=== PATIENT | female | born 1940 | race Caucasian/White ===

== ENCOUNTER → 2016-08-11 | Outpatient (CLI) | payer MEDICARE ==
[~2016-08-11] MED LIST: ASP81TEC PO; BETA1TAB15 PO; CALC-80 PO; CARV3.12T GT; CPR500T PO; FISH1CAP15 PO; LACT1CAP62 PO; LETR2.5T5 PO; LISI1TAB PO; METR500T PO; NIAC1CAP PO; OXYC-12 PO; ROSU5TAB PO; VENL25TA2 PO; VENL37.52 PO; VIT1TABL93 PO
--- OUTSIDE RECORDS SUMMARY | 2016-08-11 07:51 | XMS REPORT | Continuity of Care Document ---
Author Author [facility] Organization [facility] Address Unknown Phone Unavailable Care Team Providers Care Heating Element Winder Name Role Phone Allegra Evangelista PCP [phone] Source Comments Some departments are not documenting in the electronic medical record. If you do not see the information that you expected, contact Release of Information in the Health Information Management department at [phone] for further assistance in locating additional records.[facility] Active Allergies and Adverse Reactions No [...]
--- NOTE | 2016-08-11 11:48 | Diagnostic Imaging Report ---
PROCEDURE: MRI lumbar spine. TECHNIQUE: Multiplanar, multisequence MRI of the lumbar spine was performed without contrast. INDICATION: Back pain, anterior bilateral leg pain. FINDINGS: The previous MRI lumbar spine exam performed on 10/28/2013 noted a compression deformity of L1. There did appear to be some reactive edema in this area. On this exam, the compression deformity of L1 is again evident and does not appear to have changed significantly. As on the prior exam, there is mild retropulsion of the posterior superior endplate of L1. This portion of the vertebral body indents the ventral aspect of the thecal sac. The thecal sac is generous, however, and there is no evidence for spinal stenosis at this level. The previous study did show slight anterior translation of L4 with respect to L5 as well as desiccation of the disc at the L4-5 level. On the prior exam, the AP diameter of the thecal sac was narrowed to approximately 6.7 mm. On this exam, the AP diameter measures approximately 6.3 mm. There is mild narrowing of the neural foramen bilaterally at this level. The remainder of the lumbar spine is stable when compared to the prior study. No new area of spinal stenosis or nerve root encroachment has developed. There is no abnormal signal arising from the cord or the vertebral bodies to indicate an acute abnormality. There is no sign of a paraspinal mass. IMPRESSION: 1. The compression deformity of L1 seen on the previous study appears stable. There is no acute bony abnormality of the lumbar spine. 2. 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 There is mild narrowing of the neural foramen bilaterally at this level. 3. The remainder of the lumbar spine is stable when compared to the previous study. No new area of spinal stenosis or nerve root encroachment has developed. Dictated by: Dictated on workstation # [id number]
== END ==
LOC: RAD 07:46
PROVIDERS: ATTEND Nurse Practitioner Family
DX: M54.5 Low back pain (principal); M48.06 Spinal stenosis, lumbar region
CPT/HCPCS: 72148

== ENCOUNTER 2016-08-23 10:14 | Outpatient (RCR) | payer MEDICARE ==
--- OUTSIDE RECORDS SUMMARY | 2016-06-06 12:42 | XMS REPORT | Continuity of Care Document ---
Author Author [facility] Organization [facility] Address Unknown Phone Unavailable Care Team Providers Care Side Guider Name Role Phone Allegra Evangelista PCP [phone] Source Comments Some departments are not documenting in the electronic medical record. If you do not see the information that you expected, contact Release of Information in the Health Information Management department at [phone] for further assistance in locating additional records.[facility] Active Allergies and Adverse Reactions No Known Allergies Current Medications Prescription Sig. Disp. Refills Start End Date Status Date rosuvastatin (CRESTOR) 5 Take 5 mg by mouth daily. Active mg tablet venlafaxine XR (EFFEXOR Take 37.5 mg by mouth Active XR) 37.5 mg capsule daily. niacin 500 mg tablet Take 500 mg by mouth Active daily. diazepam (VALIUM) 5 mg Take 5 mg by mouth at Active tablet bedtime as needed. oxyCODone-acetaminophen Take 1-2 Tabs by mouth Active (PERCOCET; ENDOCET; every 4 hours as needed ROXICET) 5-325 mg tablet Max 12 tabs/day carvedilol (COREG) 6.25 Take 1 Tab by mouth twice 60 Tab 1 03/19/20 Active mg tablet daily. 13 lactobacillus rhamnosus Take 1 Cap by mouth twice 60 Cap 1 03/19/20 Active (GG) (CULTURELLE) 10 daily with meals. 13 billion cell cap loperamide (IMODIUM) 2 mg Take 1 Cap by mouth as 03/19/20 Active capsule Needed. For diarrhea. Do 13 not exceed 8 capsules in 24 hours. Active Problems Problem Noted Date Septic shock(785.52) 03/10/2013 Elevated troponin 03/10/2013 Abdominal pain 03/10/2013 Acute renal failure (HCC) 03/10/2013 Lactic acidosis 03/10/2013 Electrolyte disturbance 03/10/2013 Thrombocytopenia (HCC) 03/10/2013 Metabolic acidosis 03/10/2013 Breast carcinoma (HCC) 03/10/2013 Colitis 03/09/2013 Severe sepsis(995.92) 03/09/2013 Hypotension 03/09/2013 HLD (hyperlipidemia) 03/09/2013 Resolved Problems Problem Noted Date Resolved Date Acute kidney injury (HCC) 03/11/2013 03/11/2013 Immunizations Name Dates Previously Given Next Due Flu Vaccine Trivalent=>3 03/14/2013 Yo (Preservative Free) Pneumococcal Vaccine 03/13/2013 (23-Ramila Adult) Social History Tobacco Use Types Packs/Day Years Used Date Never Smoker Alcohol Use Drinks/Week oz/Week Comments Yes once a year Last Filed Vital Signs Vital Sign Reading Time Taken Blood Pressure 158/75 03/19/2013 12:50 PM CDT Pulse 84 03/19/2013 12:50 PM CDT Temperature 36.8 C (98.3 F) 03/19/2013 12:50 PM CDT Respiratory Rate - - Height 1.651 m (5' 5") 03/09/2013 1:24 PM CDT Weight 90.5 kg (199 lb 8.3 oz) 03/19/2013 3:02 AM CDT Body Mass Index 33.2 03/19/2013 3:02 AM CDT Oxygen Saturation 99% 03/19/2013 12:50 PM CDT Plan of Care Health Maintenance Due Date Last Done Comments Physical (Comprehensive) 10/01/1947 Exam Pertussis Vaccine 10/01/1951 Tetanus Vaccine 1957 Breast Cancer Screening 1980 Colorectal Cancer 1990 Screening Shingles Vaccine 2000 Osteoporosis Screening 2005 Prevnar/Pneumovax (#2) 03/13/2014 03/13/2013 Influenza Vaccine 02/17/2016 03/14/2013 Results from Last 3 Months Not on file
== END 2016-08-23 11:27 | disposition home or self-care (01) ==
PROVIDERS: ATTEND Orthopaedic Surgery
DX: M25.511 Pain in right shoulder (principal); Z98.890 Other specified postprocedural states

== ENCOUNTER 2016-09-05 09:53 | Outpatient (RCR) | payer MEDICARE ==
--- OUTSIDE RECORDS SUMMARY | 2016-09-05 09:56 | XMS REPORT | Continuity of Care Document ---
Author Author [facility] Organization [facility] Address Unknown Phone Unavailable Care Team Providers Care Children'S Librarian Name Role Phone Allegra Evangelista PCP [phone] Source Comments Some departments are not documenting in the electronic medical record. If you do not see the information that you expected, contact Release of Information in the Health Information Management department at [phone] for further assistance in locating additional records.[facility] Active Allergies and Adverse Reactions No [...]
[2016-09-05 10:03] LABS: BASOPHILS % (AUTO) 0 % (0-10); EOSINOPHILS # (AUTO) 0.1 10^3/uL (0.0-0.3); EOSINOPHILS % (AUTO) 2 % (0-10); LYMPHOCYTES # (AUTO) 2.5 X 10^3 (1.0-4.0); LYMPHOCYTES % (AUTO) 38 % (12-44); MEAN CORPUSCULAR HEMOGLOBIN 29 PG (25-34); MEAN CORPUSCULAR HGB CONC 33 G/DL (32-36); MEAN CORPUSCULAR VOLUME 88 FL (80-99); MEAN PLATELET VOLUME 10.8 FL (7.4-10.4); MONOCYTES # (AUTO) 0.6 X 10^3 (0.0-1.0); MONOCYTES % (AUTO) 9 % (0-12); NEUTROPHILS # (AUTO) 3.4 X 10^3 (1.8-7.8); NEUTROPHILS % (AUTO) 51 % (42-75); PLATELET COUNT 183 10^3/uL (130-400); RED BLOOD COUNT 4.75 10^6/uL (4.35-5.85); RED CELL DISTRIBUTION WIDTH 15.1 % (10.0-14.5); WHITE BLOOD COUNT 6.7 10^3/uL (4.3-11.0)
[2016-09-05 11:00] LABS: ALBUMIN 4.1 G/DL (3.2-4.5); CALCIUM 10.4 MG/DL (8.5-10.1); CREATININE SERUM 1.18 MG/DL (0.60-1.30); POTASSIUM 4.7 MMOL/L (3.6-5.0); TOTAL PROTEIN 6.7 G/DL (6.4-8.2)
[2016-09-05] MEDS ORDERED: DENOSUMAB 60 MG/1 ML (PROLIA) CANCER CTR SQ SCH (11:15)
== END 2016-12-04 | disposition home or self-care (01) ==
LOC: ONC 09:53
PROVIDERS: ATTEND Internal Medicine Hematology & Oncology
DX: C50.912 Malignant neoplasm of unspecified site of left female breast (principal); M85.80 Other specified disorders of bone density and structure, unspecified site; Z17.0 Estrogen receptor positive status [ER+]; Z79.811 Long term (current) use of aromatase inhibitors; Z79.899 Other long term (current) drug therapy
CPT/HCPCS: 36415; 80053; 82306; 85025; 96372; 99213

== ENCOUNTER 2016-09-18 12:45 | Outpatient (CLI) | payer MEDICARE ==
[~2016-09-18] VITALS: Ht 165.1 cm; Wt 69.4 kg
[2016-09-18] MEDS ORDERED: BUPIVACAINE 0.25% 30 ML (SENSORCAINE) VIAL ONE (12:56)
[2016-09-18] MEDS ORDERED: LIDOCAINE 1% INJ 20 ML (XYLOCAINE) VIAL ONE (12:56)
[2016-09-18] MEDS ORDERED: TRIAMCINOLONE ACET (KENALOG-40) 40 MG/ML 1 ML VIAL ONE (12:56)
[2016-09-18 13:03] VITALS: BP 146/60
[2016-09-18 13:52] VITALS: BP 161/72
--- NOTE | 2016-09-18 14:28 | Pain Medicine-Procedure ---
Procedure Pre-Op/Post-Op Diagnosis Diagnosis: sacrococcygeal disorder Indications for Operation Hip pain Attending Surgeon Dany Procedure Date of Service: Sep 18, 2016 Procedure: Flouroscopic guided bilateral sacroiliac joint injection PROCEDURE IN DETAIL: After obtaining informed consent from the patient, the patient's chart was reviewed. The patient was then brought to the procedure room and placed in the prone position. A time out was performed. The back was prepped with antiseptic solution and under fluoroscopic guidance the patient's sacroiliac joint on both sides was identified. Attention was first turned to the right sacroiliac joint injection where 2 mL's of 1% lidocaine was used to anesthetize the skin and then two 22-gauge 3.5 inch spinal needles were inserted and advanced under flouroscopic guidance until they were in the lower 1 /3 of the right sacroiliac joint. Next, attention was then turned to the left sacroiliac joint injection where 2 mL's of 1% lidocaine was used to anesthetize the skin and then two 22-gauge 3.5 inch spinal needles were inserted and advance under flouroscopic guidance until they were in the lower 1/3 of the sacroiliac joint on the left side. After negative aspiration, each needle was injected with 40 mg of Kenalog along with 2 mL's of 0.25% marcaine. All needles were then flushed with 1% lidocaine and then removed. Band-Aids were applied to all the sites and the patient tolerated the procedure well and was taken to the recovery area in stable condition. Complications None SAMEER ROTH MD Sep 18, 2016 2:28 pm
== END 2016-09-18 13:53 | disposition home or self-care (01) ==
LOC: CARD 12:45
PROVIDERS: ATTEND Pain Medicine Pain Medicine
DX: M53.3 Sacrococcygeal disorders, not elsewhere classified (principal); M47.816 Spondylosis without myelopathy or radiculopathy, lumbar region; Z79.899 Other long term (current) drug therapy
CPT/HCPCS: 27096

== ENCOUNTER 2016-10-27 09:08 | Outpatient (CLI) | payer MEDICARE ==
[~2016-10-27] VITALS: Ht 165.1 cm; Wt 69.4 kg
[2016-10-27] MEDS ORDERED: TRIAMCINOLONE ACET (KENALOG-40) 40 MG/ML 1 ML VIAL ONE (09:53)
[2016-10-27] MEDS ORDERED: BUPIVACAINE 0.25% 30 ML (SENSORCAINE) VIAL ONE (09:53)
[2016-10-27] MEDS ORDERED: LIDOCAINE 1% INJ 20 ML (XYLOCAINE) VIAL ONE (09:53)
[2016-10-27 10:35] VITALS: BP 162/70
--- NOTE | 2016-10-27 13:20 | Pain Medicine-Procedure ---
Procedure Pre-Op/Post-Op Diagnosis Diagnosis: sacrococcygeal disorder Indications for Operation Hip pain Attending Surgeon Dany Procedure Date of Service: October 27, 2016 Procedure: Flouroscopic guided right sacroiliac joint injection PROCEDURE IN DETAIL: After obtaining informed consent from the patient, the patient's chart was reviewed. The patient was then brought to the procedure room and placed in the prone position. A time out was performed. The back was prepped with antiseptic solution and under fluoroscopic guidance the patient's sacroiliac joint on the right side was identified. Right sacroiliac joint was identified with fluoroscopic guidance and 2 mL's of 1% lidocaine was used to anesthestize the skin and then one 22-gauge 3.5 inch spinal needle was inserted and advance under flouroscopic guidance until it was in the posterior inferior 1 /3 of the sacroiliac joint on the right side. After negative aspiration, needle was injected with 80 mg of Kenalog along with 2 mL's of 0.25% marcaine. Needle was then flushed with 1% lidocaine and then removed. Band-Aids were applied to all the sites and the patient tolerated the procedure well and was taken to the recovery area in stable condition. Complications None SAMEER ROTH MD October 27, 2016 1:20 pm
== END 2016-10-27 10:37 | disposition home or self-care (01) ==
LOC: CARD 09:08
PROVIDERS: ATTEND Pain Medicine Pain Medicine
DX: M53.3 Sacrococcygeal disorders, not elsewhere classified (principal)
CPT/HCPCS: 27096

== ENCOUNTER → 2016-11-23 | Outpatient (CLI) | payer MEDICARE ==
--- NOTE | 2016-11-24 17:53 | Diagnostic Imaging Report ---
Bilateral screening mammogram The current study was also evaluated with a Computer Aided Detection (CAD) system. INDICATION: Screening. No current complaints stated on the questionnaire. COMPARISON: 11/22/2015. FINDINGS: The breasts are composed of scattered fibroglandular densities. There is no mass, architectural distortion, or suspicious cluster of calcifications. Surgical clip projecting over the left axillary region within or adjacent to the left pectoralis muscle is seen. Allowing for technique and positional differences, no suspicious change is seen. IMPRESSION: No significant change. ACR BI-RADS Category 2: Benign findings. Result letter will be mailed to the patient. Note: At least 10% of breast cancer is not imaged by mammography. Dictated on workstation # [id number]
== END ==
LOC: RAD 10:32
PROVIDERS: ATTEND Nurse Practitioner Adult Health
DX: Z12.31 Encounter for screening mammogram for malignant neoplasm of breast (principal)
CPT/HCPCS: 77067

== ENCOUNTER 2017-03-09 11:25 | Outpatient (RCR) | payer MEDICARE ==
[2017-03-09 11:41] LABS: BASOPHILS % (AUTO) 0 % (0-10); EOSINOPHILS # (AUTO) 0.2 10^3/uL (0.0-0.3); EOSINOPHILS % (AUTO) 2 % (0-10); LYMPHOCYTES # (AUTO) 2.3 X 10^3 (1.0-4.0); LYMPHOCYTES % (AUTO) 35 % (12-44); MEAN CORPUSCULAR HEMOGLOBIN 30 PG (25-34); MEAN CORPUSCULAR HGB CONC 32 G/DL (32-36); MEAN CORPUSCULAR VOLUME 95 FL (80-99); MONOCYTES # (AUTO) 0.6 X 10^3 (0.0-1.0); MONOCYTES % (AUTO) 10 % (0-12); NEUTROPHILS # (AUTO) 3.4 X 10^3 (1.8-7.8); NEUTROPHILS % (AUTO) 52 % (42-75); PLATELET COUNT 192 10^3/uL (130-400); RED BLOOD COUNT 4.29 10^6/uL (4.35-5.85); RED CELL DISTRIBUTION WIDTH 12.8 % (10.0-14.5); WHITE BLOOD COUNT 6.5 10^3/uL (4.3-11.0)
[2017-03-09 12:02] LABS: ALBUMIN 3.8 GM/DL (3.2-4.5); BILIRUBIN,TOTAL 0.8 MG/DL (0.1-1.0); CALCIUM 9.4 MG/DL (8.5-10.1); CREATININE SERUM 1.02 MG/DL (0.60-1.30); POTASSIUM 3.8 MMOL/L (3.6-5.0); TOTAL PROTEIN 6.4 GM/DL (6.4-8.2)
[2017-03-09] MEDS ORDERED: DENOSUMAB 60 MG/1 ML (PROLIA) CANCER CTR SQ SCH (12:15)
== END 2017-03-17 | disposition home or self-care (01) ==
LOC: ONC 11:25
PROVIDERS: ATTEND Internal Medicine Hematology & Oncology
DX: C50.912 Malignant neoplasm of unspecified site of left female breast (principal); M85.80 Other specified disorders of bone density and structure, unspecified site; Z17.0 Estrogen receptor positive status [ER+]; Z79.811 Long term (current) use of aromatase inhibitors; Z79.899 Other long term (current) drug therapy
CPT/HCPCS: 36415; 80053; 85025; 96372

== ENCOUNTER → 2017-09-28 | Outpatient (CLI) | payer MEDICARE ==
--- NOTE | 2017-09-28 13:51 | Diagnostic Imaging Report ---
Indication: Left knee pain. Procedure: AP, oblique, and lateral views left knee are obtained. Findings: No fracture or acute bony abnormality seen. Impression: Negative left knee. Dictated by: Dictated on workstation # [id number]
== END ==
LOC: RAD 13:33
PROVIDERS: ATTEND Nurse Practitioner Family
DX: M25.562 Pain in left knee (principal)
CPT/HCPCS: 73562

== ENCOUNTER → 2017-10-02 | Outpatient (CLI) | payer MEDICARE ==
--- NOTE | 2017-10-02 15:56 | Diagnostic Imaging Report ---
PROCEDURE: MRI left joint lower extremity without contrast. TECHNIQUE: Multiplanar, multisequence non contrast-enhanced MRI of the left lower extremity was accomplished. INDICATION: Chronic left knee pain. COMPARISON: 09/28/2017 radiographs. FINDINGS: No acute fracture or dislocation is seen in the left knee. Alignment appears normal. There are subcortical cyst-like changes and bone marrow edema at the patella and the lateral trochlea. A small left knee joint effusion is seen. There is moderate cartilaginous thinning and irregularity in the articular cartilage of the patella, with full-thickness fissuring over the median ridge and a full-thickness defect at the lateral trochlea. The articular cartilage in the medial and lateral compartments demonstrates mild thinning with no large full-thickness defects identified. There is complex degenerative tearing of the posterior horn of the medial meniscus, without root avulsion. There is a radial tear at the posterior horn of the lateral meniscus, and complex degenerative tearing of the anterior horn. The anterior and posterior cruciate ligaments are intact. The medial collateral ligament and the lateral collateral ligamentous complex are intact. The extensor mechanism is intact. There is mild edema in Hoffa's fat pad. Mild subcutaneous edema is seen anterior to the patellar tendon. No soft tissue fluid collections are seen. IMPRESSION: 1. Full-thickness cartilage loss at the lateral patellofemoral compartment of the left knee with underlying subcortical cyst-like changes and bone marrow edema. 2. Degenerative tearing of the medial and lateral menisci. Dictated by: Dictated on workstation # [id number]
== END ==
LOC: RAD 13:13
PROVIDERS: ATTEND Nurse Practitioner Family
DX: S83.282A Other tear of lateral meniscus, current injury, left knee, initial encounter (principal); S83.242A Other tear of medial meniscus, current injury, left knee, initial encounter; M89.8X8 Other specified disorders of bone, other site; M94.8X8 Other specified disorders of cartilage, other site
CPT/HCPCS: 73721

== ENCOUNTER → 2017-11-29 | Outpatient (CLI) | payer MEDICARE ==
--- NOTE | 2017-11-29 16:21 | Diagnostic Imaging Report ---
Indication: Osteoporosis screening. Comparison is made with prior DEXA study from 04/22/2015. Bone mineral analysis of the lumbar spine and right hip was performed. Left hip was not evaluated due to left hip hardware. Bone mineral density of the lumbar spine L2-L4 is 1.038 with T score -1.3. This compares with 0.944 and -2.1. Bone mineral density right femoral neck is 0.785 with T score -1.8. This compares with 0.72 and -1.8. Impression: Findings consistent with osteopenia of the lumbar spine and right femoral neck. Dictated by: Dictated on workstation # [id number]
--- NOTE | 2017-11-29 19:15 | Diagnostic Imaging Report ---
INDICATION: Routine screening. Comparison is made with prior mammograms from 11/23/2016 and 11/22/2015. 2-D and 3-D bilateral screening mammography was performed with CAD. The current study was also evaluated with a Computer Aided Detection (CAD) system. FINDINGS: Scattered fibroglandular densities are identified bilaterally. The parenchymal pattern is stable. No dominant mass or malignant-appearing microcalcifications are seen. Axillae are unremarkable. IMPRESSION: No mammographic features suspicious for malignancy are identified. ACR BI-RADS Category 1: Negative. Result letter will be mailed to the patient. Note: At least 10% of breast cancer is not imaged by mammography. Dictated by: Dictated on workstation # [id number]
== END ==
LOC: RAD 11:06
PROVIDERS: ATTEND Nurse Practitioner Adult Health
DX: C50.812 Malignant neoplasm of overlapping sites of left female breast (principal); Z12.31 Encounter for screening mammogram for malignant neoplasm of breast; Z13.820 Encounter for screening for osteoporosis; M85.9 Disorder of bone density and structure, unspecified; N95.9 Unspecified menopausal and perimenopausal disorder; Z79.811 Long term (current) use of aromatase inhibitors
CPT/HCPCS: 77067; 77080

== ENCOUNTER 2018-04-01 10:00 | Outpatient (RCR) | payer MEDICARE ==
[2018-04-01 10:17] LABS: BASOPHILS % (AUTO) 0 % (0-10); EOSINOPHILS # (AUTO) 0.1 10^3/uL (0.0-0.3); EOSINOPHILS % (AUTO) 2 % (0-10); HEMATOCRIT 39 % (35-52); HEMOGLOBIN 13.3 G/DL (11.5-16.0); LYMPHOCYTES # (AUTO) 2.3 X 10^3 (1.0-4.0); LYMPHOCYTES % (AUTO) 27 % (12-44); MEAN CORPUSCULAR HEMOGLOBIN 31 PG (25-34); MEAN CORPUSCULAR HGB CONC 34 G/DL (32-36); MEAN CORPUSCULAR VOLUME 91 FL (80-99); MONOCYTES # (AUTO) 0.8 X 10^3 (0.0-1.0); MONOCYTES % (AUTO) 9 % (0-12); NEUTROPHILS # (AUTO) 5.4 X 10^3 (1.8-7.8); NEUTROPHILS % (AUTO) 63 % (42-75); PLATELET COUNT 164 10^3/uL (130-400); RED BLOOD COUNT 4.32 10^6/uL (4.35-5.85); RED CELL DISTRIBUTION WIDTH 14.1 % (10.0-14.5); WHITE BLOOD COUNT 8.6 10^3/uL (4.3-11.0)
[2018-04-01 10:36] LABS: BILIRUBIN,TOTAL 0.8 MG/DL (0.1-1.0); CALCIUM 10.1 MG/DL (8.5-10.1); CREATININE SERUM 1.22 MG/DL (0.60-1.30); POTASSIUM 4.4 MMOL/L (3.6-5.0); TOTAL PROTEIN 6.6 GM/DL (6.4-8.2)
[2018-04-01] MEDS ORDERED: DENOSUMAB 60 MG/1 ML (PROLIA) CANCER CTR SQ SCH (10:45)
== END 2018-06-30 | disposition home or self-care (01) ==
LOC: ONC 10:00
PROVIDERS: ATTEND Internal Medicine Hematology & Oncology
DX: C50.812 Malignant neoplasm of overlapping sites of left female breast (principal); M85.80 Other specified disorders of bone density and structure, unspecified site; I12.9 Hypertensive chronic kidney disease with stage 1 through stage 4 chronic kidney disease, or unspecified chronic kidney disease; N18.3 Chronic kidney disease, stage 3 (moderate); E55.9 Vitamin D deficiency, unspecified; E78.00 Pure hypercholesterolemia, unspecified; Z17.0 Estrogen receptor positive status [ER+]; Z79.811 Long term (current) use of aromatase inhibitors; Z79.82 Long term (current) use of aspirin; Z79.899 Other long term (current) drug therapy
CPT/HCPCS: 36415; 80053; 85025; 96372

== ENCOUNTER 2018-05-08 11:00 | Outpatient (RCR) | payer MEDICARE | END 2018-05-08 12:59 | disposition home or self-care (01) | PROVIDERS: ATTEND Orthopaedic Surgery | DX: M17.12 Unilateral primary osteoarthritis, left knee (principal) ==

== ENCOUNTER 2018-07-28 09:53 | Emergency (ER) | payer MEDICARE ==
[~2018-07-28] VITALS: Ht 162.6 cm; Wt 81.6 kg
--- OUTSIDE RECORDS SUMMARY | 2018-07-28 09:57 | XMS REPORT | Clinical Summary ---
Author Author [facility] Organization [facility] Address Unknown Phone Unavailable Care Team Providers Care Snack Bar Cook Name Role Phone Idalia Moody RN Unavailable Unavailable Allegra Evangelista MD PCP Source Comments Some departments are not documenting in the electronic medical record. If you do not see the information that you expected, contact Release of Information in the Health Information Management department at [phone] for further assistance in locating additional records.[facility] Allergies No Known Allergies Medications End Date Status Medication Sig Dispensed Refills Start Date Active rosuvastatin (CRESTOR) 5 Take 5 mg by 0 mg tablet mouth daily. Active venlafaxine XR (EFFEXOR Take 37.5 mg 0 XR) 37.5 mg capsule by mouth daily. Active niacin 500 mg tablet Take 500 mg 0 by mouth daily. Active diazepam (VALIUM) 5 mg Take 5 mg by 0 tablet mouth at bedtime as needed. Active oxyCODone-acetaminophen Take 1-2 Tabs 0 (PERCOCET; ENDOCET; by mouth ROXICET) 5-325 mg tablet every 4 hours as needed Max 12 tabs/day Active carvedilol (COREG) 6.25 Take 1 Tab by 60 Tab 1 mg tablet mouth twice 3 daily. Active lactobacillus rhamnosus Take 1 Cap by 60 Cap 1 (GG) (CULTURELLE) 10 mouth twice 3 billion cell cap daily with meals. Active loperamide (IMODIUM) 2 mg Take 1 Cap by 0 capsule mouth as 3 Needed. For diarrhea. Do not exceed 8 capsules in 24 hours. Active Problems Problem Noted Date Septic shock(785.52) 03/10/2013 Elevated troponin 03/10/2013 Abdominal pain 03/10/2013 Acute renal failure 03/10/2013 Lactic acidosis 03/10/2013 Electrolyte disturbance 03/10/2013 Thrombocytopenia 03/10/2013 Metabolic acidosis 03/10/2013 Breast carcinoma 03/10/2013 Colitis 03/09/2013 Severe sepsis(995.92) 03/09/2013 Hypotension 03/09/2013 HLD (hyperlipidemia) 03/09/2013 Resolved Problems Problem Noted Date Resolved Date Acute kidney injury 03/11/2013 03/11/2013 Immunizations Name Dates Previously Given Next Due Flu Vaccine Trivalent=>3 03/14/2013 Yo (Preservative Free) Pneumococcal Vaccine 03/13/2013 (23-Ramila Adult) Family History Medical History Relation Name Comments Arthritis-rheumatoid Father Hypertension Father Stroke Father Diabetes Maternal Grandfather Heart Failure Maternal Grandmother Arthritis-rheumatoid Mother Cancer Mother Cancer Paternal Aunt Relation Name Status Comments Father Maternal Grandfather Maternal Grandmother Mother Paternal Aunt Social History Date Tobacco Use Types Packs/Day Years Used Never Smoker Alcohol Use Drinks/Week oz/Week Comments Yes once a year Sex Assigned at Date Recorded Not on file Industry Job Start Date Occupation Not on file Not on file Not on file Travel End Travel History Travel Start No recent travel history available. Last Filed Vital Signs Time Taken Vital Sign Reading 03/19/2013 12:50 PM CDT Blood Pressure 158/75 03/19/2013 12:50 PM CDT Pulse 84 03/19/2013 12:50 PM CDT Temperature 36.8 C (98.3 F) - Respiratory Rate - 03/19/2013 12:50 PM CDT Oxygen Saturation 99% - Inhaled Oxygen - Concentration 03/19/2013 3:02 AM CDT Weight 90.5 kg (199 lb 8.3 oz) 03/09/2013 1:24 PM CDT Height 165.1 cm (5' 5") 03/19/2013 3:02 AM CDT Body Mass Index 33.2 Plan of Treatment Health Maintenance Due Date Last Done Comments PHYSICAL (COMPREHENSIVE) 10/01/1947 EXAM DTAP/TDAP VACCINES (1 - 1958 Tdap) SHINGLES RECOMBINANT 1990 VACCINE (1 of 2) OSTEOPOROSIS 2005 SCREENING/MONITORING PNEUMONIA (PCV13/PPSV23) 03/13/2014 03/13/2013 VACCINES (2 of 2 - PCV13) INFLUENZA VACCINE 01/16/2018 03/14/2013 Results Not on filefrom Last 3 Months Insurance Payer Benefit Subscriber ID Type Phone Address Plan / Group MEDICARE MEDICARE xxxxxxxxxx Medicare PART A AND B BCBS NGOC BCBS xxxxxxxxxxxx Medicare SUPPLEMENT Advance Directives Patient has advance care planning documents, and code status on file. For more information, please contact: [facility] [address] [place] [address] Date Inactivated Comments Code Status Date Activated 03/19/2013 5:45 PM Full Code 03/09/2013 9:53 PM Provider has discussed Code Status Yes w/Patient or Family? 03/09/2013 9:53 PM Full Code 03/09/2013 9:01 PM Provider has discussed Code Status Yes w/Patient or Family?
--- OUTSIDE RECORDS SUMMARY | 2018-07-28 09:59 | XMS REPORT | CCD ---
Author Author Alize Jerome Organization [facility] Address [address] [place] [address] Phone Care Team Providers Care Exhaust Emissions Inspector Name Role Phone PP Unavailable CCM Unavailable Summary Purpose Interface Exchange Insurance Providers Payer name Policy type / Coverage type Covered libertarian ID Effective Begin Date Effective End Date WPS Medicare Part B Medicare Part B [id number] Unknown Unknown [facility] Medicare Part B [id number] Unknown Unknown Family history Father Diagnosis Age At Onset Stroke Unknown Runs in the family Diagnosis Age At Onset Heart disease Unknown Cancer Unknown Mother Diagnosis Age At Onset lung cancer Unknown Heart disease Unknown Grandfather Diagnosis Age At Onset Diabetes mellitus Type 2 Unknown Social History Social History Element Codes Description Effective Dates Marital status Unknown 01/04/2015 Number of children Unknown 3 01/04/2015 Employment Unknown Retired 01/04/[address]: 334954170 Never smoker 01/04/2015 Alcohol history Unknown occasionally drinks alcohol 01/04/2015 Allergies, Adverse Reactions, Alerts Substance Reaction Codes Entered Date Inactivated Date Status * NO KNOWN FOOD ALLERGIES Unknown 01/04/2015 No Inactive Date Active * NO KNOWN DRUG ALLERGIES Unknown 01/04/2015 No Inactive Date Active Past Medical History Illness Codes Condition Status Onset Date Resolved Date Urinary tract infection, site not specified ICD-9: 599.0 ICD-10: N39.0 Active 04/22/2018 Unknown Encounter for general adult medical examination with abnormal findings ICD-9: V70.0 ICD-10: Z00.01 Active 02/09/2017 Unknown Chronic kidney disease, stage 3 (moderate) ICD-9: 585.3 ICD-10: N18.3 Active 01/10/2016 Unknown Essential (primary) hypertension ICD-9: 401.9 ICD-10: I10 Active 01/10/2016 Unknown Mixed hyperlipidemia ICD-9: 272.4 ICD-10: E78.2 Active 01/10/2016 Unknown Low back pain ICD-9: 724.2 ICD-10: M54.5 Active 08/08/2016 Unknown Major depressive disorder, recurrent, mild ICD-9: 296.31 ICD-10: F33.0 Active 11/19/2017 Unknown Mixed incontinence ICD -9: 788.33 ICD-10: N39.46 Active 11/19/2017 Unknown Generalized anxiety disorder ICD-9: 300.00 ICD-10: F41.1 Active 02/07/2016 Unknown Pain in left knee ICD- 9: 719.46 ICD-10: M25.562 Active 09/25/2017 Unknown Synovial cyst of popliteal space [Butts], left knee ICD-9: 727.51 ICD-10: M71.22 Active 09/25/2017 Unknown Chronic pain syndrome ICD-9: 338.4 ICD-10: G89.4 Active 07/12/2017 Unknown Encounter for immunization ICD-9: V06.6 ICD-10: Z23 Active 03/12/2017 Unknown Iliotibial band syndrome, right leg ICD-9: 728.89 ICD-10: M76.31 Active 02/08/2017 Unknown Trochanteric bursitis, right hip ICD-9: 726.5 ICD-10: M70.61 Active 02/08/2017 Unknown Vitamin D deficiency, unspecified ICD-9: 268.9 ICD-10: E55.9 Active 01/10/2016 Unknown Sciatica, right side ICD-9: 724.3 ICD-10: M54.31 Active 02/07/2016 Unknown Forearm fracture ICD-9 : 813.80 Active 03/04/2015 Unknown Hyperlipidemia Unknown Active 01/04/2015 Unknown Hypertension Unknown Active 01/04/2015 Unknown Anxiety state ICD-9: 300.00 Active 01/03/2015 Unknown Chronic renal disease, stage 3, moderately decreased glomerular filtration rate (GFR) between 30-59 mL/min/1.73 square meter ICD-9: 585.3 Active 01/03/2015 Unknown ESSENTIAL HYPERTENSION ICD-9: 401.9 Active 01/03/2015 Unknown Hyperlipidemia ICD-9: 272.4 Active 01/03/2015 Unknown Problems Condition Codes Effective Dates Condition Status Urinary tract infection, site not specified ICD-9: 599.0 ICD-10: N39.0 04/22/2018 Active Encounter for general adult medical examination with abnormal findings ICD-9: V70.0 ICD-10: Z00.01 02/09/2017 Active Chronic kidney disease, stage 3 (moderate) ICD-9: 585.3 ICD-10: N18.3 01/10/2016 Active Essential (primary) hypertension ICD-9: 401.9 ICD-10: I10 01/10/2016 Active Mixed hyperlipidemia ICD-9: 272.4 ICD-10: E78.2 01/10/2016 Active Low back pain ICD-9: 724.2 ICD-10: M54.5 08/08/2016 Active Major depressive disorder, recurrent, mild ICD-9: 296.31 ICD-10: F33.0 11/19/2017 Active Mixed incontinence ICD -9: 788.33 ICD-10: N39.46 11/19/2017 Active Generalized anxiety disorder ICD-9: 300.00 ICD-10: F41.1 02/07/2016 Active Pain in left knee ICD- 9: 719.46 ICD-10: M25.562 09/25/2017 Active Synovial cyst of popliteal space [Butts], left knee ICD-9: 727.51 ICD-10: M71.22 09/25/2017 Active Chronic pain syndrome ICD-9: 338.4 ICD-10: G89.4 07/12/2017 Active Encounter for immunization ICD-9: V06.6 ICD-10: Z23 03/12/2017 Active Iliotibial band syndrome, right leg ICD-9: 728.89 ICD-10: M76.31 02/08/2017 Active Trochanteric bursitis, right hip ICD-9: 726.5 ICD-10: M70.61 02/08/2017 Active Vitamin D deficiency, unspecified ICD-9: 268.9 ICD-10: E55.9 01/10/2016 Active Sciatica, right side ICD-9: 724.3 ICD-10: M54.31 02/07/2016 Active Forearm fracture ICD-9 : 813.80 03/04/2015 Active Hyperlipidemia Unknown 01/04/2015 Active Hypertension Unknown 01/04/2015 Active Anxiety state ICD-9: 300.00 01/03/2015 Active Chronic renal disease, stage 3, moderately decreased glomerular filtration rate (GFR) between 30-59 mL/min/1.73 square meter ICD-9: 585.3 01/03/2015 Active ESSENTIAL HYPERTENSION ICD-9: 401.9 01/03/2015 Active Hyperlipidemia ICD-9: 272.4 01/03/2015 Active Medications Medication Codes Instructions Start Date Stop Date Status Fill Instructions hydrocodone 5 mg-acetaminophen 325 mg tablet RxNorm: 560003 1 Tablet(s) PO Q6 as needed 07/01/2018 07/23/2018 Active hydrocodone 5 mg-acetaminophen 325 mg tablet RxNorm: 981318 1 Tablet(s) PO Q6 as needed 05/14/2018 06/05/2018 Inactive Cipro 500 mg tablet RxNorm: 304273 1 Tablet(s) PO BID 201705/13/2018 Inactive Probiotic BID x 7 days Cipro 500 mg tablet RxNorm: 997982 1 Tablet(s) PO BID 201705/20/2018 Inactive Augmentin 875 mg-125 mg tablet RxNorm: 440721 1 Tablet(s) PO BID 04/29/2018 05/05/2018 Inactive Keflex 500 mg capsule RxNorm: 931707 1 Capsule(s) PO TID 201704/28/2018 Inactive diazepam 5 mg tablet RxNorm: 731580 1 Tablet(s) PO TID PRN 07/14/2018 Active hydrocodone 5 mg-acetaminophen 325 mg tablet RxNorm: 002646 1 Tablet(s) PO Q6 as needed 03/15/2018 04/06/2018 Inactive carvedilol 3.125 mg tablet RxNorm: 099415 TAKE ONE TABLET BY MOUTH TWICE A DAY 02/11/2018 08/09/2018 Active Myrbetriq 25 mg tablet,extended release RxNorm: 2365862 1 Tablet(s) PO daily 01/22/2018 07/20/2018 Active hydrocodone 5 mg-acetaminophen 325 mg tablet RxNorm: 195939 1 Tablet(s) PO Q6 as needed 01/22/2018 02/13/2018 Inactive hydrocodone 5 mg-acetaminophen 325 mg tablet RxNorm: 719229 1 Tablet(s) PO Q6 as needed 11/27/2017 12/19/2017 Inactive Lexapro 10 mg tablet RxNorm: 887024 1.5 Tablet(s) PO daily 09/201709/09/2019 Active Myrbetriq 25 mg tablet,extended release RxNorm: 8975117 1 Tablet(s) PO daily 11/19/2017 01/21/2018 Inactive diazepam 5 mg tablet RxNorm: 226531 1 Tablet(s) PO TID PRN 04/15/2018 Inactive Lexapro 10 mg tablet RxNorm: 685615 TAKE ONE TABLET BY MOUTH EVERY EVENING 10/01/2017 11/18/2017 Inactive hydrocodone 5 mg-acetaminophen 325 mg tablet RxNorm: 543189 1 Tablet(s) PO Q6 as needed 09/28/2017 10/20/2017 Inactive Voltaren 1 % topical gel RxNorm: 627281 4 Gram(s) TOP QID 09/2501/22/2018 Inactive Kenalog 40 mg/mL suspension for injection RxNorm: 7505296 1 Milliliter(s) Inj 09/25/2017 09/25/2017 Inactive Bactrim DS 800 mg-160 mg tablet RxNorm: 838771 1 Tablet(s) PO BID 09/05/2017 09/11/2017 Inactive Take probiotic BID while on antibiotic Bactrim DS 800 mg-160 mg tablet RxNorm: 379265 1 Tablet(s) PO BID 09/05/2017 09/04/2017 Inactive Take probiotic BID while on antibiotic hydrocodone 5 mg-acetaminophen 325 mg tablet RxNorm: 723927 1 Tablet(s) PO Q6 as needed 07/12/2017 09/27/2017 Inactive hydrocodone 5 mg-acetaminophen 325 mg tablet RxNorm: 118633 1 Tablet(s) PO Q6 as needed 06/05/2017 07/11/2017 Inactive carvedilol 3.125 mg tablet RxNorm: 068508 TAKE ONE TABLET BY MOUTH TWICE A DAY 05/21/2017 02/10/2018 Inactive hydrocodone 5 mg-acetaminophen 325 mg tablet RxNorm: 203985 1 Tablet(s) PO Q6 as needed 04/20/2017 06/04/2017 Inactive Voltaren 1 % topical gel RxNorm: 154800 2 Gram(s) TOP QID to affected area 04/12/2017 07/10/2017 Inactive Voltaren 1 % topical gel RxNorm: 147989 2 Gram(s) TOP QID to affected area 04/12/2017 04/11/2017 Inactive diazepam 5 mg tablet RxNorm: 069458 1 Tablet(s) PO TID PRN 04/15/2018 Inactive Flector 1.3 % transdermal 12 hour patch RxNorm: 356249 1 Patch TOP BID 03/27/2017 04/11/2017 Inactive Flector 1.3 % transdermal 12 hour patch RxNorm: 812623 1/8 Patch TOP BID 03/12/2017 03/26/2017 Inactive hydrocodone 5 mg-acetaminophen 325 mg tablet RxNorm: 906883 1 Tablet(s) PO Q6 as needed 02/20/2017 04/19/2017 Inactive prednisone 10 mg tablets in a dose pack RxNorm: 696181 1 Tablet(s) PO UD 02/08/2017 09/24/2017 Inactive prednisone 10 mg tablets in a dose pack RxNorm: 651242 1 Tablet(s) PO UD 02/08/2017 02/07/2017 Inactive diazepam 5 mg tablet RxNorm: 642675 1 Tablet(s) PO TID PRN 08/201601/15/2017 Inactive Lexapro 10 mg tablet RxNorm: 458986 TAKE ONE TABLET BY MOUTH EVERY EVENING 08/13/2016 2017 Inactive carvedilol 3.125 mg tablet RxNorm: 372954 1 Tablet(s) PO BID 05/20/2017 Inactive diazepam 5 mg tablet RxNorm: 090186 1 Tablet(s) PO TID PRN 04/15/2018 Inactive Lexapro 10 mg tablet RxNorm: 598206 1 Tablet(s) PO QPM 201508/12/2016 Inactive Lexapro 5 mg tablet RxNorm: 454287 2 Tablet(s) PO QPM 201502/28/2016 Inactive hydrocodone 5 mg-acetaminophen 325 mg tablet RxNorm: 200396 1 Tablet(s) PO Q6 as needed 02/08/2016 02/19/2017 Inactive Lexapro 5 mg tablet RxNorm: 906034 1 Tablet(s) PO QPM 201502/17/2016 Inactive diazepam 5 mg tablet RxNorm: 482376 1 Tablet(s) PO TID PRN 07/201501/15/2016 Inactive Effexor XR 37.5 mg capsule,extended release RxNorm: 717058 1 Capsule(s) PO daily 09/29/2015 01/10/2016 Inactive diazepam 5 mg tablet RxNorm: 073163 1 Tablet(s) PO TID PRN 09/06/2015 Inactive carvedilol 3.125 mg tablet RxNorm: 341986 1 Tablet(s) PO BID 05/24/2016 Inactive diazepam 5 mg tablet RxNorm: 736966 1 Tablet(s) PO TID PRN 03/16/2016 Inactive Fish Oil 360 mg-1,200 mg capsule RxNorm: 376830 1 Capsule(s) PO daily 01/04/2015 No Stop Date Active diazepam 5 mg tablet RxNorm: 545988 1 Tablet(s) PO TID PRN 02/01/2015 Inactive diazepam 5 mg tablet RxNorm: 619718 1 Tablet(s) PO daily 201412/21/2014 Inactive pt to make an appt- called 1 mo to [facility]ill[facility] diazepam 5 mg tablet RxNorm: 695017 1 Tablet(s) PO daily 201412/21/2014 Inactive diazepam 5 mg tablet RxNorm: 316099 1 Tablet(s) PO QHS 201401/03/2015 Inactive pt to make an appt- called 1 mo to dill[facility] niacin (inositol niacinate) 500 mg capsule RxNorm: 748428 1 Capsule(s) PO daily No Start Date Active letrozole 2.5 mg tablet RxNorm: 216631 1 Tablet(s) PO daily No Start Date Active aspirin 81 mg tablet RxNorm: 022946 1 Tablet(s) PO daily No Start Date Active Crestor 5 mg tablet RxNorm: 757629 1 Tablet(s) PO QHS No Start Date Active hydrocodone 5 mg-acetaminophen 325 mg tablet RxNorm: 748534 1 Tablet(s) PO Q6 as needed No Start Date 02/07/2016 Inactive Coreg 6.25 mg tablet RxNorm: 479420 1 Tablet(s) PO BID No Start Date 05/30/2015 Inactive Delzicol 400 mg capsule,delayed release RxNorm: 1669490 2 Capsule(s) PO daily No Start Date 08/07/2016 Inactive venlafaxine 37.5 mg tablet RxNorm: 521071 1 Tablet(s) PO daily No Start Date 01/03/2015 Inactive Effexor XR 37.5 mg capsule,extended release RxNorm: 304091 1 Capsule(s) PO daily No Start Date 09/28/2015 Inactive Medication Administered Medication Codes Instructions Start Date Status Kenalog 40 mg/mL suspension for injection RxNorm: 7066362 1Milliliter 09/25/2017 No longer Active Immunizations Vaccine Codes Date Status Influenza CVX: 141 03/12/2017 completed Pneumococcal (Adult) CVX: 133 03/12/2017 completed PPD Unknown 03/05/2015 completed Assessments Condition Codes Effective Dates Urinary tract infection, site not specified ICD-10: N39.0 ICD-9: 599.0 05/08/2018 Encounter for general adult medical examination with abnormal findings ICD-10: Z00.01 ICD-9: V70.0 04/29/2018 Chronic kidney disease, stage 3 (moderate) ICD-10: N18.3 ICD-9: 585.3 04/22/2018 Essential (primary) hypertension ICD-10: I10 ICD-9: 401.9 04/22/2018 Mixed hyperlipidemia ICD-10: E78.2 ICD-9: 272.4 04/22/2018 Low back pain ICD-10: M54.5 ICD-9: 724.2 01/22/2018 Major depressive disorder, recurrent, mild ICD-10: F33.0 ICD-9: 296.31 01/22/2018 Mixed incontinence ICD-10: N39.46 ICD-9: 788.33 01/22/2018 Generalized anxiety disorder ICD-10: F41.1 ICD-9: 300.00 11/19/2017 Pain in left knee ICD-10: M25.562 ICD-9: 719.46 09/25/2017 Synovial cyst of popliteal space [Butts], left knee ICD-10: M71.22 ICD-9: 727.51 09/25/2017 Chronic pain syndrome ICD-10: G89.4 ICD-9: 338.4 07/12/2017 Iliotibial band syndrome, right leg ICD-10: M76.31 ICD-9: 728.89 03/12/2017 Encounter for immunization ICD-10: Z23 ICD-9: V06.6 03/12/2017 Vitamin D deficiency, unspecified ICD-10: E55.9 ICD-9: 268.9 02/08/2017 Trochanteric bursitis, right hip ICD-10: M70.61 ICD-9: 726.5 02/08/2017 Sciatica, right side ICD-10: M54.31 ICD-9: 724.3 02/08/2016 Forearm fracture ICD-9: 813.80 2014 ESSENTIAL HYPERTENSION ICD-9: 401.9 01/04 Chronic renal disease, stage 3, moderately decreased glomerular filtration rate (GFR) between 30-59 mL/min/1.73 square meter ICD-9: 585.3 01/04/2015 Hyperlipidemia ICD-9: 272.4 01/04/2015 Anxiety state ICD-9: 300.00 01/04/2015 Reason For Visit Reason For Visit Effective Dates Notes Annual Medicare Wellness Exam 04/29/2018 dysuria 04/22/2018 depression 01/22/2018 depression 11/19/2017 knee pain 09/25/2017 hypertension 07/12/2017 hypertension 03/12/2017 Annual Medicare Wellness Exam 02/09/2017 depression 02/08/2017 depression 08/08/2016 depression 02/08/2016 hypertension 01/11/2016 hypertension 07/12/2015 hypertension 01/04/2015 Results Observation Observation Code Item Item Code Result Date Culture Urine [id number] URINE CULTURE SEE NOTES 05/13/2018 Urine Culture Ucult Complete Growth of aerobe sent to ref lab 05/10/2018 Culture Urine [id number] URINE CULTURE SEE NOTES 04/25/2018 Culture Urine [id number] Continued Results 04/25/2018 Urine Culture Ucult Complete Growth of aerobe sent to ref lab 04/23/2018 Comp Metabolic Dcs303 NA 142 mEq/L 04/22/2018 Comp Metabolic Kre643 K 4.3 mEq/L 04/22/2018 Comp Metabolic Rhv851 CL 104 mEq/L 04/22/2018 Comp Metabolic Vvm007 CO2 29.0 mEq/L 04/22/2018 Comp Metabolic Jnh248 ANION GAP 13 04/22/2018 Comp Metabolic Ffl929 GLUCOSE 106 mg/dL 04/22/2018 Comp Metabolic Afc641 Creat 1.1 mg/dL 04/22/2018 Comp Metabolic Pxm361 eGFR 53 ml/min/1.73m2 04/22/2018 Comp Metabolic Boe420 BUN 18 mg/dL 04/22/2018 Comp Metabolic Wzr847 B/C Ratio 17.0 Ratio 04/22/2018 Comp Metabolic Slj443 CALCIUM 9.6 mg/dL 04/22/2018 Comp Metabolic Cmt500 ALK PHOS 121 U/L 04/22/2018 Comp Metabolic Drt010 AST(SGOT) 15 U/L 04/22/2018 Comp Metabolic Qyn328 ALT(SGPT) 13 U/L 04/22/2018 Comp Metabolic Zhg655 BILI T 1.0 mg/dL 04/22/2018 Comp Metabolic Cnq394 ALBUMIN 4.1 g/dL 04/22/2018 Comp Metabolic Kcn007 TPRO 6.3 g/dL 04/22/2018 Comp Metabolic Kok571 GLOB 2.2 g/dL 04/22/2018 Comp Metabolic Acj239 A/G Ratio 1.9 Ratio 04/22/2018 Comp Metabolic Lki880 Osmo 285 mOsmo 04/22/2018 Cbc With Differential Ord2 WBC 8.91 K/ul 04/22/2018 Cbc With Differential Ord2 RBC 4.41 M/ul 04/22/2018 Cbc With Differential Ord2 HGB 13.5 g/dl 04/22/2018 Cbc With Differential Ord2 HCT 42.5 % 04/22/2018 Cbc With Differential Ord2 Neut% 68.9 % 04/22/2018 Cbc With Differential Ord2 Lymph% 21.1 % 04/22/2018 Cbc With Differential Ord2 MCV 96.4 fl 04/22/2018 Cbc With Differential Ord2 Hughes% 8.0 % 04/22/2018 Cbc With Differential Ord2 MCH 30.6 pg 04/22/2018 Cbc With Differential Ord2 Eos% 1.9 % 04/22/2018 Cbc With Differential Ord2 MCHC 31.8 pg 04/22/2018 Cbc With Differential Ord2 Baso% 0.1 % 04/22/2018 Cbc With Differential Ord2 PLT 222 K/ul 04/22/2018 Cbc With Differential Ord2 RDW 14.7 % 04/22/2018 Cbc With Differential Ord2 Neut ABS# 6.14 K/ul 04/22/2018 Cbc With Differential Ord2 Lymph ABS# 1.88 K/ul 04/22/2018 Cbc With Differential Ord2 Hughes ABS# 0.7 K/ul 04/22/2018 Cbc With Differential Ord2 Eos ABS# 0.2 K/ul 04/22/2018 Cbc With Differential Ord2 Baso ABS# 0.0 K/ul 04/22/2018 Tsh Ord6 TSH (3rd IS) 2.44 uIU/mL 04/22/2018 Lipid Ord30 CHOL 168 mg/dL 04/22/2018 Lipid Ord30 HDL 55.0 mg/dl 04/22/2018 Lipid Ord30 TRIG 176 mg/dL 04/22/2018 Lipid Ord30 LDL 78 mg/dL 04/22/2018 Lipid Ord30 C/HDL 3.1 Ratio 04/22/2018 Tsh Ord6 hTSH II 1.69 uIU/mL 02/08/2017 Lipid Ord30 CHOL 171 mg/dL 02/08/2017 Lipid Ord30 HDL 50.0 mg/dl 02/08/2017 Lipid Ord30 TRIG 191 mg/dL 02/08/2017 Lipid Ord30 LDL 83 mg/dL 02/08/2017 Lipid Ord30 C/HDL 3.4 Ratio 02/08/2017 Cbc With Differential Ord2 WBC 7.39 K/ul 02/08/2017 Cbc With Differential Ord2 RBC 4.45 M/ul 02/08/2017 Cbc With Differential Ord2 HGB 14.0 g/dl 02/08/2017 Cbc With Differential Ord2 Neut% 61.4 % 02/08/2017 Cbc With Differential Ord2 HCT 43.2 % 02/08/2017 Cbc With Differential Ord2 MCV 97.1 fl 02/08/2017 Cbc With Differential Ord2 Lymph% 27.1 % 02/08/2017 Cbc With Differential Ord2 MCH 31.5 pg 02/08/2017 Cbc With Differential Ord2 Hughes% 10.0 % 02/08/2017 Cbc With Differential Ord2 MCHC 32.4 pg 02/08/2017 Cbc With Differential Ord2 Eos% 1.4 % 02/08/2017 Cbc With Differential Ord2 PLT 164 K/ul 02/08/2017 Cbc With Differential Ord2 Baso% 0.1 % 02/08/2017 Cbc With Differential Ord2 Neut ABS# 4.54 K/ul 02/08/2017 Cbc With Differential Ord2 RDW 13.4 % 02/08/2017 Cbc With Differential Ord2 Lymph ABS# 2.00 K/ul 02/08/2017 Cbc With Differential Ord2 Hughes ABS# 0.7 K/ul 02/08/2017 Cbc With Differential Ord2 Eos ABS# 0.1 K/ul 02/08/2017 Cbc With Differential Ord2 Baso ABS# 0.0 K/ul 02/08/2017 Comp Metabolic Mae121 NA 142 mEq/L 02/08/2017 Comp Metabolic Ffe735 K 4.5 mEq/L 02/08/2017 Comp Metabolic Prh518 CL 106 mEq/L 02/08/2017 Comp Metabolic Jvp440 CO2 27.0 mEq/L 02/08/2017 Comp Metabolic Mft301 ANION GAP 14 02/08/2017 Comp Metabolic Yjk256 GLUCOSE 102 mg/dL 02/08/2017 Comp Metabolic Evw317 Creat 0.9 mg/dL 02/08/2017 Comp Metabolic Mns797 eGFR 62 ml/min/1.73m2 02/08/2017 Comp Metabolic Ayh253 BUN 14 mg/dL 02/08/2017 Comp Metabolic Tuv198 B/C Ratio 15.1 Ratio 02/08/2017 Comp Metabolic Nsq416 CALCIUM 9.5 mg/dL 02/08/2017 Comp Metabolic Xue734 ALK PHOS 98 U/L 02/08/2017 Comp Metabolic Jcj071 AST(SGOT) 19 U/L 02/08/2017 Comp Metabolic Mfg935 ALT(SGPT) 15 U/L 02/08/2017 Comp Metabolic Xkm172 BILI T 1.1 mg/dL 02/08/2017 Comp Metabolic Utm812 ALBUMIN 4.1 g/dL 02/08/2017 Comp Metabolic Siq186 TPRO 6.2 g/dL 02/08/2017 Comp Metabolic Uuq121 GLOB 2.1 g/dL 02/08/2017 Comp Metabolic Zml745 A/G Ratio 2.0 Ratio 02/08/2017 Comp Metabolic Xbd458 Osmo 284 mOsmo 02/08/2017 Lipid Ord30 CHOL 178 mg/dL 08/08/2016 Lipid Ord30 HDL 54.0 mg/dl 08/08/2016 Lipid Ord30 TRIG 184 mg/dL 08/08/2016 Lipid Ord30 LDL 87 mg/dL 08/08/2016 Lipid Ord30 C/HDL 3.3 Ratio 08/08/2016 Tsh Ord6 hTSH II 3.12 uIU/mL 08/08/2016 Comp Metabolic Drf891 NA 140 mEq/L 08/08/2016 Comp Metabolic Tqk141 K 4.4 mEq/L 08/08/2016 Comp Metabolic Ypj850 CL 104 mEq/L 08/08/2016 Comp Metabolic Pdc735 CO2 30.0 mEq/L 08/08/2016 Comp Metabolic Whn582 ANION GAP 10 08/08/2016 Comp Metabolic Tcn314 GLUCOSE 107 mg/dL 08/08/2016 Comp Metabolic Gwd138 Creat 1.1 mg/dL 08/08/2016 Comp Metabolic Scg901 eGFR 53 ml/min/1.73m2 08/08/2016 Comp Metabolic Tbh368 BUN 22 mg/dL 08/08/2016 Comp Metabolic Xrj879 B/C Ratio 20.6 Ratio 08/08/2016 Comp Metabolic Woh245 CALCIUM 10.8 mg/dL 08/08/2016 Comp Metabolic Zga011 ALK PHOS 140 U/L 08/08/2016 Comp Metabolic Haz801 AST(SGOT) 21 U/L 08/08/2016 Comp Metabolic Zpq690 ALT(SGPT) 17 U/L 08/08/2016 Comp Metabolic Rps438 BILI T 0.8 mg/dL 08/08/2016 Comp Metabolic Qfo809 ALBUMIN 4.3 g/dL 08/08/2016 Comp Metabolic Kqb996 TPRO 6.7 g/dL 08/08/2016 Comp Metabolic Eqv454 GLOB 2.4 g/dL 08/08/2016 Comp Metabolic Kxp597 A/G Ratio 1.8 Ratio 08/08/2016 Comp Metabolic Jzm743 Osmo 283 mOsmo 08/08/2016 Cbc With Differential Ord2 WBC 6.27 K/ul 08/08/2016 Cbc With Differential Ord2 RBC 4.87 M/ul 08/08/2016 Cbc With Differential Ord2 HGB 14.1 g/dl 08/08/2016 Cbc With Differential Ord2 Neut% 51.2 % 08/08/2016 Cbc With Differential Ord2 HCT 43.8 % 08/08/2016 Cbc With Differential Ord2 Lymph% 35.2 % 08/08/2016 Cbc With Differential Ord2 MCV 89.9 fl 08/08/2016 Cbc With Differential Ord2 MCH 29.0 pg 08/08/2016 Cbc With Differential Ord2 Hughes% 11.0 % 08/08/2016 Cbc With Differential Ord2 Eos% 2.4 % 08/08/2016 Cbc With Differential Ord2 MCHC 32.2 pg 08/08/2016 Cbc With Differential Ord2 PLT 192 K/ul 08/08/2016 Cbc With Differential Ord2 Baso% 0.2 % 08/08/2016 Cbc With Differential Ord2 Neut ABS# 3.21 K/ul 08/08/2016 Cbc With Differential Ord2 RDW 15.3 % 08/08/2016 Cbc With Differential Ord2 Lymph ABS# 2.21 K/ul 08/08/2016 Cbc With Differential Ord2 Hughes ABS# 0.7 K/ul 08/08/2016 Cbc With Differential Ord2 Eos ABS# 0.2 K/ul 08/08/2016 Cbc With Differential Ord2 Baso ABS# 0.0 K/ul 08/08/2016 Vitamin D 25 Oh Vhl4521 VITAMIN D, 25 HYDROXY 59.99 ng/mL Tsh Ord6 hTSH II 3.86 uIU/mL 01/11/2016 Comp Metabolic Xqj350 NA 137 mEq/L 01/11/2016 Comp Metabolic Qsq938 K 4.4 mEq/L 01/11/2016 Comp Metabolic Fvt238 CL 103 mEq/L 01/11/2016 Comp Metabolic Nai025 CO2 27.0 mEq/L 01/11/2016 Comp Metabolic Yvp980 ANION GAP 11 01/11/2016 Comp Metabolic Omq323 GLUCOSE 102 mg/dL 01/11/2016 Comp Metabolic Zpu811 Creat 1.1 mg/dL 01/11/2016 Comp Metabolic Ely071 eGFR 51 ml/min/1.73m2 01/11/2016 Comp Metabolic Zvp194 BUN 16 mg/dL 01/11/2016 Comp Metabolic Epe869 B/C Ratio 14.5 Ratio 01/11/2016 Comp Metabolic Fkk238 CALCIUM 9.9 mg/dL 01/11/2016 Comp Metabolic Qwo262 ALK PHOS 103 U/L 01/11/2016 Comp Metabolic Hiz010 AST(SGOT) 17 U/L 01/11/2016 Comp Metabolic Bwf012 ALT(SGPT) 14 U/L 01/11/2016 Comp Metabolic Hmy772 BILI T 0.8 mg/dL 01/11/2016 Comp Metabolic Unx831 ALBUMIN 4.4 g/dL 01/11/2016 Comp Metabolic Fhw538 TPRO 6.8 g/dL 01/11/2016 Comp Metabolic Ngv204 GLOB 2.5 g/dL 01/11/2016 Comp Metabolic Cro532 A/G Ratio 1.8 Ratio 01/11/2016 Comp Metabolic Lkz672 Osmo 275 mOsmo 01/11/2016 Lipid Ord30 CHOL 161 mg/dL 01/11/2016 Lipid Ord30 HDL 47.0 mg/dl 01/11/2016 Lipid Ord30 TRIG 174 mg/dL 01/11/2016 Lipid Ord30 LDL 79 mg/dL 01/11/2016 Lipid Ord30 C/HDL 3.4 Ratio 01/11/2016 Cbc With Differential Ord2 WBC 6.19 K/ul 01/11/2016 Cbc With Differential Ord2 RBC 4.77 M/ul 01/11/2016 Cbc With Differential Ord2 HGB 14.5 g/dl 01/11/2016 Cbc With Differential Ord2 HCT 44.4 % 01/11/2016 Cbc With Differential Ord2 Neut% 48.4 % 01/11/2016 Cbc With Differential Ord2 MCV 93.1 fl 01/11/2016 Cbc With Differential Ord2 Lymph% 38.0 % 01/11/2016 Cbc With Differential Ord2 MCH 30.4 pg 01/11/2016 Cbc With Differential Ord2 Hughes% 10.7 % 01/11/2016 Cbc With Differential Ord2 MCHC 32.7 pg 01/11/2016 Cbc With Differential Ord2 Eos% 2.7 % 01/11/2016 Cbc With Differential Ord2 PLT 180 K/ul 01/11/2016 Cbc With Differential Ord2 Baso% 0.2 % 01/11/2016 Cbc With Differential Ord2 RDW 14.1 % 01/11/2016 Cbc With Differential Ord2 Neut ABS# 3.00 K/ul 01/11/2016 Cbc With Differential Ord2 Lymph ABS# 2.35 K/ul 01/11/2016 Cbc With Differential Ord2 Hughes ABS# 0.7 K/ul 01/11/2016 Cbc With Differential Ord2 Eos ABS# 0.2 K/ul 01/11/2016 Cbc With Differential Ord2 Baso ABS# 0.0 K/ul 01/11/2016 Cbc With Differential Ord2 WBC 6.93 K/ul 07/12/2015 Cbc With Differential Ord2 RBC 4.76 M/ul 07/12/2015 Cbc With Differential Ord2 HGB 14.3 g/dl 07/12/2015 Cbc With Differential Ord2 HCT 43.9 % 07/12/2015 Cbc With Differential Ord2 Neut% 46.2 % 07/12/2015 Cbc With Differential Ord2 Lymph% 41.3 % 07/12/2015 Cbc With Differential Ord2 MCV 92.2 fl 07/12/2015 Cbc With Differential Ord2 Hughes% 9.5 % 07/12/2015 Cbc With Differential Ord2 MCH 30.0 pg 07/12/2015 Cbc With Differential Ord2 Eos% 2.9 % 07/12/2015 Cbc With Differential Ord2 MCHC 32.6 pg 07/12/2015 Cbc With Differential Ord2 Baso% 0.1 % 07/12/2015 Cbc With Differential Ord2 PLT 198 K/ul 07/12/2015 Cbc With Differential Ord2 RDW 14.7 % 07/12/2015 Cbc With Differential Ord2 Neut ABS# 3.20 K/ul 07/12/2015 Cbc With Differential Ord2 Lymph ABS# 2.86 K/ul 07/12/2015 Cbc With Differential Ord2 Hughes ABS# 0.7 K/ul 07/12/2015 Cbc With Differential Ord2 Eos ABS# 0.2 K/ul 07/12/2015 Cbc With Differential Ord2 Baso ABS# 0.0 K/ul 07/12/2015 Cbc With Differential Ord2 New Analyzer Notice Please note new ref ranges starting 06-30-2015 due to implemntation of new five part differential hematolgy analyzer. 07/12/2015 Lipid Ord30 CHOL 155 mg/dL 07/12/2015 Lipid Ord30 HDL 53.0 mg/dl 07/12/2015 Lipid Ord30 TRIG 140 mg/dL 07/12/2015 Lipid Ord30 LDL 74 mg/dL 07/12/2015 Lipid Ord30 C/HDL 2.9 Ratio 07/12/2015 Tsh Ord6 hTSH II 3.54 uIU/mL 07/12/2015 Comp Metabolic Fxk715 NA 140 mEq/L 07/12/2015 Comp Metabolic Ipe818 K 4.4 mEq/L 07/12/2015 Comp Metabolic Mnn239 CL 104 mEq/L 07/12/2015 Comp Metabolic Tan784 CO2 28.0 mEq/L 07/12/2015 Comp Metabolic Vqj238 ANION GAP 12 07/12/2015 Comp Metabolic Lpb769 GLUCOSE 92 mg/dL 07/12/2015 Comp Metabolic Ocl187 Creat 1.2 mg/dL 07/12/2015 Comp Metabolic Qhd787 eGFR 47 ml/min/1.73m2 07/12/2015 Comp Metabolic Zrk458 BUN 18 mg/dL 07/12/2015 Comp Metabolic Qhw602 B/C Ratio 15.1 Ratio 07/12/2015 Comp Metabolic Zbc335 CALCIUM 10.1 mg/dL 07/12/2015 Comp Metabolic Xrs800 ALK PHOS 134 U/L 07/12/2015 Comp Metabolic Xog720 AST(SGOT) 18 U/L 07/12/2015 Comp Metabolic Ina578 ALT(SGPT) 17 U/L 07/12/2015 Comp Metabolic Oxw263 BILI T 0.8 mg/dL 07/12/2015 Comp Metabolic Dlr484 ALBUMIN 4.1 g/dL 07/12/2015 Comp Metabolic Gge199 TPRO 6.6 g/dL 07/12/2015 Comp Metabolic Tyb122 GLOB 2.5 g/dL 07/12/2015 Comp Metabolic Rut355 A/G Ratio 1.7 Ratio 07/12/2015 Comp Metabolic Mfs972 Osmo 281 mOsmo 07/12/2015 Cbc With Differential Ord2 WBC 6.0 K/uL 01/05/2015 Cbc With Differential Ord2 LYM 2.8 K/uL 01/05/2015 Cbc With Differential Ord2 LYM% 46.4 % 01/05/2015 Cbc With Differential Ord2 NEUT/GRAN 2.8 K/uL 01/05/2015 Cbc With Differential Ord2 NEUT/GRAN % 47.1 % 01/05/2015 Cbc With Differential Ord2 MID 0.4 K/uL 01/05/2015 Cbc With Differential Ord2 MID% 6.5 % 01/05/2015 Cbc With Differential Ord2 RBC 4.55 M/uL 01/05/2015 Cbc With Differential Ord2 HGB 13.3 g/dL 01/05/2015 Cbc With Differential Ord2 HCT 42.4 % 01/05/2015 Cbc With Differential Ord2 MCV 93 fL 01/05/2015 Cbc With Differential Ord2 MCH 29 pg 01/05/2015 Cbc With Differential Ord2 MCHC 31 g/dL 01/05/2015 Cbc With Differential Ord2 PLT 178 K/uL 01/05/2015 Cbc With Differential Ord2 RDW 15.3 % 01/05/2015 Comp Metabolic Ypw760 NA 139 mEq/L 01/05/2015 Comp Metabolic Qpc808 K 4.0 mEq/L 01/05/2015 Comp Metabolic Sni688 CL 106 mEq/L 01/05/2015 Comp Metabolic Vjt175 CO2 27.0 mEq/L 01/05/2015 Comp Metabolic Bgq234 ANION GAP 10 01/05/2015 Comp Metabolic Hru940 GLUCOSE 111 mg/dL 01/05/2015 Comp Metabolic Zli577 Creat 1.2 mg/dL 01/05/2015 Comp Metabolic Mxs324 eGFR 48 ml/min/1.73m2 01/05/2015 Comp Metabolic Teg370 BUN 18 mg/dL 01/05/2015 Comp Metabolic Myg315 B/C Ratio 15.4 Ratio 01/05/2015 Comp Metabolic Wjd105 CALCIUM 9.2 mg/dL 01/05/2015 Comp Metabolic Yqr863 ALK PHOS 202 U/L 01/05/2015 Comp Metabolic Ggq638 AST(SGOT) 19 U/L 01/05/2015 Comp Metabolic Xmi164 ALT(SGPT) 22 U/L 01/05/2015 Comp Metabolic Gwk907 BILI T 0.7 mg/dL 01/05/2015 Comp Metabolic Rcv073 ALBUMIN 3.8 g/dL 01/05/2015 Comp Metabolic Kfu121 TPRO 6.1 g/dL 01/05/2015 Comp Metabolic Hnh743 GLOB 2.3 g/dL 01/05/2015 Comp Metabolic Mvk243 A/G Ratio 1.7 Ratio 01/05/2015 Comp Metabolic Kpl817 Osmo 280 mOsmo 01/05/2015 Tsh Ord6 hTSH II 3.11 uIU/mL 01/05/2015 Sed Rate Ord21 ESR 20 mm/hr 01/05/2015 Lipid Ord30 CHOL 149 mg/dL 01/05/2015 Lipid Ord30 HDL 43.0 mg/dl 01/05/2015 Lipid Ord30 TRIG 185 mg/dL 01/05/2015 Lipid Ord30 LDL 69 mg/dL 01/05/2015 Lipid Ord30 C/HDL 3.5 Ratio 01/05/2015 Review of Systems System Result Effective Dates Constitutional No recent illness 2017 Constitutional No anorexia 04/29/2018 Constitutional No night sweats 2017 Constitutional No chills 04/29/2018 Constitutional No diaphoresis 04/29/2018 Constitutional fatigue 04/29/2018 Constitutional No fever 04/29/2018 Constitutional No insomnia 04/29/2018 Constitutional No malaise 04/29/2018 Constitutional No weight loss 04/29/2018 Constitutional No weight gain 04/29/2018 Eyes No eye discharge 04/29/2018 Eyes No eye erythema 04/29/2018 Ears/Nose/Throat/Neck No dizziness 2017 Ears/Nose/Throat/Neck No headache 2017 Cardiovascular No chest pain/pressure 05/2018 Cardiovascular No dyspnea 04/29/2018 Cardiovascular No edema 04/29/2018 Respiratory No cough 04/29/2018 Gastrointestinal No abdominal pain 2017 Gastrointestinal No constipation 2017 Gastrointestinal No diarrhea 04/29/2018 Genitourinary/Nephrology dysuria 2017 Genitourinary/Nephrology urinary urgency 04/29/2018 Genitourinary/Nephrology urinary frequency 04/29/2018 Genitourinary/Nephrology urinary incontinence 04/29/2018 Musculoskeletal back pain 04/29/2018 Dermatologic No rash 04/29/2018 Neurologic No alteration of consciousness 04/29/2018 Endocrine No dry or coarse skin 2017 Psychiatric depression 04/29/2018 Constitutional No recent illness 2017 Constitutional No anorexia 04/22/2018 Constitutional No night sweats 2017 Constitutional No chills 04/22/2018 Constitutional No diaphoresis 04/22/2018 Constitutional fatigue 04/22/2018 Constitutional No fever 04/22/2018 Constitutional No insomnia 04/22/2018 Constitutional No malaise 04/22/2018 Constitutional No weight loss 04/22/2018 Constitutional No weight gain 04/22/2018 Eyes No eye discharge 04/22/2018 Eyes No eye erythema 04/22/2018 Ears/Nose/Throat/Neck No headache 2017 Cardiovascular No chest pain/pressure 10/2017 Cardiovascular No dyspnea 04/22/2018 Cardiovascular No edema 04/22/2018 Respiratory No cough 04/22/2018 Gastrointestinal No abdominal pain 2017 Gastrointestinal No constipation 2017 Gastrointestinal No diarrhea 04/22/2018 Genitourinary/Nephrology dysuria 2017 Genitourinary/Nephrology urinary urgency 04/22/2018 Genitourinary/Nephrology urinary frequency 04/22/2018 Genitourinary/Nephrology urinary incontinence 04/22/2018 Musculoskeletal back pain 04/22/2018 Musculoskeletal joint complaint 2017 Dermatologic No rash 04/22/2018 Neurologic No alteration of consciousness 04/22/2018 Psychiatric depression 04/22/2018 Endocrine No dry or coarse skin 2017 Ears/Nose/Throat/Neck No dizziness 2017 Constitutional No recent illness 2017 Constitutional No anorexia 01/22/2018 Constitutional No night sweats 2017 Constitutional No chills 01/22/2018 Constitutional No diaphoresis 01/22/2018 Constitutional fatigue 01/22/2018 Constitutional No fever 01/22/2018 Constitutional No insomnia 01/22/2018 Constitutional No malaise 01/22/2018 Constitutional No weight loss 01/22/2018 Constitutional No weight gain 01/22/2018 Eyes No eye discharge 01/22/2018 Eyes No eye erythema 01/22/2018 Ears/Nose/Throat/Neck dizziness 2017 Ears/Nose/Throat/Neck No headache 2017 Cardiovascular No chest pain/pressure 12/2017 Cardiovascular No dyspnea 01/22/2018 Cardiovascular No edema 01/22/2018 Respiratory No cough 01/22/2018 Gastrointestinal No abdominal pain 2017 Gastrointestinal No constipation 2017 Gastrointestinal No diarrhea 01/22/2018 Genitourinary/Nephrology No dysuria 01/22 Genitourinary/Nephrology urinary urgency 01/22/2018 Genitourinary/Nephrology urinary frequency 01/22/2018 Genitourinary/Nephrology urinary incontinence 01/22/2018 Musculoskeletal joint complaint 2017 Dermatologic No rash 01/22/2018 Neurologic No alteration of consciousness 01/22/2018 Psychiatric depression 01/22/2018 Endocrine No dry or coarse skin 2017 Musculoskeletal back pain 01/22/2018 Genitourinary/Nephrology No dysuria 11/19 Genitourinary/Nephrology urinary urgency 11/19/2017 Genitourinary/Nephrology urinary frequency 11/19/2017 Genitourinary/Nephrology urinary incontinence 11/19/2017 Gastrointestinal No abdominal pain 2017 Gastrointestinal No constipation 2017 Gastrointestinal No diarrhea 11/19/2017 Constitutional No recent illness 2017 Constitutional No anorexia 11/19/2017 Constitutional No night sweats 2017 Constitutional No chills 11/19/2017 Constitutional No diaphoresis 11/19/2017 Constitutional fatigue 11/19/2017 Constitutional No fever 11/19/2017 Constitutional No insomnia 11/19/2017 Constitutional No malaise 11/19/2017 Constitutional No weight loss 11/19/2017 Constitutional No weight gain 11/19/2017 Eyes No eye erythema 11/19/2017 Eyes No eye discharge 11/19/2017 Ears/Nose/Throat/Neck No dizziness 2017 Ears/Nose/Throat/Neck No headache 2017 Cardiovascular No chest pain/pressure 09/2017 Cardiovascular No dyspnea 11/19/2017 Cardiovascular No edema 11/19/2017 Respiratory No cough 11/19/2017 Musculoskeletal joint complaint 2017 Dermatologic No rash 11/19/2017 Neurologic No alteration of consciousness 11/19/2017 Psychiatric depression 11/19/2017 Endocrine No dry or coarse skin 2017 Constitutional No recent illness 2017 Constitutional No anorexia 09/25/2017 Constitutional No night sweats 2017 Constitutional No chills 09/25/2017 Constitutional No diaphoresis 09/25/2017 Constitutional No fatigue 09/25/2017 Constitutional No fever 09/25/2017 Constitutional No insomnia 09/25/2017 Constitutional No malaise 09/25/2017 Constitutional No weight gain 09/25/2017 Constitutional No weight loss 09/25/2017 Musculoskeletal joint complaint 2017 Constitutional No recent illness 2017 Constitutional No anorexia 07/12/2017 Constitutional No night sweats 2017 Constitutional No chills 07/12/2017 Constitutional No diaphoresis 07/12/2017 Constitutional No fatigue 07/12/2017 Constitutional No fever 07/12/2017 Constitutional insomnia 07/12/2017 Constitutional No malaise 07/12/2017 Eyes No eye discharge 07/12/2017 Eyes No eye erythema 07/12/2017 Ears/Nose/Throat/Neck No dizziness 2017 Ears/Nose/Throat/Neck No headache 2017 Cardiovascular No chest pain/pressure Cardiovascular No dyspnea 07/12/2017 Cardiovascular No edema 07/12/2017 Respiratory No productive sputum 2017 Respiratory No chest congestion 2017 Respiratory No cough 07/12/2017 Gastrointestinal No abdominal pain 2017 Gastrointestinal No constipation 2017 Gastrointestinal No diarrhea 07/12/2017 Gastrointestinal No nausea 07/12/2017 Gastrointestinal No vomiting 07/12/2017 Genitourinary/Nephrology No dysuria 07/12 Musculoskeletal stiffness 07/12/2017 Musculoskeletal back pain 07/12/2017 Musculoskeletal joint complaint 2017 Dermatologic No rash 07/12/2017 Neurologic No alteration of consciousness 07/12/2017 Psychiatric anxiety 07/12/2017 Psychiatric depression 07/12/2017 Constitutional No recent illness 2016 Constitutional No anorexia 03/12/2017 Constitutional No night sweats 2016 Constitutional No chills 03/12/2017 Constitutional No diaphoresis 03/12/2017 Constitutional No fatigue 03/12/2017 Constitutional No fever 03/12/2017 Constitutional insomnia 03/12/2017 Constitutional No malaise 03/12/2017 Eyes No eye discharge 03/12/2017 Eyes No eye erythema 03/12/2017 Ears/Nose/Throat/Neck No dizziness 2016 Ears/Nose/Throat/Neck No headache 2016 Cardiovascular No chest pain/pressure Cardiovascular No dyspnea 03/12/2017 Cardiovascular No edema 03/12/2017 Respiratory No productive sputum 2016 Respiratory No chest congestion 2016 Respiratory No cough 03/12/2017 Gastrointestinal No abdominal pain 2016 Gastrointestinal No constipation 2016 Gastrointestinal No diarrhea 03/12/2017 Gastrointestinal No nausea 03/12/2017 Gastrointestinal No vomiting 03/12/2017 Genitourinary/Nephrology No dysuria 03/12 Musculoskeletal stiffness 03/12/2017 Musculoskeletal back pain 03/12/2017 Musculoskeletal joint complaint 2016 Dermatologic No rash 03/12/2017 Neurologic No alteration of consciousness 03/12/2017 Psychiatric anxiety 03/12/2017 Psychiatric depression 03/12/2017 Constitutional No recent illness 2016 Constitutional No chills 02/09/2017 Constitutional No diaphoresis 02/09/2017 Constitutional No fever 02/09/2017 Eyes No eye erythema 02/09/2017 Ears/Nose/Throat/Neck No nasal discharge 02/09/2017 Cardiovascular No chest pain/pressure Cardiovascular No dyspnea 02/09/2017 Respiratory No cough 02/09/2017 Respiratory No dyspnea 02/09/2017 Neurologic No alteration of consciousness 02/09/2017 Neurologic No mental status change 2016 Constitutional No recent illness 2016 Constitutional No anorexia 02/08/2017 Constitutional No night sweats 2016 Constitutional No chills 02/08/2017 Constitutional No diaphoresis 02/08/2017 Constitutional No fatigue 02/08/2017 Constitutional No fever 02/08/2017 Constitutional insomnia 02/08/2017 Constitutional No malaise 02/08/2017 Constitutional No weight loss 02/08/2017 Constitutional No weight gain 02/08/2017 Eyes No eye discharge 02/08/2017 Eyes No eye erythema 02/08/2017 Ears/Nose/Throat/Neck No dizziness 2016 Ears/Nose/Throat/Neck No headache 2016 Cardiovascular No chest pain/pressure Cardiovascular No dyspnea 02/08/2017 Cardiovascular No edema 02/08/2017 Respiratory No productive sputum 2016 Respiratory No chest congestion 2016 Respiratory No cough 02/08/2017 Gastrointestinal No abdominal pain 2016 Gastrointestinal No constipation 2016 Gastrointestinal No diarrhea 02/08/2017 Gastrointestinal No nausea 02/08/2017 Gastrointestinal No vomiting 02/08/2017 Genitourinary/Nephrology No dysuria 02/08 Dermatologic No rash 02/08/2017 Neurologic No alteration of consciousness 02/08/2017 Psychiatric anxiety 02/08/2017 Psychiatric depression 02/08/2017 Musculoskeletal stiffness 02/08/2017 Musculoskeletal back pain 02/08/2017 Musculoskeletal joint complaint 2016 Constitutional No recent illness 2016 Constitutional No anorexia 08/08/2016 Constitutional No night sweats 2016 Constitutional No chills 08/08/2016 Constitutional No diaphoresis 08/08/2016 Constitutional No fatigue 08/08/2016 Constitutional No fever 08/08/2016 Constitutional No insomnia 08/08/2016 Constitutional No malaise 08/08/2016 Constitutional No weight loss 08/08/2016 Constitutional No weight gain 08/08/2016 Eyes No eye discharge 08/08/2016 Eyes No eye erythema 08/08/2016 Ears/Nose/Throat/Neck No dizziness 2016 Ears/Nose/Throat/Neck No headache 2016 Cardiovascular No chest pain/pressure Cardiovascular No dyspnea 08/08/2016 Cardiovascular No edema 08/08/2016 Respiratory No productive sputum 2016 Respiratory No chest congestion 2016 Respiratory No cough 08/08/2016 Gastrointestinal No abdominal pain 2016 Gastrointestinal No constipation 2016 Gastrointestinal No diarrhea 08/08/2016 Gastrointestinal No nausea 08/08/2016 Gastrointestinal No vomiting 08/08/2016 Genitourinary/Nephrology No dysuria 08/08 Musculoskeletal back pain 08/08/2016 Musculoskeletal joint complaint 2016 Dermatologic No rash 08/08/2016 Neurologic No alteration of consciousness 08/08/2016 Psychiatric anxiety 08/08/2016 Psychiatric depression 08/08/2016 Endocrine No dry or coarse skin 2016 Hematologic/Lymphatic No abnormal bleeding and bruising 08/08/2016 Constitutional No recent illness 2015 Constitutional No anorexia 02/08/2016 Constitutional No night sweats 2015 Constitutional No chills 02/08/2016 Constitutional No diaphoresis 02/08/2016 Constitutional No fatigue 02/08/2016 Constitutional No fever 02/08/2016 Constitutional No malaise 02/08/2016 Constitutional No weight loss 02/08/2016 Constitutional No weight gain 02/08/2016 Eyes No eye discharge 02/08/2016 Eyes No eye erythema 02/08/2016 Ears/Nose/Throat/Neck No dizziness 2015 Ears/Nose/Throat/Neck No headache 2015 Cardiovascular No chest pain/pressure Cardiovascular No dyspnea 02/08/2016 Cardiovascular No edema 02/08/2016 Respiratory No productive sputum 2015 Respiratory No chest congestion 2015 Respiratory No cough 02/08/2016 Gastrointestinal No abdominal pain 2015 Gastrointestinal No constipation 2015 Gastrointestinal No diarrhea 02/08/2016 Gastrointestinal No nausea 02/08/2016 Gastrointestinal No vomiting 02/08/2016 Genitourinary/Nephrology No dysuria 02/07 Dermatologic No rash 02/08/2016 Neurologic No alteration of consciousness 02/08/2016 Psychiatric anxiety 02/08/2016 Psychiatric depression 02/08/2016 Endocrine No dry or coarse skin 2015 Hematologic/Lymphatic No abnormal bleeding and bruising 02/08/2016 Musculoskeletal back pain 02/08/2016 Constitutional No recent illness 2015 Constitutional No anorexia 01/11/2016 Constitutional No night sweats 2015 Constitutional No chills 01/11/2016 Constitutional No diaphoresis 01/11/2016 Constitutional No fatigue 01/11/2016 Constitutional No fever 01/11/2016 Constitutional insomnia 01/11/2016 Constitutional No malaise 01/11/2016 Constitutional No weight loss 01/11/2016 Constitutional No weight gain 01/11/2016 Eyes No eye discharge 01/11/2016 Eyes No eye erythema 01/11/2016 Ears/Nose/Throat/Neck No dizziness 2015 Ears/Nose/Throat/Neck No headache 2015 Cardiovascular No chest pain/pressure Cardiovascular No dyspnea 01/11/2016 Cardiovascular No edema 01/11/2016 Respiratory No productive sputum 2015 Respiratory No chest congestion 2015 Respiratory No cough 01/11/2016 Gastrointestinal No abdominal pain 2015 Gastrointestinal No constipation 2015 Gastrointestinal No diarrhea 01/11/2016 Gastrointestinal No nausea 01/11/2016 Gastrointestinal No vomiting 01/11/2016 Genitourinary/Nephrology No dysuria 01/10 Dermatologic No rash 01/11/2016 Neurologic No alteration of consciousness 01/11/2016 Psychiatric anxiety 01/11/2016 Psychiatric depression 01/11/2016 Endocrine No dry or coarse skin 2015 Hematologic/Lymphatic No abnormal bleeding and bruising 01/11/2016 Musculoskeletal joint complaint 2015 Musculoskeletal joint complaint 2015 Constitutional No recent illness 2015 Constitutional No anorexia 07/12/2015 Constitutional No night sweats 2015 Constitutional No chills 07/12/2015 Constitutional No diaphoresis 07/12/2015 Constitutional No fatigue 07/12/2015 Constitutional No fever 07/12/2015 Constitutional No insomnia 07/12/2015 Constitutional No malaise 07/12/2015 Constitutional No weight loss 07/12/2015 Constitutional No weight gain 07/12/2015 Eyes No eye discharge 07/12/2015 Eyes No eye erythema 07/12/2015 Ears/Nose/Throat/Neck No dizziness 2015 Ears/Nose/Throat/Neck No headache 2015 Cardiovascular No chest pain/pressure Cardiovascular No dyspnea 07/12/2015 Cardiovascular No edema 07/12/2015 Respiratory No productive sputum 2015 Respiratory No chest congestion 2015 Respiratory No cough 07/12/2015 Gastrointestinal No abdominal pain 2015 Gastrointestinal No constipation 2015 Gastrointestinal No diarrhea 07/12/2015 Gastrointestinal No nausea 07/12/2015 Gastrointestinal No vomiting 07/12/2015 Genitourinary/Nephrology No dysuria 07/12 Musculoskeletal back pain 07/12/2015 Dermatologic No rash 07/12/2015 Neurologic No alteration of consciousness 07/12/2015 Psychiatric anxiety 07/12/2015 Psychiatric depression 07/12/2015 Endocrine No dry or coarse skin 2015 Hematologic/Lymphatic No abnormal bleeding and bruising 07/12/2015 Constitutional No recent illness 2014 Constitutional No anorexia 01/04/2015 Constitutional No night sweats 2014 Constitutional No chills 01/04/2015 Constitutional No diaphoresis 01/04/2015 Constitutional No fatigue 01/04/2015 Constitutional No fever 01/04/2015 Constitutional No insomnia 01/04/2015 Constitutional No malaise 01/04/2015 Constitutional No weight loss 01/04/2015 Constitutional No weight gain 01/04/2015 Eyes No eye discharge 01/04/2015 Eyes No eye erythema 01/04/2015 Ears/Nose/Throat/Neck No dizziness 2014 Ears/Nose/Throat/Neck No headache 2014 Cardiovascular No chest pain/pressure Cardiovascular No dyspnea 01/04/2015 Cardiovascular No edema 01/04/2015 Respiratory No productive sputum 2014 Respiratory No chest congestion 2014 Respiratory No cough 01/04/2015 Gastrointestinal No abdominal pain 2014 Gastrointestinal No constipation 2014 Gastrointestinal No diarrhea 01/04/2015 Gastrointestinal No vomiting 01/04/2015 Gastrointestinal No nausea 01/04/2015 Genitourinary/Nephrology No dysuria 01/04 Musculoskeletal joint complaint 2014 Musculoskeletal back pain 01/04/2015 Dermatologic No rash 01/04/2015 Neurologic No alteration of consciousness 01/04/2015 Psychiatric depression 01/04/2015 Psychiatric anxiety 01/04/2015 Endocrine No dry or coarse skin 2014 Hematologic/Lymphatic No abnormal bleeding and bruising 01/04/2015 Physical Exam Exam Name System Name Item Name Status Result Effective Dates Notes Full Exam - General 1994 Constitutional general appearance Overall: well developed 04/29/2018 None Full Exam - General 1994 Constitutional general appearance Overall: in no acute distress 04/29/2018 None Full Exam - General 1994 Constitutional general appearance Overall: well nourished 04/29/2018 None Full Exam - General 1994 Eyes conjunctiva /eyelids Overall: conjunctiva clear 04/29/2018 None Full Exam - General 1994 Eyes conjunctiva /eyelids Overall: cornea clear 04/29/2018 None Full Exam - General 1994 Eyes conjunctiva /eyelids Overall: eyelids normal 04/29/2018 None Full Exam - General 1994 Eyes pupils and irises Overall: pupils equal, round, reactive to light and accomodation 04/29/2018 None Full Exam - General 1994 Ears/Nose/Throat otoscopic exam Overall: external auditory canals clear 04/29/2018 None Full Exam - General 1994 Ears/Nose/Throat otoscopic exam Overall: tympanic membranes clear 04/29/2018 None Full Exam - General 1994 Ears/Nose/Throat oral cavity/pharynx/larynx Overall: oral mucosa clear 04/29/2018 None Full Exam - General 1994 Ears/Nose/Throat oral cavity/pharynx/larynx Overall: oropharyngeal mucosa clear 04/29/2018 None Full Exam - General 1994 Ears/Nose/Throat oral cavity/pharynx/larynx Overall: no masses 04/29/2018 None Full Exam - General 1994 Respiratory auscultation Overall: breath sounds clear bilaterally 04/29/2018 None Full Exam - General 1994 Respiratory respiratory effort/rhythm Overall: no retractions 04/29/2018 None Full Exam - General 1994 Respiratory respiratory effort/rhythm Overall: normal rate 04/29/2018 None Full Exam - General 1994 Cardiovascular extremities Overall: no clubbing 04/29/2018 None Full Exam - General 1994 Cardiovascular auscultation of heart Overall: regular rate 04/29/2018 None Full Exam - General 1994 Cardiovascular auscultation of heart Overall: normal heart sounds 04/29/2018 None Full Exam - General 1994 Cardiovascular auscultation of heart Overall: no murmurs 04/29/2018 None Full Exam - General 1994 Abdomen abdominal exam Overall: no tenderness 04/29/2018 None Full Exam - General 1994 Abdomen abdominal exam Overall: normal bowel sounds 04/29/2018 None Full Exam - General 1994 Lymphatic neck nodes Overall: anterior cervical chain benign 04/29/2018 None Full Exam - General 1994 Lymphatic neck nodes Overall: posterior cervical chain benign 04/29/2018 None Full Exam - General 1994 Musculoskeletal gait and station Gait: abnormal stride length 04/29/2018 None Full Exam - General 1994 Musculoskeletal gait and station Gait: abnormal swing through 04/29/2018 None Full Exam - General 1994 Neurologic cranial nerves Overall: crainial nerves 2 - 12 grossly intact 04/29/2018 None Full Exam - General 1994 Psychiatric orientation/consciousness Overall: oriented to person, place and time 04/29/2018 None Full Exam - General 1994 Constitutional general appearance Overall: well developed 04/22/2018 None Full Exam - General 1994 Constitutional general appearance Overall: in no acute distress 04/22/2018 None Full Exam - General 1994 Constitutional general appearance Overall: well nourished 04/22/2018 None Full Exam - General 1994 Eyes conjunctiva /eyelids Overall: conjunctiva clear 04/22/2018 None Full Exam - General 1994 Eyes conjunctiva /eyelids Overall: cornea clear 04/22/2018 None Full Exam - General 1994 Eyes conjunctiva /eyelids Overall: eyelids normal 04/22/2018 None Full Exam - General 1994 Eyes pupils and irises Overall: pupils equal, round, reactive to light and accomodation 04/22/2018 None Full Exam - General 1994 Ears/Nose/Throat otoscopic exam Overall: external auditory canals clear 04/22/2018 None Full Exam - General 1994 Ears/Nose/Throat otoscopic exam Overall: tympanic membranes clear 04/22/2018 None Full Exam - General 1994 Ears/Nose/Throat oral cavity/pharynx/larynx Overall: oral mucosa clear 04/22/2018 None Full Exam - General 1994 Ears/Nose/Throat oral cavity/pharynx/larynx Overall: oropharyngeal mucosa clear 04/22/2018 None Full Exam - General 1994 Ears/Nose/Throat oral cavity/pharynx/larynx Overall: no masses 04/22/2018 None Full Exam - General 1994 Respiratory auscultation Overall: breath sounds clear bilaterally 04/22/2018 None Full Exam - General 1994 Respiratory respiratory effort/rhythm Overall: no retractions 04/22/2018 None Full Exam - General 1994 Respiratory respiratory effort/rhythm Overall: normal rate 04/22/2018 None Full Exam - General 1994 Cardiovascular extremities Overall: no clubbing 04/22/2018 None Full Exam - General 1994 Cardiovascular auscultation of heart Overall: regular rate 04/22/2018 None Full Exam - General 1994 Cardiovascular auscultation of heart Overall: normal heart sounds 04/22/2018 None Full Exam - General 1994 Cardiovascular auscultation of heart Overall: no murmurs 04/22/2018 None Full Exam - General 1994 Abdomen abdominal exam Overall: no tenderness 04/22/2018 None Full Exam - General 1994 Abdomen abdominal exam Overall: normal bowel sounds 04/22/2018 None Full Exam - General 1994 Lymphatic neck nodes Overall: anterior cervical chain benign 04/22/2018 None Full Exam - General 1994 Lymphatic neck nodes Overall: posterior cervical chain benign 04/22/2018 None Full Exam - General 1994 Musculoskeletal gait and station Gait: abnormal stride length 04/22/2018 None Full Exam - General 1994 Musculoskeletal gait and station Gait: abnormal swing through 04/22/2018 None Full Exam - General 1994 Neurologic cranial nerves Overall: crainial nerves 2 - 12 grossly intact 04/22/2018 None Full Exam - General 1994 Psychiatric orientation/consciousness Overall: oriented to person, place and time 04/22/2018 None Full Exam - General 1994 Constitutional general appearance Overall: well developed 01/22/2018 None Full Exam - General 1994 Constitutional general appearance Overall: in no acute distress 01/22/2018 None Full Exam - General 1994 Constitutional general appearance Overall: well nourished 01/22/2018 None Full Exam - General 1994 Eyes conjunctiva /eyelids Overall: conjunctiva clear 01/22/2018 None Full Exam - General 1994 Eyes conjunctiva /eyelids Overall: cornea clear 01/22/2018 None Full Exam - General 1994 Eyes conjunctiva /eyelids Overall: eyelids normal 01/22/2018 None Full Exam - General 1994 Eyes pupils and irises Overall: pupils equal, round, reactive to light and accomodation 01/22/2018 None Full Exam - General 1994 Ears/Nose/Throat otoscopic exam Overall: external auditory canals clear 01/22/2018 None Full Exam - General 1994 Ears/Nose/Throat otoscopic exam Overall: tympanic membranes clear 01/22/2018 None Full Exam - General 1994 Ears/Nose/Throat oral cavity/pharynx/larynx Overall: oral mucosa clear 01/22/2018 None Full Exam - General 1994 Ears/Nose/Throat oral cavity/pharynx/larynx Overall: oropharyngeal mucosa clear 01/22/2018 None Full Exam - General 1994 Ears/Nose/Throat oral cavity/pharynx/larynx Overall: no masses 01/22/2018 None Full Exam - General 1994 Respiratory auscultation Overall: breath sounds clear bilaterally 01/22/2018 None Full Exam - General 1994 Respiratory respiratory effort/rhythm Overall: no retractions 01/22/2018 None Full Exam - General 1994 Respiratory respiratory effort/rhythm Overall: normal rate 01/22/2018 None Full Exam - General 1994 Cardiovascular extremities Overall: no clubbing 01/22/2018 None Full Exam - General 1994 Cardiovascular auscultation of heart Overall: regular rate 01/22/2018 None Full Exam - General 1994 Cardiovascular auscultation of heart Overall: normal heart sounds 01/22/2018 None Full Exam - General 1994 Cardiovascular auscultation of heart Overall: no murmurs 01/22/2018 None Full Exam - General 1994 Abdomen abdominal exam Overall: no tenderness 01/22/2018 None Full Exam - General 1994 Abdomen abdominal exam Overall: normal bowel sounds 01/22/2018 None Full Exam - General 1994 Lymphatic neck nodes Overall: anterior cervical chain benign 01/22/2018 None Full Exam - General 1994 Lymphatic neck nodes Overall: posterior cervical chain benign 01/22/2018 None Full Exam - General 1994 Musculoskeletal gait and station Gait: abnormal stride length 01/22/2018 None Full Exam - General 1994 Musculoskeletal gait and station Gait: abnormal swing through 01/22/2018 None Full Exam - General 1994 Neurologic cranial nerves Overall: crainial nerves 2 - 12 grossly intact 01/22/2018 None Full Exam - General 1994 Psychiatric orientation/consciousness Overall: oriented to person, place and time 01/22/2018 None Full Exam - General 1994 Constitutional general appearance Overall: well developed 11/19/2017 None Full Exam - General 1994 Constitutional general appearance Overall: in no acute distress 11/19/2017 None Full Exam - General 1994 Constitutional general appearance Overall: well nourished 11/19/2017 None Full Exam - General 1994 Eyes conjunctiva /eyelids Overall: conjunctiva clear 11/19/2017 None Full Exam - General 1994 Eyes conjunctiva /eyelids Overall: cornea clear 11/19/2017 None Full Exam - General 1994 Eyes conjunctiva /eyelids Overall: eyelids normal 11/19/2017 None Full Exam - General 1994 Eyes pupils and irises Overall: pupils equal, round, reactive to light and accomodation 11/19/2017 None Full Exam - General 1994 Ears/Nose/Throat otoscopic exam Overall: external auditory canals clear 11/19/2017 None Full Exam - General 1994 Ears/Nose/Throat otoscopic exam Overall: tympanic membranes clear 11/19/2017 None Full Exam - General 1994 Ears/Nose/Throat oral cavity/pharynx/larynx Overall: oral mucosa clear 11/19/2017 None Full Exam - General 1994 Ears/Nose/Throat oral cavity/pharynx/larynx Overall: oropharyngeal mucosa clear 11/19/2017 None Full Exam - General 1994 Ears/Nose/Throat oral cavity/pharynx/larynx Overall: no masses 11/19/2017 None Full Exam - General 1994 Respiratory auscultation Overall: breath sounds clear bilaterally 11/19/2017 None Full Exam - General 1994 Respiratory respiratory effort/rhythm Overall: no retractions 11/19/2017 None Full Exam - General 1994 Respiratory respiratory effort/rhythm Overall: normal rate 11/19/2017 None Full Exam - General 1994 Cardiovascular extremities Overall: no clubbing 11/19/2017 None Full Exam - General 1994 Cardiovascular auscultation of heart Overall: regular rate 11/19/2017 None Full Exam - General 1994 Cardiovascular auscultation of heart Overall: normal heart sounds 11/19/2017 None Full Exam - General 1994 Cardiovascular auscultation of heart Overall: no murmurs 11/19/2017 None Full Exam - General 1994 Abdomen abdominal exam Overall: no tenderness 11/19/2017 None Full Exam - General 1994 Abdomen abdominal exam Overall: normal bowel sounds 11/19/2017 None Full Exam - General 1994 Lymphatic neck nodes Overall: anterior cervical chain benign 11/19/2017 None Full Exam - General 1994 Lymphatic neck nodes Overall: posterior cervical chain benign 11/19/2017 None Full Exam - General 1994 Musculoskeletal gait and station Gait: abnormal stride length 11/19/2017 None Full Exam - General 1994 Musculoskeletal gait and station Gait: abnormal swing through 11/19/2017 None Full Exam - General 1994 Neurologic cranial nerves Overall: crainial nerves 2 - 12 grossly intact 11/19/2017 None Full Exam - General 1994 Psychiatric orientation/consciousness Overall: oriented to person, place and time 11/19/2017 None Full Exam - Orthopedics Constitutional general appearance Overall: well nourished 09/25/2017 None Full Exam - Orthopedics Constitutional general appearance Overall: well developed 09/25/2017 None Full Exam - Orthopedics Constitutional general appearance Overall: in no acute distress 09/25/2017 None Full Exam - Orthopedics Constitutional general appearance Overall: normal body habitus 09/25/2017 None Full Exam - Orthopedics Constitutional general appearance Assistive Device: walker 09/25/2017 None Full Exam - Orthopedics Psychiatric orientation/consciousness Overall: oriented to person, place and time 09/25/2017 None Full Exam - Orthopedics MS: left lower extremity insp & palp - LLE Knee: joint swelling 09/25/2017 None Full Exam - Orthopedics MS: left lower extremity insp & palp - LLE Knee: joint tenderness 09/25/2017 None Full Exam - Orthopedics MS: left lower extremity insp & palp - LLE Lower leg: normal appearance 09/25/2017 None Full Exam - Orthopedics MS: left lower extremity range of motion - LLE Knee: pain with flexion 09/25/2017 tender over medial meniscus Full Exam - Orthopedics MS: left lower extremity range of motion - LLE Knee: decreased flexion 09/25/2017 None Full Exam - Orthopedics MS: left lower extremity stability - LLE Knee: stable knees 09/25/2017 butts's cyst Full Exam - General 1994 Constitutional general appearance Overall: well developed 07/12/2017 None Full Exam - General 1994 Constitutional general appearance Overall: in no acute distress 07/12/2017 None Full Exam - General 1994 Constitutional general appearance Overall: well nourished 07/12/2017 None Full Exam - General 1994 Eyes conjunctiva /eyelids Overall: conjunctiva clear 07/12/2017 None Full Exam - General 1994 Eyes conjunctiva /eyelids Overall: cornea clear 07/12/2017 None Full Exam - General 1994 Eyes conjunctiva /eyelids Overall: eyelids normal 07/12/2017 None Full Exam - General 1994 Eyes pupils and irises Overall: pupils equal, round, reactive to light and accomodation 07/12/2017 None Full Exam - General 1994 Ears/Nose/Throat otoscopic exam Overall: external auditory canals clear 07/12/2017 None Full Exam - General 1994 Ears/Nose/Throat otoscopic exam Overall: tympanic membranes clear 07/12/2017 None Full Exam - General 1994 Ears/Nose/Throat oral cavity/pharynx/larynx Overall: oral mucosa clear 07/12/2017 None Full Exam - General 1994 Ears/Nose/Throat oral cavity/pharynx/larynx Overall: oropharyngeal mucosa clear 07/12/2017 None Full Exam - General 1994 Ears/Nose/Throat oral cavity/pharynx/larynx Overall: no masses 07/12/2017 None Full Exam - General 1994 Respiratory auscultation Overall: breath sounds clear bilaterally 07/12/2017 None Full Exam - General 1994 Respiratory respiratory effort/rhythm Overall: no retractions 07/12/2017 None Full Exam - General 1994 Respiratory respiratory effort/rhythm Overall: normal rate 07/12/2017 None Full Exam - General 1994 Cardiovascular extremities Overall: no clubbing 07/12/2017 None Full Exam - General 1994 Cardiovascular auscultation of heart Overall: regular rate 07/12/2017 None Full Exam - General 1994 Cardiovascular auscultation of heart Overall: normal heart sounds 07/12/2017 None Full Exam - General 1994 Cardiovascular auscultation of heart Overall: no murmurs 07/12/2017 None Full Exam - General 1994 Abdomen abdominal exam Overall: no tenderness 07/12/2017 None Full Exam - General 1994 Abdomen abdominal exam Overall: normal bowel sounds 07/12/2017 None Full Exam - General 1994 Lymphatic neck nodes Overall: anterior cervical chain benign 07/12/2017 None Full Exam - General 1994 Lymphatic neck nodes Overall: posterior cervical chain benign 07/12/2017 None Full Exam - General 1994 Musculoskeletal lower extremity Palpation - thigh: tenderness 07/12/2017 None Full Exam - General 1994 Musculoskeletal spine, ribs and pelvis Sacroiliac joints: tender right sacroiliac joint 07/12/2017 None Full Exam - General 1994 Musculoskeletal spine, ribs and pelvis Sacroiliac joints: tender left sacroiliac joint 07/12/2017 None Full Exam - General 1994 Musculoskeletal gait and station Gait: abnormal stride length 07/12/2017 None Full Exam - General 1994 Musculoskeletal gait and station Gait: abnormal swing through 07/12/2017 None Full Exam - General 1994 Neurologic cranial nerves Overall: crainial nerves 2 - 12 grossly intact 07/12/2017 None Full Exam - General 1994 Psychiatric orientation/consciousness Overall: oriented to person, place and time 07/12/2017 None Full Exam - General 1994 Constitutional general appearance Overall: well developed 03/12/2017 None Full Exam - General 1994 Constitutional general appearance Overall: in no acute distress 03/12/2017 None Full Exam - General 1994 Constitutional general appearance Overall: well nourished 03/12/2017 None Full Exam - General 1994 Eyes conjunctiva /eyelids Overall: conjunctiva clear 03/12/2017 None Full Exam - General 1994 Eyes conjunctiva /eyelids Overall: cornea clear 03/12/2017 None Full Exam - General 1994 Eyes conjunctiva /eyelids Overall: eyelids normal 03/12/2017 None Full Exam - General 1994 Eyes pupils and irises Overall: pupils equal, round, reactive to light and accomodation 03/12/2017 None Full Exam - General 1994 Ears/Nose/Throat otoscopic exam Overall: external auditory canals clear 03/12/2017 None Full Exam - General 1994 Ears/Nose/Throat otoscopic exam Overall: tympanic membranes clear 03/12/2017 None Full Exam - General 1994 Ears/Nose/Throat oral cavity/pharynx/larynx Overall: oral mucosa clear 03/12/2017 None Full Exam - General 1994 Ears/Nose/Throat oral cavity/pharynx/larynx Overall: oropharyngeal mucosa clear 03/12/2017 None Full Exam - General 1994 Ears/Nose/Throat oral cavity/pharynx/larynx Overall: no masses 03/12/2017 None Full Exam - General 1994 Respiratory auscultation Overall: breath sounds clear bilaterally 03/12/2017 None Full Exam - General 1994 Respiratory respiratory effort/rhythm Overall: no retractions 03/12/2017 None Full Exam - General 1994 Respiratory respiratory effort/rhythm Overall: normal rate 03/12/2017 None Full Exam - General 1994 Cardiovascular extremities Overall: no clubbing 03/12/2017 None Full Exam - General 1994 Cardiovascular auscultation of heart Overall: regular rate 03/12/2017 None Full Exam - General 1994 Cardiovascular auscultation of heart Overall: normal heart sounds 03/12/2017 None Full Exam - General 1994 Cardiovascular auscultation of heart Overall: no murmurs 03/12/2017 None Full Exam - General 1994 Abdomen abdominal exam Overall: no tenderness 03/12/2017 None Full Exam - General 1994 Abdomen abdominal exam Overall: normal bowel sounds 03/12/2017 None Full Exam - General 1994 Lymphatic neck nodes Overall: anterior cervical chain benign 03/12/2017 None Full Exam - General 1994 Lymphatic neck nodes Overall: posterior cervical chain benign 03/12/2017 None Full Exam - General 1994 Musculoskeletal lower extremity Palpation - thigh: tenderness 03/12/2017 None Full Exam - General 1994 Musculoskeletal spine, ribs and pelvis Sacroiliac joints: tender right sacroiliac joint 03/12/2017 None Full Exam - General 1994 Musculoskeletal spine, ribs and pelvis Sacroiliac joints: tender left sacroiliac joint 03/12/2017 None Full Exam - General 1994 Musculoskeletal gait and station Gait: abnormal stride length 03/12/2017 None Full Exam - General 1994 Musculoskeletal gait and station Gait: abnormal swing through 03/12/2017 None Full Exam - General 1994 Neurologic cranial nerves Overall: crainial nerves 2 - 12 grossly intact 03/12/2017 None Full Exam - General 1994 Psychiatric orientation/consciousness Overall: oriented to person, place and time 03/12/2017 None Full Exam - General 1994 Constitutional general appearance Overall: well developed 02/09/2017 None Full Exam - General 1994 Constitutional general appearance Overall: in no acute distress 02/09/2017 None Full Exam - General 1994 Constitutional general appearance Overall: well nourished 02/09/2017 None Full Exam - General 1994 Eyes conjunctiva /eyelids Overall: conjunctiva clear 02/09/2017 None Full Exam - General 1994 Eyes conjunctiva /eyelids Overall: eyelids normal 02/09/2017 None Full Exam - General 1994 Ears/Nose/Throat lips/teeth/gingiva Overall: benign lips 02/09/2017 None Full Exam - General 1994 Respiratory respiratory effort/rhythm Overall: no retractions 02/09/2017 None Full Exam - General 1994 Respiratory respiratory effort/rhythm Overall: normal rate 02/09/2017 None Full Exam - General 1994 Musculoskeletal head and neck Overall: head atraumatic 02/09/2017 None Full Exam - General 1994 Neurologic cranial nerves Overall: crainial nerves 2 - 12 grossly intact 02/09/2017 None Full Exam - General 1994 Psychiatric orientation/consciousness Overall: oriented to person, place and time 02/09/2017 None Full Exam - General 1994 Psychiatric mood and affect Overall: normal mood and affect 02/09/2017 None Full Exam - General 1994 Psychiatric appearance Overall: well-groomed, good eye contact 02/09/2017 None Full Exam - General 1994 Ears/Nose/Throat oral cavity/pharynx/larynx Overall: oral mucosa clear 02/09/2017 None Full Exam - General 1994 Constitutional general appearance Overall: well developed 02/08/2017 None Full Exam - General 1994 Constitutional general appearance Overall: in no acute distress 02/08/2017 None Full Exam - General 1994 Constitutional general appearance Overall: well nourished 02/08/2017 None Full Exam - General 1994 Eyes conjunctiva /eyelids Overall: conjunctiva clear 02/08/2017 None Full Exam - General 1994 Eyes conjunctiva /eyelids Overall: cornea clear 02/08/2017 None Full Exam - General 1994 Eyes conjunctiva /eyelids Overall: eyelids normal 02/08/2017 None Full Exam - General 1994 Eyes pupils and irises Overall: pupils equal, round, reactive to light and accomodation 02/08/2017 None Full Exam - General 1994 Ears/Nose/Throat otoscopic exam Overall: external auditory canals clear 02/08/2017 None Full Exam - General 1994 Ears/Nose/Throat otoscopic exam Overall: tympanic membranes clear 02/08/2017 None Full Exam - General 1994 Ears/Nose/Throat oral cavity/pharynx/larynx Overall: oral mucosa clear 02/08/2017 None Full Exam - General 1994 Ears/Nose/Throat oral cavity/pharynx/larynx Overall: oropharyngeal mucosa clear 02/08/2017 None Full Exam - General 1994 Ears/Nose/Throat oral cavity/pharynx/larynx Overall: no masses 02/08/2017 None Full Exam - General 1994 Respiratory auscultation Overall: breath sounds clear bilaterally 02/08/2017 None Full Exam - General 1994 Respiratory respiratory effort/rhythm Overall: no retractions 02/08/2017 None Full Exam - General 1994 Respiratory respiratory effort/rhythm Overall: normal rate 02/08/2017 None Full Exam - General 1994 Cardiovascular extremities Overall: no clubbing 02/08/2017 None Full Exam - General 1994 Cardiovascular auscultation of heart Overall: regular rate 02/08/2017 None Full Exam - General 1994 Cardiovascular auscultation of heart Overall: normal heart sounds 02/08/2017 None Full Exam - General 1994 Cardiovascular auscultation of heart Overall: no murmurs 02/08/2017 None Full Exam - General 1994 Abdomen abdominal exam Overall: no tenderness 02/08/2017 None Full Exam - General 1994 Abdomen abdominal exam Overall: normal bowel sounds 02/08/2017 None Full Exam - General 1994 Lymphatic neck nodes Overall: anterior cervical chain benign 02/08/2017 None Full Exam - General 1994 Lymphatic neck nodes Overall: posterior cervical chain benign 02/08/2017 None Full Exam - General 1994 Neurologic cranial nerves Overall: crainial nerves 2 - 12 grossly intact 02/08/2017 None Full Exam - General 1994 Psychiatric orientation/consciousness Overall: oriented to person, place and time 02/08/2017 None Full Exam - General 1994 Musculoskeletal lower extremity Palpation - thigh: tenderness 02/08/2017 None Full Exam - General 1994 Musculoskeletal gait and station Gait: abnormal stride length 02/08/2017 None Full Exam - General 1994 Musculoskeletal gait and station Gait: abnormal swing through 02/08/2017 None Full Exam - General 1994 Musculoskeletal spine, ribs and pelvis Sacroiliac joints: tender left sacroiliac joint 02/08/2017 None Full Exam - General 1994 Musculoskeletal spine, ribs and pelvis Sacroiliac joints: tender right sacroiliac joint 02/08/2017 None Full Exam - General 1994 Constitutional general appearance Overall: well developed 08/08/2016 None Full Exam - General 1994 Constitutional general appearance Overall: in no acute distress 08/08/2016 None Full Exam - General 1994 Constitutional general appearance Overall: well nourished 08/08/2016 None Full Exam - General 1994 Eyes conjunctiva /eyelids Overall: conjunctiva clear 08/08/2016 None Full Exam - General 1994 Eyes conjunctiva /eyelids Overall: cornea clear 08/08/2016 None Full Exam - General 1994 Eyes conjunctiva /eyelids Overall: eyelids normal 08/08/2016 None Full Exam - General 1994 Eyes pupils and irises Overall: pupils equal, round, reactive to light and accomodation 08/08/2016 None Full Exam - General 1994 Ears/Nose/Throat otoscopic exam Overall: external auditory canals clear 08/08/2016 None Full Exam - General 1994 Ears/Nose/Throat otoscopic exam Overall: tympanic membranes clear 08/08/2016 None Full Exam - General 1994 Ears/Nose/Throat oral cavity/pharynx/larynx Overall: oral mucosa clear 08/08/2016 None Full Exam - General 1994 Ears/Nose/Throat oral cavity/pharynx/larynx Overall: oropharyngeal mucosa clear 08/08/2016 None Full Exam - General 1994 Ears/Nose/Throat oral cavity/pharynx/larynx Overall: no masses 08/08/2016 None Full Exam - General 1994 Respiratory auscultation Overall: breath sounds clear bilaterally 08/08/2016 None Full Exam - General 1994 Respiratory respiratory effort/rhythm Overall: no retractions 08/08/2016 None Full Exam - General 1994 Respiratory respiratory effort/rhythm Overall: normal rate 08/08/2016 None Full Exam - General 1994 Cardiovascular extremities Overall: no clubbing 08/08/2016 None Full Exam - General 1994 Cardiovascular auscultation of heart Overall: regular rate 08/08/2016 None Full Exam - General 1994 Cardiovascular auscultation of heart Overall: normal heart sounds 08/08/2016 None Full Exam - General 1994 Cardiovascular auscultation of heart Overall: no murmurs 08/08/2016 None Full Exam - General 1994 Abdomen abdominal exam Overall: no tenderness 08/08/2016 None Full Exam - General 1994 Abdomen abdominal exam Overall: normal bowel sounds 08/08/2016 None Full Exam - General 1994 Lymphatic neck nodes Overall: anterior cervical chain benign 08/08/2016 None Full Exam - General 1994 Lymphatic neck nodes Overall: posterior cervical chain benign 08/08/2016 None Full Exam - General 1994 Musculoskeletal gait and station Overall: normal gait 08/08/2016 None Full Exam - General 1994 Musculoskeletal gait and station Overall: normal station 08/08/2016 None Full Exam - General 1994 Integument inspection of skin Overall: no rash, lesions 08/08/2016 None Full Exam - General 1994 Neurologic cranial nerves Overall: crainial nerves 2 - 12 grossly intact 08/08/2016 None Full Exam - General 1994 Psychiatric orientation/consciousness Overall: oriented to person, place and time 08/08/2016 None Full Exam - General 1994 Musculoskeletal spine, ribs and pelvis Sacroiliac joints: tender right sacroiliac joint 08/08/2016 None Full Exam - General 1994 Constitutional general appearance Overall: well developed 02/08/2016 None Full Exam - General 1994 Constitutional general appearance Overall: in no acute distress 02/08/2016 None Full Exam - General 1994 Constitutional general appearance Overall: well nourished 02/08/2016 None Full Exam - General 1994 Eyes conjunctiva /eyelids Overall: conjunctiva clear 02/08/2016 None Full Exam - General 1994 Eyes conjunctiva /eyelids Overall: cornea clear 02/08/2016 None Full Exam - General 1994 Eyes conjunctiva /eyelids Overall: eyelids normal 02/08/2016 None Full Exam - General 1994 Eyes pupils and irises Overall: pupils equal, round, reactive to light and accomodation 02/08/2016 None Full Exam - General 1994 Ears/Nose/Throat otoscopic exam Overall: external auditory canals clear 02/08/2016 None Full Exam - General 1994 Ears/Nose/Throat otoscopic exam Overall: tympanic membranes clear 02/08/2016 None Full Exam - General 1994 Ears/Nose/Throat oral cavity/pharynx/larynx Overall: oral mucosa clear 02/08/2016 None Full Exam - General 1994 Ears/Nose/Throat oral cavity/pharynx/larynx Overall: oropharyngeal mucosa clear 02/08/2016 None Full Exam - General 1994 Ears/Nose/Throat oral cavity/pharynx/larynx Overall: no masses 02/08/2016 None Full Exam - General 1994 Respiratory auscultation Overall: breath sounds clear bilaterally 02/08/2016 None Full Exam - General 1994 Respiratory respiratory effort/rhythm Overall: no retractions 02/08/2016 None Full Exam - General 1994 Respiratory respiratory effort/rhythm Overall: normal rate 02/08/2016 None Full Exam - General 1994 Cardiovascular extremities Overall: no clubbing 02/08/2016 None Full Exam - General 1994 Cardiovascular auscultation of heart Overall: regular rate 02/08/2016 None Full Exam - General 1994 Cardiovascular auscultation of heart Overall: normal heart sounds 02/08/2016 None Full Exam - General 1994 Cardiovascular auscultation of heart Overall: no murmurs 02/08/2016 None Full Exam - General 1994 Abdomen abdominal exam Overall: no tenderness 02/08/2016 None Full Exam - General 1994 Abdomen abdominal exam Overall: normal bowel sounds 02/08/2016 None Full Exam - General 1994 Lymphatic neck nodes Overall: anterior cervical chain benign 02/08/2016 None Full Exam - General 1994 Lymphatic neck nodes Overall: posterior cervical chain benign 02/08/2016 None Full Exam - General 1994 Musculoskeletal gait and station Overall: normal gait 02/08/2016 None Full Exam - General 1994 Musculoskeletal gait and station Overall: normal station 02/08/2016 None Full Exam - General 1994 Integument inspection of skin Overall: no rash, lesions 02/08/2016 None Full Exam - General 1994 Neurologic cranial nerves Overall: crainial nerves 2 - 12 grossly intact 02/08/2016 None Full Exam - General 1994 Psychiatric orientation/consciousness Overall: oriented to person, place and time 02/08/2016 None Full Exam - General 1994 Constitutional general appearance Overall: well developed 01/11/2016 None Full Exam - General 1994 Constitutional general appearance Overall: in no acute distress 01/11/2016 None Full Exam - General 1994 Constitutional general appearance Overall: well nourished 01/11/2016 None Full Exam - General 1994 Eyes conjunctiva /eyelids Overall: conjunctiva clear 01/11/2016 None Full Exam - General 1994 Eyes conjunctiva /eyelids Overall: cornea clear 01/11/2016 None Full Exam - General 1994 Eyes conjunctiva /eyelids Overall: eyelids normal 01/11/2016 None Full Exam - General 1994 Eyes pupils and irises Overall: pupils equal, round, reactive to light and accomodation 01/11/2016 None Full Exam - General 1994 Ears/Nose/Throat otoscopic exam Overall: external auditory canals clear 01/11/2016 None Full Exam - General 1994 Ears/Nose/Throat otoscopic exam Overall: tympanic membranes clear 01/11/2016 None Full Exam - General 1994 Ears/Nose/Throat oral cavity/pharynx/larynx Overall: oral mucosa clear 01/11/2016 None Full Exam - General 1994 Ears/Nose/Throat oral cavity/pharynx/larynx Overall: oropharyngeal mucosa clear 01/11/2016 None Full Exam - General 1994 Ears/Nose/Throat oral cavity/pharynx/larynx Overall: no masses 01/11/2016 None Full Exam - General 1994 Respiratory auscultation Overall: breath sounds clear bilaterally 01/11/2016 None Full Exam - General 1994 Respiratory respiratory effort/rhythm Overall: no retractions 01/11/2016 None Full Exam - General 1994 Respiratory respiratory effort/rhythm Overall: normal rate 01/11/2016 None Full Exam - General 1994 Cardiovascular extremities Overall: no clubbing 01/11/2016 None Full Exam - General 1994 Cardiovascular auscultation of heart Overall: regular rate 01/11/2016 None Full Exam - General 1994 Cardiovascular auscultation of heart Overall: normal heart sounds 01/11/2016 None Full Exam - General 1994 Cardiovascular auscultation of heart Overall: no murmurs 01/11/2016 None Full Exam - General 1994 Abdomen abdominal exam Overall: no tenderness 01/11/2016 None Full Exam - General 1994 Abdomen abdominal exam Overall: normal bowel sounds 01/11/2016 None Full Exam - General 1994 Lymphatic neck nodes Overall: anterior cervical chain benign 01/11/2016 None Full Exam - General 1994 Lymphatic neck nodes Overall: posterior cervical chain benign 01/11/2016 None Full Exam - General 1994 Musculoskeletal gait and station Overall: normal gait 01/11/2016 None Full Exam - General 1994 Musculoskeletal gait and station Overall: normal station 01/11/2016 None Full Exam - General 1994 Integument inspection of skin Overall: no rash, lesions 01/11/2016 None Full Exam - General 1994 Neurologic cranial nerves Overall: crainial nerves 2 - 12 grossly intact 01/11/2016 None Full Exam - General 1994 Psychiatric orientation/consciousness Overall: oriented to person, place and time 01/11/2016 None Full Exam - General 1994 Constitutional general appearance Overall: well developed 07/12/2015 None Full Exam - General 1994 Constitutional general appearance Overall: in no acute distress 07/12/2015 None Full Exam - General 1994 Constitutional general appearance Overall: well nourished 07/12/2015 None Full Exam - General 1994 Eyes conjunctiva /eyelids Overall: conjunctiva clear 07/12/2015 None Full Exam - General 1994 Eyes conjunctiva /eyelids Overall: cornea clear 07/12/2015 None Full Exam - General 1994 Eyes conjunctiva /eyelids Overall: eyelids normal 07/12/2015 None Full Exam - General 1994 Eyes pupils and irises Overall: pupils equal, round, reactive to light and accomodation 07/12/2015 None Full Exam - General 1994 Ears/Nose/Throat otoscopic exam Overall: external auditory canals clear 07/12/2015 None Full Exam - General 1994 Ears/Nose/Throat otoscopic exam Overall: tympanic membranes clear 07/12/2015 None Full Exam - General 1994 Ears/Nose/Throat oral cavity/pharynx/larynx Overall: oral mucosa clear 07/12/2015 None Full Exam - General 1994 Ears/Nose/Throat oral cavity/pharynx/larynx Overall: oropharyngeal mucosa clear 07/12/2015 None Full Exam - General 1994 Ears/Nose/Throat oral cavity/pharynx/larynx Overall: no masses 07/12/2015 None Full Exam - General 1994 Respiratory auscultation Overall: breath sounds clear bilaterally 07/12/2015 None Full Exam - General 1994 Respiratory respiratory effort/rhythm Overall: no retractions 07/12/2015 None Full Exam - General 1994 Respiratory respiratory effort/rhythm Overall: normal rate 07/12/2015 None Full Exam - General 1994 Cardiovascular extremities Overall: no clubbing 07/12/2015 None Full Exam - General 1994 Cardiovascular auscultation of heart Overall: regular rate 07/12/2015 None Full Exam - General 1994 Cardiovascular auscultation of heart Overall: normal heart sounds 07/12/2015 None Full Exam - General 1994 Cardiovascular auscultation of heart Overall: no murmurs 07/12/2015 None Full Exam - General 1994 Abdomen abdominal exam Overall: no tenderness 07/12/2015 None Full Exam - General 1994 Abdomen abdominal exam Overall: normal bowel sounds 07/12/2015 None Full Exam - General 1994 Lymphatic neck nodes Overall: anterior cervical chain benign 07/12/2015 None Full Exam - General 1994 Lymphatic neck nodes Overall: posterior cervical chain benign 07/12/2015 None Full Exam - General 1994 Musculoskeletal gait and station Overall: normal gait 07/12/2015 None Full Exam - General 1994 Musculoskeletal gait and station Overall: normal station 07/12/2015 None Full Exam - General 1994 Integument inspection of skin Overall: no rash, lesions 07/12/2015 None Full Exam - General 1994 Neurologic cranial nerves Overall: crainial nerves 2 - 12 grossly intact 07/12/2015 None Full Exam - General 1994 Psychiatric orientation/consciousness Overall: oriented to person, place and time 07/12/2015 None Full Exam - General 1994 Constitutional general appearance Overall: well developed 01/04/2015 None Full Exam - General 1994 Constitutional general appearance Overall: in no acute distress 01/04/2015 None Full Exam - General 1994 Constitutional general appearance Overall: well nourished 01/04/2015 None Full Exam - General 1994 Psychiatric orientation/consciousness Overall: oriented to person, place and time 01/04/2015 None Full Exam - General 1994 Neurologic cranial nerves Overall: crainial nerves 2 - 12 grossly intact 01/04/2015 None Full Exam - General 1994 Integument inspection of skin Overall: no rash, lesions 01/04/2015 None Full Exam - General 1994 Musculoskeletal gait and station Overall: normal station 01/04/2015 None Full Exam - General 1994 Musculoskeletal gait and station Overall: normal gait 01/04/2015 None Full Exam - General 1994 Lymphatic neck nodes Overall: anterior cervical chain benign 01/04/2015 None Full Exam - General 1994 Lymphatic neck nodes Overall: posterior cervical chain benign 01/04/2015 None Full Exam - General 1994 Abdomen abdominal exam Overall: no tenderness 01/04/2015 None Full Exam - General 1994 Abdomen abdominal exam Overall: normal bowel sounds 01/04/2015 None Full Exam - General 1994 Cardiovascular auscultation of heart Overall: regular rate 01/04/2015 None Full Exam - General 1994 Cardiovascular auscultation of heart Overall: normal heart sounds 01/04/2015 None Full Exam - General 1994 Cardiovascular auscultation of heart Overall: no murmurs 01/04/2015 None Full Exam - General 1994 Cardiovascular extremities Overall: no clubbing 01/04/2015 None Full Exam - General 1994 Respiratory auscultation Overall: breath sounds clear bilaterally 01/04/2015 None Full Exam - General 1994 Respiratory respiratory effort/rhythm Overall: normal rate 01/04/2015 None Full Exam - General 1994 Respiratory respiratory effort/rhythm Overall: no retractions 01/04/2015 None Full Exam - General 1994 Ears/Nose/Throat otoscopic exam Overall: tympanic membranes clear 01/04/2015 None Full Exam - General 1994 Ears/Nose/Throat otoscopic exam Overall: external auditory canals clear 01/04/2015 None Full Exam - General 1994 Ears/Nose/Throat oral cavity/pharynx/larynx Overall: oropharyngeal mucosa clear 01/04/2015 None Full Exam - General 1994 Ears/Nose/Throat oral cavity/pharynx/larynx Overall: no masses 01/04/2015 None Full Exam - General 1994 Ears/Nose/Throat oral cavity/pharynx/larynx Overall: oral mucosa clear 01/04/2015 None Full Exam - General 1994 Eyes conjunctiva /eyelids Overall: conjunctiva clear 01/04/2015 None Full Exam - General 1994 Eyes conjunctiva /eyelids Overall: eyelids normal 01/04/2015 None Full Exam - General 1994 Eyes conjunctiva /eyelids Overall: cornea clear 01/04/2015 None Full Exam - General 1994 Eyes pupils and irises Overall: pupils equal, round, reactive to light and accomodation 01/04/2015 None Procedures Procedure Codes Date URINALYSIS NONAUTO W/O SCOPE CPT-4: 68487 05/08/2018 PPPS, SUBSEQ VISIT CPT -4: G0439 04/29/2018 URINALYSIS NONAUTO W/O SCOPE CPT-4: 05643 04/22/2018 DRAIN/INJECT JOINT/BURSA CPT-4: 04497 09/25/2017 ADMIN INFLUENZA VIRUS VAC CPT-4: G0008 03/12/2017 ADMIN PNEUMOCOCCAL VACCINE SNOMED CT: 25652701 CPT-4: G0009 03/12/2017 FLU VACC PRSV FREE INC ANTIG CPT-4: 14348 03/12/2017 PNEUMOCOCCAL VACC [address]: 02053720 CPT-4: 62669 03/12/2017 PPPS, SUBSEQ VISIT CPT -4: G0439 02/09/2017 Vital Signs Date Vital 04/29/2018 Blood Pressure 1: 140/80 Code : 8480-6 BMI: 31.1 Code : 92451-6 Heart Rate 1 : 98 bpm Height: 5'5" SpO2: 92% Weight: 187 lbs 04/22/2018 Blood Pressure 1: 142/88 Code : 8480-6 Blood Pressure 1: 150/90 Code: 8480-6 BMI: 31.5 Code: 49806-1 Heart Rate 1: 70 bpm Height: 5'5" SpO2: 94% Weight: 189 lbs 01/22/2018 Blood Pressure 1: 142/78 Code : 8480-6 BMI: 31.6 Code : 81724-8 Heart Rate 1 : 85 bpm Height: 5'5" SpO2: 97% Weight: 190 lbs 11/19/2017 Blood Pressure 1: 132/78 Code : 8480-6 BMI: 31.1 Code : 66299-5 Heart Rate 1 : 68 bpm Height: 5'5" SpO2: 97% Weight: 187 lbs 09/25/2017 Blood Pressure 1: 140/80 Code : 8480-6 BMI: 31.0 Code : 29148-7 Heart Rate 1 : 80 bpm Height: 5'5" SpO2: 99% Weight: 186 lbs 07/12/2017 Blood Pressure 1: 138/72 Code : 8480-6 Blood Pressure 1: 144/88 Code: 8480-6 BMI: 30.8 Code: 74637-6 Heart Rate 1: 71 bpm Height: 5'5" SpO2: 95% Weight: 185 lbs 03/12/2017 Blood Pressure 1: 140/80 Code : 8480-6 BMI: 30.6 Code : 93409-2 Heart Rate 1 : 75 bpm Height: 5'5" SpO2: 97% Weight: 184 lbs 02/09/2017 Heart Rate 1: 74 bpm Height: Weight: 02/08/2017 Blood Pressure 1: 146/88 Code : 8480-6 BMI: 30.1 Code : 43022-8 Heart Rate 1 : 76 bpm Height: 5'5" SpO2: 95% Weight: 181 lbs 08/08/2016 Blood Pressure 1: 144/76 Code : 8480-6 Heart Rate 1: 80 bpm SpO2: 98% Weight: 185 lbs 02/08/2016 Blood Pressure 1: 130/70 Code : 8480-6 BMI: 30.3 Code : 26616-5 Heart Rate 1 : 60 bpm Height: 5'5" SpO2: 98% Weight: 182 lbs 01/11/2016 Blood Pressure 1: 148/82 Code : 8480-6 BMI: 30.6 Code : 16455-3 Heart Rate 1 : 84 bpm Height: 5'5" SpO2: 96% Weight: 184 lbs 07/12/2015 Blood Pressure 1: 152/76 Code : 8480-6 BMI: 30.6 Code : 16751-1 Heart Rate 1 : 70 bpm Height: 5'5" SpO2: 93% Weight: 184 lbs 01/04/2015 Blood Pressure 1: 148/88 Code : 8480-6 BMI: 31.0 Code : 64337-3 Heart Rate 1 : 80 bpm Height: 5'5" Weight: 186 lbs Functional Status No Functional Status data History of Present Illness Symptom Name Status Result Effective Date Notes Annual Medicare Wellness Exam Depression or Hopelessness some of the time 04/29/2018 None Annual Medicare Wellness Exam Describe Your Health good 04/29/2018 None Annual Medicare Wellness Exam Exercise Habits exercises _ days per week 04/29/2018 None Annual Medicare Wellness Exam Handling Stress usually chato effectively 04/29/2018 None Annual Medicare Wellness Exam Hemaglobin A-1C (self reported ) don't know 04/29/2018 None Annual Medicare Wellness Exam Interaction with Friends yes 04/29/2018 None Annual Medicare Wellness Exam Interests & Pleasure most of the time 04/29/2018 None Annual Medicare Wellness Exam Life Satisfaction satisfied 04/29/2018 None Annual Medicare Wellness Exam Motor Vehicle Safety always fastens seat belt: y 04/29/2018 None Annual Medicare Wellness Exam Smoking and Tobacco Use non smoker 04/29/2018 None Annual Medicare Wellness Exam Sun Exposure protects skin when outdoors: y 04/29/2018 None Annual Medicare Wellness Exam Alcohol Use does not drink any alcohol 04/29/2018 None Annual Medicare Wellness Exam Blood Glucose (self reported) don't know 04/29/2018 None Annual Medicare Wellness Exam Blood Pressure (self reported ) diagnosed with hypertension 04/29/2018 None Annual Medicare Wellness Exam Cholesterol (self reported) diagnosed with elevated cholesterol 2017 None Annual Medicare Wellness Exam Depression (last 6 months) some of the time 04/29/2018 None Annual Medicare Wellness Exam Social & Emotional Support sometimes 04/29/2018 None Annual Medicare Wellness Exam Stress some of the time 04/29/2018 None Annual Medicare Wellness Exam Aspirin Use yes 04/29/2018 None Annual Medicare Wellness Exam Hours of Sleep 7.5 04/29/2018 None Annual Medicare Wellness Exam Nutrition servings of vegetables / fruit per day: 2 04/29/2018 None Annual Medicare Wellness Exam Nutrition servings of high fiber / whole grain per day: 3 04/29/2018 2 Annual Medicare Wellness Exam Nutrition servings of fried food / high fat foods per day: 2 2017 None dysuria Quality intermittent 04/22/2018 None dysuria Onset and Resolution ongoing 04/22/2018 None dysuria Onset of Symptom 1 weeks ago 04/22/2018 None dysuria Frequency of Episodes daily 04/22/2018 None dysuria Pertinent Findings back pain 04/22/2018 reports always has back pain dysuria Pertinent Findings bladder pain 04/22/2018 None dysuria Pertinent Findings Denies fever 04/22/2018 None dysuria Pertinent Findings pelvic pain 04/22/2018 None hypertension Quality primary hypertension 04/22/2018 None hypertension Onset and Resolution ongoing 04/22/2018 None hypertension Onset of Symptom during adulthood 04/22/2018 None hypertension Blood Pressure Values patient checking blood pressure at home - did not bring in readings 04/22/2018 -Checks occasionally depression Quality intermittent 01/22/2018 None depression Onset and Resolution ongoing 01/22/2018 None hypertension Quality primary hypertension 01/22/2018 None hypertension Onset and Resolution ongoing 01/22/2018 None hypertension Onset of Symptom during adulthood 01/22/2018 None hypertension Blood Pressure Values patient checking blood pressure at home - did not bring in readings 01/22/2018 -Checks occasionally hypertension Alleviating Factors medication 01/22/2018 None hypertension Pertinent Findings dizziness 01/22/2018 once in a while hypertension Pertinent Findings Denies dyspnea 01/22/2018 None hypertension Pertinent Findings Denies edema 01/22/2018 None urinary incontinence Quality functional incontinence 01/22/2018 None urinary incontinence Quality stress incontinence 01/22/2018 None urinary incontinence Quality urge incontinence 01/22/2018 None hypertension Quality chronic 01/22/2018 None depression Alleviating Factors medication 01/22/2018 None depression Frequency of Episodes decreasing 01/22/2018 None urinary incontinence Onset and Resolution ongoing 01/22/2018 None urinary incontinence Frequency of Episodes decreasing 01/22/2018 None urinary incontinence Alleviating Factors medication 01/22/2018 None hypertension Quality primary hypertension 11/19/2017 None hypertension Onset and Resolution ongoing 11/19/2017 None hypertension Onset of Symptom during adulthood 11/19/2017 None hypertension Blood Pressure Values patient checking blood pressure at home - did not bring in readings 11/19/2017 -Checks occasionally hypertension Alleviating Factors medication 11/19/2017 None hypertension Pertinent Findings Denies dizziness 11/19/2017 None hypertension Pertinent Findings Denies dyspnea 11/19/2017 None hypertension Pertinent Findings edema 11/19/2017 mild- if she is up on them frequently low back and leg pain Location on both sides 11/19/2017 None low back and leg pain Quality intermittent 11/19/2017 None low back and leg pain Onset and Resolution ongoing 11/19/2017 None low back and leg pain Limitation on Activities allows weight bearing activity 11/19/2017 None low back and leg pain Limitation on Activities moderately limits activities 11/19/2017 None low back and leg pain Frequency of Episodes daily 11/19/2017 None low back and leg pain Frequency of Episodes unchanged 11/19/2017 None low back and leg pain Significant Medical Conditions depression 11/19/2017 None low back and leg pain Significant Medical Conditions hyperlipidemia 11/19/2017 None low back and leg pain Significant Medical Conditions hypertension 11/19/2017 None low back and leg pain Alleviating Factors medications 11/19/2017 None low back and leg pain Alleviating Factors physical therapy 11/19/2017 None low back and leg pain Triggers activity 11/19/2017 None depression Quality intermittent 11/19/2017 None depression Onset and Resolution ongoing 11/19/2017 None depression Frequency of Episodes daily 11/19/2017 None urinary incontinence Quality stress incontinence 11/19/2017 None urinary incontinence Quality urge incontinence 11/19/2017 None urinary incontinence Quality functional incontinence 11/19/2017 None knee pain Location on the left 09/25/2017 None knee pain Location in the posterior region 09/25/2017 None knee pain Quality acute 09/25/2017 None knee pain Onset and Resolution sudden in onset 09/25/2017 None knee pain Onset of Symptom ~1 weeks ago 09/25/2017 None knee pain Frequency of Episodes daily 09/25/2017 None knee pain Limitation on Activities moderately limits activities 09/25/2017 None knee pain Severity moderate 09/25/2017 None knee pain Mechanism of injury unknown 09/25/2017 None knee pain Exacerbating Factors weight bearing 09/25/2017 None knee pain Pertinent Findings pain with movement 09/25/2017 None knee pain Alleviating Factors non weight bearing 09/25/2017 None hypertension Quality primary hypertension 07/12/2017 None hypertension Onset and Resolution ongoing 07/12/2017 None hypertension Onset of Symptom during adulthood 07/12/2017 None hypertension Blood Pressure Values patient checking blood pressure at home - did not bring in readings 07/12/2017 -Checks occasionally hypertension Alleviating Factors medication 07/12/2017 None hypertension Pertinent Findings Denies dizziness 07/12/2017 None hypertension Pertinent Findings Denies dyspnea 07/12/2017 None hypertension Pertinent Findings edema 07/12/2017 mild- if she is up on them frequently low back and leg pain Location on both sides 07/12/2017 None low back and leg pain Quality intermittent 07/12/2017 None low back and leg pain Onset and Resolution ongoing 07/12/2017 None low back and leg pain Limitation on Activities allows weight bearing activity 07/12/2017 None low back and leg pain Limitation on Activities moderately limits activities 07/12/2017 None low back and leg pain Frequency of Episodes daily 07/12/2017 None low back and leg pain Frequency of Episodes unchanged 07/12/2017 None low back and leg pain Significant Medical Conditions depression 07/12/2017 None low back and leg pain Significant Medical Conditions hyperlipidemia 07/12/2017 None low back and leg pain Significant Medical Conditions hypertension 07/12/2017 None low back and leg pain Alleviating Factors medications 07/12/2017 None low back and leg pain Alleviating Factors physical therapy 07/12/2017 None low back and leg pain Triggers activity 07/12/2017 None low back and leg pain Location on both sides 03/12/2017 None low back and leg pain Quality intermittent 03/12/2017 None low back and leg pain Onset and Resolution ongoing 03/12/2017 None low back and leg pain Limitation on Activities allows weight bearing activity 03/12/2017 None low back and leg pain Limitation on Activities moderately limits activities 03/12/2017 None low back and leg pain Frequency of Episodes unchanged 03/12/2017 None hypertension Onset and Resolution ongoing 03/12/2017 None hypertension Onset of Symptom during adulthood 03/12/2017 None hypertension Blood Pressure Values patient checking blood pressure at home - did not bring in readings 03/12/2017 -Checks occasionally hypertension Alleviating Factors medication 03/12/2017 None hypertension Pertinent Findings Denies dizziness 03/12/2017 None hypertension Pertinent Findings Denies dyspnea 03/12/2017 None hypertension Pertinent Findings edema 03/12/2017 mild- if she is up on them frequently hypertension Quality primary hypertension 03/12/2017 None low back and leg pain Frequency of Episodes daily 03/12/2017 None low back and leg pain Significant Medical Conditions depression 03/12/2017 None low back and leg pain Significant Medical Conditions hypertension 03/12/2017 None low back and leg pain Significant Medical Conditions hyperlipidemia 03/12/2017 None low back and leg pain Alleviating Factors medications 03/12/2017 None low back and leg pain Alleviating Factors physical therapy 03/12/2017 None low back and leg pain Triggers activity 03/12/2017 None Annual Medicare Wellness Exam Alcohol Use does not drink any alcohol 02/09/2017 None Annual Medicare Wellness Exam Aspirin Use yes 02/09/2017 81 Annual Medicare Wellness Exam Blood Glucose (self reported) don't know 02/09/2017 None Annual Medicare Wellness Exam Blood Pressure (self reported ) don't know 02/09/2017 None Annual Medicare Wellness Exam Cholesterol (self reported) don't know 02/09/2017 None Annual Medicare Wellness Exam Depression (last 6 months) some of the time 02/09/2017 None Annual Medicare Wellness Exam Depression or Hopelessness almost never 02/09/2017 None Annual Medicare Wellness Exam Describe Your Health good 02/09/2017 None Annual Medicare Wellness Exam Exercise Habits exercises 2-3 days per week 02/09/2017 None Annual Medicare Wellness Exam Handling Stress usually chato effectively 02/09/2017 None Annual Medicare Wellness Exam Hemaglobin A-1C (self reported ) don't know 02/09/2017 None Annual Medicare Wellness Exam Hours of Sleep 7 02/09/2017 None Annual Medicare Wellness Exam Interaction with Friends yes 02/09/2017 None Annual Medicare Wellness Exam Interests & Pleasure some of the time 02/09/2017 None Annual Medicare Wellness Exam Life Satisfaction satisfied 02/09/2017 None Annual Medicare Wellness Exam Motor Vehicle Safety always fastens seat belt: y 02/09/2017 None Annual Medicare Wellness Exam Nutrition servings of vegetables / fruit per day: 1-2 02/09/2017 None Annual Medicare Wellness Exam Smoking and Tobacco Use non smoker 02/09/2017 None Annual Medicare Wellness Exam Social & Emotional Support usually 02/09/2017 None Annual Medicare Wellness Exam Stress almost never 02/09/2017 None Annual Medicare Wellness Exam Sun Exposure protects skin when outdoors: y 02/09/2017 None depression Quality intermittent 02/08/2017 None depression Onset and Resolution ongoing 02/08/2017 None depression Onset of Symptom _ months ago 02/08/2017 None depression Frequency of Episodes daily 02/08/2017 None depression Pertinent Findings anxiety 02/08/2017 None depression Pertinent Findings Denies loss of interest in activities 02/08/2017 None sciatica Location on both sides 02/08/2017 None sciatica Location on the right 02/08/2017 None sciatica Quality intermittent 02/08/2017 None sciatica Onset of Symptom _ years ago 02/08/2017 None sciatica Limitation on Activities moderately limits activities 02/08/2017 None sciatica Frequency of Episodes daily 02/08/2017 None sciatica Significant Medical Conditions herniated disc 02/08/2017 None sciatica Pertinent Findings Denies fever 02/08/2017 None sciatica Pertinent Findings low back pain 02/08/2017 None sciatica Pertinent Findings stiffness 02/08/2017 None sciatica Pertinent Findings Denies weakness 02/08/2017 None sciatica Onset and Resolution ongoing 02/08/2017 None sciatica Onset and Resolution worse during the day 02/08/2017 None depression Quality intermittent 08/08/2016 None depression Onset and Resolution ongoing 08/08/2016 None depression Onset of Symptom _ months ago 08/08/2016 None depression Frequency of Episodes daily 08/08/2016 None depression Pertinent Findings anxiety 08/08/2016 None depression Pertinent Findings Denies loss of interest in activities 08/08/2016 None sciatica Location on the right 08/08/2016 None sciatica Quality intermittent 08/08/2016 None sciatica Frequency of Episodes daily 08/08/2016 None sciatica Pertinent Findings Denies fever 08/08/2016 None sciatica Pertinent Findings stiffness 08/08/2016 None sciatica Pertinent Findings Denies weakness 08/08/2016 None sciatica Location on both sides 08/08/2016 None sciatica Pertinent Findings low back pain 08/08/2016 None sciatica Significant Medical Conditions herniated disc 08/08/2016 None sciatica Onset of Symptom _ years ago 08/08/2016 None sciatica Limitation on Activities moderately limits activities 08/08/2016 None depression Quality intermittent 02/08/2016 None depression Onset and Resolution ongoing 02/08/2016 None depression Onset of Symptom _ months ago 02/08/2016 None depression Frequency of Episodes daily 02/08/2016 None depression Pertinent Findings anxiety 02/08/2016 None depression Pertinent Findings Denies loss of interest in activities 02/08/2016 None sciatica Location on the right 02/08/2016 None sciatica Quality intermittent 02/08/2016 None sciatica Frequency of Episodes daily 02/08/2016 None sciatica Pertinent Findings Denies fever 02/08/2016 None sciatica Pertinent Findings Denies stiffness 02/08/2016 None sciatica Pertinent Findings Denies weakness 02/08/2016 None hypertension Quality chronic 01/11/2016 None hypertension Onset and Resolution ongoing 01/11/2016 None hypertension Onset of Symptom during adulthood 01/11/2016 None hypertension Severity mild 01/11/2016 None hypertension Frequency of Episodes unchanged 01/11/2016 None hypertension Triggers stress 01/11/2016 None hypertension Alleviating Factors medication 01/11/2016 None hypertension Exacerbating Factors stress 01/11/2016 None hypertension Pertinent Findings Denies dizziness 01/11/2016 None hypertension Pertinent Findings Denies dyspnea 01/11/2016 None hypertension Pertinent Findings Denies edema 01/11/2016 None hyperlipidemia Onset and Resolution ongoing 01/11/2016 None anxiety Quality chronic 01/11/2016 None anxiety Onset and Resolution ongoing 01/11/2016 taking diazepam prn. Also using Effexor anxiety Onset of Symptom during adulthood 01/11/2016 None anxiety Limitation on Activities does not limit activities 01/11/2016 None anxiety Frequency of Episodes unchanged 01/11/2016 None anxiety Pertinent Findings Denies insomnia 01/11/2016 intermittent takes Tylenol pm or Valium hypertension Blood Pressure Values " white coat" (home SBP<129 / DBP<84) 01/11/2016 125/73 at home hypertension Quality chronic 07/12/2015 None hypertension Onset and Resolution ongoing 07/12/2015 None hypertension Onset of Symptom during adulthood 07/12/2015 None hypertension Severity mild 07/12/2015 None hypertension Frequency of Episodes unchanged 07/12/2015 None hypertension Triggers stress 07/12/2015 None hypertension Alleviating Factors medication 07/12/2015 None hypertension Exacerbating Factors stress 07/12/2015 None hypertension Pertinent Findings Denies dizziness 07/12/2015 None hypertension Pertinent Findings Denies dyspnea 07/12/2015 None hypertension Pertinent Findings Denies edema 07/12/2015 None hyperlipidemia Onset and Resolution ongoing 07/12/2015 None anxiety Quality chronic 07/12/2015 None anxiety Onset and Resolution ongoing 07/12/2015 taking diazepam prn. Also using Effexor anxiety Onset of Symptom during adulthood 07/12/2015 None anxiety Limitation on Activities does not limit activities 07/12/2015 None anxiety Frequency of Episodes unchanged 07/12/2015 None anxiety Pertinent Findings Denies insomnia 07/12/2015 intermittent takes Tylenol pm or Valium hypertension Onset and Resolution ongoing 01/04/2015 None hypertension Pertinent Findings Denies dizziness 01/04/2015 None hypertension Pertinent Findings Denies dyspnea 01/04/2015 None hypertension Pertinent Findings Denies edema 01/04/2015 None hyperlipidemia Onset and Resolution ongoing 01/04/2015 None anxiety Onset and Resolution ongoing 01/04/2015 taking diazepam prn. Also using Effexor anxiety Pertinent Findings Denies insomnia 01/04/2015 intermittent takes Tylenol pm or Valium hypertension Onset of Symptom during adulthood 01/04/2015 None anxiety Onset of Symptom during adulthood 01/04/2015 None anxiety Quality chronic 01/04/2015 None anxiety Limitation on Activities does not limit activities 01/04/2015 None anxiety Frequency of Episodes unchanged 01/04/2015 None hypertension Quality chronic 01/04/2015 None hypertension Severity mild 01/04/2015 None hypertension Frequency of Episodes unchanged 01/04/2015 None hypertension Triggers stress 01/04/2015 None hypertension Alleviating Factors medication 01/04/2015 None hypertension Exacerbating Factors stress 01/04/2015 None Advance Directives No Advance Directive data Encounters Encounter Performer Location Codes Date ( 34630 EST. PATIENT, LEVEL IV Diagnosis: Urinary tract infection, site not specified[ICD10: N39.0] Diagnosis: Mixed hyperlipidemia[ICD10: E78.2] Diagnosis: Essential (primary) hypertension[ICD10: I10] Diagnosis: Chronic kidney disease, stage 3 (moderate)[ICD10: N18.3] Alize Aguirre MD , [facility] CPT-4: 06308 04/22/2018 ([id number]) 83296 EST. PATIENT, LEVEL IV Diagnosis: Essential (primary) hypertension[ICD10: I10] Diagnosis: Major depressive disorder, recurrent, mild[ICD10: F33.0] Diagnosis: Mixed incontinence[ICD10: N39.46] Diagnosis: Low back pain[ICD10: M54.5] Alize Aguirre MD, [facility] CPT-4: 69394 01/22/2018 ([id number]) 34541 EST. PATIENT, LEVEL IV Diagnosis: Essential (primary) hypertension[ICD10: I10] Diagnosis: Generalized anxiety disorder[ICD10: F41.1] Diagnosis: Major depressive disorder, recurrent, mild[ICD10: F33.0] Diagnosis: Mixed incontinence[ICD10: N39.46] Alize Aguirre MD, [facility] CPT-4: 84717 11/19/2017 53789 EST. PATIENT, LEVEL III Diagnosis: Pain in left knee[ICD10: M25.562] Diagnosis: Synovial cyst of popliteal space [Butts], left knee[ICD10: M71.22] Alize Aguirre MD, [facility] CPT-4: 83000 09/25/2017 ([id number]) 37889 EST. PATIENT, LEVEL IV Diagnosis: Essential (primary) hypertension[ICD10: I10] Diagnosis: Chronic kidney disease, stage 3 (moderate)[ICD10: N18.3] Diagnosis: Generalized anxiety disorder[ICD10: F41.1] Diagnosis: Chronic pain syndrome[ICD10: G89.4] Diana Aguirre MD, [facility] CPT-4: 35607 07/12/2017 ([id number]) 49058 EST. PATIENT, LEVEL IV Diagnosis: Essential (primary) hypertension[ICD10: I10] Diagnosis: Iliotibial band syndrome, right leg[ICD10: M76.31] Diagnosis: Encounter for immunization[ICD10: Z23] Diana Aguirre MD, [facility] CPT-4: 34885 03/12/2017 [id number]) 34268 EST. PATIENT, LEVEL IV Diagnosis: Iliotibial band syndrome, right leg[ICD10: M76.31] Diagnosis: Mixed hyperlipidemia[ICD10: E78.2] Diagnosis: Generalized anxiety disorder[ICD10: F41.1] Diagnosis: Essential (primary) hypertension[ICD10: I10] Diagnosis: Chronic kidney disease, stage 3 (moderate)[ICD10: N18.3] Diagnosis: Trochanteric bursitis, right hip[ICD10: M70.61] Diagnosis: Vitamin D deficiency, unspecified[ICD10: E55.9] Diana Aguirre MD, [facility] CPT-4: 69237 02/08/2017 ([id number]) 80717 EST. PATIENT, LEVEL IV Diagnosis: Essential (primary) hypertension[ICD10: I10] Diagnosis: Mixed hyperlipidemia[ICD10: E78.2] Diagnosis: Chronic kidney disease, stage 3 (moderate)[ICD10: N18.3] Diagnosis: Low back pain[ICD10: M54.5] Alize Aguirre MD, [facility] CPT-4: 19794 08/08/[id number]) 36263 EST. PATIENT, LEVEL III Diagnosis: Generalized anxiety disorder[ICD10: F41.1] Diagnosis: Sciatica, right side[ICD10: M54.31] Alize Aguirre MD, [facility] CPT-4: 44115 02/08/2016 ([id number]) 67656 EST. PATIENT, LEVEL IV Diagnosis: Essential (primary) hypertension[ICD10: I10] Diagnosis: Mixed hyperlipidemia[ICD10: E78.2] Diagnosis: Generalized anxiety disorder[ICD10: F41.1] Diagnosis: Vitamin D deficiency, unspecified[ICD10: E55.9] Diagnosis: Chronic kidney disease, stage 3 (moderate)[ICD10: N18.3] Alize Aguirre MD , [facility] CPT-4: 29466 01/11/2016 ([id number]) 13458 EST. PATIENT, LEVEL IV Diagnosis: Essential (primary) hypertension[ICD10: I10] Diagnosis: Mixed hyperlipidemia[ICD10: E78.2] Diagnosis: Generalized anxiety disorder[ICD10: F41.1] Alize Aguirre MD, [facility] CPT-4: 61913 07/12/2015 ([id number]) Miscellaneous no charge Diagnosis: Forearm fracture[ICD9: 813.80] Diana Aguirre MD, [facility] CPT- 4: 10066 03/05/2015 ([id number]) OFFICE VISIT, NEW - LEVEL 4 Diagnosis: ESSENTIAL HYPERTENSION[ICD9: 401.9] Diagnosis: Hyperlipidemia[ICD9: 272.4] Diagnosis: Chronic renal disease, stage 3, moderately decreased glomerular filtration rate (GFR) between 30-59 mL/min/1.73 square meter[ICD9: 585.3] Diagnosis: Anxiety state[ICD9: 300.00] Alize Aguirre MD, [facility] CPT-4: 45781 01/04/2015 Plan of Care Planned Activity Notes Codes Status Date Appointment: Lab Draw 05/08/2018 Patient Education: Patient Medication Summary Completed 05/08/2018 Visit Plan: Medicare Exam - today we discussed the patients past history, immunizations, preventative exams/evaluations - colonoscopy, fecal occult blood testing, routine labs for renal function, glucose, cholesterol, osteoporosis evaluations, cardiovascular testing and cancer screenings. We have also discussed mental health and the signs/symptoms of depression. The patient was advised of home safety evaluations and the need to make sure that as the aging process continues, we need to be aware of different ways to make the home a safer place to reside. The patient has also been counseled that exercise is necessary - and of utmost importance as we age to help decrease fall risk and to maintain independence in the home. Today we discussed the need for the patient to create paperwork for Advanced directives as well as for the patient to provide this office with a copy of her DOPA paperwork for health care surrogate. UTI-rx for augmentin-return next sunday or for follow up UA to ensure infection has cleared 04/29/2018 Appointment: Alize Jerome WPtel: [phone] [phone] [facility] - Annual Wellness Visit 04/29/2018 Patient Education: Patient Medication Summary Completed 04/29/2018 Visit Plan: Urinary Tract Infection-discussed natural and expected course of this diagnosis and to alert me if symptoms do not follow expected course, or if any worse. UA positive for infection today in the office- plan to send for culture and will call patient with results. RX sent to patient' s pharmacy. Avoid tub baths, restrictive underwear, etc. Recommend patient start on probiotic while taking the antibiotic to prevent diarrhea. Patient verbalized understanding of plan. Hypertension - well controlled - continue with current medications, continue with no added salt diet. Pt has been encouraged to exercise daily. The pt has been advised to call the office if there are any acute concerns about change in blood pressure readings at home. Hyperlipidemia-check labs today 04/22/2018 [facility]ment: [phone] [phone] (30 min) Complex 04/22/2018 Patient Education: Patient Medication Summary Completed 04/22/2018 Patient Education: Hypertension Completed 04/22/2018 Visit Plan: Hypertension - well controlled - continue with current medications, continue with no added salt diet. Pt has been encouraged to exercise daily. The pt has been advised to call the office if there are any acute concerns about change in blood pressure readings at home. Chronic Depression and anxiety - the pt has symptoms of chronic anxiety and depression that have been fairly well controlled since the last office visit. The pt has expected periods of exacerbation with abatement of the symptoms with change in situational exposure. No change in current medications. Urinary incontinence - improved with myrbetriq Low back pain- the patient was instructed in appropriate posture, need for weight loss to alleviate abdominal obesity that is worsening the patient's back pain.. The pt is to use prn antiinflammatories to manage acute pain. The patient is to call the office if the pain is worsening or does not improve. 01/22/2018 Appointment: Alize Jerome WPtel: [phone] [phone] (30 min) Complex 01/22/2018 Patient Education: Patient Medication Summary Completed 01/22/2018 Visit Plan: Hypertension - well controlled - continue with current medications, continue with no added salt diet. Pt has been encouraged to exercise daily. The pt has been advised to call the office if there are any acute concerns about change in blood pressure readings at home. Anxiety- depression-symptoms have increased some-increase lexapro to 1.5 tab daily Urinary incontinence-UA negative -samples of myrbetriq 11/19/2017 Appointment: Alize Jerome WPtel: [phone] [phone] (15 min) Moderate 11/19/2017 Patient Education: Patient Medication Summary Completed 11/19/2017 Visit Plan: Bakers cyst-left knee pain-Joint Injection - Pt was given post - injection instructions. The pt has been advised to use anti- inflammatories post injection today, ice to the injected site, call if redness, warmth, or increased pain occurs at the site of injection. 09/25/2017 Appointment: Alize Jerome WPtel: [phone] (30 min) Complex 09/25/2017 Patient Education: Patient Medication Summary Completed 09/25/2017 Visit Plan: Hypertension - well controlled - continue with current medications, continue with no added salt diet. Pt has been encouraged to exercise daily. The pt has been advised to call the office if there are any acute concerns about change in blood pressure readings at home. Back and hip pain - recommended pt to keep appt with Dr. Barnes for injection. Chronic Pain Syndrome - pt has chronic pain - has been maintained on current medications, has not sought out other medications, only uses PRN pain medications as directed , and understands the consequences of over-medication. CKD chronic - supportive care. 07/12/2017 Appointment: Diana Aguirre WPtel: [phone] [phone] (15 min) Moderate 07/12/2017 Patient Education: Patient Medication Summary Completed 07/12/2017 Visit Plan: Hypertension - well controlled - continue with current medications, continue with no added salt diet. Pt has been encouraged to exercise daily. The pt has been advised to call the office if there are any acute concerns about change in blood pressure readings at home. Iliotibial band syndrome- recommended use of anti-inflammatories and pt given handout on Iliotibial band exercises. flector patches 1.3% - [id number] 04/2019 pfizer flu and pneumonia 13 shot today 03/12/2017 Appointment: Diana Aguirre WPtel: [phone] [phone] (15 min) Moderate 03/12/2017 Patient Education: Patient Medication Summary Completed 03/12/2017 Patient Education: Obesity Completed 03/12/2017 Patient Education: Hypertension Completed 03/12/2017 [phone] [facility] with appt time Initiated 02/12/2017 Visit Plan: Medicare Exam - today we discussed the patients past history, immunizations, preventative exams/evaluations - colonoscopy, fecal occult blood testing, routine labs for renal function, glucose, cholesterol, osteoporosis evaluations, cardiovascular testing and cancer screenings. We have also discussed mental health and the signs/symptoms of depression. The patient was advised of home safety evaluations and the need to make sure that as the aging process continues, we need to be aware of different ways to make the home a safer place to reside. The patient has also been counseled that exercise is necessary - and of utmost importance as we age to help decrease fall risk and to maintain independece in the home. Today we discussed the need for the patient to create paperwork for Advanced directives as well as for the patient to provide this office with a copy of her DOPA paperwork for health care surrogate. 02/09/2017 Visit Plan: Medicare Exam - today we discussed the patients past history, immunizations, preventative exams/evaluations - colonoscopy, fecal occult blood testing, routine labs for renal function, glucose, cholesterol, osteoporosis evaluations, cardiovascular testing and cancer screenings. We have also discussed mental health and the signs/symptoms of depression. The patient was advised of home safety evaluations and the need to make sure that as the aging process continues, we need to be aware of different ways to make the home a safer place to reside. The patient has also been counseled that exercise is necessary - and of utmost importance as we age to help decrease fall risk and to maintain independece in the home. Today we discussed the need for the patient to create paperwork for Advanced directives as well as for the patient to provide this office with a copy of her DOPA paperwork for health care surrogate. 02/09/2017 Appointment: Lora Woody WPtel: [facility] [facility] - Annual Wellness Visit 02/09/2017 Patient Education: Patient Medication Summary Completed 02/09/2017 Visit Plan: Iliotibial band syndrome - RX for steroid - I have also recommended Physical therapy ordered for patient [facility]. Hyperlipidemia - pt has been counseled about appropriate diet, exercise, and need for low fat food choices. I have discussed the need for the patient to take medications as prescribed. If the patient has negative side effects from the medication, they are to CALL the office and not abruptly discontinue the medication without discussion with a practitioner in the office. We will check labs in 3-6 months for follow up on the patient's chronic medical problem and to assure normal liver response to medications. Chronic Depression and anxiety - the pt has symptoms of chronic anxiety and depression that have been fairly well controlled since the last office visit. The pt has expected periods of exacerbation with abatement of the symptoms with change in situational exposure. No change in current medications. Hypertension - well controlled - continue with current medications, continue with no added salt diet. Pt has been encouraged to exercise daily. The pt has been advised to call the office if there are any acute concerns about change in blood pressure readings at home. CKD - monitor labs - increase oral fluids. 02/08/2017 Appointment: [phone] [phone] (15 min) Moderate 02/08/2017 Patient Education: Patient Medication Summary Completed 02/08/2017 Patient Education: Obesity Completed 02/08/2017 Patient Education: Hypertension Completed 02/08/2017 Care Plan: Referral Order SNOMED-CT : [id number] Pending 02/08/2017 Appointment: Alize Jerome WPtel: [phone] [phone] (15 min) Moderate 02/06/2017 Visit Plan: Hypertension - well controlled - continue with current medications, continue with no added salt diet. Pt has been encouraged to exercise daily. The pt has been advised to call the office if there are any acute concerns about change in blood pressure readings at home. Hyperlipidemia - pt has been counseled about appropriate diet, exercise, and need for low fat food choices. I have discussed the need for the patient to take medications as prescribed. If the patient has negative side effects from the medication, they are to CALL the office and not abruptly discontinue the medication without discussion with a practitioner in the office. We will check labs in 3-6 months for follow up on the patient's chronic medical problem and to assure normal liver response to medications. Low back pain-spinal stenosis-MRI lumbar spine- consider referral to Dr Saenz for pain management/injections Chronic renal disease-check labs 08/08/2016 Appointment: Alize Jerome WPtel: [facility] [facility] [place] [address] (15 min) Moderate 08/08/2016 Patient Education: Patient Medication Summary Completed 08/08/2016 Visit Plan: Fhwpjeg-onembouw-dcohucws lexapro-call if symptoms uncontrolled Low back rchb-eteyejhq-hioefvybi discussed with the patient, pt to use topical voltaren gel as directed. Pt is to call if the symptoms do not improve or if they worsen. 02/08/2016 Appointment: Alize Jerome WPtel: [facility] [id number] [place] [address] (15 min) Moderate 02/08/2016 Patient Education: Patient Medication Summary Completed 02/08/2016 Patient Education: Obesity Completed 02/08/2016 Visit Plan: Hypertension - well controlled - continue with current medications, continue with no added salt diet. Pt has been encouraged to exercise daily. The pt has been advised to call the office if there are any acute concerns about change in blood pressure readings at home. Hyperlipidemia - pt has been counseled about appropriate diet, exercise, and need for low fat food choices. I have discussed the need for the patient to take medications as prescribed. If the patient has negative side effects from the medication, they are to CALL the office and not abruptly discontinue the medication without discussion with a practitioner in the office. We will check labs in 3-6 months for follow up on the patient's chronic medical problem and to assure normal liver response to medications. Chronic anxiety - the pt has symptoms of chronic anxiety and depression that have been fairly well controlled since the last office visit. The pt has expected periods of exacerbation with abatement of the symptoms with change in situational exposure. No change in current medications. TAPER OFF EFFEXOR-START LEXAPRO 01/11/2016 Appointment: Alize Jerome WPtel: [phone] (15 min) Moderate 01/11/2016 Patient Education: Patient Medication Summary Completed 01/11/2016 Patient Education: Obesity Completed 01/11/2016 Visit Plan: Hypertension - well controlled - continue with current medications, continue with no added salt diet. Pt has been encouraged to exercise daily. The pt has been advised to call the office if there are any acute concerns about change in blood pressure readings at home. Hyperlipidemia - pt has been counseled about appropriate diet, exercise, and need for low fat food choices. I have discussed the need for the patient to take medications as prescribed. If the patient has negative side effects from the medication, they are to CALL the office and not abruptly discontinue the medication without discussion with a practitioner in the office. We will check labs in 3-6 months for follow up on the patient's chronic medical problem and to assure normal liver response to medications. Chronic anxiety - the pt has symptoms of chronic anxiety and depression that have been fairly well controlled since the last office visit. The pt has expected periods of exacerbation with abatement of the symptoms with change in situational exposure. No change in current medications. 07/12/2015 Appointment: (15 min) Moderate 07/12/2015 Patient Education: Patient Medication Summary Completed 07/12/2015 Patient Education: Hypertension Completed 07/12/2015 Visit Plan: rx for hydrocodone given to patient 03/05/2015 Appointment: Nurse Visit 03/05/2015 Patient Education: Patient Medication Summary Completed 03/05/2015 Visit Plan: Hypertension - well controlled - continue with current medications, continue with no added salt diet. Pt has been encouraged to exercise daily. The pt has been advised to call the office if there are any acute concerns about change in blood pressure readings at home. Hyperlipidemia - pt has been counseled about appropriate diet, exercise, and need for low fat food choices. I have discussed the need for the patient to take medications as prescribed. If the patient has negative side effects from the medication, they are to CALL the office and not abruptly discontinue the medication without discussion with a practitioner in the office. We will check labs in 3-6 months for follow up on the patient's chronic medical problem and to assure normal liver response to medications. Chronic renal upqrsee-gospqj-gbx labs Chronic Depression and anxiety - the pt has symptoms of chronic anxiety and depression that have been fairly well controlled since the last office visit. The pt has expected periods of exacerbation with abatement of the symptoms with change in situational exposure. No change in current medications. 01/04/2015 Appointment: (S) New Patient 01/04/2015 Patient Education: Patient Medication Summary Completed 01/04/2015 Patient Education: Hypertension Completed 01/04/2015 Care Plan: COMPLETE CBC AUTOMATED LOINC : 42704-9 Ordered 01/04/2015 [id number] Ref[facility] Appointment Requested Instructions Comment check UA INCREASE LEXAPRO TO 1.5 TABS DAILY MYRBETRIQ 25MG DAILY -SAMPLES PROVIDED . Hypertension - well controlled - continue with current medications, continue with no added salt diet. Pt has been encouraged to exercise daily. The pt has been advised to call the office if there are any acute concerns about change in blood pressure readings at home. Ejbkxlx-xlnmieexlc-hceihuhb have increased some-increase lexapro to 1.5 tab daily Urinary incontinence-UA negative -samples of myrbetriq . Medicare Exam - today we discussed the patients past history, immunizations, preventative exams/evaluations - colonoscopy, fecal occult blood testing, routine labs for renal function, glucose, cholesterol, osteoporosis evaluations, cardiovascular testing and cancer screenings. We have also discussed mental health and the signs/symptoms of depression. The patient was advised of home safety evaluations and the need to make sure that as the aging process continues, we need to be aware of different ways to make the home a safer place to reside. The patient has also been counseled that exercise is necessary - and of utmost importance as we age to help decrease fall risk and to maintain independece in the home. Today we discussed the need for the patient to create paperwork for Advanced directives as well as for the patient to provide this office with a copy of her DOP[place] paperwork for health care surrogate. . Medicare Exam - today we discussed the patients past history, immunizations, preventative exams/evaluations - colonoscopy, fecal occult blood testing, routine labs for renal function, glucose, cholesterol, osteoporosis evaluations, cardiovascular testing and cancer screenings. We have also discussed mental health and the signs/symptoms of depression. The patient was advised of home safety evaluations and the need to make sure that as the aging process continues, we need to be aware of different ways to make the home a safer place to reside. The patient has also been counseled that exercise is necessary - and of utmost importance as we age to help decrease fall risk and to maintain independece in the home. Today we discussed the need for the patient to create paperwork for Advanced directives as well as for the patient to provide this office with a copy of her DOPA paperwork for health care surrogate. . Urinary Tract Infection-discussed natural and expected course of this diagnosis and to alert me if symptoms do not follow expected course, or if any worse. UA positive for infection today in the office-plan to send for culture and will call patient with results. RX sent to patient's pharmacy. Avoid tub baths, restrictive underwear, etc. Recommend patient start on probiotic while taking the antibiotic to prevent diarrhea. Patient verbalized understanding of plan. Hypertension - well controlled - continue with current medications, continue with no added salt diet. Pt has been encouraged to exercise daily. The pt has been advised to call the office if there are any acute concerns about change in blood pressure readings at home. Hyperlipidemia-check labs today . rx for hydrocodone given to patient labs with next appointment . Hypertension - well controlled - continue with current medications, continue with no added salt diet. Pt has been encouraged to exercise daily. The pt has been advised to call the office if there are any acute concerns about change in blood pressure readings at home. Chronic Depression and anxiety - the pt has symptoms of chronic anxiety and depression that have been fairly well controlled since the last office visit. The pt has expected periods of exacerbation with abatement of the symptoms with change in situational exposure. No change in current medications. Urinary incontinence -improved with myrbetriq Low back pain- the patient was instructed in appropriate posture, need for weight loss to alleviate abdominal obesity that is worsening the patient's back pain.. The pt is to use prn antiinflammatories to manage acute pain. The patient is to call the office if the pain is worsening or does not improve. . Iliotibial band syndrome - RX for steroid - I have also recommended Physical therapy [facility]. Hyperlipidemia - pt has been counseled about appropriate diet, exercise, and need for low fat food choices. I have discussed the need for the patient to take medications as prescribed. If the patient has negative side effects from the medication, they are to CALL the office and not abruptly discontinue the medication without discussion with a practitioner in the office. We will check labs in 3-6 months for follow up on the patient's chronic medical problem and to assure normal liver response to medications. Chronic Depression and anxiety - the pt has symptoms of chronic anxiety and depression that have been fairly well controlled since the last office visit. The pt has expected periods of exacerbation with abatement of the symptoms with change in situational exposure. No change in current medications. Hypertension - well controlled - continue with current medications, continue with no added salt diet. Pt has been encouraged to exercise daily. The pt has been advised to call the office if there are any acute concerns about change in blood pressure readings at home. CKD - monitor labs - increase oral fluids. . Bakers cyst-left knee pain-Joint Injection - Pt was given post - injection instructions. The pt has been advised to use anti- inflammatories post injection today, ice to the injected site, call if redness , warmth, or increased pain occurs at the site of injection. . Hypertension - well controlled - continue with current medications, continue with no added salt diet. Pt has been encouraged to exercise daily. The pt has been advised to call the office if there are any acute concerns about change in blood pressure readings at home. Iliotibial band syndrome- recommended use of anti-inflammatories and pt given handout on Iliotibial band exercises. flector patches 1.3% - [id number] 04/2019 [employer] flu and pneumonia 13 shot today . Hypertension - well controlled - continue with current medications, continue with no added salt diet. Pt has been encouraged to exercise daily. The pt has been advised to call the office if there are any acute concerns about change in blood pressure readings at home. Back and hip pain - recommended pt to keep appt with Dr. Barnes for injection. Chronic Pain Syndrome - pt has chronic pain - has been maintained on current medications, has not sought out other medications, only uses PRN pain medications as directed, and understands the consequences of over-medication. CKD chronic - supportive care. . Medicare Exam - today we discussed the patients past history, immunizations, preventative exams/evaluations - colonoscopy, fecal occult blood testing, routine labs for renal function, glucose, cholesterol, osteoporosis evaluations, cardiovascular testing and cancer screenings. We have also discussed mental health and the signs/symptoms of depression. The patient was advised of home safety evaluations and the need to make sure that as the aging process continues, we need to be aware of different ways to make the home a safer place to reside. The patient has also been counseled that exercise is necessary - and of utmost importance as we age to help decrease fall risk and to maintain independence in the home. Today we discussed the need for the patient to create paperwork for Advanced directives as well as for the patient to provide this office with a copy of her DOPA paperwork for health care surrogate. UTI-rx for augmentin-return next sunday or for follow up UA to ensure infection has cleared CALL IF YOUR SYMPTOMS DO NOT IMPROVE AND WE WILL REFER YOU FOR PHYSICAL THERAPY LOW BACK STRETCHES . Kijugpf-eoywpopr-htrsjcze lexapro-call if symptoms uncontrolled Low back oobl-njbixgzs-ffowxwjzt discussed with the patient, pt to use topical voltaren gel as directed. Pt is to call if the symptoms do not improve or if they worsen. MRI lumbar spine -consider referral to pain management -Dr Saenz . Hypertension - well controlled - continue with current medications, continue with no added salt diet. Pt has been encouraged to exercise daily. The pt has been advised to call the office if there are any acute concerns about change in blood pressure readings at home. Hyperlipidemia - pt has been counseled about appropriate diet, exercise, and need for low fat food choices. I have discussed the need for the patient to take medications as prescribed. If the patient has negative side effects from the medication, they are to CALL the office and not abruptly discontinue the medication without discussion with a practitioner in the office. We will check labs in 3-6 months for follow up on the patient's chronic medical problem and to assure normal liver response to medications. Low back pain-spinal stenosis-MRI lumbar spine-consider referral to Dr Saenz for pain management/injections Chronic renal disease-check labs DECREASE THE EFFEXOR TO EVERY OTHER DAY X 10 DAYS THEN STOP START LEXAPRO 5MG IN THE EVENING TODAY-CALL ME IN 2-3 WEEKS IF YOU WANT TO INCREASE THE DOSE. . Hypertension - well controlled - continue with current medications, continue with no added salt diet. Pt has been encouraged to exercise daily. The pt has been advised to call the office if there are any acute concerns about change in blood pressure readings at home. Hyperlipidemia - pt has been counseled about appropriate diet, exercise, and need for low fat food choices. I have discussed the need for the patient to take medications as prescribed. If the patient has negative side effects from the medication, they are to CALL the office and not abruptly discontinue the medication without discussion with a practitioner in the office. We will check labs in 3-6 months for follow up on the patient's chronic medical problem and to assure normal liver response to medications. Chronic anxiety - the pt has symptoms of chronic anxiety and depression that have been fairly well controlled since the last office visit. The pt has expected periods of exacerbation with abatement of the symptoms with change in situational exposure. No change in current medications. TAPER OFF EFFEXOR-START LEXAPRO . Hypertension - well controlled - continue with current medications, continue with no added salt diet. Pt has been encouraged to exercise daily. The pt has been advised to call the office if there are any acute concerns about change in blood pressure readings at home. Hyperlipidemia - pt has been counseled about appropriate diet, exercise, and need for low fat food choices. I have discussed the need for the patient to take medications as prescribed. If the patient has negative side effects from the medication, they are to CALL the office and not abruptly discontinue the medication without discussion with a practitioner in the office. We will check labs in 3-6 months for follow up on the patient's chronic medical problem and to assure normal liver response to medications. Chronic renal wxguxii-pgyuzf-fej labs Chronic Depression and anxiety - the pt has symptoms of chronic anxiety and depression that have been fairly well controlled since the last office visit. The pt has expected periods of exacerbation with abatement of the symptoms with change in situational exposure. No change in current medications. . Hypertension - well controlled - continue with current medications, continue with no added salt diet. Pt has been encouraged to exercise daily. The pt has been advised to call the office if there are any acute concerns about change in blood pressure readings at home. Hyperlipidemia - pt has been counseled about appropriate diet, exercise, and need for low fat food choices. I have discussed the need for the patient to take medications as prescribed. If the patient has negative side effects from the medication, they are to CALL the office and not abruptly discontinue the medication without discussion with a practitioner in the office. We will check labs in 3-6 months for follow up on the patient's chronic medical problem and to assure normal liver response to medications. Chronic anxiety - the pt has symptoms of chronic anxiety and depression that have been fairly well controlled since the last office visit. The pt has expected periods of exacerbation with abatement of the symptoms with change in situational exposure. No change in current medications.
--- OUTSIDE RECORDS SUMMARY | 2018-07-28 10:01 | XMS REPORT | CCD ---
Author Author Alize Jerome Organization [facility] Address [address] [place] [address] Phone Care Team Providers Care [employer] Name Role Phone PP Unavailable CCM Unavailable Summary Purpose Interface Exchange Insurance Providers Payer name Policy type / Coverage type Covered democrat ID Effective Begin Date Effective End Date WPS Medicare Part B Medicare Part B [id number] Unknown Unknown [facility] Medicare Part B [id number] Unknown Unknown Family history Father Diagnosis Age [...] Unknown Retired 01/04/[address]: 828815764 Never smoker 01/04/2015 Alcohol history Unknown occasionally [...] hydrocodone 5 mg-acetaminophen 325 mg tablet RxNorm: 457853 1 Tablet(s) PO Q6 as needed 05/14/2018 06/05/2018 Active Cipro 500 mg tablet RxNorm: 959078 1 Tablet(s) PO BID 201705/20/2018 Active Cipro 500 mg tablet RxNorm: 761050 1 Tablet(s) PO BID 201705/13/2018 Inactive Probiotic BID x 7 days Augmentin 875 mg-125 mg tablet RxNorm: 662456 1 Tablet(s) PO BID 04/29/2018 05/05/2018 Inactive Keflex 500 mg capsule RxNorm: 865950 1 Capsule(s) PO TID 201704/28/2018 Inactive diazepam 5 mg tablet RxNorm: 483944 1 Tablet(s) PO TID PRN 07/14/2018 Active hydrocodone 5 mg-acetaminophen 325 mg tablet RxNorm: 238196 1 Tablet(s) PO Q6 as needed 03/15/2018 04/06/2018 Inactive carvedilol 3.125 mg tablet RxNorm: 497821 TAKE ONE TABLET BY MOUTH TWICE A DAY 02/11/2018 08/09/2018 Active Myrbetriq 25 mg tablet,extended release RxNorm: 7762013 1 Tablet(s) PO daily 01/22/2018 07/20/2018 Active hydrocodone 5 mg-acetaminophen 325 mg tablet RxNorm: 254609 1 Tablet(s) PO Q6 as needed 01/22/2018 02/13/2018 Inactive hydrocodone 5 mg-acetaminophen 325 mg tablet RxNorm: 461949 1 Tablet(s) PO Q6 as needed 11/27/2017 12/19/2017 Inactive Lexapro 10 mg tablet RxNorm: 537565 1.5 Tablet(s) PO daily 09/201709/09/2019 Active Myrbetriq 25 mg tablet,extended release RxNorm: 3977459 1 Tablet(s) PO daily 11/19/2017 01/21/2018 Inactive diazepam 5 mg tablet RxNorm: 590983 1 Tablet(s) PO TID PRN 04/15/2018 Inactive Lexapro 10 mg tablet RxNorm: 864530 TAKE ONE TABLET BY MOUTH EVERY EVENING 10/01/2017 11/18/2017 Inactive hydrocodone 5 mg-acetaminophen 325 mg tablet RxNorm: 320157 1 Tablet(s) PO Q6 as needed 09/28/2017 10/20/2017 Inactive Voltaren 1 % topical gel RxNorm: 031917 4 Gram(s) TOP QID 09/2501/22/2018 Inactive Kenalog 40 mg/mL suspension for injection RxNorm: 7529290 1 Milliliter(s) Inj 09/25/2017 09/25/2017 Inactive Bactrim DS 800 mg-160 mg tablet RxNorm: 469271 1 Tablet(s) PO BID 09/05/2017 09/11/2017 Inactive Take probiotic BID while on antibiotic Bactrim DS 800 mg-160 mg tablet RxNorm: 165954 1 Tablet(s) PO BID 09/05/2017 09/04/2017 Inactive Take probiotic BID while on antibiotic hydrocodone 5 mg-acetaminophen 325 mg tablet RxNorm: 355334 1 Tablet(s) PO Q6 as needed 07/12/2017 09/27/2017 Inactive hydrocodone 5 mg-acetaminophen 325 mg tablet RxNorm: 734206 1 Tablet(s) PO Q6 as needed 06/05/2017 07/11/2017 Inactive carvedilol 3.125 mg tablet RxNorm: 794482 TAKE ONE TABLET BY MOUTH TWICE A DAY 05/21/2017 02/10/2018 Inactive hydrocodone 5 mg-acetaminophen 325 mg tablet RxNorm: 802053 1 Tablet(s) PO Q6 as needed 04/20/2017 06/04/2017 Inactive Voltaren 1 % topical gel RxNorm: 289770 2 Gram(s) TOP QID to affected area 04/12/2017 07/10/2017 Inactive Voltaren 1 % topical gel RxNorm: 338995 2 Gram(s) TOP QID to affected area 04/12/2017 04/11/2017 Inactive diazepam 5 mg tablet RxNorm: 587275 1 Tablet(s) PO TID PRN 04/15/2018 Inactive Flector 1.3 % transdermal 12 hour patch RxNorm: 033338 1 Patch TOP BID 03/27/2017 04/11/2017 Inactive Flector 1.3 % transdermal 12 hour patch RxNorm: 152393 /8 Patch TOP BID 03/12/2017 03/26/2017 Inactive hydrocodone 5 mg-acetaminophen 325 mg tablet RxNorm: 914769 1 Tablet(s) PO Q6 as needed 02/20/2017 04/19/2017 Inactive prednisone 10 mg tablets in a dose pack RxNorm: 315002 1 Tablet(s) PO UD 02/08/2017 09/24/2017 Inactive prednisone 10 mg tablets in a dose pack RxNorm: 262612 1 Tablet(s) PO UD 02/08/2017 02/07/2017 Inactive diazepam 5 mg tablet RxNorm: 622121 1 Tablet(s) PO TID PRN 08/201601/15/2017 Inactive Lexapro 10 mg tablet RxNorm: 799565 TAKE ONE TABLET BY MOUTH EVERY EVENING 08/13/2016 2017 Inactive carvedilol 3.125 mg tablet RxNorm: 957695 1 Tablet(s) PO BID 05/20/2017 Inactive diazepam 5 mg tablet RxNorm: 560598 1 Tablet(s) PO TID PRN 04/15/2018 Inactive Lexapro 10 mg tablet RxNorm: 779848 1 Tablet(s) PO QPM 201508/12/2016 Inactive Lexapro 5 mg tablet RxNorm: 171055 2 Tablet(s) PO QPM 201502/28/2016 Inactive hydrocodone 5 mg-acetaminophen 325 mg tablet RxNorm: 523674 1 Tablet(s) PO Q6 as needed 02/08/2016 02/19/2017 Inactive Lexapro 5 mg tablet RxNorm: 908770 1 Tablet(s) PO QPM 201502/17/2016 Inactive diazepam 5 mg tablet RxNorm: 925445 1 Tablet(s) PO TID PRN 07/201501/15/2016 Inactive Effexor XR 37.5 mg capsule,extended release RxNorm: 877465 1 Capsule(s) PO daily 09/29/2015 01/10/2016 Inactive diazepam 5 mg tablet RxNorm: 429807 1 Tablet(s) PO TID PRN 09/06/2015 Inactive carvedilol 3.125 mg tablet RxNorm: 649372 1 Tablet(s) PO BID 05/24/2016 Inactive diazepam 5 mg tablet RxNorm: 814022 1 Tablet(s) PO TID PRN 03/16/2016 Inactive Fish Oil 360 mg-1,200 mg capsule RxNorm: 184906 1 Capsule(s) PO daily 01/04/2015 No Stop Date Active diazepam 5 mg tablet RxNorm: 191175 1 Tablet(s) PO TID PRN 02/01/2015 Inactive diazepam 5 mg tablet RxNorm: 707024 1 Tablet(s) PO daily 201412/21/2014 Inactive pt to make an appt- called 1 mo to dillons diazepam 5 mg tablet RxNorm: 185940 1 Tablet(s) PO daily 201412/21/2014 Inactive diazepam 5 mg tablet RxNorm: 536535 1 Tablet(s) PO QHS 201401/03/2015 Inactive pt to make an appt- called 1 mo to dillons niacin (inositol niacinate) 500 mg capsule RxNorm: 620411 1 Capsule(s) PO daily No Start Date Active letrozole 2.5 mg tablet RxNorm: 756292 1 Tablet(s) PO daily No Start Date Active aspirin 81 mg tablet RxNorm: 542876 1 Tablet(s) PO daily No Start Date Active Crestor 5 mg tablet RxNorm: 979135 1 Tablet(s) PO QHS No Start Date Active hydrocodone 5 mg-acetaminophen 325 mg tablet RxNorm: 192612 1 Tablet(s) PO Q6 as needed No Start Date 02/07/2016 Inactive Coreg 6.25 mg tablet RxNorm: 829328 1 Tablet(s) PO BID No Start Date 05/30/2015 Inactive Delzicol 400 mg capsule,delayed release RxNorm: 2582333 2 Capsule(s) PO daily No Start Date 08/07/2016 Inactive venlafaxine 37.5 mg tablet RxNorm: 190773 1 Tablet(s) PO daily No Start Date 01/03/2015 Inactive Effexor XR 37.5 mg capsule,extended release RxNorm: 835074 1 Capsule(s) PO daily No Start Date 09/28/2015 Inactive Medication Administered Medication Codes Instructions Start Date Status Kenalog 40 mg/mL suspension for injection RxNorm: 0101465 1Milliliter 09/25/2017 No longer Active Immunizations Vaccine [...] Item Item Code Result Date Culture Urine [id number] URINE CULTURE SEE NOTES 05/13/2018 Urine Culture Ucult Complete Growth of aerobe sent to ref lab 05/10/2018 Culture Urine [id number] URINE CULTURE SEE NOTES 04/25/2018 Culture Urine [id number] Continued Results 04/25/2018 Urine Culture Ucult Complete Growth of aerobe sent to ref lab 04/23/2018 Comp Metabolic Ooz632 NA 142 mEq/L 04/22/2018 Comp Metabolic Unz686 K 4.3 mEq/L 04/22/2018 Comp Metabolic Wwc507 CL 104 mEq/L 04/22/2018 Comp Metabolic Aix109 CO2 29.0 mEq/L 04/22/2018 Comp Metabolic Bln994 ANION GAP 13 04/22/2018 Comp Metabolic Tiy784 GLUCOSE 106 mg/dL 04/22/2018 Comp Metabolic Cqi176 Creat 1.1 mg/dL 04/22/2018 Comp Metabolic Ecl969 eGFR 53 ml/min/1.73m2 04/22/2018 Comp Metabolic Rio879 BUN 18 mg/dL 04/22/2018 Comp Metabolic Fhw539 B/C Ratio 17.0 Ratio 04/22/2018 Comp Metabolic Qim449 CALCIUM 9.6 mg/dL 04/22/2018 Comp Metabolic Ipp832 ALK PHOS 121 U/L 04/22/2018 Comp Metabolic Vhq150 AST(SGOT) 15 U/L 04/22/2018 Comp Metabolic Lvp089 ALT(SGPT) 13 U/L 04/22/2018 Comp Metabolic Zjo248 BILI T 1.0 mg/dL 04/22/2018 Comp Metabolic Hxn385 ALBUMIN 4.1 g/dL 04/22/2018 Comp Metabolic Tzy906 TPRO 6.3 g/dL 04/22/2018 Comp Metabolic Mdk935 GLOB 2.2 g/dL 04/22/2018 Comp Metabolic Pnz771 A/G Ratio 1.9 Ratio 04/22/2018 Comp Metabolic Bzf471 Osmo 285 mOsmo 04/22/2018 Cbc With Differential Ord2 WBC 8.91 K/ul 04/22/2018 Cbc With Differential Ord2 RBC 4.41 M/ul 04/22/2018 Cbc With Differential Ord2 HGB 13.5 g/dl 04/22/2018 Cbc With Differential Ord2 Neut% 68.9 % 04/22/2018 Cbc With Differential Ord2 HCT 42.5 % 04/22/2018 Cbc With Differential Ord2 Lymph% 21.1 % 04/22/2018 Cbc With Differential Ord2 MCV 96.4 fl 04/22/2018 Cbc With Differential Ord2 [place]% 8.0 % 04/22/2018 Cbc With Differential Ord2 MCH 30.6 pg 04/22/2018 Cbc With Differential Ord2 Eos% 1.9 % 04/22/2018 Cbc With Differential Ord2 MCHC 31.8 pg 04/22/2018 Cbc With Differential Ord2 PLT 222 K/ul 04/22/2018 Cbc With Differential Ord2 Baso% 0.1 % 04/22/2018 Cbc With Differential Ord2 RDW 14.7 % 04/22/2018 Cbc With Differential Ord2 Neut ABS# 6.14 K/ul 04/22/2018 Cbc With Differential Ord2 Lymph ABS# 1.88 K/ul 04/22/2018 Cbc With Differential Ord2 [place] ABS# 0.7 K/ul 04/22/2018 Cbc With Differential [...] 14.0 g/dl 02/08/2017 Cbc With Differential Ord2 HCT 43.2 % 02/08/2017 Cbc With Differential Ord2 Neut% 61.4 % 02/08/2017 Cbc With Differential Ord2 MCV 97.1 fl 02/08/2017 Cbc With Differential Ord2 Lymph% 27.1 % 02/08/2017 Cbc With Differential Ord2 [place]% 10.0 % 02/08/2017 Cbc With Differential Ord2 MCH 31.5 pg 02/08/2017 Cbc With Differential Ord2 MCHC 32.4 pg 02/08/2017 Cbc With Differential Ord2 Eos% 1.4 % 02/08/2017 Cbc With Differential Ord2 Baso% 0.1 % 02/08/2017 Cbc With Differential Ord2 PLT 164 K/ul 02/08/2017 Cbc With Differential Ord2 Neut ABS# 4.54 K/ul 02/08/2017 Cbc With Differential Ord2 RDW 13.4 % 02/08/2017 Cbc With Differential Ord2 Lymph ABS# 2.00 K/ul 02/08/2017 Cbc With Differential Ord2 [place] ABS# 0.7 K/ul 02/08/2017 Cbc With Differential Ord2 Eos ABS# 0.1 K/ul 02/08/2017 Cbc With Differential Ord2 Baso ABS# 0.0 K/ul 02/08/2017 Comp Metabolic Qcr031 NA 142 mEq/L 02/08/2017 Comp Metabolic Hqr083 K 4.5 mEq/L 02/08/2017 Comp Metabolic Rox717 CL 106 mEq/L 02/08/2017 Comp Metabolic Neo367 CO2 27.0 mEq/L 02/08/2017 Comp Metabolic Gjp482 ANION GAP 14 02/08/2017 Comp Metabolic Epb386 GLUCOSE 102 mg/dL 02/08/2017 Comp Metabolic Rfd004 Creat 0.9 mg/dL 02/08/2017 Comp Metabolic Vhc143 eGFR 62 ml/min/1.73m2 02/08/2017 Comp Metabolic Axb316 BUN 14 mg/dL 02/08/2017 Comp Metabolic Leh932 B/C Ratio 15.1 Ratio 02/08/2017 Comp Metabolic Nvi422 CALCIUM 9.5 mg/dL 02/08/2017 Comp Metabolic Etk495 ALK PHOS 98 U/L 02/08/2017 Comp Metabolic Vds192 AST(SGOT) 19 U/L 02/08/2017 Comp Metabolic Hbq693 ALT(SGPT) 15 U/L 02/08/2017 Comp Metabolic Lpn644 BILI T 1.1 mg/dL 02/08/2017 Comp Metabolic Xym834 ALBUMIN 4.1 g/dL 02/08/2017 Comp Metabolic Afo732 TPRO 6.2 g/dL 02/08/2017 Comp Metabolic Kth987 GLOB 2.1 g/dL 02/08/2017 Comp Metabolic Jvp092 A/G Ratio 2.0 Ratio 02/08/2017 Comp Metabolic Eef523 Osmo 284 mOsmo 02/08/2017 Lipid Ord30 CHOL 178 mg/dL 08/08/2016 Lipid Ord30 HDL 54.0 mg/dl 08/08/2016 Lipid Ord30 TRIG 184 mg/dL 08/08/2016 Lipid Ord30 LDL 87 mg/dL 08/08/2016 Lipid Ord30 C/HDL 3.3 Ratio 08/08/2016 Tsh Ord6 hTSH II 3.12 uIU/mL 08/08/2016 Comp Metabolic Jvt113 NA 140 mEq/L 08/08/2016 Comp Metabolic Pfn249 K 4.4 mEq/L 08/08/2016 Comp Metabolic Dxi354 CL 104 mEq/L 08/08/2016 Comp Metabolic Mpf223 CO2 30.0 mEq/L 08/08/2016 Comp Metabolic Fvz803 ANION GAP 10 08/08/2016 Comp Metabolic Gme691 GLUCOSE 107 mg/dL 08/08/2016 Comp Metabolic Wal250 Creat 1.1 mg/dL 08/08/2016 Comp Metabolic Etd484 eGFR 53 ml/min/1.73m2 08/08/2016 Comp Metabolic Lwt681 BUN 22 mg/dL 08/08/2016 Comp Metabolic Lml231 B/C Ratio 20.6 Ratio 08/08/2016 Comp Metabolic Hho901 CALCIUM 10.8 mg/dL 08/08/2016 Comp Metabolic Imc041 ALK PHOS 140 U/L 08/08/2016 Comp Metabolic Rls776 AST(SGOT) 21 U/L 08/08/2016 Comp Metabolic Qwl375 ALT(SGPT) 17 U/L 08/08/2016 Comp Metabolic Qlp949 BILI T 0.8 mg/dL 08/08/2016 Comp Metabolic Iry159 ALBUMIN 4.3 g/dL 08/08/2016 Comp Metabolic Gdy458 TPRO 6.7 g/dL 08/08/2016 Comp Metabolic Kkj513 GLOB 2.4 g/dL 08/08/2016 Comp Metabolic Aud052 A/G Ratio 1.8 Ratio 08/08/2016 Comp Metabolic Tpy815 Osmo 283 mOsmo 08/08/2016 Cbc With Differential Ord2 WBC 6.27 K/ul 08/08/2016 Cbc With Differential Ord2 RBC 4.87 M/ul 08/08/2016 Cbc With Differential Ord2 HGB 14.1 g/dl 08/08/2016 Cbc With Differential Ord2 HCT 43.8 % 08/08/2016 Cbc With Differential Ord2 Neut% 51.2 % 08/08/2016 Cbc With Differential Ord2 MCV 89.9 fl 08/08/2016 Cbc With Differential Ord2 Lymph% 35.2 % 08/08/2016 Cbc With Differential Ord2 [place]% 11.0 % 08/08/2016 Cbc With Differential Ord2 MCH 29.0 pg 08/08/2016 Cbc With Differential Ord2 Eos% 2.4 % 08/08/2016 Cbc With Differential Ord2 MCHC 32.2 pg 08/08/2016 Cbc With Differential Ord2 Baso% 0.2 % 08/08/2016 Cbc With Differential Ord2 PLT 192 K/ul 08/08/2016 Cbc With Differential Ord2 Neut ABS# 3.21 K/ul 08/08/2016 Cbc With Differential Ord2 RDW 15.3 % 08/08/2016 Cbc With Differential Ord2 Lymph ABS# 2.21 K/ul 08/08/2016 Cbc With Differential Ord2 [place] ABS# 0.7 K/ul 08/08/2016 Cbc With Differential Ord2 Eos ABS# 0.2 K/ul 08/08/2016 Cbc With Differential Ord2 Baso ABS# 0.0 K/ul 08/08/2016 Vitamin D 25 Oh Kah1386 VITAMIN D, 25 HYDROXY 59.99 ng/mL Tsh Ord6 hTSH II 3.86 uIU/mL 01/11/2016 Comp Metabolic Mku952 NA 137 mEq/L 01/11/2016 Comp Metabolic Gww303 K 4.4 mEq/L 01/11/2016 Comp Metabolic Kwk536 CL 103 mEq/L 01/11/2016 Comp Metabolic Wun177 CO2 27.0 mEq/L 01/11/2016 Comp Metabolic Idv590 ANION GAP 11 01/11/2016 Comp Metabolic Sji066 GLUCOSE 102 mg/dL 01/11/2016 Comp Metabolic Ych372 Creat 1.1 mg/dL 01/11/2016 Comp Metabolic Mfs184 eGFR 51 ml/min/1.73m2 01/11/2016 Comp Metabolic Mud310 BUN 16 mg/dL 01/11/2016 Comp Metabolic Crx212 B/C Ratio 14.5 Ratio 01/11/2016 Comp Metabolic Lqc590 CALCIUM 9.9 mg/dL 01/11/2016 Comp Metabolic Why097 ALK PHOS 103 U/L 01/11/2016 Comp Metabolic Mjd759 AST(SGOT) 17 U/L 01/11/2016 Comp Metabolic Toj622 ALT(SGPT) 14 U/L 01/11/2016 Comp Metabolic Uib391 BILI T 0.8 mg/dL 01/11/2016 Comp Metabolic Gmk263 ALBUMIN 4.4 g/dL 01/11/2016 Comp Metabolic Zho430 TPRO 6.8 g/dL 01/11/2016 Comp Metabolic Npq124 GLOB 2.5 g/dL 01/11/2016 Comp Metabolic Iix550 A/G Ratio 1.8 Ratio 01/11/2016 Comp Metabolic Gio958 Osmo 275 mOsmo 01/11/2016 Lipid Ord30 CHOL 161 mg/dL 01/11/2016 Lipid Ord30 HDL 47.0 mg/dl 01/11/2016 Lipid Ord30 TRIG 174 mg/dL 01/11/2016 Lipid Ord30 LDL 79 mg/dL 01/11/2016 Lipid Ord30 C/HDL 3.4 Ratio 01/11/2016 Cbc With Differential Ord2 WBC 6.19 K/ul 01/11/2016 Cbc With Differential Ord2 RBC 4.77 M/ul 01/11/2016 Cbc With Differential Ord2 HGB 14.5 g/dl 01/11/2016 Cbc With Differential Ord2 Neut% 48.4 % 01/11/2016 Cbc With Differential Ord2 HCT 44.4 % 01/11/2016 Cbc With Differential Ord2 MCV 93.1 fl 01/11/2016 Cbc With Differential Ord2 Lymph% 38.0 % 01/11/2016 Cbc With Differential Ord2 MCH 30.4 pg 01/11/2016 Cbc With Differential Ord2 [place]% 10.7 % 01/11/2016 Cbc With Differential Ord2 MCHC 32.7 pg 01/11/2016 Cbc With Differential Ord2 Eos% 2.7 % 01/11/2016 Cbc With Differential Ord2 PLT 180 K/ul 01/11/2016 Cbc With Differential Ord2 Baso% 0.2 % 01/11/2016 Cbc With Differential Ord2 Neut ABS# 3.00 K/ul 01/11/2016 Cbc With Differential Ord2 RDW 14.1 % 01/11/2016 Cbc With Differential Ord2 Lymph ABS# 2.35 K/ul 01/11/2016 Cbc With Differential Ord2 [place] ABS# 0.7 K/ul 01/11/2016 Cbc With Differential [...] 46.2 % 07/12/2015 Cbc With Differential Ord2 MCV 92.2 fl 07/12/2015 Cbc With Differential Ord2 Lymph% 41.3 % 07/12/2015 Cbc With Differential Ord2 [place]% 9.5 % 07/12/2015 Cbc With Differential Ord2 MCH 30.0 pg 07/12/2015 Cbc With Differential Ord2 MCHC 32.6 pg 07/12/2015 Cbc With Differential Ord2 Eos% 2.9 % 07/12/2015 Cbc With Differential Ord2 Baso% 0.1 % 07/12/2015 Cbc With Differential Ord2 PLT 198 K/ul 07/12/2015 Cbc With Differential Ord2 RDW 14.7 % 07/12/2015 Cbc With Differential Ord2 Neut ABS# 3.20 K/ul 07/12/2015 Cbc With Differential Ord2 Lymph ABS# 2.86 K/ul 07/12/2015 Cbc With Differential Ord2 [place] ABS# 0.7 K/ul 07/12/2015 Cbc With Differential [...] hTSH II 3.54 uIU/mL 07/12/2015 Comp Metabolic Qnz588 NA 140 mEq/L 07/12/2015 Comp Metabolic Tyq263 K 4.4 mEq/L 07/12/2015 Comp Metabolic Uxo953 CL 104 mEq/L 07/12/2015 Comp Metabolic Dqv221 CO2 28.0 mEq/L 07/12/2015 Comp Metabolic Dco889 ANION GAP 12 07/12/2015 Comp Metabolic Aal324 GLUCOSE 92 mg/dL 07/12/2015 Comp Metabolic Mwl158 Creat 1.2 mg/dL 07/12/2015 Comp Metabolic Ewu914 eGFR 47 ml/min/1.73m2 07/12/2015 Comp Metabolic Jsy642 BUN 18 mg/dL 07/12/2015 Comp Metabolic Mkr180 B/C Ratio 15.1 Ratio 07/12/2015 Comp Metabolic Cfs885 CALCIUM 10.1 mg/dL 07/12/2015 Comp Metabolic Ubm308 ALK PHOS 134 U/L 07/12/2015 Comp Metabolic Vkl906 AST(SGOT) 18 U/L 07/12/2015 Comp Metabolic Wwz075 ALT(SGPT) 17 U/L 07/12/2015 Comp Metabolic Vsa449 BILI T 0.8 mg/dL 07/12/2015 Comp Metabolic Vgp637 ALBUMIN 4.1 g/dL 07/12/2015 Comp Metabolic Vcr782 TPRO 6.6 g/dL 07/12/2015 Comp Metabolic Idl605 GLOB 2.5 g/dL 07/12/2015 Comp Metabolic Vwd866 A/G Ratio 1.7 Ratio 07/12/2015 Comp Metabolic Nuq546 Osmo 281 mOsmo 07/12/2015 Cbc With Differential [...] Ord2 RDW 15.3 % 01/05/2015 Comp Metabolic Rfr773 NA 139 mEq/L 01/05/2015 Comp Metabolic Zqy784 K 4.0 mEq/L 01/05/2015 Comp Metabolic Vli995 CL 106 mEq/L 01/05/2015 Comp Metabolic Dwi048 CO2 27.0 mEq/L 01/05/2015 Comp Metabolic Aiv551 ANION GAP 10 01/05/2015 Comp Metabolic Wrn326 GLUCOSE 111 mg/dL 01/05/2015 Comp Metabolic Jwz674 Creat 1.2 mg/dL 01/05/2015 Comp Metabolic Yzm130 eGFR 48 ml/min/1.73m2 01/05/2015 Comp Metabolic Ozp229 BUN 18 mg/dL 01/05/2015 Comp Metabolic Zkt791 B/C Ratio 15.4 Ratio 01/05/2015 Comp Metabolic Ojd493 CALCIUM 9.2 mg/dL 01/05/2015 Comp Metabolic Tmm863 ALK PHOS 202 U/L 01/05/2015 Comp Metabolic Qwd422 AST(SGOT) 19 U/L 01/05/2015 Comp Metabolic Uiq657 ALT(SGPT) 22 U/L 01/05/2015 Comp Metabolic Jfn312 BILI T 0.7 mg/dL 01/05/2015 Comp Metabolic Igt682 ALBUMIN 3.8 g/dL 01/05/2015 Comp Metabolic Tdz214 TPRO 6.1 g/dL 01/05/2015 Comp Metabolic Dao495 GLOB 2.3 g/dL 01/05/2015 Comp Metabolic Krs718 A/G Ratio 1.7 Ratio 01/05/2015 Comp Metabolic Nvr266 Osmo 280 mOsmo 01/05/2015 Tsh Ord6 hTSH [...] Codes Date URINALYSIS NONAUTO W/O SCOPE CPT-4: 75477 05/08/2018 PPPS, SUBSEQ VISIT CPT -4: G0439 04/29/2018 URINALYSIS NONAUTO W/O SCOPE CPT-4: 70078 04/22/2018 DRAIN/INJECT JOINT/BURSA CPT-4: 12206 09/25/2017 ADMIN INFLUENZA VIRUS VAC CPT-4: G0008 03/12/2017 ADMIN PNEUMOCOCCAL VACCINE SNOMED CT: 41051290 CPT-4: G0009 03/12/2017 FLU VACC PRSV FREE INC ANTIG CPT-4: 19353 03/12/2017 PNEUMOCOCCAL VACC [address]: 10071868 CPT-4: 85553 03/12/2017 PPPS, SUBSEQ VISIT CPT -4: G0439 02/09/2017 Vital Signs Date Vital 04/29/2018 Blood Pressure 1: 140/80 Code : 8480-6 BMI: 31.1 Code : 91480-5 Heart Rate 1 : 98 bpm Height: 5'5" SpO2: 92% Weight: 187 lbs 04/22/2018 Blood Pressure 1: 150/90 Code : 8480-6 Blood Pressure 1: 142/88 Code: 8480-6 BMI: 31.5 Code: 87164-4 Heart Rate 1: 70 bpm Height: 5'5" SpO2: 94% Weight: 189 lbs 01/22/2018 Blood Pressure 1: 142/78 Code : 8480-6 BMI: 31.6 Code : 55376-4 Heart Rate 1 : 85 bpm Height: 5'5" SpO2: 97% Weight: 190 lbs 11/19/2017 Blood Pressure 1: 132/78 Code : 8480-6 BMI: 31.1 Code : 96165-3 Heart Rate 1 : 68 bpm Height: 5'5" SpO2: 97% Weight: 187 lbs 09/25/2017 Blood Pressure 1: 140/80 Code : 8480-6 BMI: 31.0 Code : 89105-7 Heart Rate 1 : 80 bpm Height: 5'5" SpO2: 99% Weight: 186 lbs 07/12/2017 Blood Pressure 1: 138/72 Code : 8480-6 Blood Pressure 1: 144/88 Code: 8480-6 BMI: 30.8 Code: 75154-7 Heart Rate 1: 71 bpm Height: 5'5" SpO2: 95% Weight: 185 lbs 03/12/2017 Blood Pressure 1: 140/80 Code : 8480-6 BMI: 30.6 Code : 90675-2 Heart Rate 1 : 75 bpm Height: 5'5" SpO2: 97% Weight: 184 lbs 02/09/2017 Heart Rate 1: 74 bpm Height: Weight: 02/08/2017 Blood Pressure 1: 146/88 Code : 8480-6 BMI: 30.1 Code : 73925-2 Heart Rate 1 : 76 bpm Height: 5'5" SpO2: 95% Weight: 181 lbs 08/08/2016 Blood Pressure 1: 144/76 Code : 8480-6 Heart Rate 1: 80 bpm SpO2: 98% Weight: 185 lbs 02/08/2016 Blood Pressure 1: 130/70 Code : 8480-6 BMI: 30.3 Code : 02010-8 Heart Rate 1 : 60 bpm Height: 5'5" SpO2: 98% Weight: 182 lbs 01/11/2016 Blood Pressure 1: 148/82 Code : 8480-6 BMI: 30.6 Code : 87404-6 Heart Rate 1 : 84 bpm Height: 5'5" SpO2: 96% Weight: 184 lbs 07/12/2015 Blood Pressure 1: 152/76 Code : 8480-6 BMI: 30.6 Code : 92131-1 Heart Rate 1 : 70 bpm Height: 5'5" SpO2: 93% Weight: 184 lbs 01/04/2015 Blood Pressure 1: 148/88 Code : 8480-6 BMI: 31.0 Code : 55877-2 Heart Rate 1 : 80 bpm Height: [...] data Encounters Encounter Performer Location Codes Date 85260 EST. PATIENT, LEVEL IV Diagnosis: Urinary tract infection, site not specified[ICD10: N39.0] Diagnosis: Mixed hyperlipidemia[ICD10: E78.2] Diagnosis: Essential (primary) hypertension[ICD10: I10] Diagnosis: Chronic kidney disease, stage 3 (moderate)[ICD10: N18.3] Alize Aguirre MD , [facility] CPT-4: 07361 04/22/2018 [id number]) [id number] EST. PATIENT, LEVEL IV Diagnosis: Essential (primary) hypertension[ICD10: I10] Diagnosis: Major depressive disorder, recurrent, mild[ICD10: F33.0] Diagnosis: Mixed incontinence[ICD10: N39.46] Diagnosis: Low back pain[ICD10: M54.5] Alize Aguirre MD, [facility] CPT-4: 77425 01/22/2018 ([id number]) [id number] EST. PATIENT, LEVEL IV Diagnosis: Essential (primary) hypertension[ICD10: I10] Diagnosis: Generalized anxiety disorder[ICD10: F41.1] Diagnosis: Major depressive disorder, recurrent, mild[ICD10: F33.0] Diagnosis: Mixed incontinence[ICD10: N39.46] Alize Aguirre MD, [facility] CPT-4: 36893 11/19/2017 58892 EST. PATIENT, LEVEL III Diagnosis: Pain in left knee[ICD10: M25.562] Diagnosis: Synovial cyst of popliteal space [Butts], left knee[ICD10: M71.22] Alize Aguirre MD, [facility] CPT-4: 92513 09/25/2017 [id number]) 21622 EST. PATIENT, LEVEL IV Diagnosis: Essential (primary) hypertension[ICD10: I10] Diagnosis: Chronic kidney disease, stage 3 (moderate)[ICD10: N18.3] Diagnosis: Generalized anxiety disorder[ICD10: F41.1] Diagnosis: Chronic pain syndrome[ICD10: G89.4] [facility] 53634 07/12/2017 [id number]) [id number] EST. PATIENT, LEVEL IV Diagnosis: Essential (primary) hypertension[ICD10: I10] Diagnosis: Iliotibial band syndrome, right leg[ICD10: M76.31] Diagnosis: Encounter for immunization[ICD10: Z23] Diana Aguirre MD, [facility] CPT-4: 15819 03/12/2017 [id number]) [id number] EST. PATIENT, LEVEL IV Diagnosis: Iliotibial band syndrome, right leg[ICD10: M76.31] Diagnosis: Mixed hyperlipidemia[ICD10: E78.2] Diagnosis: Generalized anxiety disorder[ICD10: F41.1] Diagnosis: Essential (primary) hypertension[ICD10: I10] Diagnosis: Chronic kidney disease, stage 3 (moderate)[ICD10: N18.3] Diagnosis: Trochanteric bursitis, right hip[ICD10: M70.61] Diagnosis: Vitamin D deficiency, unspecified[ICD10: E55.9] Diana Aguirre MD, [facility] CPT-4: 79084 02/08/2017 [id number]) [id number] EST. PATIENT, LEVEL IV Diagnosis: Essential (primary) hypertension[ICD10: I10] Diagnosis: Mixed hyperlipidemia[ICD10: E78.2] Diagnosis: Chronic kidney disease, stage 3 (moderate)[ICD10: N18.3] Diagnosis: Low back pain[ICD10: M54.5] Alize Aguirre MD, [facility] CPT-4: 26337 08/08/2016 [id number]) 21715 EST. PATIENT, LEVEL III Diagnosis: Generalized anxiety disorder[ICD10: F41.1] Diagnosis: Sciatica, right side[ICD10: M54.31] Alize Aguirre MD, [facility] CPT-4: 92046 02/08/2016 [id number]) 89705 EST. PATIENT, LEVEL IV Diagnosis: Essential (primary) hypertension[ICD10: I10] Diagnosis: Mixed hyperlipidemia[ICD10: E78.2] Diagnosis: Generalized anxiety disorder[ICD10: F41.1] Diagnosis: Vitamin D deficiency, unspecified[ICD10: E55.9] Diagnosis: Chronic kidney disease, stage 3 (moderate)[ICD10: N18.3] Alize Aguirre MD , [facility] CPT-4: 65830 01/11/2016 ([id number]) [id number] EST. PATIENT, LEVEL IV Diagnosis: Essential (primary) hypertension[ICD10: I10] Diagnosis: Mixed hyperlipidemia[ICD10: E78.2] Diagnosis: Generalized anxiety disorder[ICD10: F41.1] Alize Aguirre MD, [facility] CPT-4: 52253 07/12/2015 ([id number]) Miscellaneous no charge Diagnosis: Forearm fracture[ICD9: 813.80] Diana Aguirre MD, [facility] CPT- 4: 92044 03/05/2015 ([id number]) OFFICE VISIT, NEW - LEVEL 4 Diagnosis: ESSENTIAL HYPERTENSION[ICD9: 401.9] Diagnosis: Hyperlipidemia[ICD9: 272.4] Diagnosis: Chronic renal disease, stage 3, moderately decreased glomerular filtration rate (GFR) between 30-59 mL/min/1.73 square meter[ICD9: 585.3] Diagnosis: Anxiety state[ICD9: 300.00] Alize Aguirre MD, [facility] CPT-4: 05201 01/04/2015 Plan of Care Planned Activity Notes [...] cleared 04/29/2018 Appointment: Alize Jerome WPtel: [phone] [phone] [facility] - Annual Wellness Visit 04/29/2018 Patient Education: [...] labs today 04/22/2018 Appointment: Alize Jerome WPtel: [phone] [phone] (30 min) Complex 04/22/2018 Patient Education: Patient [...] improve. 01/22/2018 Appointment: Alize Jerome WPtel: [phone] [phone] (30 min) Complex 01/22/2018 Patient Education: Patient [...] myrbetriq 11/19/2017 Appointment: Alize Jerome WPtel: [phone] [phone] (15 min) Moderate 11/19/2017 Patient Education: Patient Medication Summary Completed 11/19/2017 Visit Plan: Bakers cyst-left knee pain-Joint Injection - Pt was given post - injection instructions. The pt has been advised to use anti- inflammatories post injection today, ice to the injected site, call if redness, warmth, or increased pain occurs at the site of injection. 09/25/2017 Appointment: Alize Jerome WPtel: [facility]8 [phone] (30 min) Complex 09/25/2017 Patient Education: Patient [...] care. 07/12/2017 Appointment: Diana Aguirre WPtel: [phone] [facility] (15 min) Moderate 07/12/2017 Patient Education: [...] Iliotibial band exercises. flector patches 1.3% - [id number] 04/2019 [facility] flu and pneumonia 13 shot today 03/12/2017 [facility]ment: [phone] (15 min) Moderate 03/12/2017 Patient Education: Patient Medication Summary Completed 03/12/2017 Patient Education: Obesity Completed 03/12/2017 Patient Education: Hypertension Completed 03/12/2017 [phone] [facility] [facility] will [facility] her with appt time [...] care surrogate. 02/09/2017 Appointment: Lora Woody WPtel[facility] [facility] - Annual Wellness Visit 02/09/2017 Patient Education: Patient Medication Summary Completed 02/09/2017 Visit Plan: Iliotibial band syndrome - RX for steroid - I have also recommended Physical therapy ordered for patient at [facility]. Hyperlipidemia - pt has been counseled about [...] oral fluids. 02/08/2017 Appointment: Diana Aguirre WPtel: [facility] (15 min) Moderate 02/08/2017 Patient Education: Patient Medication Summary Completed 02/08/2017 Patient Education: Obesity Completed 02/08/2017 Patient Education: Hypertension Completed 02/08/2017 Care Plan: Referral Order SNOMED-CT : [id number] Pending 02/08/2017 Appointment: Alize Jerome WPtel: [phone] [phone] [place] (15 min) Moderate 02/06/2017 Visit Plan: Hypertension [...] disease-check labs 08/08/2016 Appointment: Alize Jerome WPtel: [address] [place], [place] [phone] (15 min) Moderate 08/08/2016 Patient Education: Patient Medication Summary Completed 08/08/2016 Visit Plan: Krnrpig-buhfcflf-gxuvlzjc lexapro-call if symptoms uncontrolled Low back micr-dsyhozia-ajvllnweg discussed with the patient, pt to use topical voltaren gel as directed. Pt is to call if the symptoms do not improve or if they worsen. 02/08/2016 Appointment: Alize Jerometel: [address] [place], [place] [phone] (15 min) Moderate 02/08/2016 Patient Education: Patient [...] EFFEXOR-START LEXAPRO 01/11/2016 Appointment: [phone] [phone] (15 min) Moderate 01/11/2016 Patient Education: Patient [...] normal liver response to medications. Chronic renal axtwneu-krxgjj-kot labs Chronic Depression and anxiety - the [...] Care Plan: COMPLETE CBC AUTOMATED LOINC : 66353-7 Ordered 01/04/2015 Referral: [facility] WPtel: [facility] Referral App[facility]ment Requested Instructions Comment check UA [...] change in blood pressure readings at home. Kpgedrg-odczdkubhr-bfxxbdrn have increased some-increase lexapro to 1.5 tab [...] recommended Physical therapy ordered for patient at [facility]. Hyperlipidemia - pt has been counseled about [...] Iliotibial band exercises. flector patches 1.3% - [id number] 04/2019 [facility] flu and pneumonia 13 shot today . [...] FOR PHYSICAL THERAPY LOW BACK STRETCHES . Crxacma-vwpddsva-voartgqb lexapro-call if symptoms uncontrolled Low back lubo-olimcqha-tzumupnzc discussed with the patient, pt to use [...] normal liver response to medications. Chronic renal movmlna-wtrntd-njl labs Chronic Depression and anxiety - the [...]
--- OUTSIDE RECORDS SUMMARY | 2018-07-28 10:03 | XMS REPORT | CCD ---
Author Author Alize Jerome Organization [facility] Address [address] [place] [address] Phone Care Team Providers Care Drafter Cartographic Name Role Phone PP Unavailable CCM Unavailable Summary Purpose Interface Exchange Insurance Providers Payer name Policy type / Coverage type Covered libertarian ID Effective Begin Date Effective End Date WPS Medicare Part B Medicare Part B [id number] Unknown Unknown [facility] Medicare Part B [id number] Unknown Unknown Family history Father Diagnosis Age [...] Unknown Retired 01/04/[address]: 939010160 Never smoker 01/04/2015 Alcohol history Unknown occasionally [...] hydrocodone 5 mg-acetaminophen 325 mg tablet RxNorm: 815790 1 Tablet(s) PO Q6 as needed 05/14/2018 06/05/2018 Active Augmentin 875 mg-125 mg tablet RxNorm: 613048 1 Tablet(s) PO BID 04/29/2018 05/05/2018 Inactive Keflex 500 mg capsule RxNorm: 998189 1 Capsule(s) PO TID 201704/28/2018 Inactive diazepam 5 mg tablet RxNorm: 612527 1 Tablet(s) PO TID PRN 07/14/2018 Active hydrocodone 5 mg-acetaminophen 325 mg tablet RxNorm: 238584 1 Tablet(s) PO Q6 as needed 03/15/2018 04/06/2018 Inactive carvedilol 3.125 mg tablet RxNorm: 440378 TAKE ONE TABLET BY MOUTH TWICE A DAY 02/11/2018 08/09/2018 Active Myrbetriq 25 mg tablet,extended release RxNorm: 7850503 1 Tablet(s) PO daily 01/22/2018 07/20/2018 Active hydrocodone 5 mg-acetaminophen 325 mg tablet RxNorm: 922145 1 Tablet(s) PO Q6 as needed 01/22/2018 02/13/2018 Inactive hydrocodone 5 mg-acetaminophen 325 mg tablet RxNorm: 093255 1 Tablet(s) PO Q6 as needed 11/27/2017 12/19/2017 Inactive Lexapro 10 mg tablet RxNorm: 549617 1.5 Tablet(s) PO daily 09/201709/09/2019 Active Myrbetriq 25 mg tablet,extended release RxNorm: 2139991 1 Tablet(s) PO daily 11/19/2017 01/21/2018 Inactive diazepam 5 mg tablet RxNorm: 100383 1 Tablet(s) PO TID PRN 04/15/2018 Inactive Lexapro 10 mg tablet RxNorm: 258918 TAKE ONE TABLET BY MOUTH EVERY EVENING 10/01/2017 11/18/2017 Inactive hydrocodone 5 mg-acetaminophen 325 mg tablet RxNorm: 235378 1 Tablet(s) PO Q6 as needed 09/28/2017 10/20/2017 Inactive Voltaren 1 % topical gel RxNorm: 769276 4 Gram(s) TOP QID 09/2501/22/2018 Inactive Kenalog 40 mg/mL suspension for injection RxNorm: 7011033 1 Milliliter(s) Inj 09/25/2017 09/25/2017 Inactive Bactrim DS 800 mg-160 mg tablet RxNorm: 255424 1 Tablet(s) PO BID 09/05/2017 09/11/2017 Inactive Take probiotic BID while on antibiotic Bactrim DS 800 mg-160 mg tablet RxNorm: 587171 1 Tablet(s) PO BID 09/05/2017 09/04/2017 Inactive Take probiotic BID while on antibiotic hydrocodone 5 mg-acetaminophen 325 mg tablet RxNorm: 759159 1 Tablet(s) PO Q6 as needed 07/12/2017 09/27/2017 Inactive hydrocodone 5 mg-acetaminophen 325 mg tablet RxNorm: 455962 1 Tablet(s) PO Q6 as needed 06/05/2017 07/11/2017 Inactive carvedilol 3.125 mg tablet RxNorm: 656724 TAKE ONE TABLET BY MOUTH TWICE A DAY 05/21/2017 02/10/2018 Inactive hydrocodone 5 mg-acetaminophen 325 mg tablet RxNorm: 819160 1 Tablet(s) PO Q6 as needed 04/20/2017 06/04/2017 Inactive Voltaren 1 % topical gel RxNorm: 081546 2 Gram(s) TOP QID to affected area 04/12/2017 07/10/2017 Inactive Voltaren 1 % topical gel RxNorm: 831256 2 Gram(s) TOP QID to affected area 04/12/2017 04/11/2017 Inactive diazepam 5 mg tablet RxNorm: 515203 1 Tablet(s) PO TID PRN 04/15/2018 Inactive Flector 1.3 % transdermal 12 hour patch RxNorm: 170404 1 Patch TOP BID 03/27/2017 04/11/2017 Inactive Flector 1.3 % transdermal 12 hour patch RxNorm: 551022 1/8 Patch TOP BID 03/12/2017 03/26/2017 Inactive hydrocodone 5 mg-acetaminophen 325 mg tablet RxNorm: 222557 1 Tablet(s) PO Q6 as needed 02/20/2017 04/19/2017 Inactive prednisone 10 mg tablets in a dose pack RxNorm: 580752 1 Tablet(s) PO UD 02/08/2017 09/24/2017 Inactive prednisone 10 mg tablets in a dose pack RxNorm: 607725 1 Tablet(s) PO UD 02/08/2017 02/07/2017 Inactive diazepam 5 mg tablet RxNorm: 130318 1 Tablet(s) PO TID PRN 08/201601/15/2017 Inactive Lexapro 10 mg tablet RxNorm: 192292 TAKE ONE TABLET BY MOUTH EVERY EVENING 08/13/2016 2017 Inactive carvedilol 3.125 mg tablet RxNorm: 267934 1 Tablet(s) PO BID 05/20/2017 Inactive diazepam 5 mg tablet RxNorm: 591730 1 Tablet(s) PO TID PRN 04/15/2018 Inactive Lexapro 10 mg tablet RxNorm: 695034 1 Tablet(s) PO QPM 201508/12/2016 Inactive Lexapro 5 mg tablet RxNorm: 201490 2 Tablet(s) PO QPM 201502/28/2016 Inactive hydrocodone 5 mg-acetaminophen 325 mg tablet RxNorm: 852477 1 Tablet(s) PO Q6 as needed 02/08/2016 02/19/2017 Inactive Lexapro 5 mg tablet RxNorm: 948255 1 Tablet(s) PO QPM 201502/17/2016 Inactive diazepam 5 mg tablet RxNorm: 301605 1 Tablet(s) PO TID PRN 07/201501/15/2016 Inactive Effexor XR 37.5 mg capsule,extended release RxNorm: 184612 1 Capsule(s) PO daily 09/29/2015 01/10/2016 Inactive diazepam 5 mg tablet RxNorm: 574363 1 Tablet(s) PO TID PRN 09/06/2015 Inactive carvedilol 3.125 mg tablet RxNorm: 942191 1 Tablet(s) PO BID 05/24/2016 Inactive diazepam 5 mg tablet RxNorm: 420952 1 Tablet(s) PO TID PRN 03/16/2016 Inactive Fish Oil 360 mg-1,200 mg capsule RxNorm: 640540 1 Capsule(s) PO daily 01/04/2015 No Stop Date Active diazepam 5 mg tablet RxNorm: 707377 1 Tablet(s) PO TID PRN 02/01/2015 Inactive diazepam 5 mg tablet RxNorm: 128497 1 Tablet(s) PO daily 201412/21/2014 Inactive pt to make an appt- called 1 mo to dillons diazepam 5 mg tablet RxNorm: 791944 1 Tablet(s) PO daily 201412/21/2014 Inactive diazepam 5 mg tablet RxNorm: 965121 1 Tablet(s) PO QHS 201401/03/2015 Inactive pt to make an appt- called 1 mo to dillons niacin (inositol niacinate) 500 mg capsule RxNorm: 492864 1 Capsule(s) PO daily No Start Date Active letrozole 2.5 mg tablet RxNorm: 938401 1 Tablet(s) PO daily No Start Date Active aspirin 81 mg tablet RxNorm: 316368 1 Tablet(s) PO daily No Start Date Active Crestor 5 mg tablet RxNorm: 116124 1 Tablet(s) PO QHS No Start Date Active hydrocodone 5 mg-acetaminophen 325 mg tablet RxNorm: 596701 1 Tablet(s) PO Q6 as needed No Start Date 02/07/2016 Inactive Coreg 6.25 mg tablet RxNorm: 751645 1 Tablet(s) PO BID No Start Date 05/30/2015 Inactive Delzicol 400 mg capsule,delayed release RxNorm: 3441771 2 Capsule(s) PO daily No Start Date 08/07/2016 Inactive venlafaxine 37.5 mg tablet RxNorm: 822085 1 Tablet(s) PO daily No Start Date 01/03/2015 Inactive Effexor XR 37.5 mg capsule,extended release RxNorm: 660589 1 Capsule(s) PO daily No Start Date 09/28/2015 Inactive Medication Administered Medication Codes Instructions Start Date Status Kenalog 40 mg/mL suspension for injection RxNorm: 8601711 1Milliliter 09/25/2017 No longer Active Immunizations Vaccine [...] Item Item Code Result Date Culture Urine [id number] URINE CULTURE SEE NOTES 05/13/2018 Urine Culture Ucult Complete Growth of aerobe sent to ref lab 05/10/2018 Culture Urine [id number] URINE CULTURE SEE NOTES 04/25/2018 Culture Urine [id number] Continued Results 04/25/2018 Urine Culture Ucult Complete Growth of aerobe sent to ref lab 04/23/2018 Comp Metabolic Yyy519 NA 142 mEq/L 04/22/2018 Comp Metabolic Qko417 K 4.3 mEq/L 04/22/2018 Comp Metabolic Lts645 CL 104 mEq/L 04/22/2018 Comp Metabolic Pjt398 CO2 29.0 mEq/L 04/22/2018 Comp Metabolic Tsv542 ANION GAP 13 04/22/2018 Comp Metabolic Cen578 GLUCOSE 106 mg/dL 04/22/2018 Comp Metabolic Oyy824 Creat 1.1 mg/dL 04/22/2018 Comp Metabolic Vdi600 eGFR 53 ml/min/1.73m2 04/22/2018 Comp Metabolic Rsp629 BUN 18 mg/dL 04/22/2018 Comp Metabolic Nje982 B/C Ratio 17.0 Ratio 04/22/2018 Comp Metabolic Olr158 CALCIUM 9.6 mg/dL 04/22/2018 Comp Metabolic Onx773 ALK PHOS 121 U/L 04/22/2018 Comp Metabolic Lni561 AST(SGOT) 15 U/L 04/22/2018 Comp Metabolic Xba939 ALT(SGPT) 13 U/L 04/22/2018 Comp Metabolic Gju678 BILI T 1.0 mg/dL 04/22/2018 Comp Metabolic Bba086 ALBUMIN 4.1 g/dL 04/22/2018 Comp Metabolic Mtf460 TPRO 6.3 g/dL 04/22/2018 Comp Metabolic Rxq949 GLOB 2.2 g/dL 04/22/2018 Comp Metabolic Pnt323 A/G Ratio 1.9 Ratio 04/22/2018 Comp Metabolic Xlb925 Osmo 285 mOsmo 04/22/2018 Cbc With Differential Ord2 WBC 8.91 K/ul 04/22/2018 Cbc With Differential Ord2 RBC 4.41 M/ul 04/22/2018 Cbc With Differential Ord2 HGB 13.5 g/dl 04/22/2018 Cbc With Differential Ord2 HCT 42.5 % 04/22/2018 Cbc With Differential Ord2 Neut% 68.9 % 04/22/2018 Cbc With Differential Ord2 MCV 96.4 fl 04/22/2018 Cbc With Differential Ord2 Lymph% 21.1 % 04/22/2018 Cbc With Differential Ord2 MCH 30.6 pg 04/22/2018 Cbc With Differential Ord2 Mcculloch% 8.0 % 04/22/2018 Cbc With Differential Ord2 MCHC 31.8 pg 04/22/2018 Cbc With Differential Ord2 Eos% 1.9 % 04/22/2018 Cbc With Differential Ord2 Baso% 0.1 % 04/22/2018 Cbc With Differential Ord2 PLT 222 K/ul 04/22/2018 Cbc With Differential Ord2 RDW 14.7 % 04/22/2018 Cbc With Differential Ord2 Neut ABS# 6.14 K/ul 04/22/2018 Cbc With Differential Ord2 Lymph ABS# 1.88 K/ul 04/22/2018 Cbc With Differential Ord2 [place]och ABS# 0.7 K/ul 04/22/2018 Cbc With Differential [...] 43.2 % 02/08/2017 Cbc With Differential Ord2 Lymph% 27.1 % 02/08/2017 Cbc With Differential Ord2 MCV 97.1 fl 02/08/2017 Cbc With Differential Ord2 [place]ulloch% 10.0 % 02/08/2017 Cbc With Differential Ord2 MCH 31.5 pg 02/08/2017 Cbc With Differential Ord2 Eos% 1.4 % 02/08/2017 Cbc With Differential Ord2 MCHC 32.4 pg 02/08/2017 Cbc With Differential Ord2 PLT 164 K/ul 02/08/2017 Cbc With Differential Ord2 Baso% 0.1 % 02/08/2017 Cbc With Differential Ord2 RDW 13.4 % 02/08/2017 Cbc With Differential Ord2 Neut ABS# 4.54 K/ul 02/08/2017 Cbc With Differential Ord2 Lymph ABS# 2.00 K/ul 02/08/2017 Cbc With Differential Ord2 [place]och ABS# 0.7 K/ul 02/08/2017 Cbc With Differential Ord2 Eos ABS# 0.1 K/ul 02/08/2017 Cbc With Differential Ord2 Baso ABS# 0.0 K/ul 02/08/2017 Comp Metabolic Qtu150 NA 142 mEq/L 02/08/2017 Comp Metabolic Njd174 K 4.5 mEq/L 02/08/2017 Comp Metabolic Ezj761 CL 106 mEq/L 02/08/2017 Comp Metabolic Bfa574 CO2 27.0 mEq/L 02/08/2017 Comp Metabolic Zny858 ANION GAP 14 02/08/2017 Comp Metabolic Rnj600 GLUCOSE 102 mg/dL 02/08/2017 Comp Metabolic Iem803 Creat 0.9 mg/dL 02/08/2017 Comp Metabolic Jue129 eGFR 62 ml/min/1.73m2 02/08/2017 Comp Metabolic Pft862 BUN 14 mg/dL 02/08/2017 Comp Metabolic Xtt407 B/C Ratio 15.1 Ratio 02/08/2017 Comp Metabolic Hhc417 CALCIUM 9.5 mg/dL 02/08/2017 Comp Metabolic Swd257 ALK PHOS 98 U/L 02/08/2017 Comp Metabolic Zsg772 AST(SGOT) 19 U/L 02/08/2017 Comp Metabolic Qme140 ALT(SGPT) 15 U/L 02/08/2017 Comp Metabolic Gtx522 BILI T 1.1 mg/dL 02/08/2017 Comp Metabolic Oty196 ALBUMIN 4.1 g/dL 02/08/2017 Comp Metabolic Aya738 TPRO 6.2 g/dL 02/08/2017 Comp Metabolic Gbi598 GLOB 2.1 g/dL 02/08/2017 Comp Metabolic Ucm675 A/G Ratio 2.0 Ratio 02/08/2017 Comp Metabolic Ucn116 Osmo 284 mOsmo 02/08/2017 Lipid Ord30 CHOL 178 mg/dL 08/08/2016 Lipid Ord30 HDL 54.0 mg/dl 08/08/2016 Lipid Ord30 TRIG 184 mg/dL 08/08/2016 Lipid Ord30 LDL 87 mg/dL 08/08/2016 Lipid Ord30 C/HDL 3.3 Ratio 08/08/2016 Tsh Ord6 hTSH II 3.12 uIU/mL 08/08/2016 Comp Metabolic Acn218 NA 140 mEq/L 08/08/2016 Comp Metabolic Kiz289 K 4.4 mEq/L 08/08/2016 Comp Metabolic Ffs411 CL 104 mEq/L 08/08/2016 Comp Metabolic Ciu975 CO2 30.0 mEq/L 08/08/2016 Comp Metabolic Phf964 ANION GAP 10 08/08/2016 Comp Metabolic Wxf023 GLUCOSE 107 mg/dL 08/08/2016 Comp Metabolic Kri253 Creat 1.1 mg/dL 08/08/2016 Comp Metabolic Mcn853 eGFR 53 ml/min/1.73m2 08/08/2016 Comp Metabolic Cds841 BUN 22 mg/dL 08/08/2016 Comp Metabolic Baq971 B/C Ratio 20.6 Ratio 08/08/2016 Comp Metabolic Gty074 CALCIUM 10.8 mg/dL 08/08/2016 Comp Metabolic Qmd955 ALK PHOS 140 U/L 08/08/2016 Comp Metabolic Xzy979 AST(SGOT) 21 U/L 08/08/2016 Comp Metabolic Jvi187 ALT(SGPT) 17 U/L 08/08/2016 Comp Metabolic Gdl481 BILI T 0.8 mg/dL 08/08/2016 Comp Metabolic Xdi117 ALBUMIN 4.3 g/dL 08/08/2016 Comp Metabolic Tar344 TPRO 6.7 g/dL 08/08/2016 Comp Metabolic Pki867 GLOB 2.4 g/dL 08/08/2016 Comp Metabolic Ycr965 A/G Ratio 1.8 Ratio 08/08/2016 Comp Metabolic Auo325 Osmo 283 mOsmo 08/08/2016 Cbc With Differential [...] 29.0 pg 08/08/2016 Cbc With Differential Ord2 M[place]ulloch% 11.0 % 08/08/2016 Cbc With Differential Ord2 Eos% 2.4 % 08/08/2016 Cbc With Differential Ord2 MCHC 32.2 pg 08/08/2016 Cbc With Differential Ord2 PLT 192 K/ul 08/08/2016 Cbc With Differential Ord2 Baso% 0.2 % 08/08/2016 Cbc With Differential Ord2 RDW 15.3 % 08/08/2016 Cbc With Differential Ord2 Neut ABS# 3.21 K/ul 08/08/2016 Cbc With Differential Ord2 Lymph ABS# 2.21 K/ul 08/08/2016 Cbc With Differential Ord2 [place] ABS# 0.7 K/ul 08/08/2016 Cbc With Differential Ord2 Eos ABS# 0.2 K/ul 08/08/2016 Cbc With Differential Ord2 Baso ABS# 0.0 K/ul 08/08/2016 Vitamin D 25 Oh [id number] VITAMIN D, 25 HYDROXY 59.99 ng/mL Tsh Ord6 hTSH II 3.86 uIU/mL 01/11/2016 Comp Metabolic Xrm891 NA 137 mEq/L 01/11/2016 Comp Metabolic Ozp613 K 4.4 mEq/L 01/11/2016 Comp Metabolic Frs078 CL 103 mEq/L 01/11/2016 Comp Metabolic Xhf112 CO2 27.0 mEq/L 01/11/2016 Comp Metabolic Hmo475 ANION GAP 11 01/11/2016 Comp Metabolic Yyq148 GLUCOSE 102 mg/dL 01/11/2016 Comp Metabolic Ppc966 Creat 1.1 mg/dL 01/11/2016 Comp Metabolic Fhr702 eGFR 51 ml/min/1.73m2 01/11/2016 Comp Metabolic Dvx484 BUN 16 mg/dL 01/11/2016 Comp Metabolic Kwk895 B/C Ratio 14.5 Ratio 01/11/2016 Comp Metabolic Iry071 CALCIUM 9.9 mg/dL 01/11/2016 Comp Metabolic Pgi812 ALK PHOS 103 U/L 01/11/2016 Comp Metabolic Ijt128 AST(SGOT) 17 U/L 01/11/2016 Comp Metabolic Zfs870 ALT(SGPT) 14 U/L 01/11/2016 Comp Metabolic Wfm120 BILI T 0.8 mg/dL 01/11/2016 Comp Metabolic Qnw691 ALBUMIN 4.4 g/dL 01/11/2016 Comp Metabolic Yxf070 TPRO 6.8 g/dL 01/11/2016 Comp Metabolic Hky787 GLOB 2.5 g/dL 01/11/2016 Comp Metabolic Ddk310 A/G Ratio 1.8 Ratio 01/11/2016 Comp Metabolic Dfg288 Osmo 275 mOsmo 01/11/2016 Lipid Ord30 CHOL [...] 30.4 pg 01/11/2016 Cbc With Differential Ord2 M[place]ulloch% 10.7 % 01/11/2016 Cbc With Differential Ord2 Eos% 2.7 % 01/11/2016 Cbc With Differential Ord2 MCHC 32.7 pg 01/11/2016 Cbc With Differential Ord2 Baso% 0.2 % 01/11/2016 Cbc With Differential Ord2 PLT 180 K/ul 01/11/2016 Cbc With Differential Ord2 Neut ABS# 3.00 K/ul 01/11/2016 Cbc With Differential Ord2 RDW 14.1 % 01/11/2016 Cbc With Differential Ord2 Lymph ABS# 2.35 K/ul 01/11/2016 Cbc With Differential Ord2 [place] ABS# 0.7 K/ul 01/11/2016 Cbc With Differential Ord2 Eos ABS# 0.2 K/ul 01/11/2016 Cbc With Differential Ord2 Baso ABS# 0.0 K/ul 01/11/2016 Cbc With Differential Ord2 WBC 6.93 K/ul 07/12/2015 Cbc With Differential Ord2 RBC 4.76 M/ul 07/12/2015 Cbc With Differential Ord2 HGB 14.3 g/dl 07/12/2015 Cbc With Differential Ord2 Neut% 46.2 % 07/12/2015 Cbc With Differential Ord2 HCT 43.9 % 07/12/2015 Cbc With Differential Ord2 Lymph% 41.3 % 07/12/2015 Cbc With Differential Ord2 MCV 92.2 fl 07/12/2015 Cbc With Differential Ord2 MCH 30.0 pg 07/12/2015 Cbc With Differential Ord2 [place]ulloch% 9.5 % 07/12/2015 Cbc With Differential Ord2 Eos% 2.9 % 07/12/2015 Cbc With Differential Ord2 MCHC 32.6 pg 07/12/2015 Cbc With Differential Ord2 PLT 198 K/ul 07/12/2015 Cbc With Differential Ord2 Baso% 0.1 % 07/12/2015 Cbc With Differential Ord2 RDW 14.7 % 07/12/2015 Cbc With Differential Ord2 Neut ABS# 3.20 K/ul 07/12/2015 Cbc With Differential Ord2 Lymph ABS# 2.86 K/ul 07/12/2015 Cbc With Differential Ord2 [place] ABS# 0.7 K/ul 07/12/2015 Cbc With Differential [...] hTSH II 3.54 uIU/mL 07/12/2015 Comp Metabolic Stc957 NA 140 mEq/L 07/12/2015 Comp Metabolic Cnp845 K 4.4 mEq/L 07/12/2015 Comp Metabolic Epy057 CL 104 mEq/L 07/12/2015 Comp Metabolic Xiy986 CO2 28.0 mEq/L 07/12/2015 Comp Metabolic Vpg690 ANION GAP 12 07/12/2015 Comp Metabolic Qyb226 GLUCOSE 92 mg/dL 07/12/2015 Comp Metabolic Eaz937 Creat 1.2 mg/dL 07/12/2015 Comp Metabolic Ate088 eGFR 47 ml/min/1.73m2 07/12/2015 Comp Metabolic Xwf655 BUN 18 mg/dL 07/12/2015 Comp Metabolic Svf952 B/C Ratio 15.1 Ratio 07/12/2015 Comp Metabolic Bwy309 CALCIUM 10.1 mg/dL 07/12/2015 Comp Metabolic Krp640 ALK PHOS 134 U/L 07/12/2015 Comp Metabolic Gtm425 AST(SGOT) 18 U/L 07/12/2015 Comp Metabolic Mzr381 ALT(SGPT) 17 U/L 07/12/2015 Comp Metabolic Mvy610 BILI T 0.8 mg/dL 07/12/2015 Comp Metabolic Mor081 ALBUMIN 4.1 g/dL 07/12/2015 Comp Metabolic Icy633 TPRO 6.6 g/dL 07/12/2015 Comp Metabolic Uce917 GLOB 2.5 g/dL 07/12/2015 Comp Metabolic Rqg320 A/G Ratio 1.7 Ratio 07/12/2015 Comp Metabolic Ubx743 Osmo 281 mOsmo 07/12/2015 Cbc With Differential [...] Ord2 RDW 15.3 % 01/05/2015 Comp Metabolic Xar145 NA 139 mEq/L 01/05/2015 Comp Metabolic Nty733 K 4.0 mEq/L 01/05/2015 Comp Metabolic Kds658 CL 106 mEq/L 01/05/2015 Comp Metabolic Ump059 CO2 27.0 mEq/L 01/05/2015 Comp Metabolic Iwa571 ANION GAP 10 01/05/2015 Comp Metabolic Gns283 GLUCOSE 111 mg/dL 01/05/2015 Comp Metabolic Oev434 Creat 1.2 mg/dL 01/05/2015 Comp Metabolic Kkr509 eGFR 48 ml/min/1.73m2 01/05/2015 Comp Metabolic Xce011 BUN 18 mg/dL 01/05/2015 Comp Metabolic Alf557 B/C Ratio 15.4 Ratio 01/05/2015 Comp Metabolic Jlt780 CALCIUM 9.2 mg/dL 01/05/2015 Comp Metabolic Buc311 ALK PHOS 202 U/L 01/05/2015 Comp Metabolic Ilm094 AST(SGOT) 19 U/L 01/05/2015 Comp Metabolic Lfz169 ALT(SGPT) 22 U/L 01/05/2015 Comp Metabolic Gym768 BILI T 0.7 mg/dL 01/05/2015 Comp Metabolic Dbh398 ALBUMIN 3.8 g/dL 01/05/2015 Comp Metabolic Lql285 TPRO 6.1 g/dL 01/05/2015 Comp Metabolic Pvg019 GLOB 2.3 g/dL 01/05/2015 Comp Metabolic Rei067 A/G Ratio 1.7 Ratio 01/05/2015 Comp Metabolic Oiv605 Osmo 280 mOsmo 01/05/2015 Tsh Ord6 hTSH [...] clear 01/04/2015 None Full Exam - General 1995 Eyes pupils and irises Overall: pupils equal, round, reactive to light and accomodation 01/04/2015 None Procedures Procedure Codes Date URINALYSIS NONAUTO W/O SCOPE CPT-4: 25632 05/08/2018 PPPS, SUBSEQ VISIT CPT -4: G0439 04/29/2018 URINALYSIS NONAUTO W/O SCOPE CPT-4: 73785 04/22/2018 DRAIN/INJECT JOINT/BURSA CPT-4: 18107 09/25/2017 ADMIN INFLUENZA VIRUS VAC CPT-4: G0008 03/12/2017 ADMIN PNEUMOCOCCAL VACCINE SNOMED CT: 56667728 CPT-4: G0009 03/12/2017 FLU VACC PRSV FREE INC ANTIG CPT-4: 46704 03/12/2017 PNEUMOCOCCAL VACC [address]: 10861368 CPT-4: 64644 03/12/2017 PPPS, SUBSEQ VISIT CPT -4: G0439 02/09/2017 Vital Signs Date Vital 04/29/2018 Blood Pressure 1: 140/80 Code : 8480-6 BMI: 31.1 Code : 20032-9 Heart Rate 1 : 98 bpm Height: 5'5" SpO2: 92% Weight: 187 lbs 04/22/2018 Blood Pressure 1: 142/88 Code : 8480-6 Blood Pressure 1: 150/90 Code: 8480-6 BMI: 31.5 Code: 22293-0 Heart Rate 1: 70 bpm Height: 5'5" SpO2: 94% Weight: 189 lbs 01/22/2018 Blood Pressure 1: 142/78 Code : 8480-6 BMI: 31.6 Code : 09498-3 Heart Rate 1 : 85 bpm Height: 5'5" SpO2: 97% Weight: 190 lbs 11/19/2017 Blood Pressure 1: 132/78 Code : 8480-6 BMI: 31.1 Code : 09946-5 Heart Rate 1 : 68 bpm Height: 5'5" SpO2: 97% Weight: 187 lbs 09/25/2017 Blood Pressure 1: 140/80 Code : 8480-6 BMI: 31.0 Code : 98663-6 Heart Rate 1 : 80 bpm Height: 5'5" SpO2: 99% Weight: 186 lbs 07/12/2017 Blood Pressure 1: 144/88 Code : 8480-6 Blood Pressure 1: 138/72 Code: 8480-6 BMI: 30.8 Code: 62327-7 Heart Rate 1: 71 bpm Height: 5'5" SpO2: 95% Weight: 185 lbs 03/12/2017 Blood Pressure 1: 140/80 Code : 8480-6 BMI: 30.6 Code : 68224-2 Heart Rate 1 : 75 bpm Height: 5'5" SpO2: 97% Weight: 184 lbs 02/09/2017 Heart Rate 1: 74 bpm Height: Weight: 02/08/2017 Blood Pressure 1: 146/88 Code : 8480-6 BMI: 30.1 Code : 29712-9 Heart Rate 1 : 76 bpm Height: 5'5" SpO2: 95% Weight: 181 lbs 08/08/2016 Blood Pressure 1: 144/76 Code : 8480-6 Heart Rate 1: 80 bpm SpO2: 98% Weight: 185 lbs 02/08/2016 Blood Pressure 1: 130/70 Code : 8480-6 BMI: 30.3 Code : 04025-9 Heart Rate 1 : 60 bpm Height: 5'5" SpO2: 98% Weight: 182 lbs 01/11/2016 Blood Pressure 1: 148/82 Code : 8480-6 BMI: 30.6 Code : 51248-5 Heart Rate 1 : 84 bpm Height: 5'5" SpO2: 96% Weight: 184 lbs 07/12/2015 Blood Pressure 1: 152/76 Code : 8480-6 BMI: 30.6 Code : 64573-6 Heart Rate 1 : 70 bpm Height: 5'5" SpO2: 93% Weight: 184 lbs 01/04/2015 Blood Pressure 1: 148/88 Code : 8480-6 BMI: 31.0 Code : 81296-5 Heart Rate 1 : 80 bpm Height: [...] effectively 04/29/2018 None Annual Medicare Wellness Exam Hemaglobisavanah A-1C (self reported ) don't know 04/29/2018 [...] data Encounters Encounter Performer Location Codes Date ([id number]) [id number] EST. PATIENT, LEVEL IV Diagnosis: Urinary tract infection, site not specified[ICD10: N39.0] Diagnosis: Mixed hyperlipidemia[ICD10: E78.2] Diagnosis: Essential (primary) hypertension[ICD10: I10] Diagnosis: Chronic kidney disease, stage 3 (moderate)[ICD10: N18.3] Alize Aguirre MD , [facility] CPT-4: 98107 04/22/2018 ([id number]) 68525 EST. PATIENT, LEVEL IV Diagnosis: Essential (primary) hypertension[ICD10: I10] Diagnosis: Major depressive disorder, recurrent, mild[ICD10: F33.0] Diagnosis: Mixed incontinence[ICD10: N39.46] Diagnosis: Low back pain[ICD10: M54.5] Alize Aguirre MD, [facility] CPT-4: 40203 01/22/2018 ([id number]) 40914 EST. PATIENT, LEVEL IV Diagnosis: Essential (primary) hypertension[ICD10: I10] Diagnosis: Generalized anxiety disorder[ICD10: F41.1] Diagnosis: Major depressive disorder, recurrent, mild[ICD10: F33.0] Diagnosis: Mixed incontinence[ICD10: N39.46] Alize Aguirre MD, [facility] CPT-4: 75853 11/19/2017 [id number] EST. PATIENT, LEVEL III Diagnosis: Pain in left knee[ICD10: M25.562] Diagnosis: Synovial cyst of popliteal space [Butts], left knee[ICD10: M71.22] Alize Aguirre MD, [facility] CPT-4: 11186 09/25/2017 ([id number]) 57204 EST. PATIENT, LEVEL IV Diagnosis: Essential (primary) hypertension[ICD10: I10] Diagnosis: Chronic kidney disease, stage 3 (moderate)[ICD10: N18.3] Diagnosis: Generalized anxiety disorder[ICD10: F41.1] Diagnosis: Chronic pain syndrome[ICD10: G89.4] Diana Aguirre MD, [facility] CPT-4: 83090 07/12/2017 ([id number]) 18060 EST. PATIENT, LEVEL IV Diagnosis: Essential (primary) hypertension[ICD10: I10] Diagnosis: Iliotibial band syndrome, right leg[ICD10: M76.31] Diagnosis: Encounter for immunization[ICD10: Z23] Diana Aguirre MD, [facility] CPT-4: 94808 03/12/2017 ([id number]) 66205 EST. PATIENT, LEVEL IV Diagnosis: Iliotibial band syndrome, right leg[ICD10: M76.31] Diagnosis: Mixed hyperlipidemia[ICD10: E78.2] Diagnosis: Generalized anxiety disorder[ICD10: F41.1] Diagnosis: Essential (primary) hypertension[ICD10: I10] Diagnosis: Chronic kidney disease, stage 3 (moderate)[ICD10: N18.3] Diagnosis: Trochanteric bursitis, right hip[ICD10: M70.61] Diagnosis: Vitamin D deficiency, unspecified[ICD10: E55.9] Diana Aguirre MD, [facility] CPT-4: 54956 02/08/2017 ([id number]) 14954 EST. PATIENT, LEVEL IV Diagnosis: Essential (primary) hypertension[ICD10: I10] Diagnosis: Mixed hyperlipidemia[ICD10: E78.2] Diagnosis: Chronic kidney disease, stage 3 (moderate)[ICD10: N18.3] Diagnosis: Low back pain[ICD10: M54.5] Alize Aguirre MD, [facility] CPT-4: 38372 08/08/2016 ([id number]) 24365 EST. PATIENT, LEVEL III Diagnosis: Generalized anxiety disorder[ICD10: F41.1] Diagnosis: Sciatica, right side[ICD10: M54.31] Alize Aguirre MD, [facility] CPT-4: 46980 02/08/2016 [id number]) [id number] EST. PATIENT, LEVEL IV Diagnosis: Essential (primary) hypertension[ICD10: I10] Diagnosis: Mixed hyperlipidemia[ICD10: E78.2] Diagnosis: Generalized anxiety disorder[ICD10: F41.1] Diagnosis: Vitamin D deficiency, unspecified[ICD10: E55.9] Diagnosis: Chronic kidney disease, stage 3 (moderate)[ICD10: N18.3] Alize Aguirre MD , [facility] CPT-4: 13669 01/11/2016 [id number]) [id number] EST. PATIENT, LEVEL IV Diagnosis: Essential (primary) hypertension[ICD10: I10] Diagnosis: Mixed hyperlipidemia[ICD10: E78.2] Diagnosis: Generalized anxiety disorder[ICD10: F41.1] [facility] CPT-4: 42743 07/12/2015 ([id number]) Miscellaneous no charge Diagnosis: Forearm fracture[ICD9: 813.80] [facility] CPT- 4: 45754 03/05/2015 ([id number]) OFFICE VISIT, NEW - LEVEL 4 Diagnosis: ESSENTIAL HYPERTENSION[ICD9: 401.9] Diagnosis: Hyperlipidemia[ICD9: 272.4] Diagnosis: Chronic renal disease, stage 3, moderately decreased glomerular filtration rate (GFR) between 30-59 mL/min/1.73 square meter[ICD9: 585.3] Diagnosis: Anxiety state[ICD9: 300.00] [facility] CPT-4: 53098 01/04/2015 Plan of Care Planned Activity Notes [...] cleared 04/29/2018 Appointment: Alize Jerome [phone] [id number] [facility] - Annual Wellness Visit 04/29/2018 Patient Education: [...] today 04/22/2018 Appointment: [phone] (30 min) Complex 04/22/2018 Patient Education: Patient [...] improve. 01/22/2018 Appointment: [phone] (30 min) Complex 01/22/2018 Patient Education: Patient [...] tab daily Urinary incontinence-UA negative -samples of sonidotriq 11/19/2017 Appointment: Alize Jerome WPtel: [phone] (15 min) Moderate 11/19/2017 Patient Education: Patient Medication Summary Completed 11/19/2017 Visit Plan: Bakers cyst-left knee pain-Joint Injection - Pt was given post - injection instructions. The pt has been advised to use anti- inflammatories post injection today, ice to the injected site, call if redness, warmth, or increased pain occurs at the site of injection. 09/25/2017 Appointment: Alize Jerome WPtel: [phone] (30 min) Complex 09/25/2017 Patient Education: Patient [...] supportive care. 07/12/2017 Appointment: Diana Aguirre WPtel: [facility] ([facility] min) Moderate 07/12/2017 Patient Education: Patient [...] Iliotibial band exercises. flector patches 1.3% - [id number] 04/2019 pfizer flu and pneumonia 13 shot today 03/12/2017 App[facility]ment: [phone] (15 min) Moderate 03/12/2017 Patient Education: Patient Medication Summary Completed 03/12/2017 Patient Education: Obesity Completed 03/12/2017 Patient Education: Hypertension Completed 03/12/2017 [phone] [facility] with appt time [...] care surrogate. 02/09/2017 Appointment: [phone] [facility] - Annual Wellness Visit 02/09/2017 Patient Education: Patient Medication Summary Completed 02/09/2017 Visit Plan: Iliotibial band syndrome - RX for steroid - I have also recommended Physical therapy ordered for patient at [facility]. Hyperlipidemia - pt has been counseled [...] oral fluids. 02/08/2017 Appointment: Diana Aguirre WPtel: [facility] (15 min) Moderate 02/08/2017 Patient Education: Patient Medication Summary Completed 02/08/2017 Patient Education: Obesity Completed 02/08/2017 Patient Education: Hypertension Completed 02/08/2017 Care Plan: Referral Order SNOMED-CT : [id number] Pending 02/08/2017 Appointment: Alize Jerome WPtel: [phone] (15 min) Moderate 02/06/2017 Visit Plan: Hypertension [...] disease-check labs 08/08/2016 Appointment: Alize Jerome WPtel: [phone] [phone] (15 min) Moderate 08/08/2016 Patient Education: Patient Medication Summary Completed 08/08/2016 Visit Plan: Rcxwray-uykavyoq-pehkpsfw lexapro-call if symptoms uncontrolled Low back ueno-nczcxned-viwlahyxe discussed with the patient, pt to use topical voltaren gel as directed. Pt is to call if the symptoms do not improve or if they worsen. 02/08/2016 Appointment: [facility] Jerome [phone] (15 min) Moderate 02/08/2016 Patient Education: Patient [...] medications. TAPER OFF EFFEXOR-START LEXAPRO 01/11/2016 Appointment: JeromeAlize WPtel: [phone] (15 min) Moderate 01/11/2016 Patient Education: Patient [...] normal liver response to medications. Chronic renal tlofhqb-arpcol-nad labs Chronic Depression and anxiety - the [...] Care Plan: COMPLETE CBC AUTOMATED LOINC : 03700-5 Ordered 01/04/2015 [phone] [place] [facility] Requested Instructions Comment check UA [...] change in blood pressure readings at home. Ousjimz-awofubjyln-onydkhha have increased some-increase lexapro to 1.5 tab [...] recommended Physical therapy ordered for patient at [facility]. Hyperlipidemia - pt has been counseled [...] Iliotibial band exercises. flector patches 1.3% - [id number] 04/2019 Cartiva flu and pneumonia 13 shot today . [...] FOR PHYSICAL THERAPY LOW BACK STRETCHES . Ckrsbhn-thnugslz-qizopqoj lexapro-call if symptoms uncontrolled Low back hpvg-bguuabuz-psgiywaoc discussed with the patient, pt to use [...] normal liver response to medications. Chronic renal fkikffd-pzoive-qsg labs Chronic Depression and anxiety - the [...]
--- OUTSIDE RECORDS SUMMARY | 2018-07-28 10:05 | XMS REPORT | CCD ---
Author Author Alize Jerome Organization [facility] Address [address] [place] [address] Phone Care Team Providers Care Talent Acquisition Program Manager Name Role Phone PP Unavailable CCM Unavailable Summary Purpose Interface Exchange Insurance Providers Payer name Policy type / Coverage type Covered democrat ID Effective Begin Date Effective End Date WPS Medicare Part B Medicare Part B [id number] Unknown Unknown [facility] Medicare Part B [id number] Unknown Unknown Family history Father Diagnosis Age [...] Unknown Retired 01/04/[address]: 873392279 Never smoker 01/04/2015 Alcohol history Unknown occasionally [...] Start Date Stop Date Status Fill Instructions Augmentin 875 mg-125 mg tablet RxNorm: 133920 1 Tablet(s) PO BID 04/29/2018 05/05/2018 Inactive Keflex 500 mg capsule RxNorm: 651928 1 Capsule(s) PO TID 201704/28/2018 Inactive diazepam 5 mg tablet RxNorm: 905319 1 Tablet(s) PO TID PRN 07/14/2018 Active hydrocodone 5 mg-acetaminophen 325 mg tablet RxNorm: 764206 1 Tablet(s) PO Q6 as needed 03/15/2018 04/06/2018 Inactive carvedilol 3.125 mg tablet RxNorm: 327701 TAKE ONE TABLET BY MOUTH TWICE A DAY 02/11/2018 08/09/2018 Active Myrbetriq 25 mg tablet,extended release RxNorm: 6753417 1 Tablet(s) PO daily 01/22/2018 07/20/2018 Active hydrocodone 5 mg-acetaminophen 325 mg tablet RxNorm: 782625 1 Tablet(s) PO Q6 as needed 01/22/2018 02/13/2018 Inactive hydrocodone 5 mg-acetaminophen 325 mg tablet RxNorm: 655356 1 Tablet(s) PO Q6 as needed 11/27/2017 12/19/2017 Inactive Lexapro 10 mg tablet RxNorm: 361132 1.5 Tablet(s) PO daily 09/201709/09/2019 Active Myrbetriq 25 mg tablet,extended release RxNorm: 0501544 1 Tablet(s) PO daily 11/19/2017 01/21/2018 Inactive diazepam 5 mg tablet RxNorm: 573394 1 Tablet(s) PO TID PRN 04/15/2018 Inactive Lexapro 10 mg tablet RxNorm: 182766 TAKE ONE TABLET BY MOUTH EVERY EVENING 10/01/2017 11/18/2017 Inactive hydrocodone 5 mg-acetaminophen 325 mg tablet RxNorm: 371125 1 Tablet(s) PO Q6 as needed 09/28/2017 10/20/2017 Inactive Voltaren 1 % topical gel RxNorm: 708155 4 Gram(s) TOP QID 09/2501/22/2018 Inactive Kenalog 40 mg/mL suspension for injection RxNorm: 8448946 1 Milliliter(s) Inj 09/25/2017 09/25/2017 Inactive Bactrim DS 800 mg-160 mg tablet RxNorm: 857428 1 Tablet(s) PO BID 09/05/2017 09/11/2017 Inactive Take probiotic BID while on antibiotic Bactrim DS 800 mg-160 mg tablet RxNorm: 109650 1 Tablet(s) PO BID 09/05/2017 09/04/2017 Inactive Take probiotic BID while on antibiotic hydrocodone 5 mg-acetaminophen 325 mg tablet RxNorm: 554357 1 Tablet(s) PO Q6 as needed 07/12/2017 09/27/2017 Inactive hydrocodone 5 mg-acetaminophen 325 mg tablet RxNorm: 549959 1 Tablet(s) PO Q6 as needed 06/05/2017 07/11/2017 Inactive carvedilol 3.125 mg tablet RxNorm: 635667 TAKE ONE TABLET BY MOUTH TWICE A DAY 05/21/2017 02/10/2018 Inactive hydrocodone 5 mg-acetaminophen 325 mg tablet RxNorm: 383199 1 Tablet(s) PO Q6 as needed 04/20/2017 06/04/2017 Inactive Voltaren 1 % topical gel RxNorm: 935853 2 Gram(s) TOP QID to affected area 04/12/2017 07/10/2017 Inactive Voltaren 1 % topical gel RxNorm: 418409 2 Gram(s) TOP QID to affected area 04/12/2017 04/11/2017 Inactive diazepam 5 mg tablet RxNorm: 501844 1 Tablet(s) PO TID PRN 04/15/2018 Inactive Flector 1.3 % transdermal 12 hour patch RxNorm: 610741 1 Patch TOP BID 03/27/2017 04/11/2017 Inactive Flector 1.3 % transdermal 12 hour patch RxNorm: 396304 1/8 Patch TOP BID 03/12/2017 03/26/2017 Inactive hydrocodone 5 mg-acetaminophen 325 mg tablet RxNorm: 568858 1 Tablet(s) PO Q6 as needed 02/20/2017 04/19/2017 Inactive prednisone 10 mg tablets in a dose pack RxNorm: 665402 1 Tablet(s) PO UD 02/08/2017 09/24/2017 Inactive prednisone 10 mg tablets in a dose pack RxNorm: 094448 1 Tablet(s) PO UD 02/08/2017 02/07/2017 Inactive diazepam 5 mg tablet RxNorm: 336057 1 Tablet(s) PO TID PRN 08/201601/15/2017 Inactive Lexapro 10 mg tablet RxNorm: 301140 TAKE ONE TABLET BY MOUTH EVERY EVENING 08/13/2016 2017 Inactive carvedilol 3.125 mg tablet RxNorm: 433349 1 Tablet(s) PO BID 05/20/2017 Inactive diazepam 5 mg tablet RxNorm: 647200 1 Tablet(s) PO TID PRN 04/15/2018 Inactive Lexapro 10 mg tablet RxNorm: 966111 1 Tablet(s) PO QPM 201508/12/2016 Inactive Lexapro 5 mg tablet RxNorm: 866170 2 Tablet(s) PO QPM 201502/28/2016 Inactive hydrocodone 5 mg-acetaminophen 325 mg tablet RxNorm: 138797 1 Tablet(s) PO Q6 as needed 02/08/2016 02/19/2017 Inactive Lexapro 5 mg tablet RxNorm: 364240 1 Tablet(s) PO QPM 201502/17/2016 Inactive diazepam 5 mg tablet RxNorm: 767267 1 Tablet(s) PO TID PRN 07/201501/15/2016 Inactive Effexor XR 37.5 mg capsule,extended release RxNorm: 372910 1 Capsule(s) PO daily 09/29/2015 01/10/2016 Inactive diazepam 5 mg tablet RxNorm: 775055 1 Tablet(s) PO TID PRN 09/06/2015 Inactive carvedilol 3.125 mg tablet RxNorm: 334978 1 Tablet(s) PO BID 05/24/2016 Inactive diazepam 5 mg tablet RxNorm: 958447 1 Tablet(s) PO TID PRN 03/16/2016 Inactive Fish Oil 360 mg-1,200 mg capsule RxNorm: 368762 1 Capsule(s) PO daily 01/04/2015 No Stop Date Active diazepam 5 mg tablet RxNorm: 152471 1 Tablet(s) PO TID PRN 02/01/2015 Inactive diazepam 5 mg tablet RxNorm: 944936 1 Tablet(s) PO daily 201412/21/2014 Inactive pt to make an appt- called 1 mo to dillons diazepam 5 mg tablet RxNorm: 325534 1 Tablet(s) PO daily 201412/21/2014 Inactive diazepam 5 mg tablet RxNorm: 097823 1 Tablet(s) PO QHS 201401/03/2015 Inactive pt to make an appt- called 1 mo to dillons niacin (inositol niacinate) 500 mg capsule RxNorm: 196379 1 Capsule(s) PO daily No Start Date Active letrozole 2.5 mg tablet RxNorm: 630071 1 Tablet(s) PO daily No Start Date Active aspirin 81 mg tablet RxNorm: 146994 1 Tablet(s) PO daily No Start Date Active Crestor 5 mg tablet RxNorm: 772782 1 Tablet(s) PO QHS No Start Date Active hydrocodone 5 mg-acetaminophen 325 mg tablet RxNorm: 289975 1 Tablet(s) PO Q6 as needed No Start Date 02/07/2016 Inactive Coreg 6.25 mg tablet RxNorm: 545330 1 Tablet(s) PO BID No Start Date 05/30/2015 Inactive Delzicol 400 mg capsule,delayed release RxNorm: 4657796 2 Capsule(s) PO daily No Start Date 08/07/2016 Inactive venlafaxine 37.5 mg tablet RxNorm: 800192 1 Tablet(s) PO daily No Start Date 01/03/2015 Inactive Effexor XR 37.5 mg capsule,extended release RxNorm: 193086 1 Capsule(s) PO daily No Start Date 09/28/2015 Inactive Medication Administered Medication Codes Instructions Start Date Status Kenalog 40 mg/mL suspension for injection RxNorm: 3884791 1Milliliter 09/25/2017 No longer Active Immunizations Vaccine [...] Item Item Code Result Date Culture Urine [id number] URINE CULTURE SEE NOTES 04/25/2018 Culture Urine [id number] Continued Results 04/25/2018 Urine Culture Ucult Complete Growth of aerobe sent to ref lab 04/23/2018 Comp Metabolic Ozo222 NA 142 mEq/L 04/22/2018 Comp Metabolic Hcx120 K 4.3 mEq/L 04/22/2018 Comp Metabolic Sda904 CL 104 mEq/L 04/22/2018 Comp Metabolic Tuh574 CO2 29.0 mEq/L 04/22/2018 Comp Metabolic Hgm839 ANION GAP 13 04/22/2018 Comp Metabolic Ndh909 GLUCOSE 106 mg/dL 04/22/2018 Comp Metabolic Qwm007 Creat 1.1 mg/dL 04/22/2018 Comp Metabolic Pgi827 eGFR 53 ml/min/1.73m2 04/22/2018 Comp Metabolic Bbm194 BUN 18 mg/dL 04/22/2018 Comp Metabolic Kkh893 B/C Ratio 17.0 Ratio 04/22/2018 Comp Metabolic Ram842 CALCIUM 9.6 mg/dL 04/22/2018 Comp Metabolic Uds303 ALK PHOS 121 U/L 04/22/2018 Comp Metabolic Asl109 AST(SGOT) 15 U/L 04/22/2018 Comp Metabolic Zzj615 ALT(SGPT) 13 U/L 04/22/2018 Comp Metabolic Yyn301 BILI T 1.0 mg/dL 04/22/2018 Comp Metabolic Ddg987 ALBUMIN 4.1 g/dL 04/22/2018 Comp Metabolic Bgk148 TPRO 6.3 g/dL 04/22/2018 Comp Metabolic Urt805 GLOB 2.2 g/dL 04/22/2018 Comp Metabolic Sto944 A/G Ratio 1.9 Ratio 04/22/2018 Comp Metabolic Oug052 Osmo 285 mOsmo 04/22/2018 Cbc With Differential Ord2 WBC 8.91 K/ul 04/22/2018 Cbc With Differential Ord2 RBC 4.41 M/ul 04/22/2018 Cbc With Differential Ord2 HGB 13.5 g/dl 04/22/2018 Cbc With Differential Ord2 Neut% 68.9 % 04/22/2018 Cbc With Differential Ord2 HCT 42.5 % 04/22/2018 Cbc With Differential Ord2 MCV 96.4 fl 04/22/2018 Cbc With Differential Ord2 Lymph% 21.1 % 04/22/2018 Cbc With Differential Ord2 MCH 30.6 pg 04/22/2018 Cbc With Differential Ord2 [place]% 8.0 % 04/22/2018 Cbc With Differential Ord2 MCHC 31.8 pg 04/22/2018 Cbc With Differential Ord2 Eos% 1.9 % 04/22/2018 Cbc With Differential Ord2 PLT 222 K/ul 04/22/2018 Cbc With Differential Ord2 Baso% 0.1 % 04/22/2018 Cbc With Differential Ord2 RDW 14.7 % 04/22/2018 Cbc With Differential Ord2 Neut ABS# 6.14 K/ul 04/22/2018 Cbc With Differential Ord2 Lymph ABS# 1.88 K/ul 04/22/2018 Cbc With Differential Ord2 [place] ABS# 0.7 K/ul 04/22/2018 Cbc With Differential [...] 31.5 pg 02/08/2017 Cbc With Differential Ord2 [place]% 10.0 % 02/08/2017 Cbc With Differential Ord2 [...] 2.00 K/ul 02/08/2017 Cbc With Differential Ord2 [place] ABS# 0.7 K/ul 02/08/2017 Cbc With Differential Ord2 Eos ABS# 0.1 K/ul 02/08/2017 Cbc With Differential Ord2 Baso ABS# 0.0 K/ul 02/08/2017 Comp Metabolic Jhi234 NA 142 mEq/L 02/08/2017 Comp Metabolic Esa982 K 4.5 mEq/L 02/08/2017 Comp Metabolic Wns220 CL 106 mEq/L 02/08/2017 Comp Metabolic Rjm262 CO2 27.0 mEq/L 02/08/2017 Comp Metabolic Vwr058 ANION GAP 14 02/08/2017 Comp Metabolic Wpq541 GLUCOSE 102 mg/dL 02/08/2017 Comp Metabolic Pjz233 Creat 0.9 mg/dL 02/08/2017 Comp Metabolic Tvi332 eGFR 62 ml/min/1.73m2 02/08/2017 Comp Metabolic Mse786 BUN 14 mg/dL 02/08/2017 Comp Metabolic Ncf046 B/C Ratio 15.1 Ratio 02/08/2017 Comp Metabolic Tah632 CALCIUM 9.5 mg/dL 02/08/2017 Comp Metabolic Bif208 ALK PHOS 98 U/L 02/08/2017 Comp Metabolic Kjr310 AST(SGOT) 19 U/L 02/08/2017 Comp Metabolic Cki215 ALT(SGPT) 15 U/L 02/08/2017 Comp Metabolic Ygr257 BILI T 1.1 mg/dL 02/08/2017 Comp Metabolic Xpv010 ALBUMIN 4.1 g/dL 02/08/2017 Comp Metabolic Bsx897 TPRO 6.2 g/dL 02/08/2017 Comp Metabolic Gbt552 GLOB 2.1 g/dL 02/08/2017 Comp Metabolic Ret922 A/G Ratio 2.0 Ratio 02/08/2017 Comp Metabolic Bwb068 Osmo 284 mOsmo 02/08/2017 Lipid Ord30 CHOL 178 mg/dL 08/08/2016 Lipid Ord30 HDL 54.0 mg/dl 08/08/2016 Lipid Ord30 TRIG 184 mg/dL 08/08/2016 Lipid Ord30 LDL 87 mg/dL 08/08/2016 Lipid Ord30 C/HDL 3.3 Ratio 08/08/2016 Tsh Ord6 hTSH II 3.12 uIU/mL 08/08/2016 Comp Metabolic Glw761 NA 140 mEq/L 08/08/2016 Comp Metabolic Ebx866 K 4.4 mEq/L 08/08/2016 Comp Metabolic Opd147 CL 104 mEq/L 08/08/2016 Comp Metabolic Rtn722 CO2 30.0 mEq/L 08/08/2016 Comp Metabolic Eaz925 ANION GAP 10 08/08/2016 Comp Metabolic Yai428 GLUCOSE 107 mg/dL 08/08/2016 Comp Metabolic Iwz906 Creat 1.1 mg/dL 08/08/2016 Comp Metabolic Plu901 eGFR 53 ml/min/1.73m2 08/08/2016 Comp Metabolic Ctd588 BUN 22 mg/dL 08/08/2016 Comp Metabolic Drx439 B/C Ratio 20.6 Ratio 08/08/2016 Comp Metabolic Ftl402 CALCIUM 10.8 mg/dL 08/08/2016 Comp Metabolic Aes765 ALK PHOS 140 U/L 08/08/2016 Comp Metabolic Bre688 AST(SGOT) 21 U/L 08/08/2016 Comp Metabolic Iwo764 ALT(SGPT) 17 U/L 08/08/2016 Comp Metabolic Vzs633 BILI T 0.8 mg/dL 08/08/2016 Comp Metabolic Atu826 ALBUMIN 4.3 g/dL 08/08/2016 Comp Metabolic Ikg247 TPRO 6.7 g/dL 08/08/2016 Comp Metabolic Uhb866 GLOB 2.4 g/dL 08/08/2016 Comp Metabolic Cee958 A/G Ratio 1.8 Ratio 08/08/2016 Comp Metabolic Mof487 Osmo 283 mOsmo 08/08/2016 Cbc With Differential Ord2 WBC 6.27 K/ul 08/08/2016 Cbc With Differential Ord2 RBC 4.87 M/ul 08/08/2016 Cbc With Differential Ord2 HGB 14.1 g/dl 08/08/2016 Cbc With Differential Ord2 Neut% 51.2 % 08/08/2016 Cbc With Differential Ord2 HCT 43.8 % 08/08/2016 Cbc With Differential Ord2 MCV 89.9 fl 08/08/2016 Cbc With Differential Ord2 Lymph% 35.2 % 08/08/2016 Cbc With Differential Ord2 MCH 29.0 pg 08/08/2016 Cbc With Differential Ord2 [place]% 11.0 % 08/08/2016 Cbc With Differential Ord2 MCHC 32.2 pg 08/08/2016 Cbc With Differential Ord2 Eos% 2.4 % 08/08/2016 Cbc With Differential Ord2 PLT 192 K/ul 08/08/2016 Cbc With Differential Ord2 Baso% 0.2 % 08/08/2016 Cbc With Differential Ord2 RDW 15.3 % 08/08/2016 Cbc With Differential Ord2 Neut ABS# 3.21 K/ul 08/08/2016 Cbc With Differential Ord2 Lymph ABS# 2.21 K/ul 08/08/2016 Cbc With Differential Ord2 [place] ABS# 0.7 K/ul 08/08/2016 Cbc With Differential Ord2 Eos ABS# 0.2 K/ul 08/08/2016 Cbc With Differential Ord2 Baso ABS# 0.0 K/ul 08/08/2016 Vitamin D 25 Oh Euk9755 VITAMIN D, 25 HYDROXY 59.99 ng/mL Tsh Ord6 hTSH II 3.86 uIU/mL 01/11/2016 Comp Metabolic Ypg527 NA 137 mEq/L 01/11/2016 Comp Metabolic Gut508 K 4.4 mEq/L 01/11/2016 Comp Metabolic Mxd983 CL 103 mEq/L 01/11/2016 Comp Metabolic Fwk999 CO2 27.0 mEq/L 01/11/2016 Comp Metabolic Oxa121 ANION GAP 11 01/11/2016 Comp Metabolic Rtf242 GLUCOSE 102 mg/dL 01/11/2016 Comp Metabolic Usw847 Creat 1.1 mg/dL 01/11/2016 Comp Metabolic Frx974 eGFR 51 ml/min/1.73m2 01/11/2016 Comp Metabolic Pvc742 BUN 16 mg/dL 01/11/2016 Comp Metabolic Npi948 B/C Ratio 14.5 Ratio 01/11/2016 Comp Metabolic Chi335 CALCIUM 9.9 mg/dL 01/11/2016 Comp Metabolic Qse977 ALK PHOS 103 U/L 01/11/2016 Comp Metabolic Fme393 AST(SGOT) 17 U/L 01/11/2016 Comp Metabolic Dbb938 ALT(SGPT) 14 U/L 01/11/2016 Comp Metabolic Dfl816 BILI T 0.8 mg/dL 01/11/2016 Comp Metabolic Mcd244 ALBUMIN 4.4 g/dL 01/11/2016 Comp Metabolic Dwg261 TPRO 6.8 g/dL 01/11/2016 Comp Metabolic Owk180 GLOB 2.5 g/dL 01/11/2016 Comp Metabolic Pxy209 A/G Ratio 1.8 Ratio 01/11/2016 Comp Metabolic Nnb587 Osmo 275 mOsmo 01/11/2016 Lipid Ord30 CHOL [...] 30.4 pg 01/11/2016 Cbc With Differential Ord2 [place]% 10.7 % 01/11/2016 Cbc With Differential Ord2 MCHC 32.7 pg 01/11/2016 Cbc With Differential Ord2 Eos% 2.7 % 01/11/2016 Cbc With Differential Ord2 Baso% 0.2 % 01/11/2016 Cbc With Differential Ord2 PLT 180 K/ul 01/11/2016 Cbc With Differential Ord2 RDW 14.1 % 01/11/2016 Cbc With Differential Ord2 Neut ABS# 3.00 K/ul 01/11/2016 Cbc With Differential Ord2 Lymph ABS# 2.35 K/ul 01/11/2016 Cbc With Differential Ord2 [place] ABS# 0.7 K/ul 01/11/2016 Cbc With Differential [...] 41.3 % 07/12/2015 Cbc With Differential Ord2 MCH 30.0 pg 07/12/2015 Cbc With Differential Ord2 [place]% 9.5 % 07/12/2015 Cbc With Differential Ord2 [...] 2.86 K/ul 07/12/2015 Cbc With Differential Ord2 [place] ABS# 0.7 K/ul 07/12/2015 Cbc With Differential [...] hTSH II 3.54 uIU/mL 07/12/2015 Comp Metabolic Syi963 NA 140 mEq/L 07/12/2015 Comp Metabolic Ahl464 K 4.4 mEq/L 07/12/2015 Comp Metabolic Xnb749 CL 104 mEq/L 07/12/2015 Comp Metabolic Gcu323 CO2 28.0 mEq/L 07/12/2015 Comp Metabolic Esl888 ANION GAP 12 07/12/2015 Comp Metabolic Sqa498 GLUCOSE 92 mg/dL 07/12/2015 Comp Metabolic Gxb059 Creat 1.2 mg/dL 07/12/2015 Comp Metabolic Rta478 eGFR 47 ml/min/1.73m2 07/12/2015 Comp Metabolic Ctk090 BUN 18 mg/dL 07/12/2015 Comp Metabolic Xea775 B/C Ratio 15.1 Ratio 07/12/2015 Comp Metabolic Mzs332 CALCIUM 10.1 mg/dL 07/12/2015 Comp Metabolic Zat331 ALK PHOS 134 U/L 07/12/2015 Comp Metabolic Cfl777 AST(SGOT) 18 U/L 07/12/2015 Comp Metabolic Udm187 ALT(SGPT) 17 U/L 07/12/2015 Comp Metabolic Icw088 BILI T 0.8 mg/dL 07/12/2015 Comp Metabolic Tkk296 ALBUMIN 4.1 g/dL 07/12/2015 Comp Metabolic Wys086 TPRO 6.6 g/dL 07/12/2015 Comp Metabolic Xaw627 GLOB 2.5 g/dL 07/12/2015 Comp Metabolic Hjg965 A/G Ratio 1.7 Ratio 07/12/2015 Comp Metabolic Uwz591 Osmo 281 mOsmo 07/12/2015 Cbc With Differential [...] Ord2 RDW 15.3 % 01/05/2015 Comp Metabolic Wxy149 NA 139 mEq/L 01/05/2015 Comp Metabolic Yqb750 K 4.0 mEq/L 01/05/2015 Comp Metabolic Cuy833 CL 106 mEq/L 01/05/2015 Comp Metabolic Tnp023 CO2 27.0 mEq/L 01/05/2015 Comp Metabolic Duk855 ANION GAP 10 01/05/2015 Comp Metabolic Rjx883 GLUCOSE 111 mg/dL 01/05/2015 Comp Metabolic Nob722 Creat 1.2 mg/dL 01/05/2015 Comp Metabolic Qmy216 eGFR 48 ml/min/1.73m2 01/05/2015 Comp Metabolic Qcw321 BUN 18 mg/dL 01/05/2015 Comp Metabolic Myd074 B/C Ratio 15.4 Ratio 01/05/2015 Comp Metabolic Zyu564 CALCIUM 9.2 mg/dL 01/05/2015 Comp Metabolic Zgn528 ALK PHOS 202 U/L 01/05/2015 Comp Metabolic Caq432 AST(SGOT) 19 U/L 01/05/2015 Comp Metabolic Ebx670 ALT(SGPT) 22 U/L 01/05/2015 Comp Metabolic Cvv034 BILI T 0.7 mg/dL 01/05/2015 Comp Metabolic Kgx061 ALBUMIN 3.8 g/dL 01/05/2015 Comp Metabolic Yxj283 TPRO 6.1 g/dL 01/05/2015 Comp Metabolic Ayt506 GLOB 2.3 g/dL 01/05/2015 Comp Metabolic Ced352 A/G Ratio 1.7 Ratio 01/05/2015 Comp Metabolic Whj288 Osmo 280 mOsmo 01/05/2015 Tsh Ord6 hTSH [...] Codes Date URINALYSIS NONAUTO W/O SCOPE CPT-4: 81386 05/08/2018 PPPS, SUBSEQ VISIT CPT -4: G0439 04/29/2018 URINALYSIS NONAUTO W/O SCOPE CPT-4: 41685 04/22/2018 DRAIN/INJECT JOINT/BURSA CPT-4: 02384 09/25/2017 ADMIN INFLUENZA VIRUS VAC CPT-4: G0008 03/12/2017 ADMIN PNEUMOCOCCAL VACCINE SNOMED CT: 62353986 CPT-4: G0009 03/12/2017 FLU VACC PRSV FREE INC ANTIG CPT-4: 08823 03/12/2017 PNEUMOCOCCAL VACC [address]: 01226546 CPT-4: 46004 03/12/2017 PPPS, SUBSEQ VISIT CPT -4: G0439 02/09/2017 Vital Signs Date Vital 04/29/2018 Blood Pressure 1: 140/80 Code : 8480-6 BMI: 31.1 Code : 55621-9 Heart Rate 1 : 98 bpm Height: 5'5" SpO2: 92% Weight: 187 lbs 04/22/2018 Blood Pressure 1: 150/90 Code : 8480-6 Blood Pressure 1: 142/88 Code: 8480-6 BMI: 31.5 Code: 75888-1 Heart Rate 1: 70 bpm Height: 5'5" SpO2: 94% Weight: 189 lbs 01/22/2018 Blood Pressure 1: 142/78 Code : 8480-6 BMI: 31.6 Code : 62212-3 Heart Rate 1 : 85 bpm Height: 5'5" SpO2: 97% Weight: 190 lbs 11/19/2017 Blood Pressure 1: 132/78 Code : 8480-6 BMI: 31.1 Code : 98978-0 Heart Rate 1 : 68 bpm Height: 5'5" SpO2: 97% Weight: 187 lbs 09/25/2017 Blood Pressure 1: 140/80 Code : 8480-6 BMI: 31.0 Code : 68859-8 Heart Rate 1 : 80 bpm Height: 5'5" SpO2: 99% Weight: 186 lbs 07/12/2017 Blood Pressure 1: 144/88 Code : 8480-6 Blood Pressure 1: 138/72 Code: 8480-6 BMI: 30.8 Code: 51505-8 Heart Rate 1: 71 bpm Height: 5'5" SpO2: 95% Weight: 185 lbs 03/12/2017 Blood Pressure 1: 140/80 Code : 8480-6 BMI: 30.6 Code : 07025-8 Heart Rate 1 : 75 bpm Height: 5'5" SpO2: 97% Weight: 184 lbs 02/09/2017 Heart Rate 1: 74 bpm Height: Weight: 02/08/2017 Blood Pressure 1: 146/88 Code : 8480-6 BMI: 30.1 Code : 66251-5 Heart Rate 1 : 76 bpm Height: 5'5" SpO2: 95% Weight: 181 lbs 08/08/2016 Blood Pressure 1: 144/76 Code : 8480-6 Heart Rate 1: 80 bpm SpO2: 98% Weight: 185 lbs 02/08/2016 Blood Pressure 1: 130/70 Code : 8480-6 BMI: 30.3 Code : 66025-5 Heart Rate 1 : 60 bpm Height: 5'5" SpO2: 98% Weight: 182 lbs 01/11/2016 Blood Pressure 1: 148/82 Code : 8480-6 BMI: 30.6 Code : 52273-4 Heart Rate 1 : 84 bpm Height: 5'5" SpO2: 96% Weight: 184 lbs 07/12/2015 Blood Pressure 1: 152/76 Code : 8480-6 BMI: 30.6 Code : 44177-1 Heart Rate 1 : 70 bpm Height: 5'5" SpO2: 93% Weight: 184 lbs 01/04/2015 Blood Pressure 1: 148/88 Code : 8480-6 BMI: 31.0 Code : 97645-6 Heart Rate 1 : 80 bpm Height: [...] Directive data Encounters Encounter Performer Location Codes ([id number]) 04542 EST. PATIENT, LEVEL IV Diagnosis: Urinary tract infection, site not specified[ICD10: N39.0] Diagnosis: Mixed hyperlipidemia[ICD10: E78.2] Diagnosis: Essential (primary) hypertension[ICD10: I10] Diagnosis: Chronic kidney disease, stage 3 (moderate)[ICD10: N18.3] [facility] CPT-4: 23308 04/22/2018 ([id number]) 78060 EST. 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 PATIENT, LEVEL IV Diagnosis: Essential (primary) hypertension[ICD10: I10] Diagnosis: Generalized anxiety disorder[ICD10: F41.1] Diagnosis: Major depressive disorder, recurrent, mild[ICD10: F33.0] Diagnosis: Mixed incontinence[ICD10: N39.46] Alize Aguirre MD, [facility] CPT-4: 36090 11/19/2017 06808 EST. PATIENT, LEVEL III Diagnosis: Pain in left knee[ICD10: M25.562] Diagnosis: Synovial cyst of popliteal space [Butts], left knee[ICD10: M71.22] Alize Aguirre MD, [facility] CPT-4: 93819 09/25/2017 ([id number]) 38800 EST. PATIENT, LEVEL IV Diagnosis: Essential (primary) hypertension[ICD10: I10] Diagnosis: Chronic kidney disease, stage 3 (moderate)[ICD10: N18.3] Diagnosis: Generalized anxiety disorder[ICD10: F41.1] Diagnosis: Chronic pain syndrome[ICD10: G89.4] Diana [facility] MD, [facility] CPT-4: 77610 07/12/2017 ([id number]) 46783 EST. PATIENT, LEVEL IV Diagnosis: Essential (primary) hypertension[ICD10: I10] Diagnosis: Iliotibial band syndrome, right leg[ICD10: M76.31] Diagnosis: Encounter for immunization[ICD10: Z23] Diana Agu[facility]re MD, [facility] CPT-4: 95172 03/12/2017 ([id number]) 13467 EST. PATIENT, LEVEL IV Diagnosis: Iliotibial band syndrome, right leg[ICD10: M76.31] Diagnosis: Mixed hyperlipidemia[ICD10: E78.2] Diagnosis: Generalized anxiety disorder[ICD10: F41.1] Diagnosis: Essential (primary) hypertension[ICD10: I10] Diagnosis: Chronic kidney disease, stage 3 (moderate)[ICD10: N18.3] Diagnosis: Trochanteric bursitis, right hip[ICD10: M70.61] Diagnosis: Vitamin D deficiency, unspecified[ICD10: E55.9] Diana Aguirre MD, [facility] CPT-4: 50658 02/08/2017 ([id number]) 84705 EST. PATIENT, LEVEL IV Diagnosis: Essential (primary) hypertension[ICD10: I10] Diagnosis: Mixed hyperlipidemia[ICD10: E78.2] Diagnosis: Chronic kidney disease, stage 3 (moderate)[ICD10: N18.3] Diagnosis: Low back pain[ICD10: M54.5] Alize Aguirre MD, [facility] CPT-4: 99403 08/08/2016 ([id number]) 49843 EST. PATIENT, LEVEL III Diagnosis: Generalized anxiety disorder[ICD10: F41.1] Diagnosis: Sciatica, right side[ICD10: M54.31] Alize Aguirre MD, [facility] CPT-4: 48506 02/08/2016 ([id number]) 93174 EST. PATIENT, LEVEL IV Diagnosis: Essential (primary) hypertension[ICD10: I10] Diagnosis: Mixed hyperlipidemia[ICD10: E78.2] Diagnosis: Generalized anxiety disorder[ICD10: F41.1] Diagnosis: Vitamin D deficiency, unspecified[ICD10: E55.9] Diagnosis: Chronic kidney disease, stage 3 (moderate)[ICD10: N18.3] Alize Aguirre MD , [facility] CPT-4: 99124 01/11/2016 ([id number]) 96343 EST. PATIENT, LEVEL IV Diagnosis: Essential (primary) hypertension[ICD10: I10] Diagnosis: Mixed hyperlipidemia[ICD10: E78.2] Diagnosis: Generalized anxiety disorder[ICD10: F41.1] Alize Aguirre MD, [facility] CPT-4: 86006 07/12/2015 ([id number]) Miscellaneous no charge Diagnosis: Forearm fracture[ICD9: 813.80] [facility] CPT- 4: 13407 03/05/2015 ([id number]) OFFICE VISIT, NEW - LEVEL 4 Diagnosis: ESSENTIAL HYPERTENSION[ICD9: 401.9] Diagnosis: Hyperlipidemia[ICD9: 272.4] Diagnosis: Chronic renal disease, stage 3, moderately decreased glomerular filtration rate (GFR) between 30-59 mL/min/1.73 square meter[ICD9: 585.3] Diagnosis: Anxiety state[ICD9: 300.00] [facility] CPT-4: 94543 01/04/2015 Plan of Care Planned Activity Notes Codes Status Date Patient Education: Patient Medication Summary Completed 05/08/2018 Care Plan: Urine Culture Pending 05/08/2018 Appointment: Alize Jerome WPtel: [facility] [place][note 3]5 [id number] MCR - Annual Wellness Visit 04/29/2018 Patient Education: Patient Medication Summary Completed 04/29/2018 Appointment: Alize Jerome WPtel: [facility] [place][note 3]5 [phone] (30 min) Complex 04/22/2018 Patient Education: Patient Medication Summary Completed 04/22/2018 Patient Education: Hypertension Completed 04/22/2018 Appointment: Alize Jerome WPtel: [facility] [place][note 3]5 [id number] (30 min) Complex 01/22/2018 Patient Education: Patient Medication Summary Completed 01/22/2018 Appointment: Alize Jerome WPtel: [facility] [place][note 3]5 [id number] (15 min) Moderate 11/19/2017 Patient Education: Patient Medication Summary Completed 11/19/2017 Appointment: Alize Jerome WPtel: [facility] [place][note 3]5 [id number] (30 min) Complex 09/25/2017 Patient Education: Patient Medication Summary Completed 09/25/2017 Appointment: Diana Aguirre WPtel: [facility] [place]note 3[id number] (15 min) Moderate 07/12/2017 Patient Education: Patient Medication Summary Completed 07/12/2017 App[facility]ment[phone] ([facility] min) Moderate 03/12/2017 Patient Education: Patient Medication Summary Completed 03/12/2017 Patient Education: Obesity Completed 03/12/2017 Patient Education: Hypertension Completed 03/12/2017 Referral: [facility] WPtel: [phone] [facility] they will call her with appt time Initiated 02/12/2017 Appointment: Lora Woody WPtel: [phone] [facility] MCR - Annual Wellness Visit 02/09/2017 Patient Education: Patient Medication Summary Completed 02/09/2017 Appointment: Diana Aguirre WPtel: [facility]note 3][facility] (15 min) Moderate 02/08/2017 Patient Education: Patient Medication Summary Completed 02/08/2017 Patient Education: Obesity Completed 02/08/2017 Patient Education: Hypertension Completed 02/08/2017 Care Plan: Referral Order SNOMED-CT : [id number] Pending 02/08/2017 Appointment: Alize Jerome WPtel: [facility][note 3]5 [phone] (15 min) Moderate 02/06/2017 Appointment: Alize Jerome WPtel: [facility][note 3]5 [phone] [place] (15 min) Moderate 08/08/2016 Patient Education: Patient Medication Summary Completed 08/08/2016 [phone] [place] (15 min) Moderate 02/08/2016 Patient Education: Patient Medication Summary Completed 02/08/2016 Patient Education: Obesity Completed 02/08/2016 Appointment: Alize Jerome WPtel: [phone] [phone] [place] (15 min) Moderate 01/11/2016 Patient Education: Patient Medication Summary Completed 01/11/2016 Patient Education: Obesity Completed 01/11/2016 Appointment: (15 min) Moderate 07/12/2015 Patient Education: Patient Medication Summary Completed 07/12/2015 Patient Education: Hypertension Completed 07/12/2015 Appointment: Nurse Visit 03/05/2015 Patient Education: Patient Medication Summary Completed 03/05/2015 Appointment: (S) New Patient 01/04/2015 Patient Education: Patient Medication Summary Completed 01/04/2015 Patient Education: Hypertension Completed 01/04/2015 Care Plan: COMPLETE CBC AUTOMATED LOINC : 42296-7 Ordered 01/04/2015 Referral: Jaci physical therapy WPtel: [address] [place], [place] [address] Referral Appointment Requested Instructions No Instructions
--- OUTSIDE RECORDS SUMMARY | 2018-07-28 10:07 | XMS REPORT | CCD ---
Author Author Alize Jerome Organization Diana Aguirre MD, [facility] Address [address] [place] [address] Phone Care Team Providers Care Software Validation Technician Name Role Phone PP Unavailable CCM Unavailable Summary Purpose Interface Exchange Insurance Providers Payer name Policy type / Coverage type Covered democrat ID Effective Begin Date Effective End Date WPS Medicare Part B Medicare Part B [id number] Unknown Unknown [facility] Medicare Part B [id number] Unknown Unknown Family history Father Diagnosis Age [...] Unknown Retired 01/04/[address]: 696896098 Never smoker 01/04/2015 Alcohol history Unknown occasionally drinks alcohol 01/04/2015 Allergies, Adverse Reactions, Alerts Substance Reaction Codes Entered Date Inactivated Date Status * NO KNOWN FOOD ALLERGIES Unknown 01/04/2015 No Inactive Date Active * NO KNOWN DRUG ALLERGIES Unknown 01/04/2015 No Inactive Date Active Past Medical History Illness Codes Condition Status Onset Date Resolved Date Encounter for general adult medical examination with abnormal findings ICD-9: V70.0 ICD-10: Z00.01 Active 02/09/2017 Unknown Chronic kidney disease, stage 3 (moderate) ICD-9: 585.3 ICD-10: N18.3 Active 01/10/2016 Unknown Essential (primary) hypertension ICD-9: 401.9 ICD-10: I10 Active 01/10/2016 Unknown Mixed hyperlipidemia ICD-9: 272.4 ICD-10: E78.2 Active 01/10/2016 Unknown Urinary tract infection, site not specified ICD-9: 599.0 ICD-10: N39.0 Active 04/22/2018 Unknown Low back pain ICD-9: 724.2 ICD-10: [...] Problems Condition Codes Effective Dates Condition Status Encounter for general adult medical examination with abnormal findings ICD-9: V70.0 ICD-10: Z00.01 02/09/2017 Active Chronic kidney disease, stage 3 (moderate) ICD-9: 585.3 ICD-10: N18.3 01/10/2016 Active Essential (primary) hypertension ICD-9: 401.9 ICD-10: I10 01/10/2016 Active Mixed hyperlipidemia ICD-9: 272.4 ICD-10: E78.2 01/10/2016 Active Urinary tract infection, site not specified ICD-9: 599.0 ICD-10: N39.0 04/22/2018 Active Low back pain ICD-9: 724.2 ICD-10: [...] Instructions Augmentin 875 mg-125 mg tablet RxNorm: 071415 1 Tablet(s) PO BID 04/29/2018 05/05/2018 Active Keflex 500 mg capsule RxNorm: 534374 1 Capsule(s) PO TID 201704/28/2018 Inactive diazepam 5 mg tablet RxNorm: 020211 1 Tablet(s) PO TID PRN 07/14/2018 Active hydrocodone 5 mg-acetaminophen 325 mg tablet RxNorm: 525428 1 Tablet(s) PO Q6 as needed 03/15/2018 04/06/2018 Inactive carvedilol 3.125 mg tablet RxNorm: 580863 TAKE ONE TABLET BY MOUTH TWICE A DAY 02/11/2018 08/09/2018 Active Myrbetriq 25 mg tablet,extended release RxNorm: 9638592 1 Tablet(s) PO daily 01/22/2018 07/20/2018 Active hydrocodone 5 mg-acetaminophen 325 mg tablet RxNorm: 193609 1 Tablet(s) PO Q6 as needed 01/22/2018 02/13/2018 Inactive hydrocodone 5 mg-acetaminophen 325 mg tablet RxNorm: 239827 1 Tablet(s) PO Q6 as needed 11/27/2017 12/19/2017 Inactive Lexapro 10 mg tablet RxNorm: 396917 1.5 Tablet(s) PO daily 09/201709/09/2019 Active Myrbetriq 25 mg tablet,extended release RxNorm: 4258882 1 Tablet(s) PO daily 11/19/2017 01/21/2018 Inactive diazepam 5 mg tablet RxNorm: 008083 1 Tablet(s) PO TID PRN 04/15/2018 Inactive Lexapro 10 mg tablet RxNorm: 722571 TAKE ONE TABLET BY MOUTH EVERY EVENING 10/01/2017 11/18/2017 Inactive hydrocodone 5 mg-acetaminophen 325 mg tablet RxNorm: 393253 1 Tablet(s) PO Q6 as needed 09/28/2017 10/20/2017 Inactive Voltaren 1 % topical gel RxNorm: 299118 4 Gram(s) TOP QID 09/2501/22/2018 Inactive Kenalog 40 mg/mL suspension for injection RxNorm: 5165425 1 Milliliter(s) Inj 09/25/2017 09/25/2017 Inactive Bactrim DS 800 mg-160 mg tablet RxNorm: 933211 1 Tablet(s) PO BID 09/05/2017 09/11/2017 Inactive Take probiotic BID while on antibiotic Bactrim DS 800 mg-160 mg tablet RxNorm: 319136 1 Tablet(s) PO BID 09/05/2017 09/04/2017 Inactive Take probiotic BID while on antibiotic hydrocodone 5 mg-acetaminophen 325 mg tablet RxNorm: 396613 1 Tablet(s) PO Q6 as needed 07/12/2017 09/27/2017 Inactive hydrocodone 5 mg-acetaminophen 325 mg tablet RxNorm: 804817 1 Tablet(s) PO Q6 as needed 06/05/2017 07/11/2017 Inactive carvedilol 3.125 mg tablet RxNorm: 422795 TAKE ONE TABLET BY MOUTH TWICE A DAY 05/21/2017 02/10/2018 Inactive hydrocodone 5 mg-acetaminophen 325 mg tablet RxNorm: 103634 1 Tablet(s) PO Q6 as needed 04/20/2017 06/04/2017 Inactive Voltaren 1 % topical gel RxNorm: 097262 2 Gram(s) TOP QID to affected area 04/12/2017 07/10/2017 Inactive Voltaren 1 % topical gel RxNorm: 047603 2 Gram(s) TOP QID to affected area 04/12/2017 04/11/2017 Inactive diazepam 5 mg tablet RxNorm: 427006 1 Tablet(s) PO TID PRN 04/15/2018 Inactive Flector 1.3 % transdermal 12 hour patch RxNorm: 702612 1 Patch TOP BID 03/27/2017 04/11/2017 Inactive Flector 1.3 % transdermal 12 hour patch RxNorm: 850845 1/8 Patch TOP BID 03/12/2017 03/26/2017 Inactive hydrocodone 5 mg-acetaminophen 325 mg tablet RxNorm: 300907 1 Tablet(s) PO Q6 as needed 02/20/2017 04/19/2017 Inactive prednisone 10 mg tablets in a dose pack RxNorm: 869412 1 Tablet(s) PO UD 02/08/2017 09/24/2017 Inactive prednisone 10 mg tablets in a dose pack RxNorm: 660362 1 Tablet(s) PO UD 02/08/2017 02/07/2017 Inactive diazepam 5 mg tablet RxNorm: 549832 1 Tablet(s) PO TID PRN 08/201601/15/2017 Inactive Lexapro 10 mg tablet RxNorm: 088472 TAKE ONE TABLET BY MOUTH EVERY EVENING 08/13/2016 2017 Inactive carvedilol 3.125 mg tablet RxNorm: 191389 1 Tablet(s) PO BID 05/20/2017 Inactive diazepam 5 mg tablet RxNorm: 459149 1 Tablet(s) PO TID PRN 04/15/2018 Inactive Lexapro 10 mg tablet RxNorm: 656751 1 Tablet(s) PO QPM 201508/12/2016 Inactive Lexapro 5 mg tablet RxNorm: 666069 2 Tablet(s) PO QPM 201502/28/2016 Inactive hydrocodone 5 mg-acetaminophen 325 mg tablet RxNorm: 639365 1 Tablet(s) PO Q6 as needed 02/08/2016 02/19/2017 Inactive Lexapro 5 mg tablet RxNorm: 262421 1 Tablet(s) PO QPM 201502/17/2016 Inactive diazepam 5 mg tablet RxNorm: 531859 1 Tablet(s) PO TID PRN 07/201501/15/2016 Inactive Effexor XR 37.5 mg capsule,extended release RxNorm: 560018 1 Capsule(s) PO daily 09/29/2015 01/10/2016 Inactive diazepam 5 mg tablet RxNorm: 376213 1 Tablet(s) PO TID PRN 09/06/2015 Inactive carvedilol 3.125 mg tablet RxNorm: 279390 1 Tablet(s) PO BID 05/24/2016 Inactive diazepam 5 mg tablet RxNorm: 383636 1 Tablet(s) PO TID PRN 03/16/2016 Inactive Fish Oil 360 mg-1,200 mg capsule RxNorm: 171651 1 Capsule(s) PO daily 01/04/2015 No Stop Date Active diazepam 5 mg tablet RxNorm: 282597 1 Tablet(s) PO TID PRN 02/01/2015 Inactive diazepam 5 mg tablet RxNorm: 091545 1 Tablet(s) PO daily 201412/21/2014 Inactive pt to make an appt- called 1 mo to dillons diazepam 5 mg tablet RxNorm: 454886 1 Tablet(s) PO daily 201412/21/2014 Inactive diazepam 5 mg tablet RxNorm: 425010 1 Tablet(s) PO QHS 201401/03/2015 Inactive pt to make an appt- called 1 mo to dill[facility] niacin (inositol niacinate) 500 mg capsule RxNorm: 781318 1 Capsule(s) PO daily No Start Date Active letrozole 2.5 mg tablet RxNorm: 203461 1 Tablet(s) PO daily No Start Date Active aspirin 81 mg tablet RxNorm: 292075 1 Tablet(s) PO daily No Start Date Active Crestor 5 mg tablet RxNorm: 298018 1 Tablet(s) PO QHS No Start Date Active hydrocodone 5 mg-acetaminophen 325 mg tablet RxNorm: 649392 1 Tablet(s) PO Q6 as needed No Start Date 02/07/2016 Inactive Coreg 6.25 mg tablet RxNorm: 780193 1 Tablet(s) PO BID No Start Date 05/30/2015 Inactive Delzicol 400 mg capsule,delayed release RxNorm: 4862940 2 Capsule(s) PO daily No Start Date 08/07/2016 Inactive venlafaxine 37.5 mg tablet RxNorm: 891945 1 Tablet(s) PO daily No Start Date 01/03/2015 Inactive Effexor XR 37.5 mg capsule,extended release RxNorm: 276782 1 Capsule(s) PO daily No Start Date 09/28/2015 Inactive Medication Administered Medication Codes Instructions Start Date Status Kenalog 40 mg/mL suspension for injection RxNorm: 7374048 1Milliliter 09/25/2017 No longer Active Immunizations Vaccine Codes Date Status Influenza CVX: 141 03/12/2017 completed Pneumococcal (Adult) CVX: 133 03/12/2017 completed PPD Unknown 03/05/2015 completed Assessments Condition Codes Effective Dates Encounter for general adult medical examination with abnormal findings ICD-10: Z00.01 ICD-9: V70.0 04/29/2018 Chronic kidney disease, stage 3 (moderate) ICD-10: N18.3 ICD-9: 585.3 04/22/2018 Urinary tract infection, site not specified ICD-10: N39.0 ICD-9: 599.0 04/22/2018 Essential (primary) hypertension ICD-10: I10 ICD-9: [...] Item Item Code Result Date Culture Urine [id number] URINE CULTURE SEE NOTES 04/25/2018 Culture Urine [id number] Continued Results 04/25/2018 Urine Culture Ucult Complete Growth of aerobe sent to ref lab 04/23/2018 Comp Metabolic Irs535 NA 142 mEq/L 04/22/2018 Comp Metabolic Ktw436 K 4.3 mEq/L 04/22/2018 Comp Metabolic Woq095 CL 104 mEq/L 04/22/2018 Comp Metabolic Woq443 CO2 29.0 mEq/L 04/22/2018 Comp Metabolic Ehe922 ANION GAP 13 04/22/2018 Comp Metabolic Fdr609 GLUCOSE 106 mg/dL 04/22/2018 Comp Metabolic Jrs823 Creat 1.1 mg/dL 04/22/2018 Comp Metabolic Xnh166 eGFR 53 ml/min/1.73m2 04/22/2018 Comp Metabolic Uqy845 BUN 18 mg/dL 04/22/2018 Comp Metabolic Lpc348 B/C Ratio 17.0 Ratio 04/22/2018 Comp Metabolic Axy737 CALCIUM 9.6 mg/dL 04/22/2018 Comp Metabolic Dfr297 ALK PHOS 121 U/L 04/22/2018 Comp Metabolic Vbh401 AST(SGOT) 15 U/L 04/22/2018 Comp Metabolic Ess737 ALT(SGPT) 13 U/L 04/22/2018 Comp Metabolic Emw731 BILI T 1.0 mg/dL 04/22/2018 Comp Metabolic Nlx402 ALBUMIN 4.1 g/dL 04/22/2018 Comp Metabolic Udb723 TPRO 6.3 g/dL 04/22/2018 Comp Metabolic Huh994 GLOB 2.2 g/dL 04/22/2018 Comp Metabolic Rhx953 A/G Ratio 1.9 Ratio 04/22/2018 Comp Metabolic Cpo210 Osmo 285 mOsmo 04/22/2018 Cbc With Differential [...] 30.6 pg 04/22/2018 Cbc With Differential Ord2 Green% 8.0 % 04/22/2018 Cbc With Differential Ord2 Eos% 1.9 % 04/22/2018 Cbc With Differential Ord2 MCHC 31.8 pg 04/22/2018 Cbc With Differential Ord2 Baso% 0.1 % 04/22/2018 Cbc With Differential Ord2 PLT 222 K/ul 04/22/2018 Cbc With Differential Ord2 RDW 14.7 % 04/22/2018 Cbc With Differential Ord2 Neut ABS# 6.14 K/ul 04/22/2018 Cbc With Differential Ord2 Lymph ABS# 1.88 K/ul 04/22/2018 Cbc With Differential Ord2 Green ABS# 0.7 K/ul 04/22/2018 Cbc With Differential [...] 97.1 fl 02/08/2017 Cbc With Differential Ord2 MCH 31.5 pg 02/08/2017 Cbc With Differential Ord2 Green% 10.0 % 02/08/2017 Cbc With Differential Ord2 [...] 2.00 K/ul 02/08/2017 Cbc With Differential Ord2 Green ABS# 0.7 K/ul 02/08/2017 Cbc With Differential Ord2 Eos ABS# 0.1 K/ul 02/08/2017 Cbc With Differential Ord2 Baso ABS# 0.0 K/ul 02/08/2017 Comp Metabolic Ooj255 NA 142 mEq/L 02/08/2017 Comp Metabolic Tmp780 K 4.5 mEq/L 02/08/2017 Comp Metabolic Snb575 CL 106 mEq/L 02/08/2017 Comp Metabolic Bmp279 CO2 27.0 mEq/L 02/08/2017 Comp Metabolic Frq527 ANION GAP 14 02/08/2017 Comp Metabolic Diy006 GLUCOSE 102 mg/dL 02/08/2017 Comp Metabolic Hok088 Creat 0.9 mg/dL 02/08/2017 Comp Metabolic Ovk169 eGFR 62 ml/min/1.73m2 02/08/2017 Comp Metabolic Zao930 BUN 14 mg/dL 02/08/2017 Comp Metabolic Pgw099 B/C Ratio 15.1 Ratio 02/08/2017 Comp Metabolic Qds524 CALCIUM 9.5 mg/dL 02/08/2017 Comp Metabolic Ulx094 ALK PHOS 98 U/L 02/08/2017 Comp Metabolic Qux925 AST(SGOT) 19 U/L 02/08/2017 Comp Metabolic Bpq639 ALT(SGPT) 15 U/L 02/08/2017 Comp Metabolic Wxd885 BILI T 1.1 mg/dL 02/08/2017 Comp Metabolic Kgz670 ALBUMIN 4.1 g/dL 02/08/2017 Comp Metabolic Aue543 TPRO 6.2 g/dL 02/08/2017 Comp Metabolic Iio083 GLOB 2.1 g/dL 02/08/2017 Comp Metabolic Qie020 A/G Ratio 2.0 Ratio 02/08/2017 Comp Metabolic Tlm818 Osmo 284 mOsmo 02/08/2017 Lipid Ord30 CHOL 178 mg/dL 08/08/2016 Lipid Ord30 HDL 54.0 mg/dl 08/08/2016 Lipid Ord30 TRIG 184 mg/dL 08/08/2016 Lipid Ord30 LDL 87 mg/dL 08/08/2016 Lipid Ord30 C/HDL 3.3 Ratio 08/08/2016 Tsh Ord6 hTSH II 3.12 uIU/mL 08/08/2016 Comp Metabolic Emw228 NA 140 mEq/L 08/08/2016 Comp Metabolic Ejy050 K 4.4 mEq/L 08/08/2016 Comp Metabolic Dqx716 CL 104 mEq/L 08/08/2016 Comp Metabolic Zze971 CO2 30.0 mEq/L 08/08/2016 Comp Metabolic Dhm898 ANION GAP 10 08/08/2016 Comp Metabolic Lpf552 GLUCOSE 107 mg/dL 08/08/2016 Comp Metabolic Nrf368 Creat 1.1 mg/dL 08/08/2016 Comp Metabolic Qvk816 eGFR 53 ml/min/1.73m2 08/08/2016 Comp Metabolic Ymq429 BUN 22 mg/dL 08/08/2016 Comp Metabolic Lfn683 B/C Ratio 20.6 Ratio 08/08/2016 Comp Metabolic Llp530 CALCIUM 10.8 mg/dL 08/08/2016 Comp Metabolic Zse390 ALK PHOS 140 U/L 08/08/2016 Comp Metabolic Wcs682 AST(SGOT) 21 U/L 08/08/2016 Comp Metabolic Lrx786 ALT(SGPT) 17 U/L 08/08/2016 Comp Metabolic Mgt739 BILI T 0.8 mg/dL 08/08/2016 Comp Metabolic Jsb428 ALBUMIN 4.3 g/dL 08/08/2016 Comp Metabolic Zpx010 TPRO 6.7 g/dL 08/08/2016 Comp Metabolic Prv894 GLOB 2.4 g/dL 08/08/2016 Comp Metabolic Vpj502 A/G Ratio 1.8 Ratio 08/08/2016 Comp Metabolic Ewp097 Osmo 283 mOsmo 08/08/2016 Cbc With Differential Ord2 WBC 6.27 K/ul 08/08/2016 Cbc With Differential Ord2 RBC 4.87 M/ul 08/08/2016 Cbc With Differential Ord2 HGB 14.1 g/dl 08/08/2016 Cbc With Differential Ord2 HCT 43.8 % 08/08/2016 Cbc With Differential Ord2 Neut% 51.2 % 08/08/2016 Cbc With Differential Ord2 Lymph% 35.2 % 08/08/2016 Cbc With Differential Ord2 MCV 89.9 fl 08/08/2016 Cbc With Differential Ord2 MCH 29.0 pg 08/08/2016 Cbc With Differential Ord2 Green% 11.0 % 08/08/2016 Cbc With Differential Ord2 [...] 2.21 K/ul 08/08/2016 Cbc With Differential Ord2 Green ABS# 0.7 K/ul 08/08/2016 Cbc With Differential Ord2 Eos ABS# 0.2 K/ul 08/08/2016 Cbc With Differential Ord2 Baso ABS# 0.0 K/ul 08/08/2016 Vitamin D 25 Oh Bcq5915 VITAMIN D, 25 HYDROXY 59.99 ng/mL Tsh Ord6 hTSH II 3.86 uIU/mL 01/11/2016 Comp Metabolic Wik177 NA 137 mEq/L 01/11/2016 Comp Metabolic Cbv174 K 4.4 mEq/L 01/11/2016 Comp Metabolic Ajx751 CL 103 mEq/L 01/11/2016 Comp Metabolic Vmm130 CO2 27.0 mEq/L 01/11/2016 Comp Metabolic Tle500 ANION GAP 11 01/11/2016 Comp Metabolic Irh568 GLUCOSE 102 mg/dL 01/11/2016 Comp Metabolic Yuk516 Creat 1.1 mg/dL 01/11/2016 Comp Metabolic Qdz764 eGFR 51 ml/min/1.73m2 01/11/2016 Comp Metabolic Lzi101 BUN 16 mg/dL 01/11/2016 Comp Metabolic Uro923 B/C Ratio 14.5 Ratio 01/11/2016 Comp Metabolic Wmj322 CALCIUM 9.9 mg/dL 01/11/2016 Comp Metabolic Nct929 ALK PHOS 103 U/L 01/11/2016 Comp Metabolic Xxg093 AST(SGOT) 17 U/L 01/11/2016 Comp Metabolic Sxt829 ALT(SGPT) 14 U/L 01/11/2016 Comp Metabolic Wxx797 BILI T 0.8 mg/dL 01/11/2016 Comp Metabolic Kzl434 ALBUMIN 4.4 g/dL 01/11/2016 Comp Metabolic Gev324 TPRO 6.8 g/dL 01/11/2016 Comp Metabolic Wgl242 GLOB 2.5 g/dL 01/11/2016 Comp Metabolic Dwa546 A/G Ratio 1.8 Ratio 01/11/2016 Comp Metabolic Owk491 Osmo 275 mOsmo 01/11/2016 Lipid Ord30 CHOL [...] 48.4 % 01/11/2016 Cbc With Differential Ord2 Lymph% 38.0 % 01/11/2016 Cbc With Differential Ord2 MCV 93.1 fl 01/11/2016 Cbc With Differential Ord2 Green% 10.7 % 01/11/2016 Cbc With Differential Ord2 MCH 30.4 pg 01/11/2016 Cbc With Differential Ord2 MCHC 32.7 pg 01/11/2016 Cbc With Differential Ord2 Eos% 2.7 % 01/11/2016 Cbc With Differential Ord2 PLT 180 K/ul 01/11/2016 Cbc With Differential Ord2 Baso% 0.2 % 01/11/2016 Cbc With Differential Ord2 RDW 14.1 % 01/11/2016 Cbc With Differential Ord2 Neut ABS# 3.00 K/ul 01/11/2016 Cbc With Differential Ord2 Lymph ABS# 2.35 K/ul 01/11/2016 Cbc With Differential Ord2 Green ABS# 0.7 K/ul 01/11/2016 Cbc With Differential [...] 92.2 fl 07/12/2015 Cbc With Differential Ord2 Green% 9.5 % 07/12/2015 Cbc With Differential Ord2 MCH 30.0 pg 07/12/2015 Cbc With Differential Ord2 Eos% 2.9 % 07/12/2015 Cbc With Differential Ord2 MCHC 32.6 pg 07/12/2015 Cbc With Differential Ord2 PLT 198 K/ul 07/12/2015 Cbc With Differential Ord2 Baso% 0.1 % 07/12/2015 Cbc With Differential Ord2 Neut ABS# 3.20 K/ul 07/12/2015 Cbc With Differential Ord2 RDW 14.7 % 07/12/2015 Cbc With Differential Ord2 Lymph ABS# 2.86 K/ul 07/12/2015 Cbc With Differential Ord2 Green ABS# 0.7 K/ul 07/12/2015 Cbc With Differential [...] hTSH II 3.54 uIU/mL 07/12/2015 Comp Metabolic Kct051 NA 140 mEq/L 07/12/2015 Comp Metabolic Cwn002 K 4.4 mEq/L 07/12/2015 Comp Metabolic Ang763 CL 104 mEq/L 07/12/2015 Comp Metabolic Wgk633 CO2 28.0 mEq/L 07/12/2015 Comp Metabolic Gfr785 ANION GAP 12 07/12/2015 Comp Metabolic Emv832 GLUCOSE 92 mg/dL 07/12/2015 Comp Metabolic Xwc934 Creat 1.2 mg/dL 07/12/2015 Comp Metabolic Mkd683 eGFR 47 ml/min/1.73m2 07/12/2015 Comp Metabolic Uov512 BUN 18 mg/dL 07/12/2015 Comp Metabolic Qyq522 B/C Ratio 15.1 Ratio 07/12/2015 Comp Metabolic Tqy275 CALCIUM 10.1 mg/dL 07/12/2015 Comp Metabolic Psz984 ALK PHOS 134 U/L 07/12/2015 Comp Metabolic Gac584 AST(SGOT) 18 U/L 07/12/2015 Comp Metabolic Hhm846 ALT(SGPT) 17 U/L 07/12/2015 Comp Metabolic Dux943 BILI T 0.8 mg/dL 07/12/2015 Comp Metabolic Ctt294 ALBUMIN 4.1 g/dL 07/12/2015 Comp Metabolic Gqn334 TPRO 6.6 g/dL 07/12/2015 Comp Metabolic Tvr974 GLOB 2.5 g/dL 07/12/2015 Comp Metabolic Lnw941 A/G Ratio 1.7 Ratio 07/12/2015 Comp Metabolic Vkr979 Osmo 281 mOsmo 07/12/2015 Cbc With Differential [...] Ord2 RDW 15.3 % 01/05/2015 Comp Metabolic Vlt130 NA 139 mEq/L 01/05/2015 Comp Metabolic Nrx666 K 4.0 mEq/L 01/05/2015 Comp Metabolic Xmx166 CL 106 mEq/L 01/05/2015 Comp Metabolic Xwo967 CO2 27.0 mEq/L 01/05/2015 Comp Metabolic Dtc679 ANION GAP 10 01/05/2015 Comp Metabolic Cgi994 GLUCOSE 111 mg/dL 01/05/2015 Comp Metabolic Kbp784 Creat 1.2 mg/dL 01/05/2015 Comp Metabolic Odq959 eGFR 48 ml/min/1.73m2 01/05/2015 Comp Metabolic Rrk316 BUN 18 mg/dL 01/05/2015 Comp Metabolic Dxj567 B/C Ratio 15.4 Ratio 01/05/2015 Comp Metabolic Dck948 CALCIUM 9.2 mg/dL 01/05/2015 Comp Metabolic Fpk381 ALK PHOS 202 U/L 01/05/2015 Comp Metabolic Yzk913 AST(SGOT) 19 U/L 01/05/2015 Comp Metabolic Nrz351 ALT(SGPT) 22 U/L 01/05/2015 Comp Metabolic Xdh261 BILI T 0.7 mg/dL 01/05/2015 Comp Metabolic Qhg999 ALBUMIN 3.8 g/dL 01/05/2015 Comp Metabolic Spy351 TPRO 6.1 g/dL 01/05/2015 Comp Metabolic Cgn359 GLOB 2.3 g/dL 01/05/2015 Comp Metabolic Lfd187 A/G Ratio 1.7 Ratio 01/05/2015 Comp Metabolic Zte046 Osmo 280 mOsmo 01/05/2015 Tsh Ord6 hTSH [...] accomodation 01/04/2015 None Procedures Procedure Codes Date PPPS, SUBSEQ VISIT CPT -4: G0439 04/29/2018 URINALYSIS NONAUTO W/O SCOPE CPT-4: 98287 04/22/2018 DRAIN/INJECT JOINT/BURSA CPT-4: 11697 09/25/2017 ADMIN INFLUENZA VIRUS VAC CPT-4: G0008 03/12/2017 ADMIN PNEUMOCOCCAL VACCINE SNOMED CT: 45095059 CPT-4: G0009 03/12/2017 FLU VACC PRSV FREE INC ANTIG CPT-4: 04957 03/12/2017 PNEUMOCOCCAL VACC [address]: 76254298 CPT-4: 81603 03/12/2017 PPPS, SUBSEQ VISIT CPT -4: G0439 02/09/2017 Vital Signs Date Vital 04/29/2018 Blood Pressure 1: 140/80 Code : 8480-6 BMI: 31.1 Code : 50753-6 Heart Rate 1 : 98 bpm Height: 5'5" SpO2: 92% Weight: 187 lbs 04/22/2018 Blood Pressure 1: 142/88 Code : 8480-6 Blood Pressure 1: 150/90 Code: 8480-6 BMI: 31.5 Code: 90342-2 Heart Rate 1: 70 bpm Height: 5'5" SpO2: 94% Weight: 189 lbs 01/22/2018 Blood Pressure 1: 142/78 Code : 8480-6 BMI: 31.6 Code : 23283-1 Heart Rate 1 : 85 bpm Height: 5'5" SpO2: 97% Weight: 190 lbs 11/19/2017 Blood Pressure 1: 132/78 Code : 8480-6 BMI: 31.1 Code : 95603-5 Heart Rate 1 : 68 bpm Height: 5'5" SpO2: 97% Weight: 187 lbs 09/25/2017 Blood Pressure 1: 140/80 Code : 8480-6 BMI: 31.0 Code : 88180-1 Heart Rate 1 : 80 bpm Height: 5'5" SpO2: 99% Weight: 186 lbs 07/12/2017 Blood Pressure 1: 138/72 Code : 8480-6 Blood Pressure 1: 144/88 Code: 8480-6 BMI: 30.8 Code: 12684-6 Heart Rate 1: 71 bpm Height: 5'5" SpO2: 95% Weight: 185 lbs 03/12/2017 Blood Pressure 1: 140/80 Code : 8480-6 BMI: 30.6 Code : 84581-7 Heart Rate 1 : 75 bpm Height: 5'5" SpO2: 97% Weight: 184 lbs 02/09/2017 Heart Rate 1: 74 bpm Height: Weight: 02/08/2017 Blood Pressure 1: 146/88 Code : 8480-6 BMI: 30.1 Code : 85049-6 Heart Rate 1 : 76 bpm Height: 5'5" SpO2: 95% Weight: 181 lbs 08/08/2016 Blood Pressure 1: 144/76 Code : 8480-6 Heart Rate 1: 80 bpm SpO2: 98% Weight: 185 lbs 02/08/2016 Blood Pressure 1: 130/70 Code : 8480-6 BMI: 30.3 Code : 93350-4 Heart Rate 1 : 60 bpm Height: 5'5" SpO2: 98% Weight: 182 lbs 01/11/2016 Blood Pressure 1: 148/82 Code : 8480-6 BMI: 30.6 Code : 54960-6 Heart Rate 1 : 84 bpm Height: 5'5" SpO2: 96% Weight: 184 lbs 07/12/2015 Blood Pressure 1: 152/76 Code : 8480-6 BMI: 30.6 Code : 65692-0 Heart Rate 1 : 70 bpm Height: 5'5" SpO2: 93% Weight: 184 lbs 01/04/2015 Blood Pressure 1: 148/88 Code : 8480-6 BMI: 31.0 Code : 81238-2 Heart Rate 1 : 80 bpm Height: [...] data Encounters Encounter Performer Location Codes Date ([id number]) [id number] EST. PATIENT, LEVEL IV Diagnosis: Urinary tract infection, site not specified[ICD10: N39.0] Diagnosis: Mixed hyperlipidemia[ICD10: E78.2] Diagnosis: Essential (primary) hypertension[ICD10: I10] Diagnosis: Chronic kidney disease, stage 3 (moderate)[ICD10: N18.3] Alize Aguirre MD , [facility] CPT-4: 55459 04/22/2018 ([id number]) 10208 EST. PATIENT, LEVEL IV Diagnosis: Essential (primary) hypertension[ICD10: I10] Diagnosis: Major depressive disorder, recurrent, mild[ICD10: F33.0] Diagnosis: Mixed incontinence[ICD10: N39.46] Diagnosis: Low back pain[ICD10: M54.5] Alize Aguirre MD, [facility] CPT-4: 98384 01/22/2018 ([id number]) 31089 EST. PATIENT, LEVEL IV Diagnosis: Essential (primary) hypertension[ICD10: I10] Diagnosis: Generalized anxiety disorder[ICD10: F41.1] Diagnosis: Major depressive disorder, recurrent, mild[ICD10: F33.0] Diagnosis: Mixed incontinence[ICD10: N39.46] Alize Aguirre MD, [facility] CPT-4: 39144 11/19/2017 [id number] EST. PATIENT, LEVEL III Diagnosis: Pain in left knee[ICD10: M25.562] Diagnosis: Synovial cyst of popliteal space [Butts], left knee[ICD10: M71.22] Alize Aguirre MD, [facility] CPT-4: 74520 09/25/2017 ([id number]) 61316 EST. PATIENT, LEVEL IV Diagnosis: Essential (primary) hypertension[ICD10: I10] Diagnosis: Chronic kidney disease, stage 3 (moderate)[ICD10: N18.3] Diagnosis: Generalized anxiety disorder[ICD10: F41.1] Diagnosis: Chronic pain syndrome[ICD10: G89.4] Diana Aguirre MD, [facility] CPT-4: 44030 07/12/2017 ([id number]) 46038 EST. PATIENT, LEVEL IV Diagnosis: Essential (primary) hypertension[ICD10: I10] Diagnosis: Iliotibial band syndrome, right leg[ICD10: M76.31] Diagnosis: Encounter for immunization[ICD10: Z23] Diana Aguirre MD, [facility] CPT-4: 06958 03/12/2017 ([id number]) 47554 EST. PATIENT, LEVEL IV Diagnosis: Iliotibial band syndrome, right leg[ICD10: M76.31] Diagnosis: Mixed hyperlipidemia[ICD10: E78.2] Diagnosis: Generalized anxiety disorder[ICD10: F41.1] Diagnosis: Essential (primary) hypertension[ICD10: I10] Diagnosis: Chronic kidney disease, stage 3 (moderate)[ICD10: N18.3] Diagnosis: Trochanteric bursitis, right hip[ICD10: M70.61] Diagnosis: Vitamin D deficiency, unspecified[ICD10: E55.9] Diana Aguirre MD, [facility] CPT-4: 09917 02/08/2017 ([id number]) 53995 EST. PATIENT, LEVEL IV Diagnosis: Essential (primary) hypertension[ICD10: I10] Diagnosis: Mixed hyperlipidemia[ICD10: E78.2] Diagnosis: Chronic kidney disease, stage 3 (moderate)[ICD10: N18.3] Diagnosis: Low back pain[ICD10: M54.5] Alize Aguirre MD, [facility] CPT-4: 40497 08/08/2016 ([id number]) [id number] EST. PATIENT, LEVEL III Diagnosis: Generalized anxiety disorder[ICD10: F41.1] Diagnosis: Sciatica, right side[ICD10: M54.31] Alize Aguirre MD, [facility] CPT-4: 60827 02/08/2016 ([id number]) [id number] EST. PATIENT, LEVEL IV Diagnosis: Essential (primary) hypertension[ICD10: I10] Diagnosis: Mixed hyperlipidemia[ICD10: E78.2] Diagnosis: Generalized anxiety disorder[ICD10: F41.1] Diagnosis: Vitamin D deficiency, unspecified[ICD10: E55.9] Diagnosis: Chronic kidney disease, stage 3 (moderate)[ICD10: N18.3] Alize Aguirre MD , [facility] CPT-4: 64472 01/11/2016 ([id number]) [id number] EST. PATIENT, LEVEL IV Diagnosis: Essential (primary) hypertension[ICD10: I10] Diagnosis: Mixed hyperlipidemia[ICD10: E78.2] Diagnosis: Generalized anxiety disorder[ICD10: F41.1] Alize Aguirre MD, [facility] CPT-4: 82693 07/12/2015 ([id number]) Miscellaneous no charge Diagnosis: Forearm fracture[ICD9: 813.80] Diana Aguirre MD, [facility] [facility] CPT- 4: 07856 03/05/2015 ([id number]) OFFICE VISIT, NEW - LEVEL 4 Diagnosis: ESSENTIAL HYPERTENSION[ICD9: 401.9] Diagnosis: Hyperlipidemia[ICD9: 272.4] Diagnosis: Chronic renal disease, stage 3, moderately decreased glomerular filtration rate (GFR) between 30-59 mL/min/1.73 square meter[ICD9: 585.3] Diagnosis: Anxiety state[ICD9: 300.00] [facility] CPT-4: 68841 01/04/2015 Plan of Care Planned Activity Notes Codes Status Date Visit Plan: Medicare Exam - today we [...] UA to ensure infection has cleared 04/29/2018 Patient Education: Patient Medication Summary Completed [...] labs today 04/22/2018 Appointment: Alize Jerome WPtel: [address] [place], [place] [phone] (30 min) Complex 04/22/2018 Patient Education: Patient [...] not improve. 01/22/2018 Appointment: Alize Jerome WPtel: [facility]5 [phone] (30 min) Complex 01/22/2018 Patient Education: [...] [email or web address] 11/19/2017 Appointment: [facility] [phone] [phone] (15 min) Moderate 11/19/2017 Patient Education: Patient Medication Summary Completed 11/19/2017 Visit Plan: Bakers cyst-left knee pain-Joint Injection - Pt was given post - injection instructions. The pt has been advised to use anti- inflammatories post injection today, ice to the injected site, call if redness, warmth, or increased pain occurs at the site of injection. 09/25/2017 Appointment: Alize Jeromel: [facility]5 [phone] (30 min) Complex 09/25/2017 Patient Education: [...] supportive care. 07/12/2017 Appointment: Diana Aguirre WPtel: [facility]5 [facility]66[facility] (15 min) Moderate 07/12/2017 Patient Education: Patient [...] Iliotibial band exercises. flector patches 1.3% - [id number] 04/2019 pfizer flu and pneumonia 13 shot today 03/12/2017 Appointment: Diana Aguirre WPtel: [address] [place], [place] [id number] (15 min) Moderate 03/12/2017 Patient Education: Patient Medication Summary Completed 03/12/2017 Patient Education: Obesity Completed 03/12/2017 Patient Education: Hypertension Completed 03/12/2017 Referral: [facility] WPtel: [phone] [facility]66[facility] they will call her with appt time [...] care surrogate. 02/09/2017 Appointment: Lora Woody WPtel: [facility] [facility] - Annual Wellness Visit 02/09/2017 Patient Education: Patient Medication Summary Completed 02/09/2017 Visit Plan: Iliotibial band syndrome - RX for steroid - I have also recommended Physical therapy ordered for patient at [facility]. Hyperlipidemia - pt has been counseled [...] oral fluids. 02/08/2017 Appointment: Diana Aguirre WPtel: [phone] [facility] [place] (15 min) Moderate 02/08/2017 Patient Education: Patient Medication Summary Completed 02/08/2017 Patient Education: Obesity Completed 02/08/2017 Patient Education: Hypertension Completed 02/08/2017 Care Plan: Referral Order SNOMED-CT : [id number] Pending 02/08/2017 Appointment: Alize Jerome WPtel: [phone] [phone] [place] (15 min) Moderate 02/06/2017 Visit Plan: [...] disease-check labs 08/08/2016 Appointment: Alize Jerome WPtel: [phone] [phone] [place] (15 min) Moderate 08/08/2016 Patient Education: Patient Medication Summary Completed 08/08/2016 Visit Plan: Cekysux-ztmwpzxe-rhpkqcmx lexapro-call if symptoms uncontrolled Low back uech-uranqtza-hiysvihbn discussed with the patient, pt to use topical voltaren gel as directed. Pt is to call if the symptoms do not improve or if they worsen. 02/08/2016 Appointment: Alize Jerome WPtel: [facility]7 [address] (15 min) Moderate 02/08/2016 Patient Education: Patient [...] EFFEXOR-START LEXAPRO 01/11/2016 Appointment: Alize Jerome WPtel: [facility]9 [phone] (15 min) Moderate 01/11/2016 Patient Education: Patient [...] normal liver response to medications. Chronic renal ozfjwxe-vkudhv-rop labs Chronic Depression and anxiety - the [...] Care Plan: COMPLETE CBC AUTOMATED LOINC : 22488-3 Ordered 01/04/2015 Referral: Jac[facility] WPtel: [facility] [place] Referral Appointment Requested Instructions Comment [...] change in blood pressure readings at home. Vmpkuyl-kqdnxuelpo-hrlwvbvq have increased some-increase lexapro to 1.5 tab [...] recommended Physical therapy ordered for patient at [facility]. Hyperlipidemia - pt has been counseled [...] Iliotibial band exercises. flector patches 1.3% - [id number] 04/2019 [employer] flu and pneumonia 13 shot today . [...] FOR PHYSICAL THERAPY LOW BACK STRETCHES . Lobvwpb-iblnyhvs-uytnpesu lexapro-call if symptoms uncontrolled Low back ftyo-vqhkkpud-vfrenumxm discussed with the patient, pt to use [...] normal liver response to medications. Chronic renal yfckfln-ztbgtk-eux labs Chronic Depression and anxiety - the [...]
--- OUTSIDE RECORDS SUMMARY | 2018-07-28 10:09 | XMS REPORT | CCD ---
Author Author Alize Jerome Organization Diana Aguirre MD, [facility] Address [address] [place] [address] Phone Care Team Providers Care Trailer Steerer Name Role Phone PP Unavailable CCM Unavailable Summary Purpose Interface Exchange Insurance Providers Payer name Policy type / Coverage type Covered green party ID Effective Begin Date Effective End Date WPS Medicare Part B Medicare Part B [id number] Unknown Unknown [facility] Medicare Part B [id number] Unknown Unknown Family history Father Diagnosis Age [...] Unknown Retired 01/04/[address]: 461813347 Never smoker 01/04/2015 Alcohol history Unknown occasionally [...] Instructions Augmentin 875 mg-125 mg tablet RxNorm: 052976 1 Tablet(s) PO BID 04/29/2018 05/05/2018 Active Keflex 500 mg capsule RxNorm: 241074 1 Capsule(s) PO TID 201704/28/2018 Inactive diazepam 5 mg tablet RxNorm: 861177 1 Tablet(s) PO TID PRN 07/14/2018 Active hydrocodone 5 mg-acetaminophen 325 mg tablet RxNorm: 090326 1 Tablet(s) PO Q6 as needed 03/15/2018 04/06/2018 Inactive carvedilol 3.125 mg tablet RxNorm: 370393 TAKE ONE TABLET BY MOUTH TWICE A DAY 02/11/2018 08/09/2018 Active Myrbetriq 25 mg tablet,extended release RxNorm: 8915739 1 Tablet(s) PO daily 01/22/2018 07/20/2018 Active hydrocodone 5 mg-acetaminophen 325 mg tablet RxNorm: 731008 1 Tablet(s) PO Q6 as needed 01/22/2018 02/13/2018 Inactive hydrocodone 5 mg-acetaminophen 325 mg tablet RxNorm: 529472 1 Tablet(s) PO Q6 as needed 11/27/2017 12/19/2017 Inactive Lexapro 10 mg tablet RxNorm: 781329 1.5 Tablet(s) PO daily 09/201709/09/2019 Active Myrbetriq 25 mg tablet,extended release RxNorm: 3192506 1 Tablet(s) PO daily 11/19/2017 01/21/2018 Inactive diazepam 5 mg tablet RxNorm: 217205 1 Tablet(s) PO TID PRN 04/15/2018 Inactive Lexapro 10 mg tablet RxNorm: 185132 TAKE ONE TABLET BY MOUTH EVERY EVENING 10/01/2017 11/18/2017 Inactive hydrocodone 5 mg-acetaminophen 325 mg tablet RxNorm: 076837 1 Tablet(s) PO Q6 as needed 09/28/2017 10/20/2017 Inactive Voltaren 1 % topical gel RxNorm: 284192 4 Gram(s) TOP QID 09/2501/22/2018 Inactive Kenalog 40 mg/mL suspension for injection RxNorm: 4316760 1 Milliliter(s) Inj 09/25/2017 09/25/2017 Inactive Bactrim DS 800 mg-160 mg tablet RxNorm: 493093 1 Tablet(s) PO BID 09/05/2017 09/11/2017 Inactive Take probiotic BID while on antibiotic Bactrim DS 800 mg-160 mg tablet RxNorm: 861228 1 Tablet(s) PO BID 09/05/2017 09/04/2017 Inactive Take probiotic BID while on antibiotic hydrocodone 5 mg-acetaminophen 325 mg tablet RxNorm: 110588 1 Tablet(s) PO Q6 as needed 07/12/2017 09/27/2017 Inactive hydrocodone 5 mg-acetaminophen 325 mg tablet RxNorm: 595885 1 Tablet(s) PO Q6 as needed 06/05/2017 07/11/2017 Inactive carvedilol 3.125 mg tablet RxNorm: 594835 TAKE ONE TABLET BY MOUTH TWICE A DAY 05/21/2017 02/10/2018 Inactive hydrocodone 5 mg-acetaminophen 325 mg tablet RxNorm: 174914 1 Tablet(s) PO Q6 as needed 04/20/2017 06/04/2017 Inactive Voltaren 1 % topical gel RxNorm: 842263 2 Gram(s) TOP QID to affected area 04/12/2017 07/10/2017 Inactive Voltaren 1 % topical gel RxNorm: 301387 2 Gram(s) TOP QID to affected area 04/12/2017 04/11/2017 Inactive diazepam 5 mg tablet RxNorm: 556925 1 Tablet(s) PO TID PRN 04/15/2018 Inactive Flector 1.3 % transdermal 12 hour patch RxNorm: 102404 1 Patch TOP BID 03/27/2017 04/11/2017 Inactive Flector 1.3 % transdermal 12 hour patch RxNorm: 837505 1/8 Patch TOP BID 03/12/2017 03/26/2017 Inactive hydrocodone 5 mg-acetaminophen 325 mg tablet RxNorm: 843791 1 Tablet(s) PO Q6 as needed 02/20/2017 04/19/2017 Inactive prednisone 10 mg tablets in a dose pack RxNorm: 474858 1 Tablet(s) PO UD 02/08/2017 09/24/2017 Inactive prednisone 10 mg tablets in a dose pack RxNorm: 151416 1 Tablet(s) PO UD 02/08/2017 02/07/2017 Inactive diazepam 5 mg tablet RxNorm: 142758 1 Tablet(s) PO TID PRN 08/201601/15/2017 Inactive Lexapro 10 mg tablet RxNorm: 766181 TAKE ONE TABLET BY MOUTH EVERY EVENING 08/13/2016 2017 Inactive carvedilol 3.125 mg tablet RxNorm: 345170 1 Tablet(s) PO BID 05/20/2017 Inactive diazepam 5 mg tablet RxNorm: 007378 1 Tablet(s) PO TID PRN 04/15/2018 Inactive Lexapro 10 mg tablet RxNorm: 224040 1 Tablet(s) PO QPM 201508/12/2016 Inactive Lexapro 5 mg tablet RxNorm: 562138 2 Tablet(s) PO QPM 201502/28/2016 Inactive hydrocodone 5 mg-acetaminophen 325 mg tablet RxNorm: 969345 1 Tablet(s) PO Q6 as needed 02/08/2016 02/19/2017 Inactive Lexapro 5 mg tablet RxNorm: 155716 1 Tablet(s) PO QPM 201502/17/2016 Inactive diazepam 5 mg tablet RxNorm: 006254 1 Tablet(s) PO TID PRN 07/201501/15/2016 Inactive Effexor XR 37.5 mg capsule,extended release RxNorm: 915682 1 Capsule(s) PO daily 09/29/2015 01/10/2016 Inactive diazepam 5 mg tablet RxNorm: 460305 1 Tablet(s) PO TID PRN 09/06/2015 Inactive carvedilol 3.125 mg tablet RxNorm: 622980 1 Tablet(s) PO BID 05/24/2016 Inactive diazepam 5 mg tablet RxNorm: 308411 1 Tablet(s) PO TID PRN 03/16/2016 Inactive Fish Oil 360 mg-1,200 mg capsule RxNorm: 878118 1 Capsule(s) PO daily 01/04/2015 No Stop Date Active diazepam 5 mg tablet RxNorm: 676615 1 Tablet(s) PO TID PRN 02/01/2015 Inactive diazepam 5 mg tablet RxNorm: 738491 1 Tablet(s) PO daily 201412/21/2014 Inactive pt to make an appt- called 1 mo to dillons diazepam 5 mg tablet RxNorm: 918801 1 Tablet(s) PO daily 201412/21/2014 Inactive diazepam 5 mg tablet RxNorm: 240678 1 Tablet(s) PO QHS 201401/03/2015 Inactive pt to make an appt- called 1 mo to dillons niacin (inositol niacinate) 500 mg capsule RxNorm: 068116 1 Capsule(s) PO daily No Start Date Active letrozole 2.5 mg tablet RxNorm: 996903 1 Tablet(s) PO daily No Start Date Active aspirin 81 mg tablet RxNorm: 766007 1 Tablet(s) PO daily No Start Date Active Crestor 5 mg tablet RxNorm: 582973 1 Tablet(s) PO QHS No Start Date Active hydrocodone 5 mg-acetaminophen 325 mg tablet RxNorm: 891924 1 Tablet(s) PO Q6 as needed No Start Date 02/07/2016 Inactive Coreg 6.25 mg tablet RxNorm: 368067 1 Tablet(s) PO BID No Start Date 05/30/2015 Inactive Delzicol 400 mg capsule,delayed release RxNorm: 7020760 2 Capsule(s) PO daily No Start Date 08/07/2016 Inactive venlafaxine 37.5 mg tablet RxNorm: 068606 1 Tablet(s) PO daily No Start Date 01/03/2015 Inactive Effexor XR 37.5 mg capsule,extended release RxNorm: 196940 1 Capsule(s) PO daily No Start Date 09/28/2015 Inactive Medication Administered Medication Codes Instructions Start Date Status Kenalog 40 mg/mL suspension for injection RxNorm: 2404618 1Milliliter 09/25/2017 No longer Active Immunizations Vaccine [...] Item Item Code Result Date Culture Urine [id number] URINE CULTURE SEE NOTES 04/25/2018 Culture Urine [id number] Continued Results 04/25/2018 Urine Culture Ucult Complete Growth of aerobe sent to ref lab 04/23/2018 Comp Metabolic Hfs230 NA 142 mEq/L 04/22/2018 Comp Metabolic Nis716 K 4.3 mEq/L 04/22/2018 Comp Metabolic Vnk328 CL 104 mEq/L 04/22/2018 Comp Metabolic Cyt484 CO2 29.0 mEq/L 04/22/2018 Comp Metabolic Mwr794 ANION GAP 13 04/22/2018 Comp Metabolic Qyl277 GLUCOSE 106 mg/dL 04/22/2018 Comp Metabolic Qdi567 Creat 1.1 mg/dL 04/22/2018 Comp Metabolic Oho221 eGFR 53 ml/min/1.73m2 04/22/2018 Comp Metabolic Crj564 BUN 18 mg/dL 04/22/2018 Comp Metabolic Soh694 B/C Ratio 17.0 Ratio 04/22/2018 Comp Metabolic Xcc244 CALCIUM 9.6 mg/dL 04/22/2018 Comp Metabolic Gtt838 ALK PHOS 121 U/L 04/22/2018 Comp Metabolic Ccw779 AST(SGOT) 15 U/L 04/22/2018 Comp Metabolic Gbn228 ALT(SGPT) 13 U/L 04/22/2018 Comp Metabolic Aff794 BILI T 1.0 mg/dL 04/22/2018 Comp Metabolic Jyp408 ALBUMIN 4.1 g/dL 04/22/2018 Comp Metabolic Odt960 TPRO 6.3 g/dL 04/22/2018 Comp Metabolic Iwo948 GLOB 2.2 g/dL 04/22/2018 Comp Metabolic Jou608 A/G Ratio 1.9 Ratio 04/22/2018 Comp Metabolic Dkw894 Osmo 285 mOsmo 04/22/2018 Cbc With Differential [...] 30.6 pg 04/22/2018 Cbc With Differential Ord2 [place]% 8.0 % 04/22/2018 Cbc With Differential Ord2 [...] 1.88 K/ul 04/22/2018 Cbc With Differential Ord2 [place] ABS# 0.7 K/ul 04/22/2018 Cbc With Differential [...] 31.5 pg 02/08/2017 Cbc With Differential Ord2 [place]% 10.0 % 02/08/2017 Cbc With Differential Ord2 [...] 2.00 K/ul 02/08/2017 Cbc With Differential Ord2 [place] ABS# 0.7 K/ul 02/08/2017 Cbc With Differential Ord2 Eos ABS# 0.1 K/ul 02/08/2017 Cbc With Differential Ord2 Baso ABS# 0.0 K/ul 02/08/2017 Comp Metabolic Peb574 NA 142 mEq/L 02/08/2017 Comp Metabolic Jgu447 K 4.5 mEq/L 02/08/2017 Comp Metabolic Dfg753 CL 106 mEq/L 02/08/2017 Comp Metabolic Hyk012 CO2 27.0 mEq/L 02/08/2017 Comp Metabolic Imk373 ANION GAP 14 02/08/2017 Comp Metabolic Oyt302 GLUCOSE 102 mg/dL 02/08/2017 Comp Metabolic Pjj889 Creat 0.9 mg/dL 02/08/2017 Comp Metabolic Kcy571 eGFR 62 ml/min/1.73m2 02/08/2017 Comp Metabolic Jsk771 BUN 14 mg/dL 02/08/2017 Comp Metabolic Ixr026 B/C Ratio 15.1 Ratio 02/08/2017 Comp Metabolic Nkc792 CALCIUM 9.5 mg/dL 02/08/2017 Comp Metabolic Ooy194 ALK PHOS 98 U/L 02/08/2017 Comp Metabolic Fcu014 AST(SGOT) 19 U/L 02/08/2017 Comp Metabolic Vcr801 ALT(SGPT) 15 U/L 02/08/2017 Comp Metabolic Ygz557 BILI T 1.1 mg/dL 02/08/2017 Comp Metabolic Auo781 ALBUMIN 4.1 g/dL 02/08/2017 Comp Metabolic Ssw224 TPRO 6.2 g/dL 02/08/2017 Comp Metabolic Hoq483 GLOB 2.1 g/dL 02/08/2017 Comp Metabolic Dgf886 A/G Ratio 2.0 Ratio 02/08/2017 Comp Metabolic Pvr234 Osmo 284 mOsmo 02/08/2017 Lipid Ord30 CHOL 178 mg/dL 08/08/2016 Lipid Ord30 HDL 54.0 mg/dl 08/08/2016 Lipid Ord30 TRIG 184 mg/dL 08/08/2016 Lipid Ord30 LDL 87 mg/dL 08/08/2016 Lipid Ord30 C/HDL 3.3 Ratio 08/08/2016 Tsh Ord6 hTSH II 3.12 uIU/mL 08/08/2016 Comp Metabolic Zqb509 NA 140 mEq/L 08/08/2016 Comp Metabolic Zyw172 K 4.4 mEq/L 08/08/2016 Comp Metabolic Lvo337 CL 104 mEq/L 08/08/2016 Comp Metabolic Bpo619 CO2 30.0 mEq/L 08/08/2016 Comp Metabolic Vym490 ANION GAP 10 08/08/2016 Comp Metabolic Yid591 GLUCOSE 107 mg/dL 08/08/2016 Comp Metabolic Dwi598 Creat 1.1 mg/dL 08/08/2016 Comp Metabolic Bbg789 eGFR 53 ml/min/1.73m2 08/08/2016 Comp Metabolic Rrn449 BUN 22 mg/dL 08/08/2016 Comp Metabolic Atu232 B/C Ratio 20.6 Ratio 08/08/2016 Comp Metabolic Wjp338 CALCIUM 10.8 mg/dL 08/08/2016 Comp Metabolic Tlm091 ALK PHOS 140 U/L 08/08/2016 Comp Metabolic Uli150 AST(SGOT) 21 U/L 08/08/2016 Comp Metabolic Okx389 ALT(SGPT) 17 U/L 08/08/2016 Comp Metabolic Tcx722 BILI T 0.8 mg/dL 08/08/2016 Comp Metabolic Njr695 ALBUMIN 4.3 g/dL 08/08/2016 Comp Metabolic Anl682 TPRO 6.7 g/dL 08/08/2016 Comp Metabolic Jnw195 GLOB 2.4 g/dL 08/08/2016 Comp Metabolic Zcu118 A/G Ratio 1.8 Ratio 08/08/2016 Comp Metabolic Wkv814 Osmo 283 mOsmo 08/08/2016 Cbc With Differential [...] 29.0 pg 08/08/2016 Cbc With Differential Ord2 [place]% 11.0 % 08/08/2016 Cbc With Differential Ord2 [...] 2.21 K/ul 08/08/2016 Cbc With Differential Ord2 [place] ABS# 0.7 K/ul 08/08/2016 Cbc With Differential Ord2 Eos ABS# 0.2 K/ul 08/08/2016 Cbc With Differential Ord2 Baso ABS# 0.0 K/ul 08/08/2016 Vitamin D 25 Oh Ymo5084 VITAMIN D, 25 HYDROXY 59.99 ng/mL Tsh Ord6 hTSH II 3.86 uIU/mL 01/11/2016 Comp Metabolic Umx789 NA 137 mEq/L 01/11/2016 Comp Metabolic Qwb243 K 4.4 mEq/L 01/11/2016 Comp Metabolic Czh089 CL 103 mEq/L 01/11/2016 Comp Metabolic Pqa741 CO2 27.0 mEq/L 01/11/2016 Comp Metabolic Pgs656 ANION GAP 11 01/11/2016 Comp Metabolic Cds957 GLUCOSE 102 mg/dL 01/11/2016 Comp Metabolic Leq171 Creat 1.1 mg/dL 01/11/2016 Comp Metabolic Zsi855 eGFR 51 ml/min/1.73m2 01/11/2016 Comp Metabolic Xfo507 BUN 16 mg/dL 01/11/2016 Comp Metabolic Nvz460 B/C Ratio 14.5 Ratio 01/11/2016 Comp Metabolic Sbg739 CALCIUM 9.9 mg/dL 01/11/2016 Comp Metabolic Cbx720 ALK PHOS 103 U/L 01/11/2016 Comp Metabolic Alv402 AST(SGOT) 17 U/L 01/11/2016 Comp Metabolic Mte829 ALT(SGPT) 14 U/L 01/11/2016 Comp Metabolic Dlj333 BILI T 0.8 mg/dL 01/11/2016 Comp Metabolic Udg845 ALBUMIN 4.4 g/dL 01/11/2016 Comp Metabolic Lin213 TPRO 6.8 g/dL 01/11/2016 Comp Metabolic Psg963 GLOB 2.5 g/dL 01/11/2016 Comp Metabolic Zgh991 A/G Ratio 1.8 Ratio 01/11/2016 Comp Metabolic Iyq817 Osmo 275 mOsmo 01/11/2016 Lipid Ord30 CHOL [...] 93.1 fl 01/11/2016 Cbc With Differential Ord2 [place]% 10.7 % 01/11/2016 Cbc With Differential Ord2 [...] 2.35 K/ul 01/11/2016 Cbc With Differential Ord2 [place] ABS# 0.7 K/ul 01/11/2016 Cbc With Differential [...] 92.2 fl 07/12/2015 Cbc With Differential Ord2 [place]% 9.5 % 07/12/2015 Cbc With Differential Ord2 [...] 2.86 K/ul 07/12/2015 Cbc With Differential Ord2 [place] ABS# 0.7 K/ul 07/12/2015 Cbc With Differential [...] hTSH II 3.54 uIU/mL 07/12/2015 Comp Metabolic Lcp163 NA 140 mEq/L 07/12/2015 Comp Metabolic Qje365 K 4.4 mEq/L 07/12/2015 Comp Metabolic Ydi969 CL 104 mEq/L 07/12/2015 Comp Metabolic Baq620 CO2 28.0 mEq/L 07/12/2015 Comp Metabolic Wvp329 ANION GAP 12 07/12/2015 Comp Metabolic Lsa730 GLUCOSE 92 mg/dL 07/12/2015 Comp Metabolic Cvs831 Creat 1.2 mg/dL 07/12/2015 Comp Metabolic Ret283 eGFR 47 ml/min/1.73m2 07/12/2015 Comp Metabolic Slb666 BUN 18 mg/dL 07/12/2015 Comp Metabolic Arm267 B/C Ratio 15.1 Ratio 07/12/2015 Comp Metabolic Vnu395 CALCIUM 10.1 mg/dL 07/12/2015 Comp Metabolic Bvs382 ALK PHOS 134 U/L 07/12/2015 Comp Metabolic Fme604 AST(SGOT) 18 U/L 07/12/2015 Comp Metabolic Dxn775 ALT(SGPT) 17 U/L 07/12/2015 Comp Metabolic Ees771 BILI T 0.8 mg/dL 07/12/2015 Comp Metabolic Tgw022 ALBUMIN 4.1 g/dL 07/12/2015 Comp Metabolic Cad469 TPRO 6.6 g/dL 07/12/2015 Comp Metabolic Rnr262 GLOB 2.5 g/dL 07/12/2015 Comp Metabolic Xga791 A/G Ratio 1.7 Ratio 07/12/2015 Comp Metabolic Vnz082 Osmo 281 mOsmo 07/12/2015 Cbc With Differential [...] Ord2 RDW 15.3 % 01/05/2015 Comp Metabolic Ydi422 NA 139 mEq/L 01/05/2015 Comp Metabolic Buf472 K 4.0 mEq/L 01/05/2015 Comp Metabolic Vbl554 CL 106 mEq/L 01/05/2015 Comp Metabolic Rpg101 CO2 27.0 mEq/L 01/05/2015 Comp Metabolic Tlv924 ANION GAP 10 01/05/2015 Comp Metabolic Ncy384 GLUCOSE 111 mg/dL 01/05/2015 Comp Metabolic Mhn706 Creat 1.2 mg/dL 01/05/2015 Comp Metabolic Syd100 eGFR 48 ml/min/1.73m2 01/05/2015 Comp Metabolic Ppc120 BUN 18 mg/dL 01/05/2015 Comp Metabolic Yil812 B/C Ratio 15.4 Ratio 01/05/2015 Comp Metabolic Qiw771 CALCIUM 9.2 mg/dL 01/05/2015 Comp Metabolic Jii783 ALK PHOS 202 U/L 01/05/2015 Comp Metabolic Duk139 AST(SGOT) 19 U/L 01/05/2015 Comp Metabolic Won423 ALT(SGPT) 22 U/L 01/05/2015 Comp Metabolic Gzx240 BILI T 0.7 mg/dL 01/05/2015 Comp Metabolic Svz691 ALBUMIN 3.8 g/dL 01/05/2015 Comp Metabolic Igs465 TPRO 6.1 g/dL 01/05/2015 Comp Metabolic Kyt913 GLOB 2.3 g/dL 01/05/2015 Comp Metabolic Qrf753 A/G Ratio 1.7 Ratio 01/05/2015 Comp Metabolic Mwg885 Osmo 280 mOsmo 01/05/2015 Tsh Ord6 hTSH [...] G0439 04/29/2018 URINALYSIS NONAUTO W/O SCOPE CPT-4: 57341 04/22/2018 DRAIN/INJECT JOINT/BURSA CPT-4: 29039 09/25/2017 ADMIN INFLUENZA VIRUS VAC CPT-4: G0008 03/12/2017 ADMIN PNEUMOCOCCAL VACCINE SNOMED CT: 29157591 CPT-4: G0009 03/12/2017 FLU VACC PRSV FREE INC ANTIG CPT-4: 96660 03/12/2017 PNEUMOCOCCAL VACC [address]: 01984199 CPT-4: 36962 03/12/2017 PPPS, SUBSEQ VISIT CPT -4: G0439 02/09/2017 Vital Signs Date Vital 04/29/2018 Blood Pressure 1: 140/80 Code : 8480-6 BMI: 31.1 Code : 67130-6 Heart Rate 1 : 98 bpm Height: 5'5" SpO2: 92% Weight: 187 lbs 04/22/2018 Blood Pressure 1: 142/88 Code : 8480-6 Blood Pressure 1: 150/90 Code: 8480-6 BMI: 31.5 Code: 01709-1 Heart Rate 1: 70 bpm Height: 5'5" SpO2: 94% Weight: 189 lbs 01/22/2018 Blood Pressure 1: 142/78 Code : 8480-6 BMI: 31.6 Code : 49453-3 Heart Rate 1 : 85 bpm Height: 5'5" SpO2: 97% Weight: 190 lbs 11/19/2017 Blood Pressure 1: 132/78 Code : 8480-6 BMI: 31.1 Code : 43679-7 Heart Rate 1 : 68 bpm Height: 5'5" SpO2: 97% Weight: 187 lbs 09/25/2017 Blood Pressure 1: 140/80 Code : 8480-6 BMI: 31.0 Code : 74731-2 Heart Rate 1 : 80 bpm Height: 5'5" SpO2: 99% Weight: 186 lbs 07/12/2017 Blood Pressure 1: 138/72 Code : 8480-6 Blood Pressure 1: 144/88 Code: 8480-6 BMI: 30.8 Code: 03201-9 Heart Rate 1: 71 bpm Height: 5'5" SpO2: 95% Weight: 185 lbs 03/12/2017 Blood Pressure 1: 140/80 Code : 8480-6 BMI: 30.6 Code : 55435-9 Heart Rate 1 : 75 bpm Height: 5'5" SpO2: 97% Weight: 184 lbs 02/09/2017 Heart Rate 1: 74 bpm Height: Weight: 02/08/2017 Blood Pressure 1: 146/88 Code : 8480-6 BMI: 30.1 Code : 16559-2 Heart Rate 1 : 76 bpm Height: 5'5" SpO2: 95% Weight: 181 lbs 08/08/2016 Blood Pressure 1: 144/76 Code : 8480-6 Heart Rate 1: 80 bpm SpO2: 98% Weight: 185 lbs 02/08/2016 Blood Pressure 1: 130/70 Code : 8480-6 BMI: 30.3 Code : 38257-7 Heart Rate 1 : 60 bpm Height: 5'5" SpO2: 98% Weight: 182 lbs 01/11/2016 Blood Pressure 1: 148/82 Code : 8480-6 BMI: 30.6 Code : 20182-3 Heart Rate 1 : 84 bpm Height: 5'5" SpO2: 96% Weight: 184 lbs 07/12/2015 Blood Pressure 1: 152/76 Code : 8480-6 BMI: 30.6 Code : 62851-3 Heart Rate 1 : 70 bpm Height: 5'5" SpO2: 93% Weight: 184 lbs 01/04/2015 Blood Pressure 1: 148/88 Code : 8480-6 BMI: 31.0 Code : 88861-6 Heart Rate 1 : 80 bpm Height: [...] data Encounters Encounter Performer Location Codes Date ([id number]) 71451 EST. PATIENT, LEVEL IV Diagnosis: Urinary tract infection, site not specified[ICD10: N39.0] Diagnosis: Mixed hyperlipidemia[ICD10: E78.2] Diagnosis: Essential (primary) hypertension[ICD10: I10] Diagnosis: Chronic kidney disease, stage 3 (moderate)[ICD10: N18.3] Alize Aguirre MD , [facility] CPT-4: 54045 04/22/2018 ([id number]) 09112 EST. PATIENT, LEVEL IV Diagnosis: Essential (primary) hypertension[ICD10: I10] Diagnosis: Major depressive disorder, recurrent, mild[ICD10: F33.0] Diagnosis: Mixed incontinence[ICD10: N39.46] Diagnosis: Low back pain[ICD10: M54.5] Alize Aguirre MD, [facility] CPT-4: 36486 01/22/2018 ([id number]) 45563 EST. PATIENT, LEVEL IV Diagnosis: Essential (primary) hypertension[ICD10: I10] Diagnosis: Generalized anxiety disorder[ICD10: F41.1] Diagnosis: Major depressive disorder, recurrent, mild[ICD10: F33.0] Diagnosis: Mixed incontinence[ICD10: N39.46] Alize Aguirre MD, [facility] CPT-4: 06860 11/19/2017 [id number] EST. PATIENT, LEVEL III Diagnosis: Pain in left knee[ICD10: M25.562] Diagnosis: Synovial cyst of popliteal space [Butts], left knee[ICD10: M71.22] Alize Aguirre MD, [facility] CPT-4: 50815 09/25/2017 ([id number]) 80305 EST. PATIENT, LEVEL IV Diagnosis: Essential (primary) hypertension[ICD10: I10] Diagnosis: Chronic kidney disease, stage 3 (moderate)[ICD10: N18.3] Diagnosis: Generalized anxiety disorder[ICD10: F41.1] Diagnosis: Chronic pain syndrome[ICD10: G89.4] Diana Aguirre MD, [facility] CPT-4: 86359 07/12/2017 ([id number]) 48138 EST. PATIENT, LEVEL IV Diagnosis: Essential (primary) hypertension[ICD10: I10] Diagnosis: Iliotibial band syndrome, right leg[ICD10: M76.31] Diagnosis: Encounter for immunization[ICD10: Z23] Diana Aguirre MD, [facility] CPT-4: 63928 03/12/2017 ([id number]) 43193 EST. PATIENT, LEVEL IV Diagnosis: Iliotibial band syndrome, right leg[ICD10: M76.31] Diagnosis: Mixed hyperlipidemia[ICD10: E78.2] Diagnosis: Generalized anxiety disorder[ICD10: F41.1] Diagnosis: Essential (primary) hypertension[ICD10: I10] Diagnosis: Chronic kidney disease, stage 3 (moderate)[ICD10: N18.3] Diagnosis: Trochanteric bursitis, right hip[ICD10: M70.61] Diagnosis: Vitamin D deficiency, unspecified[ICD10: E55.9] Diana Aguirre MD, [facility] CPT-4: 79743 02/08/2017 ([id number]) 32050 EST. PATIENT, LEVEL IV Diagnosis: Essential (primary) hypertension[ICD10: I10] Diagnosis: Mixed hyperlipidemia[ICD10: E78.2] Diagnosis: Chronic kidney disease, stage 3 (moderate)[ICD10: N18.3] Diagnosis: Low back pain[ICD10: M54.5] Alize Aguirre MD, [facility] CPT-4: 68766 08/08/2016 ([id number]) 47617 EST. PATIENT, LEVEL III Diagnosis: Generalized anxiety disorder[ICD10: F41.1] Diagnosis: Sciatica, right side[ICD10: M54.31] Alize Aguirre MD, [facility] CPT-4: 68484 02/08/2016 ([id number]) 71951 EST. PATIENT, LEVEL IV Diagnosis: Essential (primary) hypertension[ICD10: I10] Diagnosis: Mixed hyperlipidemia[ICD10: E78.2] Diagnosis: Generalized anxiety disorder[ICD10: F41.1] Diagnosis: Vitamin D deficiency, unspecified[ICD10: E55.9] Diagnosis: Chronic kidney disease, stage 3 (moderate)[ICD10: N18.3] Alize Aguirre MD , [facility] CPT-4: 89263 01/11/2016 ([id number]) 21115 EST. PATIENT, LEVEL IV Diagnosis: Essential (primary) hypertension[ICD10: I10] Diagnosis: Mixed hyperlipidemia[ICD10: E78.2] Diagnosis: Generalized anxiety disorder[ICD10: F41.1] Alize Aguirre MD, [facility] CPT-4: 77071 07/12/2015 ([id number]) Miscellaneous no charge Diagnosis: Forearm fracture[ICD9: 813.80] Diana Aguirre MD, [facility] CPT- 4: 53130 03/05/2015 ([id number]) OFFICE VISIT, NEW - LEVEL 4 Diagnosis: ESSENTIAL HYPERTENSION[ICD9: 401.9] Diagnosis: Hyperlipidemia[ICD9: 272.4] Diagnosis: Chronic renal disease, stage 3, moderately decreased glomerular filtration rate (GFR) between 30-59 mL/min/1.73 square meter[ICD9: 585.3] Diagnosis: Anxiety state[ICD9: 300.00] [facility] CPT-4: 09206 01/04/2015 Plan of Care Planned Activity Notes [...] labs today 04/22/2018 Appointment: Alize Jerome WPtel: [address] [place], [place] [phone] (30 min) Complex 04/22/2018 Patient Education: Patient [...] not improve. 01/22/2018 Appointment: Alize Jerome WPtel: [phone] (30 min) Complex 01/22/2018 Patient Education: [...] [email or web address] 11/19/2017 [facility] [phone] [phone] (15 min) Moderate 11/19/2017 Patient Education: Patient Medication Summary Completed 11/19/2017 Visit Plan: Bakers cyst-left knee pain-Joint Injection - Pt was given post - injection instructions. The pt has been advised to use anti- inflammatories post injection today, ice to the injected site, call if redness, warmth, or increased pain occurs at the site of injection. 09/25/2017 Appointment: Alize Jeromel: [phone] (30 min) Complex 09/25/2017 Patient Education: [...] supportive care. 07/12/2017 Appointment: Diana Aguirre WPtel: [facility] Moderate 07/12/2017 Patient Education: Patient [...] Iliotibial band exercises. flector patches 1.3% - [id number] 04/2019 pfizer flu and pneumonia 13 shot today 03/12/2017 Appointment: Diana Aguirre WPtel: [address] [place], [place] [phone] (15 min) Moderate 03/12/2017 Patient Education: Patient Medication Summary Completed 03/12/2017 Patient Education: Obesity Completed 03/12/2017 Patient Education: Hypertension Completed 03/12/2017 Referral: Jaci physical therapy WPtel: [phone] [facility] they will call her with appt time [...] care surrogate. 02/09/2017 Appointment: Lora Woody [facility]Ptel[facility] [facility] - Annual Wellness Visit 02/09/2017 Patient Education: Patient Medication Summary Completed 02/09/2017 Visit Plan: Iliotibial band syndrome - RX for steroid - I have also recommended Physical therapy ordered for patient at [facility]. Hyperlipidemia - pt has been [...] oral fluids. 02/08/2017 Appointment: Diana Aguirre WPtel: [phone] [facility] [place] (15 min) Moderate 02/08/2017 Patient Education: Patient Medication Summary Completed 02/08/2017 Patient Education: Obesity Completed 02/08/2017 Patient Education: Hypertension Completed 02/08/2017 Care Plan: Referral Order SNOMED-CT : [id number] Pending 02/08/2017 Appointment: Alize Jerome WPtel: [phone] [phone] [place] (15 min) Moderate 02/06/2017 Visit Plan: [...] labs 08/08/2016 Appointment: Alize Jerome WPtel: [phone] [phone] [place] (15 min) Moderate 08/08/2016 Patient Education: Patient Medication Summary Completed 08/08/2016 Visit Plan: Nkpxhae-mzkyzaup-puhgebna lexapro-call if symptoms uncontrolled Low back bbnd-xzozgtbb-jejaputwo discussed with the patient, pt to use topical voltaren gel as directed. Pt is to call if the symptoms do not improve or if they worsen. 02/08/2016 Appointment: Alize Jerome WPtel: [phone] (15 min) Moderate 02/08/2016 Patient Education: [...] EFFEXOR-START LEXAPRO 01/11/2016 Appointment: Alize Jerome WPtel: [id number] (15 min) Moderate 01/11/2016 Patient Education: Patient [...] normal liver response to medications. Chronic renal wvtmtkx-qcasuh-ssq labs Chronic Depression and anxiety - the [...] Care Plan: COMPLETE CBC AUTOMATED LOINC : 71748-0 Ordered 01/04/2015 Referral: [id number] [place] Ref[facility] App[facility]ment Requested Instructions Comment check [...] change in blood pressure readings at home. Vedhaos-hstjcdxsje-jovtyexh have increased some-increase lexapro to 1.5 tab [...] recommended Physical therapy ordered for patient at [facility]. Hyperlipidemia - pt has been [...] Iliotibial band exercises. flector patches 1.3% - [id number] 04/2019 Aeropost flu and pneumonia 13 shot today . [...] FOR PHYSICAL THERAPY LOW BACK STRETCHES . Ajsyglg-ffbjcydj-utxaqekg lexapro-call if symptoms uncontrolled Low back dyky-ivezlbkj-mavxejgna discussed with the patient, pt to use [...] normal liver response to medications. Chronic renal puslkqc-fqbpyz-jst labs Chronic Depression and anxiety - the [...]
--- OUTSIDE RECORDS SUMMARY | 2018-07-28 10:11 | XMS REPORT | CCD ---
Author Author Alize Jerome Organization [facility] Address [address] [place] [address] Phone Care Team Providers [facility] [employer] Name Role Phone PP Unavailable CCM Unavailable Summary Purpose Interface Exchange Insurance Providers Payer name Policy type / Coverage type Covered democrat ID Effective Begin Date Effective End Date WPS Medicare Part B Medicare Part B [id number] Unknown Unknown [facility] Medicare Part B [id number] Unknown Unknown Family history Father Diagnosis Age [...] Unknown Retired 01/04/[address]: 618929030 Never smoker 01/04/2015 Alcohol history Unknown occasionally drinks alcohol 01/04/2015 Allergies, Adverse Reactions, Alerts Substance Reaction Codes Entered Date Inactivated Date Status * NO KNOWN FOOD ALLERGIES Unknown 01/04/2015 No Inactive Date Active * NO KNOWN DRUG ALLERGIES Unknown 01/04/2015 No Inactive Date Active Past Medical History Illness Codes Condition Status Onset Date Resolved Date Chronic kidney disease, stage 3 (moderate) ICD-9: [...] ICD-9: 728.89 ICD-10: M76.31 Active 02/08/2017 Unknown Encounter for general adult medical examination with abnormal findings ICD-9: V70.0 ICD-10: Z00.01 Active 02/09/2017 Unknown Trochanteric bursitis, right hip ICD-9: 726.5 [...] Problems Condition Codes Effective Dates Condition Status Chronic kidney disease, stage 3 (moderate) ICD-9: [...] leg ICD-9: 728.89 ICD-10: M76.31 02/08/2017 Active Encounter for general adult medical examination with abnormal findings ICD-9: V70.0 ICD-10: Z00.01 02/09/2017 Active Trochanteric bursitis, right hip ICD-9: 726.5 [...] Start Date Stop Date Status Fill Instructions Keflex 500 mg capsule RxNorm: 007952 1 Capsule(s) PO TID 201704/28/2018 Active diazepam 5 mg tablet RxNorm: 611368 1 Tablet(s) PO TID PRN 07/14/2018 Active hydrocodone 5 mg-acetaminophen 325 mg tablet RxNorm: 341938 1 Tablet(s) PO Q6 as needed 03/15/2018 04/06/2018 Inactive carvedilol 3.125 mg tablet RxNorm: 465915 TAKE ONE TABLET BY MOUTH TWICE A DAY 02/11/2018 08/09/2018 Active Myrbetriq 25 mg tablet,extended release RxNorm: 8444662 1 Tablet(s) PO daily 01/22/2018 07/20/2018 Active hydrocodone 5 mg-acetaminophen 325 mg tablet RxNorm: 520458 1 Tablet(s) PO Q6 as needed 01/22/2018 02/13/2018 Inactive hydrocodone 5 mg-acetaminophen 325 mg tablet RxNorm: 993784 1 Tablet(s) PO Q6 as needed 11/27/2017 12/19/2017 Inactive Lexapro 10 mg tablet RxNorm: 344026 1.5 Tablet(s) PO daily 09/201709/09/2019 Active Myrbetriq 25 mg tablet,extended release RxNorm: 4518869 1 Tablet(s) PO daily 11/19/2017 01/21/2018 Inactive diazepam 5 mg tablet RxNorm: 740837 1 Tablet(s) PO TID PRN 04/15/2018 Inactive Lexapro 10 mg tablet RxNorm: 121666 TAKE ONE TABLET BY MOUTH EVERY EVENING 10/01/2017 11/18/2017 Inactive hydrocodone 5 mg-acetaminophen 325 mg tablet RxNorm: 318919 1 Tablet(s) PO Q6 as needed 09/28/2017 10/20/2017 Inactive Voltaren 1 % topical gel RxNorm: 827263 4 Gram(s) TOP QID 09/2501/22/2018 Inactive Kenalog 40 mg/mL suspension for injection RxNorm: 9337822 1 Milliliter(s) Inj 09/25/2017 09/25/2017 Inactive Bactrim DS 800 mg-160 mg tablet RxNorm: 473379 1 Tablet(s) PO BID 09/05/2017 09/11/2017 Inactive Take probiotic BID while on antibiotic Bactrim DS 800 mg-160 mg tablet RxNorm: 769271 1 Tablet(s) PO BID 09/05/2017 09/04/2017 Inactive Take probiotic BID while on antibiotic hydrocodone 5 mg-acetaminophen 325 mg tablet RxNorm: 516469 1 Tablet(s) PO Q6 as needed 07/12/2017 09/27/2017 Inactive hydrocodone 5 mg-acetaminophen 325 mg tablet RxNorm: 068202 1 Tablet(s) PO Q6 as needed 06/05/2017 07/11/2017 Inactive carvedilol 3.125 mg tablet RxNorm: 268099 TAKE ONE TABLET BY MOUTH TWICE A DAY 05/21/2017 02/10/2018 Inactive hydrocodone 5 mg-acetaminophen 325 mg tablet RxNorm: 826291 1 Tablet(s) PO Q6 as needed 04/20/2017 06/04/2017 Inactive Voltaren 1 % topical gel RxNorm: 784113 2 Gram(s) TOP QID to affected area 04/12/2017 07/10/2017 Inactive Voltaren 1 % topical gel RxNorm: 000446 2 Gram(s) TOP QID to affected area 04/12/2017 04/11/2017 Inactive diazepam 5 mg tablet RxNorm: 615188 1 Tablet(s) PO TID PRN 04/15/2018 Inactive Flector 1.3 % transdermal 12 hour patch RxNorm: 044409 1 Patch TOP BID 03/27/2017 04/11/2017 Inactive Flector 1.3 % transdermal 12 hour patch RxNorm: 883071 1/8 Patch TOP BID 03/12/2017 03/26/2017 Inactive hydrocodone 5 mg-acetaminophen 325 mg tablet RxNorm: 578234 1 Tablet(s) PO Q6 as needed 02/20/2017 04/19/2017 Inactive prednisone 10 mg tablets in a dose pack RxNorm: 031140 1 Tablet(s) PO UD 02/08/2017 09/24/2017 Inactive prednisone 10 mg tablets in a dose pack RxNorm: 937331 1 Tablet(s) PO UD 02/08/2017 02/07/2017 Inactive diazepam 5 mg tablet RxNorm: 725514 1 Tablet(s) PO TID PRN 08/201601/15/2017 Inactive Lexapro 10 mg tablet RxNorm: 290386 TAKE ONE TABLET BY MOUTH EVERY EVENING 08/13/2016 2017 Inactive carvedilol 3.125 mg tablet RxNorm: 244572 1 Tablet(s) PO BID 05/20/2017 Inactive diazepam 5 mg tablet RxNorm: 430487 1 Tablet(s) PO TID PRN 04/15/2018 Inactive Lexapro 10 mg tablet RxNorm: 254004 1 Tablet(s) PO QPM 201508/12/2016 Inactive Lexapro 5 mg tablet RxNorm: 024532 2 Tablet(s) PO QPM 201502/28/2016 Inactive hydrocodone 5 mg-acetaminophen 325 mg tablet RxNorm: 339216 1 Tablet(s) PO Q6 as needed 02/08/2016 02/19/2017 Inactive Lexapro 5 mg tablet RxNorm: 949272 1 Tablet(s) PO QPM 201502/17/2016 Inactive diazepam 5 mg tablet RxNorm: 449367 1 Tablet(s) PO TID PRN 07/201501/15/2016 Inactive Effexor XR 37.5 mg capsule,extended release RxNorm: 987629 1 Capsule(s) PO daily 09/29/2015 01/10/2016 Inactive diazepam 5 mg tablet RxNorm: 316591 1 Tablet(s) PO TID PRN 09/06/2015 Inactive carvedilol 3.125 mg tablet RxNorm: 654345 1 Tablet(s) PO BID 05/24/2016 Inactive diazepam 5 mg tablet RxNorm: 156382 1 Tablet(s) PO TID PRN 03/16/2016 Inactive Fish Oil 360 mg-1,200 mg capsule RxNorm: 522395 1 Capsule(s) PO daily 01/04/2015 No Stop Date Active diazepam 5 mg tablet RxNorm: 591356 1 Tablet(s) PO TID PRN 02/01/2015 Inactive diazepam 5 mg tablet RxNorm: 324528 1 Tablet(s) PO daily 201412/21/2014 Inactive pt to make an appt- called 1 mo to [facility] diazepam 5 mg tablet RxNorm: 107992 1 Tablet(s) PO daily 201412/21/2014 Inactive diazepam 5 mg tablet RxNorm: 215024 1 Tablet(s) PO QHS 201401/03/2015 Inactive pt to make an appt- called 1 mo to [facility] niacin (inositol niacinate) 500 mg capsule RxNorm: 864545 1 Capsule(s) PO daily No Start Date Active letrozole 2.5 mg tablet RxNorm: 404287 1 Tablet(s) PO daily No Start Date Active aspirin 81 mg tablet RxNorm: 619205 1 Tablet(s) PO daily No Start Date Active Crestor 5 mg tablet RxNorm: 274843 1 Tablet(s) PO QHS No Start Date Active hydrocodone 5 mg-acetaminophen 325 mg tablet RxNorm: 667301 1 Tablet(s) PO Q6 as needed No Start Date 02/07/2016 Inactive Coreg 6.25 mg tablet RxNorm: 126656 1 Tablet(s) PO BID No Start Date 05/30/2015 Inactive Delzicol 400 mg capsule,delayed release RxNorm: 0899066 2 Capsule(s) PO daily No Start Date 08/07/2016 Inactive venlafaxine 37.5 mg tablet RxNorm: 616347 1 Tablet(s) PO daily No Start Date 01/03/2015 Inactive Effexor XR 37.5 mg capsule,extended release RxNorm: 801381 1 Capsule(s) PO daily No Start Date 09/28/2015 Inactive Medication Administered Medication Codes Instructions Start Date Status Kenalog 40 mg/mL suspension for injection RxNorm: 7971324 1Milliliter 09/25/2017 No longer Active Immunizations Vaccine Codes Date Status Influenza CVX: 141 03/12/2017 completed Pneumococcal (Adult) CVX: 133 03/12/2017 completed PPD Unknown 03/05/2015 completed Assessments Condition Codes Effective Dates Chronic kidney disease, stage 3 (moderate) ICD-10: [...] for immunization ICD-10: Z23 ICD-9: V06.6 03/12/2017 Encounter for general adult medical examination with abnormal findings ICD-10: Z00.01 ICD-9: V70.0 02/09/2017 Vitamin D deficiency, unspecified ICD-10: E55.9 ICD-9: [...] Visit Reason For Visit Effective Dates Notes dysuria 04/22/2018 depression 01/22/2018 depression 11/19/2017 knee pain 09/25/2017 hypertension 07/12/2017 hypertension 03/12/2017 Annual Medicare Wellness Exam 02/09/2017 depression 02/08/2017 depression 08/08/2016 depression 02/08/2016 hypertension 01/11/2016 hypertension 07/12/2015 hypertension 01/04/2015 Results Observation Observation Code Item Item Code Result Date Culture Urine [id number] URINE CULTURE SEE NOTES 04/25/2018 Culture Urine [id number] Continued Results 04/25/2018 Urine Culture Ucult Complete Growth of aerobe sent to ref lab 04/23/2018 Comp Metabolic Oom502 NA 142 mEq/L 04/22/2018 Comp Metabolic Lau597 K 4.3 mEq/L 04/22/2018 Comp Metabolic Ajg318 CL 104 mEq/L 04/22/2018 Comp Metabolic Tzn115 CO2 29.0 mEq/L 04/22/2018 Comp Metabolic Rpw381 ANION GAP 13 04/22/2018 Comp Metabolic Jvf261 GLUCOSE 106 mg/dL 04/22/2018 Comp Metabolic Org202 Creat 1.1 mg/dL 04/22/2018 Comp Metabolic Dfe859 eGFR 53 ml/min/1.73m2 04/22/2018 Comp Metabolic Yjs101 BUN 18 mg/dL 04/22/2018 Comp Metabolic Kdn214 B/C Ratio 17.0 Ratio 04/22/2018 Comp Metabolic Keq963 CALCIUM 9.6 mg/dL 04/22/2018 Comp Metabolic Yim978 ALK PHOS 121 U/L 04/22/2018 Comp Metabolic Qnc694 AST(SGOT) 15 U/L 04/22/2018 Comp Metabolic Dtv843 ALT(SGPT) 13 U/L 04/22/2018 Comp Metabolic Jea739 BILI T 1.0 mg/dL 04/22/2018 Comp Metabolic Blm217 ALBUMIN 4.1 g/dL 04/22/2018 Comp Metabolic Afe793 TPRO 6.3 g/dL 04/22/2018 Comp Metabolic Eto038 GLOB 2.2 g/dL 04/22/2018 Comp Metabolic Rps954 A/G Ratio 1.9 Ratio 04/22/2018 Comp Metabolic Mmv744 Osmo 285 mOsmo 04/22/2018 Cbc With Differential [...] 30.6 pg 04/22/2018 Cbc With Differential Ord2 [place]% 8.0 % 04/22/2018 Cbc With Differential Ord2 [...] 1.88 K/ul 04/22/2018 Cbc With Differential Ord2 [place] ABS# 0.7 K/ul 04/22/2018 Cbc With Differential [...] 61.4 % 02/08/2017 Cbc With Differential Ord2 Lymph% 27.1 % 02/08/2017 Cbc With Differential Ord2 MCV 97.1 fl 02/08/2017 Cbc With Differential Ord2 MCH 31.5 pg 02/08/2017 Cbc With Differential Ord2 [place]% 10.0 % 02/08/2017 Cbc With Differential Ord2 [...] 2.00 K/ul 02/08/2017 Cbc With Differential Ord2 [place] ABS# 0.7 K/ul 02/08/2017 Cbc With Differential Ord2 Eos ABS# 0.1 K/ul 02/08/2017 Cbc With Differential Ord2 Baso ABS# 0.0 K/ul 02/08/2017 Comp Metabolic Hok130 NA 142 mEq/L 02/08/2017 Comp Metabolic Fcs258 K 4.5 mEq/L 02/08/2017 Comp Metabolic Cpz244 CL 106 mEq/L 02/08/2017 Comp Metabolic Nba586 CO2 27.0 mEq/L 02/08/2017 Comp Metabolic Jwj858 ANION GAP 14 02/08/2017 Comp Metabolic Wec638 GLUCOSE 102 mg/dL 02/08/2017 Comp Metabolic Vcz749 Creat 0.9 mg/dL 02/08/2017 Comp Metabolic Xwd254 eGFR 62 ml/min/1.73m2 02/08/2017 Comp Metabolic Oph203 BUN 14 mg/dL 02/08/2017 Comp Metabolic Tms620 B/C Ratio 15.1 Ratio 02/08/2017 Comp Metabolic Lay444 CALCIUM 9.5 mg/dL 02/08/2017 Comp Metabolic Wvg919 ALK PHOS 98 U/L 02/08/2017 Comp Metabolic Uhw402 AST(SGOT) 19 U/L 02/08/2017 Comp Metabolic Fng382 ALT(SGPT) 15 U/L 02/08/2017 Comp Metabolic Twn933 BILI T 1.1 mg/dL 02/08/2017 Comp Metabolic Oqm827 ALBUMIN 4.1 g/dL 02/08/2017 Comp Metabolic Dqe167 TPRO 6.2 g/dL 02/08/2017 Comp Metabolic Wiv703 GLOB 2.1 g/dL 02/08/2017 Comp Metabolic Bqr651 A/G Ratio 2.0 Ratio 02/08/2017 Comp Metabolic Yvi828 Osmo 284 mOsmo 02/08/2017 Lipid Ord30 CHOL 178 mg/dL 08/08/2016 Lipid Ord30 HDL 54.0 mg/dl 08/08/2016 Lipid Ord30 TRIG 184 mg/dL 08/08/2016 Lipid Ord30 LDL 87 mg/dL 08/08/2016 Lipid Ord30 C/HDL 3.3 Ratio 08/08/2016 Tsh Ord6 hTSH II 3.12 uIU/mL 08/08/2016 Comp Metabolic Dry475 NA 140 mEq/L 08/08/2016 Comp Metabolic Yfa181 K 4.4 mEq/L 08/08/2016 Comp Metabolic Smq225 CL 104 mEq/L 08/08/2016 Comp Metabolic Nbi397 CO2 30.0 mEq/L 08/08/2016 Comp Metabolic Tcz394 ANION GAP 10 08/08/2016 Comp Metabolic Cpy834 GLUCOSE 107 mg/dL 08/08/2016 Comp Metabolic Pks701 Creat 1.1 mg/dL 08/08/2016 Comp Metabolic Kuc715 eGFR 53 ml/min/1.73m2 08/08/2016 Comp Metabolic Sky471 BUN 22 mg/dL 08/08/2016 Comp Metabolic Nsx429 B/C Ratio 20.6 Ratio 08/08/2016 Comp Metabolic Clh872 CALCIUM 10.8 mg/dL 08/08/2016 Comp Metabolic Ctg558 ALK PHOS 140 U/L 08/08/2016 Comp Metabolic Wip557 AST(SGOT) 21 U/L 08/08/2016 Comp Metabolic Iiv280 ALT(SGPT) 17 U/L 08/08/2016 Comp Metabolic Qfn204 BILI T 0.8 mg/dL 08/08/2016 Comp Metabolic Izv060 ALBUMIN 4.3 g/dL 08/08/2016 Comp Metabolic Cjq989 TPRO 6.7 g/dL 08/08/2016 Comp Metabolic Cyx517 GLOB 2.4 g/dL 08/08/2016 Comp Metabolic Ftt974 A/G Ratio 1.8 Ratio 08/08/2016 Comp Metabolic Ckx636 Osmo 283 mOsmo 08/08/2016 Cbc With Differential [...] 29.0 pg 08/08/2016 Cbc With Differential Ord2 [place]% 11.0 % 08/08/2016 Cbc With Differential Ord2 [...] 2.21 K/ul 08/08/2016 Cbc With Differential Ord2 [place] ABS# 0.7 K/ul 08/08/2016 Cbc With Differential Ord2 Eos ABS# 0.2 K/ul 08/08/2016 Cbc With Differential Ord2 Baso ABS# 0.0 K/ul 08/08/2016 Vitamin D 25 Oh Epp5097 VITAMIN D, 25 HYDROXY 59.99 ng/mL Tsh Ord6 hTSH II 3.86 uIU/mL 01/11/2016 Comp Metabolic Xxf254 NA 137 mEq/L 01/11/2016 Comp Metabolic Qed095 K 4.4 mEq/L 01/11/2016 Comp Metabolic Fqy902 CL 103 mEq/L 01/11/2016 Comp Metabolic Itu127 CO2 27.0 mEq/L 01/11/2016 Comp Metabolic Izd464 ANION GAP 11 01/11/2016 Comp Metabolic Wqb955 GLUCOSE 102 mg/dL 01/11/2016 Comp Metabolic Dtu172 Creat 1.1 mg/dL 01/11/2016 Comp Metabolic Iuo227 eGFR 51 ml/min/1.73m2 01/11/2016 Comp Metabolic Uka073 BUN 16 mg/dL 01/11/2016 Comp Metabolic Sqv964 B/C Ratio 14.5 Ratio 01/11/2016 Comp Metabolic Zee212 CALCIUM 9.9 mg/dL 01/11/2016 Comp Metabolic Ygp299 ALK PHOS 103 U/L 01/11/2016 Comp Metabolic Lxa504 AST(SGOT) 17 U/L 01/11/2016 Comp Metabolic Kjq341 ALT(SGPT) 14 U/L 01/11/2016 Comp Metabolic Bmc463 BILI T 0.8 mg/dL 01/11/2016 Comp Metabolic Hdu457 ALBUMIN 4.4 g/dL 01/11/2016 Comp Metabolic Oeh470 TPRO 6.8 g/dL 01/11/2016 Comp Metabolic Kjg638 GLOB 2.5 g/dL 01/11/2016 Comp Metabolic Lkh768 A/G Ratio 1.8 Ratio 01/11/2016 Comp Metabolic Zdn625 Osmo 275 mOsmo 01/11/2016 Lipid Ord30 CHOL [...] 93.1 fl 01/11/2016 Cbc With Differential Ord2 [place]% 10.7 % 01/11/2016 Cbc With Differential Ord2 MCH 30.4 pg 01/11/2016 Cbc With Differential Ord2 Eos% [...] 2.35 K/ul 01/11/2016 Cbc With Differential Ord2 [place] ABS# 0.7 K/ul 01/11/2016 Cbc With Differential [...] 92.2 fl 07/12/2015 Cbc With Differential Ord2 [place]% 9.5 % 07/12/2015 Cbc With Differential Ord2 [...] 2.86 K/ul 07/12/2015 Cbc With Differential Ord2 [place] ABS# 0.7 K/ul 07/12/2015 Cbc With Differential [...] hTSH II 3.54 uIU/mL 07/12/2015 Comp Metabolic Tkz708 NA 140 mEq/L 07/12/2015 Comp Metabolic Pts416 K 4.4 mEq/L 07/12/2015 Comp Metabolic Byr977 CL 104 mEq/L 07/12/2015 Comp Metabolic Hze336 CO2 28.0 mEq/L 07/12/2015 Comp Metabolic Gag377 ANION GAP 12 07/12/2015 Comp Metabolic Lqh701 GLUCOSE 92 mg/dL 07/12/2015 Comp Metabolic Her865 Creat 1.2 mg/dL 07/12/2015 Comp Metabolic Vac683 eGFR 47 ml/min/1.73m2 07/12/2015 Comp Metabolic Ntt893 BUN 18 mg/dL 07/12/2015 Comp Metabolic Hha640 B/C Ratio 15.1 Ratio 07/12/2015 Comp Metabolic Luu008 CALCIUM 10.1 mg/dL 07/12/2015 Comp Metabolic Dgw460 ALK PHOS 134 U/L 07/12/2015 Comp Metabolic Ohz582 AST(SGOT) 18 U/L 07/12/2015 Comp Metabolic Sme303 ALT(SGPT) 17 U/L 07/12/2015 Comp Metabolic Ujr204 BILI T 0.8 mg/dL 07/12/2015 Comp Metabolic Gyz036 ALBUMIN 4.1 g/dL 07/12/2015 Comp Metabolic Hsf994 TPRO 6.6 g/dL 07/12/2015 Comp Metabolic Iss520 GLOB 2.5 g/dL 07/12/2015 Comp Metabolic Qap336 A/G Ratio 1.7 Ratio 07/12/2015 Comp Metabolic Pnt945 Osmo 281 mOsmo 07/12/2015 Cbc With Differential [...] Ord2 RDW 15.3 % 01/05/2015 Comp Metabolic Cwd069 NA 139 mEq/L 01/05/2015 Comp Metabolic Zvd879 K 4.0 mEq/L 01/05/2015 Comp Metabolic Fou508 CL 106 mEq/L 01/05/2015 Comp Metabolic Zhv284 CO2 27.0 mEq/L 01/05/2015 Comp Metabolic Tpt266 ANION GAP 10 01/05/2015 Comp Metabolic Ygd752 GLUCOSE 111 mg/dL 01/05/2015 Comp Metabolic Vmo762 Creat 1.2 mg/dL 01/05/2015 Comp Metabolic Ldo031 eGFR 48 ml/min/1.73m2 01/05/2015 Comp Metabolic Pcg589 BUN 18 mg/dL 01/05/2015 Comp Metabolic Eub592 B/C Ratio 15.4 Ratio 01/05/2015 Comp Metabolic Oap666 CALCIUM 9.2 mg/dL 01/05/2015 Comp Metabolic Wpv312 ALK PHOS 202 U/L 01/05/2015 Comp Metabolic Trl193 AST(SGOT) 19 U/L 01/05/2015 Comp Metabolic Ctp747 ALT(SGPT) 22 U/L 01/05/2015 Comp Metabolic Moy012 BILI T 0.7 mg/dL 01/05/2015 Comp Metabolic Kia456 ALBUMIN 3.8 g/dL 01/05/2015 Comp Metabolic Lgv880 TPRO 6.1 g/dL 01/05/2015 Comp Metabolic Nmi863 GLOB 2.3 g/dL 01/05/2015 Comp Metabolic Skd679 A/G Ratio 1.7 Ratio 01/05/2015 Comp Metabolic Pir117 Osmo 280 mOsmo 01/05/2015 Tsh Ord6 hTSH [...] Codes Date URINALYSIS NONAUTO W/O SCOPE CPT-4: 22729 04/22/2018 DRAIN/INJECT JOINT/BURSA CPT-4: 10187 09/25/2017 ADMIN INFLUENZA VIRUS VAC CPT-4: G0008 03/12/2017 ADMIN PNEUMOCOCCAL VACCINE SNOMED CT: 37544789 CPT-4: G0009 03/12/2017 FLU VACC PRSV FREE INC ANTIG CPT-4: 71842 03/12/2017 PNEUMOCOCCAL VACC [address]: 16918665 CPT-4: 93997 03/12/2017 PPPS, SUBSEQ VISIT CPT -4: G0439 02/09/2017 Vital Signs Date Vital 04/22/2018 Blood Pressure 1: 142/88 Code : 8480-6 Blood Pressure 1: 150/90 Code: 8480-6 BMI: 31.5 Code: 98908-4 Heart Rate 1: 70 bpm Height: 5'5" SpO2: 94% Weight: 189 lbs 01/22/2018 Blood Pressure 1: 142/78 Code : 8480-6 BMI: 31.6 Code : 87595-3 Heart Rate 1 : 85 bpm Height: 5'5" SpO2: 97% Weight: 190 lbs 11/19/2017 Blood Pressure 1: 132/78 Code : 8480-6 BMI: 31.1 Code : 95692-8 Heart Rate 1 : 68 bpm Height: 5'5" SpO2: 97% Weight: 187 lbs 09/25/2017 Blood Pressure 1: 140/80 Code : 8480-6 BMI: 31.0 Code : 72169-3 Heart Rate 1 : 80 bpm Height: 5'5" SpO2: 99% Weight: 186 lbs 07/12/2017 Blood Pressure 1: 138/72 Code : 8480-6 Blood Pressure 1: 144/88 Code: 8480-6 BMI: 30.8 Code: 91536-9 Heart Rate 1: 71 bpm Height: 5'5" SpO2: 95% Weight: 185 lbs 03/12/2017 Blood Pressure 1: 140/80 Code : 8480-6 BMI: 30.6 Code : 43906-6 Heart Rate 1 : 75 bpm Height: 5'5" SpO2: 97% Weight: 184 lbs 02/09/2017 Heart Rate 1: 74 bpm Height: Weight: 02/08/2017 Blood Pressure 1: 146/88 Code : 8480-6 BMI: 30.1 Code : 05472-6 Heart Rate 1 : 76 bpm Height: 5'5" SpO2: 95% Weight: 181 lbs 08/08/2016 Blood Pressure 1: 144/76 Code : 8480-6 Heart Rate 1: 80 bpm SpO2: 98% Weight: 185 lbs 02/08/2016 Blood Pressure 1: 130/70 Code : 8480-6 BMI: 30.3 Code : 60499-5 Heart Rate 1 : 60 bpm Height: 5'5" SpO2: 98% Weight: 182 lbs 01/11/2016 Blood Pressure 1: 148/82 Code : 8480-6 BMI: 30.6 Code : 36703-2 Heart Rate 1 : 84 bpm Height: 5'5" SpO2: 96% Weight: 184 lbs 07/12/2015 Blood Pressure 1: 152/76 Code : 8480-6 BMI: 30.6 Code : 98853-5 Heart Rate 1 : 70 bpm Height: 5'5" SpO2: 93% Weight: 184 lbs 01/04/2015 Blood Pressure 1: 148/88 Code : 8480-6 BMI: 31.0 Code : 64627-4 Heart Rate 1 : 80 bpm Height: 5'5" Weight: 186 lbs Functional Status No Functional Status data History of Present Illness Symptom Name Status Result Effective Date Notes dysuria Quality intermittent 04/22/2018 None dysuria Onset [...] data Encounters Encounter Performer Location Codes Date ([id number]) 34154 EST. PATIENT, LEVEL IV Diagnosis: Urinary tract infection, site not specified[ICD10: N39.0] Diagnosis: Mixed hyperlipidemia[ICD10: E78.2] Diagnosis: Essential (primary) hypertension[ICD10: I10] Diagnosis: Chronic kidney disease, stage 3 (moderate)[ICD10: N18.3] Alize Aguirre MD , [facility] CPT-4: 82879 04/22/2018 ([id number]) 51725 EST. PATIENT, LEVEL IV Diagnosis: Essential (primary) hypertension[ICD10: I10] Diagnosis: Major depressive disorder, recurrent, mild[ICD10: F33.0] Diagnosis: Mixed incontinence[ICD10: N39.46] Diagnosis: Low back pain[ICD10: M54.5] Alize Aguirre MD, [facility] CPT-4: 54692 01/22/2018 ([id number]) 86568 EST. PATIENT, LEVEL IV Diagnosis: Essential (primary) hypertension[ICD10: I10] Diagnosis: Generalized anxiety disorder[ICD10: F41.1] Diagnosis: Major depressive disorder, recurrent, mild[ICD10: F33.0] Diagnosis: Mixed incontinence[ICD10: N39.46] Alize Aguirre MD, [facility] CPT-4: 56700 11/19/2017 [id number] EST. PATIENT, LEVEL III Diagnosis: Pain in left knee[ICD10: M25.562] Diagnosis: Synovial cyst of popliteal space [Butts], left knee[ICD10: M71.22] Alize Aguirre MD, [facility] CPT-4: 75525 09/25/2017 ([id number]) 51259 EST. PATIENT, LEVEL IV Diagnosis: Essential (primary) hypertension[ICD10: I10] Diagnosis: Chronic kidney disease, stage 3 (moderate)[ICD10: N18.3] Diagnosis: Generalized anxiety disorder[ICD10: F41.1] Diagnosis: Chronic pain syndrome[ICD10: G89.4] Diana Aguirre MD, [facility] CPT-4: 26091 07/12/2017 ([id number]) 22345 EST. PATIENT, LEVEL IV Diagnosis: Essential (primary) hypertension[ICD10: I10] Diagnosis: Iliotibial band syndrome, right leg[ICD10: M76.31] Diagnosis: Encounter for immunization[ICD10: Z23] Diana Aguirre MD, [facility] CPT-4: 01007 03/12/2017 ([id number]) 43319 EST. PATIENT, LEVEL IV Diagnosis: Iliotibial band syndrome, right leg[ICD10: M76.31] Diagnosis: Mixed hyperlipidemia[ICD10: E78.2] Diagnosis: Generalized anxiety disorder[ICD10: F41.1] Diagnosis: Essential (primary) hypertension[ICD10: I10] Diagnosis: Chronic kidney disease, stage 3 (moderate)[ICD10: N18.3] Diagnosis: Trochanteric bursitis, right hip[ICD10: M70.61] Diagnosis: Vitamin D deficiency, unspecified[ICD10: E55.9] Diana Aguirre MD, [facility] CPT-4: 94918 02/08/2017 ([id number]) 41378 EST. PATIENT, LEVEL IV Diagnosis: Essential (primary) hypertension[ICD10: I10] Diagnosis: Mixed hyperlipidemia[ICD10: E78.2] Diagnosis: Chronic kidney disease, stage 3 (moderate)[ICD10: N18.3] Diagnosis: Low back pain[ICD10: M54.5] Alize Aguirre MD, [facility] CPT-4: 03910 08/08/2016 ([id number]) 16897 EST. PATIENT, LEVEL III Diagnosis: Generalized anxiety disorder[ICD10: F41.1] Diagnosis: Sciatica, right side[ICD10: M54.31] Alize Aguirre MD, [facility] CPT-4: 35447 02/08/2016 ([id number]) 51384 EST. PATIENT, LEVEL IV Diagnosis: Essential (primary) hypertension[ICD10: I10] Diagnosis: Mixed hyperlipidemia[ICD10: E78.2] Diagnosis: Generalized anxiety disorder[ICD10: F41.1] Diagnosis: Vitamin D deficiency, unspecified[ICD10: E55.9] Diagnosis: Chronic kidney disease, stage 3 (moderate)[ICD10: N18.3] Alize Aguirre MD , [facility] CPT-4: 87984 01/11/2016 ([id number]) 84150 EST. PATIENT, LEVEL IV Diagnosis: Essential (primary) hypertension[ICD10: I10] Diagnosis: Mixed hyperlipidemia[ICD10: E78.2] Diagnosis: Generalized anxiety disorder[ICD10: F41.1] Alize Aguirre MD, [facility] CPT-4: 21944 07/12/2015 ([id number]) Miscellaneous no charge Diagnosis: Forearm fracture[ICD9: 813.80] [facility] CPT- 4: 17863 03/05/2015 ([id number]) OFFICE VISIT, NEW - LEVEL 4 Diagnosis: ESSENTIAL HYPERTENSION[ICD9: 401.9] Diagnosis: Hyperlipidemia[ICD9: 272.4] Diagnosis: Chronic renal disease, stage 3, moderately decreased glomerular filtration rate (GFR) between 30-59 mL/min/1.73 square meter[ICD9: 585.3] Diagnosis: Anxiety state[ICD9: 300.00] [facility] CPT-4: 33689 01/04/2015 Plan of Care Planned Activity Notes Codes Status Date Visit Plan: Urinary Tract Infection-discussed natural and [...] labs today 04/22/2018 Appointment: Alize Jerome WPtel: [address] [place], [place] [phone] (30 min) [facility] 04/22/2018 Patient Education: Patient Medication Summary Completed [...] not improve. 01/22/2018 Appointment: Alize Jerome WPtel: [phone] (30 min) Complex 01/22/2018 Patient Education: Patient [...] of myrbetriq 11/19/2017 Appointment: Alize Jerome WPtel: [facility] [phone] (15 min) Moderate 11/19/2017 Patient Education: Patient Medication Summary Completed 11/19/2017 Visit Plan: Bakers cyst-left knee pain-Joint Injection - Pt was given post - injection instructions. The pt has been advised to use anti- inflammatories post injection today, ice to the injected site, call if redness, warmth, or increased pain occurs at the site of injection. 09/25/2017 Appointment: Alize Jerome WPtel: [facility] [phone] (30 min) Complex 09/25/2017 Patient Education: Patient [...] 07/12/2017 Appointment: Diana Aguirre WPtel: [phone] [facility] (15 min) Moderate 07/12/2017 Patient Education: [...] Iliotibial band exercises. flector patches 1.3% - [id number] 04/2019 pfizer flu and pneumonia 13 shot today 03/12/2017 Appointment: Diana Aguirre WPtel: [phone] [facility] (15 min) Moderate 03/12/2017 Patient Education: Patient Medication Summary Completed 03/12/2017 Patient Education: Obesity Completed 03/12/2017 Patient Education: Hypertension Completed 03/12/2017 Referral: [facility] WPtel: [phone] [facility] they will call her with appt [...] care surrogate. 02/09/2017 Appointment: Lora Woody WPtel: [facility] [place] [address] - Annual Wellness Visit 02/09/2017 Patient Education: Patient Medication Summary Completed 02/09/2017 Visit Plan: Iliotibial band syndrome - RX for steroid - I have also recommended Physical therapy ordered for patient at [facility]. Hyperlipidemia - pt has been counseled [...] fluids. 02/08/2017 Appointment: Diana Aguirre WPtel: [phone] [facility] (15 min) Moderate 02/08/2017 Patient Education: Patient Medication Summary Completed 02/08/2017 Patient Education: Obesity Completed 02/08/2017 Patient Education: Hypertension Completed 02/08/2017 Care Plan: Referral Order SNOMED-CT : [id number] Pending 02/08/2017 Appointment: Alize Jerome WPtel: [address] [place] [address] (15 min) Moderate 02/06/2017 Visit Plan: Hypertension [...] disease-check labs 08/08/2016 Appointment: Alize Jerome WPtel: [address] [place], [place] [id number] [place] [address] (15 min) Moderate 08/08/2016 Patient Education: Patient Medication Summary Completed 08/08/2016 Visit Plan: Bkltwtq-uzzdrfwc-shemtvpt lexapro-call if symptoms uncontrolled Low back kzcf-rhocwfst-wzlrgagef discussed with the patient, pt to use topical voltaren gel as directed. Pt is to call if the symptoms do not improve or if they worsen. 02/08/2016 Appointment: Alize Jerome WPtel: [address] [place], [place] [id number] (15 min) Moderate 02/08/2016 Patient Education: Patient [...] EFFEXOR-START LEXAPRO 01/11/2016 Appointment: Alize Jerome [facility]Ptel[facility] [phone] (15 min) Moderate 01/11/2016 Patient Education: [...] normal liver response to medications. Chronic renal hnfubef-dqjzhj-coa labs Chronic Depression and anxiety - the [...] Care Plan: COMPLETE CBC AUTOMATED LOINC : 39729-8 Ordered 01/04/2015 [phone] [facility] Requested Instructions Comment check UA [...] change in blood pressure readings at home. Nakacoz-jzcdxbqcxo-umzynble have increased some-increase lexapro to 1.5 tab [...] recommended Physical therapy ordered for patient at [facility]. Hyperlipidemia - pt has been counseled [...] Iliotibial band exercises. flector patches 1.3% - [id number] 04/2019 [employer] flu and pneumonia 13 shot today . [...] of over-medication. CKD chronic - supportive care. CALL IF YOUR SYMPTOMS DO NOT IMPROVE AND WE WILL REFER YOU FOR PHYSICAL THERAPY LOW BACK STRETCHES . Idemjgp-drjlbkxm-onuvxfxo lexapro-call if symptoms uncontrolled Low back qixh-ctzdcgwx-kglxtojzf discussed with the patient, pt to use [...] normal liver response to medications. Chronic renal bkfrcww-kfdatc-xes labs Chronic Depression and anxiety - the [...]
--- OUTSIDE RECORDS SUMMARY | 2018-07-28 10:13 | XMS REPORT | CCD ---
Author Author Alize Jerome Organization [facility] Address [address] [place] [address] Phone Care Team Providers Care Senior Ios Developer Name Role Phone PP Unavailable CCM Unavailable Summary Purpose Interface Exchange Insurance Providers Payer name Policy type / Coverage type Covered republican ID Effective Begin Date Effective End Date WPS Medicare Part B Medicare Part B [id number] Unknown Unknown [facility] Medicare Part B [id number] Unknown Unknown Family history Father Diagnosis Age [...] Unknown Retired 01/04/[address]: 429475166 Never smoker 01/04/2015 Alcohol history Unknown occasionally [...] Fill Instructions Keflex 500 mg capsule RxNorm: 908331 1 Capsule(s) PO TID 201704/28/2018 Active diazepam 5 mg tablet RxNorm: 215226 1 Tablet(s) PO TID PRN 07/14/2018 Active hydrocodone 5 mg-acetaminophen 325 mg tablet RxNorm: 924072 1 Tablet(s) PO Q6 as needed 03/15/2018 04/06/2018 Inactive carvedilol 3.125 mg tablet RxNorm: 851923 TAKE ONE TABLET BY MOUTH TWICE A DAY 02/11/2018 08/09/2018 Active Myrbetriq 25 mg tablet,extended release RxNorm: 7770807 1 Tablet(s) PO daily 01/22/2018 07/20/2018 Active hydrocodone 5 mg-acetaminophen 325 mg tablet RxNorm: 936593 1 Tablet(s) PO Q6 as needed 01/22/2018 02/13/2018 Inactive hydrocodone 5 mg-acetaminophen 325 mg tablet RxNorm: 629033 1 Tablet(s) PO Q6 as needed 11/27/2017 12/19/2017 Inactive Lexapro 10 mg tablet RxNorm: 709916 1.5 Tablet(s) PO daily 09/201709/09/2019 Active Myrbetriq 25 mg tablet,extended release RxNorm: 4123717 1 Tablet(s) PO daily 11/19/2017 01/21/2018 Inactive diazepam 5 mg tablet RxNorm: 041154 1 Tablet(s) PO TID PRN 04/15/2018 Inactive Lexapro 10 mg tablet RxNorm: 583413 TAKE ONE TABLET BY MOUTH EVERY EVENING 10/01/2017 11/18/2017 Inactive hydrocodone 5 mg-acetaminophen 325 mg tablet RxNorm: 286456 1 Tablet(s) PO Q6 as needed 09/28/2017 10/20/2017 Inactive Voltaren 1 % topical gel RxNorm: 707989 4 Gram(s) TOP QID 09/2501/22/2018 Inactive Kenalog 40 mg/mL suspension for injection RxNorm: 0453876 1 Milliliter(s) Inj 09/25/2017 09/25/2017 Inactive Bactrim DS 800 mg-160 mg tablet RxNorm: 176901 1 Tablet(s) PO BID 09/05/2017 09/11/2017 Inactive Take probiotic BID while on antibiotic Bactrim DS 800 mg-160 mg tablet RxNorm: 750287 1 Tablet(s) PO BID 09/05/2017 09/04/2017 Inactive Take probiotic BID while on antibiotic hydrocodone 5 mg-acetaminophen 325 mg tablet RxNorm: 365413 1 Tablet(s) PO Q6 as needed 07/12/2017 09/27/2017 Inactive hydrocodone 5 mg-acetaminophen 325 mg tablet RxNorm: 429043 1 Tablet(s) PO Q6 as needed 06/05/2017 07/11/2017 Inactive carvedilol 3.125 mg tablet RxNorm: 951327 TAKE ONE TABLET BY MOUTH TWICE A DAY 05/21/2017 02/10/2018 Inactive hydrocodone 5 mg-acetaminophen 325 mg tablet RxNorm: 789817 1 Tablet(s) PO Q6 as needed 04/20/2017 06/04/2017 Inactive Voltaren 1 % topical gel RxNorm: 848903 2 Gram(s) TOP QID to affected area 04/12/2017 07/10/2017 Inactive Voltaren 1 % topical gel RxNorm: 361503 2 Gram(s) TOP QID to affected area 04/12/2017 04/11/2017 Inactive diazepam 5 mg tablet RxNorm: 170878 1 Tablet(s) PO TID PRN 04/15/2018 Inactive Flector 1.3 % transdermal 12 hour patch RxNorm: 528962 1 Patch TOP BID 03/27/2017 04/11/2017 Inactive Flector 1.3 % transdermal 12 hour patch RxNorm: 259146 1/8 Patch TOP BID 03/12/2017 03/26/2017 Inactive hydrocodone 5 mg-acetaminophen 325 mg tablet RxNorm: 505204 1 Tablet(s) PO Q6 as needed 02/20/2017 04/19/2017 Inactive prednisone 10 mg tablets in a dose pack RxNorm: 031853 1 Tablet(s) PO UD 02/08/2017 09/24/2017 Inactive prednisone 10 mg tablets in a dose pack RxNorm: 709471 1 Tablet(s) PO UD 02/08/2017 02/07/2017 Inactive diazepam 5 mg tablet RxNorm: 956097 1 Tablet(s) PO TID PRN 08/201601/15/2017 Inactive Lexapro 10 mg tablet RxNorm: 239162 TAKE ONE TABLET BY MOUTH EVERY EVENING 08/13/2016 2017 Inactive carvedilol 3.125 mg tablet RxNorm: 865033 1 Tablet(s) PO BID 05/20/2017 Inactive diazepam 5 mg tablet RxNorm: 597842 1 Tablet(s) PO TID PRN 04/15/2018 Inactive Lexapro 10 mg tablet RxNorm: 528703 1 Tablet(s) PO QPM 201508/12/2016 Inactive Lexapro 5 mg tablet RxNorm: 200517 2 Tablet(s) PO QPM 201502/28/2016 Inactive hydrocodone 5 mg-acetaminophen 325 mg tablet RxNorm: 989837 1 Tablet(s) PO Q6 as needed 02/08/2016 02/19/2017 Inactive Lexapro 5 mg tablet RxNorm: 312006 1 Tablet(s) PO QPM 201502/17/2016 Inactive diazepam 5 mg tablet RxNorm: 651196 1 Tablet(s) PO TID PRN 07/201501/15/2016 Inactive Effexor XR 37.5 mg capsule,extended release RxNorm: 792069 1 Capsule(s) PO daily 09/29/2015 01/10/2016 Inactive diazepam 5 mg tablet RxNorm: 794252 1 Tablet(s) PO TID PRN 09/06/2015 Inactive carvedilol 3.125 mg tablet RxNorm: 223323 1 Tablet(s) PO BID 05/24/2016 Inactive diazepam 5 mg tablet RxNorm: 991902 1 Tablet(s) PO TID PRN 03/16/2016 Inactive Fish Oil 360 mg-1,200 mg capsule RxNorm: 155366 1 Capsule(s) PO daily 01/04/2015 No Stop Date Active diazepam 5 mg tablet RxNorm: 174197 1 Tablet(s) PO TID PRN 02/01/2015 Inactive diazepam 5 mg tablet RxNorm: 215451 1 Tablet(s) PO daily 201412/21/2014 Inactive pt to make an appt- called 1 mo to dillons diazepam 5 mg tablet RxNorm: 673917 1 Tablet(s) PO daily 201412/21/2014 Inactive diazepam 5 mg tablet RxNorm: 831342 1 Tablet(s) PO QHS 201401/03/2015 Inactive pt to make an appt- called 1 mo to dillons niacin (inositol niacinate) 500 mg capsule RxNorm: 798000 1 Capsule(s) PO daily No Start Date Active letrozole 2.5 mg tablet RxNorm: 075567 1 Tablet(s) PO daily No Start Date Active aspirin 81 mg tablet RxNorm: 122028 1 Tablet(s) PO daily No Start Date Active Crestor 5 mg tablet RxNorm: 684794 1 Tablet(s) PO QHS No Start Date Active hydrocodone 5 mg-acetaminophen 325 mg tablet RxNorm: 824478 1 Tablet(s) PO Q6 as needed No Start Date 02/07/2016 Inactive Coreg 6.25 mg tablet RxNorm: 522488 1 Tablet(s) PO BID No Start Date 05/30/2015 Inactive Delzicol 400 mg capsule,delayed release RxNorm: 7021274 2 Capsule(s) PO daily No Start Date 08/07/2016 Inactive venlafaxine 37.5 mg tablet RxNorm: 478743 1 Tablet(s) PO daily No Start Date 01/03/2015 Inactive Effexor XR 37.5 mg capsule,extended release RxNorm: 036865 1 Capsule(s) PO daily No Start Date 09/28/2015 Inactive Medication Administered Medication Codes Instructions Start Date Status Kenalog 40 mg/mL suspension for injection RxNorm: 3131628 1Milliliter 09/25/2017 No longer Active Immunizations Vaccine [...] Observation Code Item Item Code Result Date Urine Culture Ucult Complete Growth of aerobe sent to ref lab 04/23/2018 Comp Metabolic Hqk716 NA 142 mEq/L 04/22/2018 Comp Metabolic Znz151 K 4.3 mEq/L 04/22/2018 Comp Metabolic Jut482 CL 104 mEq/L 04/22/2018 Comp Metabolic Cdg776 CO2 29.0 mEq/L 04/22/2018 Comp Metabolic Nbm325 ANION GAP 13 04/22/2018 Comp Metabolic Bpy319 GLUCOSE 106 mg/dL 04/22/2018 Comp Metabolic Lnl804 Creat 1.1 mg/dL 04/22/2018 Comp Metabolic Jap888 eGFR 53 ml/min/1.73m2 04/22/2018 Comp Metabolic Qrm900 BUN 18 mg/dL 04/22/2018 Comp Metabolic Exv642 B/C Ratio 17.0 Ratio 04/22/2018 Comp Metabolic Xff902 CALCIUM 9.6 mg/dL 04/22/2018 Comp Metabolic Rzk470 ALK PHOS 121 U/L 04/22/2018 Comp Metabolic Awc713 AST(SGOT) 15 U/L 04/22/2018 Comp Metabolic Pwg331 ALT(SGPT) 13 U/L 04/22/2018 Comp Metabolic Dot589 BILI T 1.0 mg/dL 04/22/2018 Comp Metabolic Qlc989 ALBUMIN 4.1 g/dL 04/22/2018 Comp Metabolic Lke086 TPRO 6.3 g/dL 04/22/2018 Comp Metabolic Jif886 GLOB 2.2 g/dL 04/22/2018 Comp Metabolic Sou430 A/G Ratio 1.9 Ratio 04/22/2018 Comp Metabolic Baw416 Osmo 285 mOsmo 04/22/2018 Cbc With Differential [...] 30.6 pg 04/22/2018 Cbc With Differential Ord2 Brown% 8.0 % 04/22/2018 Cbc With Differential Ord2 [...] 1.88 K/ul 04/22/2018 Cbc With Differential Ord2 Brown ABS# 0.7 K/ul 04/22/2018 Cbc With Differential [...] 31.5 pg 02/08/2017 Cbc With Differential Ord2 Brown% 10.0 % 02/08/2017 Cbc With Differential Ord2 [...] 2.00 K/ul 02/08/2017 Cbc With Differential Ord2 Brown ABS# 0.7 K/ul 02/08/2017 Cbc With Differential Ord2 Eos ABS# 0.1 K/ul 02/08/2017 Cbc With Differential Ord2 Baso ABS# 0.0 K/ul 02/08/2017 Comp Metabolic Kly313 NA 142 mEq/L 02/08/2017 Comp Metabolic Pwe587 K 4.5 mEq/L 02/08/2017 Comp Metabolic Ohs294 CL 106 mEq/L 02/08/2017 Comp Metabolic Klg204 CO2 27.0 mEq/L 02/08/2017 Comp Metabolic Owl579 ANION GAP 14 02/08/2017 Comp Metabolic Dpy889 GLUCOSE 102 mg/dL 02/08/2017 Comp Metabolic Epp645 Creat 0.9 mg/dL 02/08/2017 Comp Metabolic Hnl252 eGFR 62 ml/min/1.73m2 02/08/2017 Comp Metabolic Apc084 BUN 14 mg/dL 02/08/2017 Comp Metabolic Ktg065 B/C Ratio 15.1 Ratio 02/08/2017 Comp Metabolic Gvg218 CALCIUM 9.5 mg/dL 02/08/2017 Comp Metabolic Nly516 ALK PHOS 98 U/L 02/08/2017 Comp Metabolic Snb958 AST(SGOT) 19 U/L 02/08/2017 Comp Metabolic Doq553 ALT(SGPT) 15 U/L 02/08/2017 Comp Metabolic Uhh796 BILI T 1.1 mg/dL 02/08/2017 Comp Metabolic Lwv062 ALBUMIN 4.1 g/dL 02/08/2017 Comp Metabolic Cub602 TPRO 6.2 g/dL 02/08/2017 Comp Metabolic Avi631 GLOB 2.1 g/dL 02/08/2017 Comp Metabolic Ixc122 A/G Ratio 2.0 Ratio 02/08/2017 Comp Metabolic Bin813 Osmo 284 mOsmo 02/08/2017 Lipid Ord30 CHOL 178 mg/dL 08/08/2016 Lipid Ord30 HDL 54.0 mg/dl 08/08/2016 Lipid Ord30 TRIG 184 mg/dL 08/08/2016 Lipid Ord30 LDL 87 mg/dL 08/08/2016 Lipid Ord30 C/HDL 3.3 Ratio 08/08/2016 Tsh Ord6 hTSH II 3.12 uIU/mL 08/08/2016 Comp Metabolic Gsd764 NA 140 mEq/L 08/08/2016 Comp Metabolic Xfu266 K 4.4 mEq/L 08/08/2016 Comp Metabolic Clq968 CL 104 mEq/L 08/08/2016 Comp Metabolic Ves285 CO2 30.0 mEq/L 08/08/2016 Comp Metabolic Ntj302 ANION GAP 10 08/08/2016 Comp Metabolic Myt136 GLUCOSE 107 mg/dL 08/08/2016 Comp Metabolic Yrt338 Creat 1.1 mg/dL 08/08/2016 Comp Metabolic Rsv185 eGFR 53 ml/min/1.73m2 08/08/2016 Comp Metabolic Ahu305 BUN 22 mg/dL 08/08/2016 Comp Metabolic Rko248 B/C Ratio 20.6 Ratio 08/08/2016 Comp Metabolic Exi759 CALCIUM 10.8 mg/dL 08/08/2016 Comp Metabolic Noz210 ALK PHOS 140 U/L 08/08/2016 Comp Metabolic Ftf361 AST(SGOT) 21 U/L 08/08/2016 Comp Metabolic Qfv513 ALT(SGPT) 17 U/L 08/08/2016 Comp Metabolic Aje652 BILI T 0.8 mg/dL 08/08/2016 Comp Metabolic Dvq258 ALBUMIN 4.3 g/dL 08/08/2016 Comp Metabolic Xdy395 TPRO 6.7 g/dL 08/08/2016 Comp Metabolic Yqs594 GLOB 2.4 g/dL 08/08/2016 Comp Metabolic Cqs196 A/G Ratio 1.8 Ratio 08/08/2016 Comp Metabolic Wpx884 Osmo 283 mOsmo 08/08/2016 Cbc With Differential [...] 29.0 pg 08/08/2016 Cbc With Differential Ord2 Brown% 11.0 % 08/08/2016 Cbc With Differential Ord2 [...] 2.21 K/ul 08/08/2016 Cbc With Differential Ord2 Brown ABS# 0.7 K/ul 08/08/2016 Cbc With Differential Ord2 Eos ABS# 0.2 K/ul 08/08/2016 Cbc With Differential Ord2 Baso ABS# 0.0 K/ul 08/08/2016 Vitamin D 25 Oh Dbf1657 VITAMIN D, 25 HYDROXY 59.99 ng/mL Tsh Ord6 hTSH II 3.86 uIU/mL 01/11/2016 Comp Metabolic Wzc988 NA 137 mEq/L 01/11/2016 Comp Metabolic Huk835 K 4.4 mEq/L 01/11/2016 Comp Metabolic Ilp132 CL 103 mEq/L 01/11/2016 Comp Metabolic Pki921 CO2 27.0 mEq/L 01/11/2016 Comp Metabolic Gdw311 ANION GAP 11 01/11/2016 Comp Metabolic Lcg809 GLUCOSE 102 mg/dL 01/11/2016 Comp Metabolic Gtp097 Creat 1.1 mg/dL 01/11/2016 Comp Metabolic Sfb664 eGFR 51 ml/min/1.73m2 01/11/2016 Comp Metabolic Xkf092 BUN 16 mg/dL 01/11/2016 Comp Metabolic Dzh888 B/C Ratio 14.5 Ratio 01/11/2016 Comp Metabolic Qaf108 CALCIUM 9.9 mg/dL 01/11/2016 Comp Metabolic Ceq623 ALK PHOS 103 U/L 01/11/2016 Comp Metabolic Zhx790 AST(SGOT) 17 U/L 01/11/2016 Comp Metabolic Fqi765 ALT(SGPT) 14 U/L 01/11/2016 Comp Metabolic Evk657 BILI T 0.8 mg/dL 01/11/2016 Comp Metabolic Cor719 ALBUMIN 4.4 g/dL 01/11/2016 Comp Metabolic Zyz751 TPRO 6.8 g/dL 01/11/2016 Comp Metabolic Ipo589 GLOB 2.5 g/dL 01/11/2016 Comp Metabolic Yqn356 A/G Ratio 1.8 Ratio 01/11/2016 Comp Metabolic Ugd006 Osmo 275 mOsmo 01/11/2016 Lipid Ord30 CHOL [...] 93.1 fl 01/11/2016 Cbc With Differential Ord2 Brown% 10.7 % 01/11/2016 Cbc With Differential Ord2 [...] 2.35 K/ul 01/11/2016 Cbc With Differential Ord2 Brown ABS# 0.7 K/ul 01/11/2016 Cbc With Differential [...] 92.2 fl 07/12/2015 Cbc With Differential Ord2 Brown% 9.5 % 07/12/2015 Cbc With Differential Ord2 [...] 2.86 K/ul 07/12/2015 Cbc With Differential Ord2 Brown ABS# 0.7 K/ul 07/12/2015 Cbc With Differential [...] hTSH II 3.54 uIU/mL 07/12/2015 Comp Metabolic Phh940 NA 140 mEq/L 07/12/2015 Comp Metabolic Sqe498 K 4.4 mEq/L 07/12/2015 Comp Metabolic Zjc823 CL 104 mEq/L 07/12/2015 Comp Metabolic Omm690 CO2 28.0 mEq/L 07/12/2015 Comp Metabolic Pls416 ANION GAP 12 07/12/2015 Comp Metabolic Lef600 GLUCOSE 92 mg/dL 07/12/2015 Comp Metabolic Djf344 Creat 1.2 mg/dL 07/12/2015 Comp Metabolic Ciw180 eGFR 47 ml/min/1.73m2 07/12/2015 Comp Metabolic Hvd954 BUN 18 mg/dL 07/12/2015 Comp Metabolic Gip247 B/C Ratio 15.1 Ratio 07/12/2015 Comp Metabolic Cpx281 CALCIUM 10.1 mg/dL 07/12/2015 Comp Metabolic Jux213 ALK PHOS 134 U/L 07/12/2015 Comp Metabolic Dal157 AST(SGOT) 18 U/L 07/12/2015 Comp Metabolic Vtl035 ALT(SGPT) 17 U/L 07/12/2015 Comp Metabolic Bxa359 BILI T 0.8 mg/dL 07/12/2015 Comp Metabolic Mxb374 ALBUMIN 4.1 g/dL 07/12/2015 Comp Metabolic Syi317 TPRO 6.6 g/dL 07/12/2015 Comp Metabolic Lid229 GLOB 2.5 g/dL 07/12/2015 Comp Metabolic Qlp205 A/G Ratio 1.7 Ratio 07/12/2015 Comp Metabolic Hzn348 Osmo 281 mOsmo 07/12/2015 Cbc With Differential [...] Ord2 RDW 15.3 % 01/05/2015 Comp Metabolic Jus101 NA 139 mEq/L 01/05/2015 Comp Metabolic Wbm421 K 4.0 mEq/L 01/05/2015 Comp Metabolic Pls207 CL 106 mEq/L 01/05/2015 Comp Metabolic Lyk914 CO2 27.0 mEq/L 01/05/2015 Comp Metabolic Usp223 ANION GAP 10 01/05/2015 Comp Metabolic Gap992 GLUCOSE 111 mg/dL 01/05/2015 Comp Metabolic Npy546 Creat 1.2 mg/dL 01/05/2015 Comp Metabolic Fxq087 eGFR 48 ml/min/1.73m2 01/05/2015 Comp Metabolic Swr346 BUN 18 mg/dL 01/05/2015 Comp Metabolic Zeg680 B/C Ratio 15.4 Ratio 01/05/2015 Comp Metabolic Qqi679 CALCIUM 9.2 mg/dL 01/05/2015 Comp Metabolic Dnd794 ALK PHOS 202 U/L 01/05/2015 Comp Metabolic Drz454 AST(SGOT) 19 U/L 01/05/2015 Comp Metabolic Uql805 ALT(SGPT) 22 U/L 01/05/2015 Comp Metabolic Phn889 BILI T 0.7 mg/dL 01/05/2015 Comp Metabolic Xfy667 ALBUMIN 3.8 g/dL 01/05/2015 Comp Metabolic Haj445 TPRO 6.1 g/dL 01/05/2015 Comp Metabolic Wcv835 GLOB 2.3 g/dL 01/05/2015 Comp Metabolic Skl899 A/G Ratio 1.7 Ratio 01/05/2015 Comp Metabolic Uez939 Osmo 280 mOsmo 01/05/2015 Tsh Ord6 hTSH [...] Codes Date URINALYSIS NONAUTO W/O SCOPE CPT-4: 87805 04/22/2018 DRAIN/INJECT JOINT/BURSA CPT-4: 29710 09/25/2017 ADMIN INFLUENZA VIRUS VAC CPT-4: G0008 03/12/2017 ADMIN PNEUMOCOCCAL VACCINE SNOMED CT: 73129679 CPT-4: G0009 03/12/2017 FLU VACC PRSV FREE INC ANTIG CPT-4: 02501 03/12/2017 PNEUMOCOCCAL VACC [address]: 60920374 CPT-4: 59703 03/12/2017 PPPS, SUBSEQ VISIT CPT -4: G0439 02/09/2017 Vital Signs Date Vital 04/22/2018 Blood Pressure 1: 142/88 Code : 8480-6 Blood Pressure 1: 150/90 Code: 8480-6 BMI: 31.5 Code: 84333-0 Heart Rate 1: 70 bpm Height: 5'5" SpO2: 94% Weight: 189 lbs 01/22/2018 Blood Pressure 1: 142/78 Code : 8480-6 BMI: 31.6 Code : 38801-9 Heart Rate 1 : 85 bpm Height: 5'5" SpO2: 97% Weight: 190 lbs 11/19/2017 Blood Pressure 1: 132/78 Code : 8480-6 BMI: 31.1 Code : 69179-8 Heart Rate 1 : 68 bpm Height: 5'5" SpO2: 97% Weight: 187 lbs 09/25/2017 Blood Pressure 1: 140/80 Code : 8480-6 BMI: 31.0 Code : 77653-3 Heart Rate 1 : 80 bpm Height: 5'5" SpO2: 99% Weight: 186 lbs 07/12/2017 Blood Pressure 1: 138/72 Code : 8480-6 Blood Pressure 1: 144/88 Code: 8480-6 BMI: 30.8 Code: 73259-8 Heart Rate 1: 71 bpm Height: 5'5" SpO2: 95% Weight: 185 lbs 03/12/2017 Blood Pressure 1: 140/80 Code : 8480-6 BMI: 30.6 Code : 11859-2 Heart Rate 1 : 75 bpm Height: 5'5" SpO2: 97% Weight: 184 lbs 02/09/2017 Heart Rate 1: 74 bpm Height: Weight: 02/08/2017 Blood Pressure 1: 146/88 Code : 8480-6 BMI: 30.1 Code : 79731-9 Heart Rate 1 : 76 bpm Height: 5'5" SpO2: 95% Weight: 181 lbs 08/08/2016 Blood Pressure 1: 144/76 Code : 8480-6 Heart Rate 1: 80 bpm SpO2: 98% Weight: 185 lbs 02/08/2016 Blood Pressure 1: 130/70 Code : 8480-6 BMI: 30.3 Code : 49555-8 Heart Rate 1 : 60 bpm Height: 5'5" SpO2: 98% Weight: 182 lbs 01/11/2016 Blood Pressure 1: 148/82 Code : 8480-6 BMI: 30.6 Code : 17622-7 Heart Rate 1 : 84 bpm Height: 5'5" SpO2: 96% Weight: 184 lbs 07/12/2015 Blood Pressure 1: 152/76 Code : 8480-6 BMI: 30.6 Code : 78754-6 Heart Rate 1 : 70 bpm Height: 5'5" SpO2: 93% Weight: 184 lbs 01/04/2015 Blood Pressure 1: 148/88 Code : 8480-6 BMI: 31.0 Code : 66125-5 Heart Rate 1 : 80 bpm Height: [...] Directive data Encounters Encounter Performer Location Codes ([id number]) 24431 EST. PATIENT, LEVEL IV Diagnosis: Urinary tract infection, site not specified[ICD10: N39.0] Diagnosis: Mixed hyperlipidemia[ICD10: E78.2] Diagnosis: Essential (primary) hypertension[ICD10: I10] Diagnosis: Chronic kidney disease, stage 3 (moderate)[ICD10: N18.3] Alize Aguirre MD , [facility] CPT-4: 07850 04/22/2018 ([id number]) [id number] EST. PATIENT, LEVEL IV Diagnosis: Essential (primary) hypertension[ICD10: I10] Diagnosis: Major depressive disorder, recurrent, mild[ICD10: F33.0] Diagnosis: Mixed incontinence[ICD10: N39.46] Diagnosis: Low back pain[ICD10: M54.5] Alize Aguirre MD, [facility] CPT-4: 07169 01/22/2018 ([id number]) 15595 EST. PATIENT, LEVEL IV Diagnosis: Essential (primary) hypertension[ICD10: I10] Diagnosis: Generalized anxiety disorder[ICD10: F41.1] Diagnosis: Major depressive disorder, recurrent, mild[ICD10: F33.0] Diagnosis: Mixed incontinence[ICD10: N39.46] Alize Aguirre MD, [facility] CPT-4: 47574 11/19/2017 [id number] EST. PATIENT, LEVEL III Diagnosis: Pain in left knee[ICD10: M25.562] Diagnosis: Synovial cyst of popliteal space [Butts], left knee[ICD10: M71.22] Alize Aguirre MD, [facility] CPT-4: 73490 09/25/2017 ([id number]) 03796 EST. PATIENT, LEVEL IV Diagnosis: Essential (primary) hypertension[ICD10: I10] Diagnosis: Chronic kidney disease, stage 3 (moderate)[ICD10: N18.3] Diagnosis: Generalized anxiety disorder[ICD10: F41.1] Diagnosis: Chronic pain syndrome[ICD10: G89.4] Diana [facility] MD, [facility] CPT-4: 60371 07/12/2017 ([id number]) 28022 EST. PATIENT, LEVEL IV Diagnosis: Essential (primary) hypertension[ICD10: I10] Diagnosis: Iliotibial band syndrome, right leg[ICD10: M76.31] Diagnosis: Encounter for immunization[ICD10: Z23] Diana Aguirre MD, [facility] CPT-4: 25405 03/12/2017 ([id number]) 39843 EST. PATIENT, LEVEL IV Diagnosis: Iliotibial band syndrome, right leg[ICD10: M76.31] Diagnosis: Mixed hyperlipidemia[ICD10: E78.2] Diagnosis: Generalized anxiety disorder[ICD10: F41.1] Diagnosis: Essential (primary) hypertension[ICD10: I10] Diagnosis: Chronic kidney disease, stage 3 (moderate)[ICD10: N18.3] Diagnosis: Trochanteric bursitis, right hip[ICD10: M70.61] Diagnosis: Vitamin D deficiency, unspecified[ICD10: E55.9] Diana Aguirre MD, [facility] CPT-4: 05170 02/08/2017 ([id number]) 19364 EST. PATIENT, LEVEL IV Diagnosis: Essential (primary) hypertension[ICD10: I10] Diagnosis: Mixed hyperlipidemia[ICD10: E78.2] Diagnosis: Chronic kidney disease, stage 3 (moderate)[ICD10: N18.3] Diagnosis: Low back pain[ICD10: M54.5] Alize Aguirre MD, [facility] CPT-4: 41152 08/08/2016 ([id number]) 65486 EST. PATIENT, LEVEL III Diagnosis: Generalized anxiety disorder[ICD10: F41.1] Diagnosis: Sciatica, right side[ICD10: M54.31] Alize Aguirre MD, [facility] CPT-4: 93557 02/08/2016 ([id number]) 90069 EST. PATIENT, LEVEL IV Diagnosis: Essential (primary) hypertension[ICD10: I10] Diagnosis: Mixed hyperlipidemia[ICD10: E78.2] Diagnosis: Generalized anxiety disorder[ICD10: F41.1] Diagnosis: Vitamin D deficiency, unspecified[ICD10: E55.9] Diagnosis: Chronic kidney disease, stage 3 (moderate)[ICD10: N18.3] Alize Aguirre MD , [facility] CPT-4: 13748 01/11/2016 ([id number]) 13002 EST. PATIENT, LEVEL IV Diagnosis: Essential (primary) hypertension[ICD10: I10] Diagnosis: Mixed hyperlipidemia[ICD10: E78.2] Diagnosis: Generalized anxiety disorder[ICD10: F41.1] Alize Aguirre MD, [facility] CPT-4: 22203 07/12/2015 ([id number]) Miscellaneous no charge Diagnosis: Forearm fracture[ICD9: 813.80] [facility] CPT- 4: 10037 03/05/2015 ([id number]) OFFICE VISIT, NEW - LEVEL 4 Diagnosis: ESSENTIAL HYPERTENSION[ICD9: 401.9] Diagnosis: Hyperlipidemia[ICD9: 272.4] Diagnosis: Chronic renal disease, stage 3, moderately decreased glomerular filtration rate (GFR) between 30-59 mL/min/1.73 square meter[ICD9: 585.3] Diagnosis: Anxiety state[ICD9: 300.00] [facility] CPT-4: 47196 01/04/2015 Plan of Care Planned Activity Notes [...] labs today 04/22/2018 Appointment: Alize Jerome WPtel: [address] [place], [place] [phone] (30 min) [facility] 04/22/2018 Patient Education: Patient Medication Summary Completed [...] not improve. 01/22/2018 Appointment: Alize Jerome WPtel: [facility] [address] (30 min) Complex 01/22/2018 Patient Education: Patient [...] myrbetriq 11/19/2017 Appointment: Alize Jerome WPtel: [phone] [phone] (15 min) Moderate 11/19/2017 Patient Education: Patient Medication Summary Completed 11/19/2017 Visit Plan: Bakers cyst-left knee pain-Joint Injection - Pt was given post - injection instructions. The pt has been advised to use anti- inflammatories post injection today, ice to the injected site, call if redness, warmth, or increased pain occurs at the site of injection. 09/25/2017 Appointment: Alize Jerome WPtel: [phone] (30 min) Complex 09/25/2017 Patient [...] supportive care. 07/12/2017 [facility]ment[phone] (15 min) Moderate 07/12/2017 Patient Education: [...] Iliotibial band exercises. flector patches 1.3% - [id number] 04/2019 pfizer flu and pneumonia 13 shot today 03/12/2017 Appointment: Diana Aguirre WPtel: [phone] [phone] (15 min) Moderate 03/12/2017 Patient Education: Patient Medication Summary Completed 03/12/2017 Patient Education: Obesity Completed 03/12/2017 Patient Education: Hypertension Completed 03/12/2017 [phone] [facility] [facility] will [facility] with [facility]t [...] surrogate. 02/09/2017 Appointment: Lora Woody WPtel: [phone] [phone] [place] [address] - Annual Wellness Visit 02/09/2017 Patient Education: Patient Medication Summary Completed 02/09/2017 Visit Plan: Iliotibial band syndrome - RX for steroid - I have also recommended Physical therapy ordered for patient at [facility]. Hyperlipidemia - pt has been [...] fluids. 02/08/2017 Appointment: Diana Aguirre WPtel: [phone] [facility] (15 min) Moderate 02/08/2017 Patient Education: Patient Medication Summary Completed 02/08/2017 Patient Education: Obesity Completed 02/08/2017 Patient Education: Hypertension Completed 02/08/2017 Care Plan: Referral Order SNOMED-CT : [id number] Pending 02/08/2017 Appointment: Alize Jerome WPtel: [address] [place], [place] [phone] [place] [address] (15 min) Moderate 02/06/2017 Visit Plan: Hypertension [...] disease-check labs 08/08/2016 Appointment: Alize Jerome WPtel: [address] [place], [place] [phone] [place] [address] (15 min) Moderate 08/08/2016 Patient Education: Patient Medication Summary Completed 08/08/2016 Visit Plan: Aydkyzp-ubeyrabb-dxkzibfo lexapro-call if symptoms uncontrolled Low back pyoq-frjurpdr-ccfyqgthy discussed with the patient, pt to use topical voltaren gel as directed. Pt is to call if the symptoms do not improve or if they worsen. 02/08/2016 Appointment: Alize Jerome WPtel: [phone] (15 min) Moderate 02/08/2016 Patient Education: Patient [...] EFFEXOR-START LEXAPRO 01/11/2016 Appointment: Alize Jerome WPtel[phone] (15 min) Moderate 01/11/2016 Patient Education: Patient [...] normal liver response to medications. Chronic renal irsmagf-qpplwh-evg labs Chronic Depression and anxiety - the [...] Care Plan: COMPLETE CBC AUTOMATED LOINC : 03414-6 Ordered 01/04/2015 Referral: [facility] WPtel: [address] [place], [place] [id number] Referral Appointment Requested Instructions Comment check UA [...] change in blood pressure readings at home. Kswejkc-bjziggqdlh-obxvxpjm have increased some-increase lexapro to 1.5 tab [...] recommended Physical therapy ordered for patient at [facility]. Hyperlipidemia - pt has been [...] Iliotibial band exercises. flector patches 1.3% - [id number] 04/2019 Transcepta flu and pneumonia 13 shot today . [...] FOR PHYSICAL THERAPY LOW BACK STRETCHES . Wfywgvw-exgvcizl-yuscgvzh lexapro-call if symptoms uncontrolled Low back zhuo-tixvxnsh-etczbluec discussed with the patient, pt to use [...] normal liver response to medications. Chronic renal scwnkui-gifqmo-vcd labs Chronic Depression and anxiety - the [...]
--- OUTSIDE RECORDS SUMMARY | 2018-07-28 10:15 | XMS REPORT | CCD ---
Author Author Alize Jerome Organization [facility] Address [address] [place] [address] Phone Care Team Providers Care Actuarial Science Professor Name Role Phone PP Unavailable CCM Unavailable Summary Purpose Interface Exchange Insurance Providers Payer name Policy type / Coverage type Covered democrat ID Effective Begin Date Effective End Date WPS Medicare Part B Medicare Part B [id number] Unknown Unknown [facility] Medicare Part B [id number] Unknown Unknown Family history Father Diagnosis Age [...] Unknown Retired 01/04/[address]: 390221807 Never smoker 01/04/2015 Alcohol history Unknown occasionally [...] Fill Instructions Keflex 500 mg capsule RxNorm: 836460 1 Capsule(s) PO TID 201704/28/2018 Active diazepam 5 mg tablet RxNorm: 711535 1 Tablet(s) PO TID PRN 07/14/2018 Active hydrocodone 5 mg-acetaminophen 325 mg tablet RxNorm: 661878 1 Tablet(s) PO Q6 as needed 03/15/2018 04/06/2018 Inactive carvedilol 3.125 mg tablet RxNorm: 440273 TAKE ONE TABLET BY MOUTH TWICE A DAY 02/11/2018 08/09/2018 Active Myrbetriq 25 mg tablet,extended release RxNorm: 3849132 1 Tablet(s) PO daily 01/22/2018 07/20/2018 Active hydrocodone 5 mg-acetaminophen 325 mg tablet RxNorm: 375445 1 Tablet(s) PO Q6 as needed 01/22/2018 02/13/2018 Inactive hydrocodone 5 mg-acetaminophen 325 mg tablet RxNorm: 344890 1 Tablet(s) PO Q6 as needed 11/27/2017 12/19/2017 Inactive Lexapro 10 mg tablet RxNorm: 158576 1.5 Tablet(s) PO daily 09/201709/09/2019 Active Myrbetriq 25 mg tablet,extended release RxNorm: 6684181 1 Tablet(s) PO daily 11/19/2017 01/21/2018 Inactive diazepam 5 mg tablet RxNorm: 590359 1 Tablet(s) PO TID PRN 04/15/2018 Inactive Lexapro 10 mg tablet RxNorm: 769094 TAKE ONE TABLET BY MOUTH EVERY EVENING 10/01/2017 11/18/2017 Inactive hydrocodone 5 mg-acetaminophen 325 mg tablet RxNorm: 149446 1 Tablet(s) PO Q6 as needed 09/28/2017 10/20/2017 Inactive Voltaren 1 % topical gel RxNorm: 250038 4 Gram(s) TOP QID 09/2501/22/2018 Inactive Kenalog 40 mg/mL suspension for injection RxNorm: 7506927 1 Milliliter(s) Inj 09/25/2017 09/25/2017 Inactive Bactrim DS 800 mg-160 mg tablet RxNorm: 841868 1 Tablet(s) PO BID 09/05/2017 09/11/2017 Inactive Take probiotic BID while on antibiotic Bactrim DS 800 mg-160 mg tablet RxNorm: 928326 1 Tablet(s) PO BID 09/05/2017 09/04/2017 Inactive Take probiotic BID while on antibiotic hydrocodone 5 mg-acetaminophen 325 mg tablet RxNorm: 533336 1 Tablet(s) PO Q6 as needed 07/12/2017 09/27/2017 Inactive hydrocodone 5 mg-acetaminophen 325 mg tablet RxNorm: 686179 1 Tablet(s) PO Q6 as needed 06/05/2017 07/11/2017 Inactive carvedilol 3.125 mg tablet RxNorm: 510322 TAKE ONE TABLET BY MOUTH TWICE A DAY 05/21/2017 02/10/2018 Inactive hydrocodone 5 mg-acetaminophen 325 mg tablet RxNorm: 643670 1 Tablet(s) PO Q6 as needed 04/20/2017 06/04/2017 Inactive Voltaren 1 % topical gel RxNorm: 006467 2 Gram(s) TOP QID to affected area 04/12/2017 07/10/2017 Inactive Voltaren 1 % topical gel RxNorm: 362054 2 Gram(s) TOP QID to affected area 04/12/2017 04/11/2017 Inactive diazepam 5 mg tablet RxNorm: 720514 1 Tablet(s) PO TID PRN 04/15/2018 Inactive Flector 1.3 % transdermal 12 hour patch RxNorm: 074715 1 Patch TOP BID 03/27/2017 04/11/2017 Inactive Flector 1.3 % transdermal 12 hour patch RxNorm: 705388 1/8 Patch TOP BID 03/12/2017 03/26/2017 Inactive hydrocodone 5 mg-acetaminophen 325 mg tablet RxNorm: 715170 1 Tablet(s) PO Q6 as needed 02/20/2017 04/19/2017 Inactive prednisone 10 mg tablets in a dose pack RxNorm: 189403 1 Tablet(s) PO UD 02/08/2017 09/24/2017 Inactive prednisone 10 mg tablets in a dose pack RxNorm: 748442 1 Tablet(s) PO UD 02/08/2017 02/07/2017 Inactive diazepam 5 mg tablet RxNorm: 067384 1 Tablet(s) PO TID PRN 08/201601/15/2017 Inactive Lexapro 10 mg tablet RxNorm: 078941 TAKE ONE TABLET BY MOUTH EVERY EVENING 08/13/2016 2017 Inactive carvedilol 3.125 mg tablet RxNorm: 929456 1 Tablet(s) PO BID 05/20/2017 Inactive diazepam 5 mg tablet RxNorm: 574222 1 Tablet(s) PO TID PRN 04/15/2018 Inactive Lexapro 10 mg tablet RxNorm: 834890 1 Tablet(s) PO QPM 201508/12/2016 Inactive Lexapro 5 mg tablet RxNorm: 737698 2 Tablet(s) PO QPM 201502/28/2016 Inactive hydrocodone 5 mg-acetaminophen 325 mg tablet RxNorm: 692300 1 Tablet(s) PO Q6 as needed 02/08/2016 02/19/2017 Inactive Lexapro 5 mg tablet RxNorm: 948875 1 Tablet(s) PO QPM 201502/17/2016 Inactive diazepam 5 mg tablet RxNorm: 778604 1 Tablet(s) PO TID PRN 07/201501/15/2016 Inactive Effexor XR 37.5 mg capsule,extended release RxNorm: 152247 1 Capsule(s) PO daily 09/29/2015 01/10/2016 Inactive diazepam 5 mg tablet RxNorm: 517185 1 Tablet(s) PO TID PRN 09/06/2015 Inactive carvedilol 3.125 mg tablet RxNorm: 695254 1 Tablet(s) PO BID 05/24/2016 Inactive diazepam 5 mg tablet RxNorm: 026433 1 Tablet(s) PO TID PRN 03/16/2016 Inactive Fish Oil 360 mg-1,200 mg capsule RxNorm: 306282 1 Capsule(s) PO daily 01/04/2015 No Stop Date Active diazepam 5 mg tablet RxNorm: 442705 1 Tablet(s) PO TID PRN 02/01/2015 Inactive diazepam 5 mg tablet RxNorm: 280735 1 Tablet(s) PO daily 201412/21/2014 Inactive pt to make an appt- called 1 mo to dillons diazepam 5 mg tablet RxNorm: 729037 1 Tablet(s) PO daily 201412/21/2014 Inactive diazepam 5 mg tablet RxNorm: 352426 1 Tablet(s) PO QHS 201401/03/2015 Inactive pt to make an appt- called 1 mo to dillons niacin (inositol niacinate) 500 mg capsule RxNorm: 407264 1 Capsule(s) PO daily No Start Date Active letrozole 2.5 mg tablet RxNorm: 609045 1 Tablet(s) PO daily No Start Date Active aspirin 81 mg tablet RxNorm: 355841 1 Tablet(s) PO daily No Start Date Active Crestor 5 mg tablet RxNorm: 054135 1 Tablet(s) PO QHS No Start Date Active hydrocodone 5 mg-acetaminophen 325 mg tablet RxNorm: 124540 1 Tablet(s) PO Q6 as needed No Start Date 02/07/2016 Inactive Coreg 6.25 mg tablet RxNorm: 959539 1 Tablet(s) PO BID No Start Date 05/30/2015 Inactive Delzicol 400 mg capsule,delayed release RxNorm: 5103270 2 Capsule(s) PO daily No Start Date 08/07/2016 Inactive venlafaxine 37.5 mg tablet RxNorm: 725307 1 Tablet(s) PO daily No Start Date 01/03/2015 Inactive Effexor XR 37.5 mg capsule,extended release RxNorm: 820466 1 Capsule(s) PO daily No Start Date 09/28/2015 Inactive Medication Administered Medication Codes Instructions Start Date Status Kenalog 40 mg/mL suspension for injection RxNorm: 5227564 1Milliliter 09/25/2017 No longer Active Immunizations Vaccine [...] Observation Code Item Item Code Result Date Comp Metabolic Opp582 NA 142 mEq/L 04/22/2018 Comp Metabolic Muh750 K 4.3 mEq/L 04/22/2018 Comp Metabolic Pqu454 CL 104 mEq/L 04/22/2018 Comp Metabolic Fvf894 CO2 29.0 mEq/L 04/22/2018 Comp Metabolic Bzj907 ANION GAP 13 04/22/2018 Comp Metabolic Lzm830 GLUCOSE 106 mg/dL 04/22/2018 Comp Metabolic Lir540 Creat 1.1 mg/dL 04/22/2018 Comp Metabolic Cqp630 eGFR 53 ml/min/1.73m2 04/22/2018 Comp Metabolic Ctr679 BUN 18 mg/dL 04/22/2018 Comp Metabolic Yuv706 B/C Ratio 17.0 Ratio 04/22/2018 Comp Metabolic Tkv772 CALCIUM 9.6 mg/dL 04/22/2018 Comp Metabolic Brl833 ALK PHOS 121 U/L 04/22/2018 Comp Metabolic Jkt048 AST(SGOT) 15 U/L 04/22/2018 Comp Metabolic Tng124 ALT(SGPT) 13 U/L 04/22/2018 Comp Metabolic Xcx612 BILI T 1.0 mg/dL 04/22/2018 Comp Metabolic Yji599 ALBUMIN 4.1 g/dL 04/22/2018 Comp Metabolic Ozm637 TPRO 6.3 g/dL 04/22/2018 Comp Metabolic Syi563 GLOB 2.2 g/dL 04/22/2018 Comp Metabolic Cfo717 A/G Ratio 1.9 Ratio 04/22/2018 Comp Metabolic Veo228 Osmo 285 mOsmo 04/22/2018 Cbc With Differential [...] 30.6 pg 04/22/2018 Cbc With Differential Ord2 [place]% 8.0 % 04/22/2018 Cbc With Differential Ord2 [...] 1.88 K/ul 04/22/2018 Cbc With Differential Ord2 [place] ABS# 0.7 K/ul 04/22/2018 Cbc With Differential [...] 31.5 pg 02/08/2017 Cbc With Differential Ord2 [place]% 10.0 % 02/08/2017 Cbc With Differential Ord2 Eos% 1.4 % 02/08/2017 Cbc With Differential Ord2 MCHC 32.4 pg 02/08/2017 Cbc With Differential Ord2 PLT 164 K/ul 02/08/2017 Cbc With Differential Ord2 Baso% 0.1 % 02/08/2017 Cbc With Differential Ord2 Neut ABS# 4.54 K/ul 02/08/2017 Cbc With Differential Ord2 RDW 13.4 % 02/08/2017 Cbc With Differential Ord2 Lymph ABS# 2.00 K/ul 02/08/2017 Cbc With Differential Ord2 [place] ABS# 0.7 K/ul 02/08/2017 Cbc With Differential Ord2 Eos ABS# 0.1 K/ul 02/08/2017 Cbc With Differential Ord2 Baso ABS# 0.0 K/ul 02/08/2017 Comp Metabolic Awo995 NA 142 mEq/L 02/08/2017 Comp Metabolic Xkf368 K 4.5 mEq/L 02/08/2017 Comp Metabolic Aic928 CL 106 mEq/L 02/08/2017 Comp Metabolic Xwl585 CO2 27.0 mEq/L 02/08/2017 Comp Metabolic Ehh764 ANION GAP 14 02/08/2017 Comp Metabolic Zhw507 GLUCOSE 102 mg/dL 02/08/2017 Comp Metabolic Pxf891 Creat 0.9 mg/dL 02/08/2017 Comp Metabolic Fjr715 eGFR 62 ml/min/1.73m2 02/08/2017 Comp Metabolic Wwh681 BUN 14 mg/dL 02/08/2017 Comp Metabolic Uab498 B/C Ratio 15.1 Ratio 02/08/2017 Comp Metabolic Jvl790 CALCIUM 9.5 mg/dL 02/08/2017 Comp Metabolic Ffw045 ALK PHOS 98 U/L 02/08/2017 Comp Metabolic Ryb931 AST(SGOT) 19 U/L 02/08/2017 Comp Metabolic Dun705 ALT(SGPT) 15 U/L 02/08/2017 Comp Metabolic Def699 BILI T 1.1 mg/dL 02/08/2017 Comp Metabolic Klj826 ALBUMIN 4.1 g/dL 02/08/2017 Comp Metabolic Nmm277 TPRO 6.2 g/dL 02/08/2017 Comp Metabolic Ufw344 GLOB 2.1 g/dL 02/08/2017 Comp Metabolic Cww483 A/G Ratio 2.0 Ratio 02/08/2017 Comp Metabolic Ugs107 Osmo 284 mOsmo 02/08/2017 Lipid Ord30 CHOL 178 mg/dL 08/08/2016 Lipid Ord30 HDL 54.0 mg/dl 08/08/2016 Lipid Ord30 TRIG 184 mg/dL 08/08/2016 Lipid Ord30 LDL 87 mg/dL 08/08/2016 Lipid Ord30 C/HDL 3.3 Ratio 08/08/2016 Tsh Ord6 hTSH II 3.12 uIU/mL 08/08/2016 Comp Metabolic Czg936 NA 140 mEq/L 08/08/2016 Comp Metabolic Xpd619 K 4.4 mEq/L 08/08/2016 Comp Metabolic Iek257 CL 104 mEq/L 08/08/2016 Comp Metabolic Zlo140 CO2 30.0 mEq/L 08/08/2016 Comp Metabolic Fbg099 ANION GAP 10 08/08/2016 Comp Metabolic Qyc963 GLUCOSE 107 mg/dL 08/08/2016 Comp Metabolic Mdg831 Creat 1.1 mg/dL 08/08/2016 Comp Metabolic Srf752 eGFR 53 ml/min/1.73m2 08/08/2016 Comp Metabolic Baj547 BUN 22 mg/dL 08/08/2016 Comp Metabolic Yyu898 B/C Ratio 20.6 Ratio 08/08/2016 Comp Metabolic Cws456 CALCIUM 10.8 mg/dL 08/08/2016 Comp Metabolic Nsj949 ALK PHOS 140 U/L 08/08/2016 Comp Metabolic Yvu717 AST(SGOT) 21 U/L 08/08/2016 Comp Metabolic Gaw283 ALT(SGPT) 17 U/L 08/08/2016 Comp Metabolic Xpw974 BILI T 0.8 mg/dL 08/08/2016 Comp Metabolic Nfy710 ALBUMIN 4.3 g/dL 08/08/2016 Comp Metabolic Azy868 TPRO 6.7 g/dL 08/08/2016 Comp Metabolic Zvj892 GLOB 2.4 g/dL 08/08/2016 Comp Metabolic Ovx066 A/G Ratio 1.8 Ratio 08/08/2016 Comp Metabolic Nsj723 Osmo 283 mOsmo 08/08/2016 Cbc With Differential [...] 29.0 pg 08/08/2016 Cbc With Differential Ord2 [place]% 11.0 % 08/08/2016 Cbc With Differential Ord2 [...] 2.21 K/ul 08/08/2016 Cbc With Differential Ord2 [place] ABS# 0.7 K/ul 08/08/2016 Cbc With Differential Ord2 Eos ABS# 0.2 K/ul 08/08/2016 Cbc With Differential Ord2 Baso ABS# 0.0 K/ul 08/08/2016 Vitamin D 25 Oh Usy1036 VITAMIN D, 25 HYDROXY 59.99 ng/mL Tsh Ord6 hTSH II 3.86 uIU/mL 01/11/2016 Comp Metabolic Thd499 NA 137 mEq/L 01/11/2016 Comp Metabolic Doe488 K 4.4 mEq/L 01/11/2016 Comp Metabolic Eej280 CL 103 mEq/L 01/11/2016 Comp Metabolic Qwm051 CO2 27.0 mEq/L 01/11/2016 Comp Metabolic Exs674 ANION GAP 11 01/11/2016 Comp Metabolic Dgk343 GLUCOSE 102 mg/dL 01/11/2016 Comp Metabolic Jrn384 Creat 1.1 mg/dL 01/11/2016 Comp Metabolic Nvv066 eGFR 51 ml/min/1.73m2 01/11/2016 Comp Metabolic Kay644 BUN 16 mg/dL 01/11/2016 Comp Metabolic Qsn669 B/C Ratio 14.5 Ratio 01/11/2016 Comp Metabolic Qqb610 CALCIUM 9.9 mg/dL 01/11/2016 Comp Metabolic Xcd775 ALK PHOS 103 U/L 01/11/2016 Comp Metabolic Ukl757 AST(SGOT) 17 U/L 01/11/2016 Comp Metabolic Bpg385 ALT(SGPT) 14 U/L 01/11/2016 Comp Metabolic Ota734 BILI T 0.8 mg/dL 01/11/2016 Comp Metabolic Grl550 ALBUMIN 4.4 g/dL 01/11/2016 Comp Metabolic Eqc536 TPRO 6.8 g/dL 01/11/2016 Comp Metabolic Xiw270 GLOB 2.5 g/dL 01/11/2016 Comp Metabolic Szw516 A/G Ratio 1.8 Ratio 01/11/2016 Comp Metabolic Nqp041 Osmo 275 mOsmo 01/11/2016 Lipid Ord30 CHOL [...] 93.1 fl 01/11/2016 Cbc With Differential Ord2 [place]% 10.7 % 01/11/2016 Cbc With Differential Ord2 [...] 2.35 K/ul 01/11/2016 Cbc With Differential Ord2 [place] ABS# 0.7 K/ul 01/11/2016 Cbc With Differential [...] 92.2 fl 07/12/2015 Cbc With Differential Ord2 [place]% 9.5 % 07/12/2015 Cbc With Differential Ord2 [...] 2.86 K/ul 07/12/2015 Cbc With Differential Ord2 [place] ABS# 0.7 K/ul 07/12/2015 Cbc With Differential [...] hTSH II 3.54 uIU/mL 07/12/2015 Comp Metabolic Ejk197 NA 140 mEq/L 07/12/2015 Comp Metabolic Mnj537 K 4.4 mEq/L 07/12/2015 Comp Metabolic Zjf987 CL 104 mEq/L 07/12/2015 Comp Metabolic Crp417 CO2 28.0 mEq/L 07/12/2015 Comp Metabolic Shz544 ANION GAP 12 07/12/2015 Comp Metabolic Avg439 GLUCOSE 92 mg/dL 07/12/2015 Comp Metabolic Ttk379 Creat 1.2 mg/dL 07/12/2015 Comp Metabolic Gff594 eGFR 47 ml/min/1.73m2 07/12/2015 Comp Metabolic Syg464 BUN 18 mg/dL 07/12/2015 Comp Metabolic Iqz333 B/C Ratio 15.1 Ratio 07/12/2015 Comp Metabolic Qcv674 CALCIUM 10.1 mg/dL 07/12/2015 Comp Metabolic Gfc937 ALK PHOS 134 U/L 07/12/2015 Comp Metabolic Zjm272 AST(SGOT) 18 U/L 07/12/2015 Comp Metabolic Hku267 ALT(SGPT) 17 U/L 07/12/2015 Comp Metabolic Zfv118 BILI T 0.8 mg/dL 07/12/2015 Comp Metabolic Vbc003 ALBUMIN 4.1 g/dL 07/12/2015 Comp Metabolic Fpm508 TPRO 6.6 g/dL 07/12/2015 Comp Metabolic Jxc660 GLOB 2.5 g/dL 07/12/2015 Comp Metabolic Aaj744 A/G Ratio 1.7 Ratio 07/12/2015 Comp Metabolic Rqm006 Osmo 281 mOsmo 07/12/2015 Cbc With Differential [...] Ord2 RDW 15.3 % 01/05/2015 Comp Metabolic Gkz475 NA 139 mEq/L 01/05/2015 Comp Metabolic Qnm643 K 4.0 mEq/L 01/05/2015 Comp Metabolic Crr689 CL 106 mEq/L 01/05/2015 Comp Metabolic Mjs889 CO2 27.0 mEq/L 01/05/2015 Comp Metabolic Lww342 ANION GAP 10 01/05/2015 Comp Metabolic Wig689 GLUCOSE 111 mg/dL 01/05/2015 Comp Metabolic Hnn735 Creat 1.2 mg/dL 01/05/2015 Comp Metabolic Egf159 eGFR 48 ml/min/1.73m2 01/05/2015 Comp Metabolic Cqa935 BUN 18 mg/dL 01/05/2015 Comp Metabolic Dca889 B/C Ratio 15.4 Ratio 01/05/2015 Comp Metabolic Rck624 CALCIUM 9.2 mg/dL 01/05/2015 Comp Metabolic Kza980 ALK PHOS 202 U/L 01/05/2015 Comp Metabolic Fds502 AST(SGOT) 19 U/L 01/05/2015 Comp Metabolic Qvc924 ALT(SGPT) 22 U/L 01/05/2015 Comp Metabolic Ftf308 BILI T 0.7 mg/dL 01/05/2015 Comp Metabolic Itf426 ALBUMIN 3.8 g/dL 01/05/2015 Comp Metabolic Pwd459 TPRO 6.1 g/dL 01/05/2015 Comp Metabolic Nyy778 GLOB 2.3 g/dL 01/05/2015 Comp Metabolic Mdz675 A/G Ratio 1.7 Ratio 01/05/2015 Comp Metabolic Lxg576 Osmo 280 mOsmo 01/05/2015 Tsh Ord6 hTSH [...] Codes Date URINALYSIS NONAUTO W/O SCOPE CPT-4: 55064 04/22/2018 DRAIN/INJECT JOINT/BURSA CPT-4: 33854 09/25/2017 ADMIN INFLUENZA VIRUS VAC CPT-4: G0008 03/12/2017 ADMIN PNEUMOCOCCAL VACCINE SNOMED CT: 99583747 CPT-4: G0009 03/12/2017 FLU VACC PRSV FREE INC ANTIG CPT-4: 69467 03/12/2017 PNEUMOCOCCAL VACC [address]: 31789833 CPT-4: 58256 03/12/2017 PPPS, SUBSEQ VISIT CPT -4: G0439 02/09/2017 Vital Signs Date Vital 04/22/2018 Blood Pressure 1: 142/88 Code : 8480-6 Blood Pressure 1: 150/90 Code: 8480-6 BMI: 31.5 Code: 93261-6 Heart Rate 1: 70 bpm Height: 5'5" SpO2: 94% Weight: 189 lbs 01/22/2018 Blood Pressure 1: 142/78 Code : 8480-6 BMI: 31.6 Code : 48567-8 Heart Rate 1 : 85 bpm Height: 5'5" SpO2: 97% Weight: 190 lbs 11/19/2017 Blood Pressure 1: 132/78 Code : 8480-6 BMI: 31.1 Code : 33379-8 Heart Rate 1 : 68 bpm Height: 5'5" SpO2: 97% Weight: 187 lbs 09/25/2017 Blood Pressure 1: 140/80 Code : 8480-6 BMI: 31.0 Code : 00446-4 Heart Rate 1 : 80 bpm Height: 5'5" SpO2: 99% Weight: 186 lbs 07/12/2017 Blood Pressure 1: 138/72 Code : 8480-6 Blood Pressure 1: 144/88 Code: 8480-6 BMI: 30.8 Code: 97535-6 Heart Rate 1: 71 bpm Height: 5'5" SpO2: 95% Weight: 185 lbs 03/12/2017 Blood Pressure 1: 140/80 Code : 8480-6 BMI: 30.6 Code : 72486-4 Heart Rate 1 : 75 bpm Height: 5'5" SpO2: 97% Weight: 184 lbs 02/09/2017 Heart Rate 1: 74 bpm Height: Weight: 02/08/2017 Blood Pressure 1: 146/88 Code : 8480-6 BMI: 30.1 Code : 30667-9 Heart Rate 1 : 76 bpm Height: 5'5" SpO2: 95% Weight: 181 lbs 08/08/2016 Blood Pressure 1: 144/76 Code : 8480-6 Heart Rate 1: 80 bpm SpO2: 98% Weight: 185 lbs 02/08/2016 Blood Pressure 1: 130/70 Code : 8480-6 BMI: 30.3 Code : 64839-4 Heart Rate 1 : 60 bpm Height: 5'5" SpO2: 98% Weight: 182 lbs 01/11/2016 Blood Pressure 1: 148/82 Code : 8480-6 BMI: 30.6 Code : 58499-5 Heart Rate 1 : 84 bpm Height: 5'5" SpO2: 96% Weight: 184 lbs 07/12/2015 Blood Pressure 1: 152/76 Code : 8480-6 BMI: 30.6 Code : 47614-7 Heart Rate 1 : 70 bpm Height: 5'5" SpO2: 93% Weight: 184 lbs 01/04/2015 Blood Pressure 1: 148/88 Code : 8480-6 BMI: 31.0 Code : 73716-2 Heart Rate 1 : 80 bpm Height: [...] data Encounters Encounter Performer Location Codes Date ([id number]) 15596 EST. PATIENT, LEVEL IV Diagnosis: Urinary tract infection, site not specified[ICD10: N39.0] Diagnosis: Mixed hyperlipidemia[ICD10: E78.2] Diagnosis: Essential (primary) hypertension[ICD10: I10] Diagnosis: Chronic kidney disease, stage 3 (moderate)[ICD10: N18.3] [facility] CPT-4: 28914 04/22/2018 ([id number]) 26725 EST. 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 PATIENT, LEVEL IV Diagnosis: Essential (primary) hypertension[ICD10: I10] Diagnosis: Generalized anxiety disorder[ICD10: F41.1] Diagnosis: Major depressive disorder, recurrent, mild[ICD10: F33.0] Diagnosis: Mixed incontinence[ICD10: N39.46] Alize Aguirre MD, [facility] CPT-4: 71561 11/19/2017 30795 EST. PATIENT, LEVEL III Diagnosis: Pain in left knee[ICD10: M25.562] Diagnosis: Synovial cyst of popliteal space [Butts], left knee[ICD10: M71.22] Alize Aguirre MD, [facility] CPT-4: 41010 09/25/2017 ([id number]) 58033 EST. PATIENT, LEVEL IV Diagnosis: Essential (primary) hypertension[ICD10: I10] Diagnosis: Chronic kidney disease, stage 3 (moderate)[ICD10: N18.3] Diagnosis: Generalized anxiety disorder[ICD10: F41.1] Diagnosis: Chronic pain syndrome[ICD10: G89.4] [facility], [facility] CPT-4: 67106 07/12/2017 ([id number]) 30312 EST. PATIENT, LEVEL IV Diagnosis: Essential (primary) hypertension[ICD10: I10] Diagnosis: Iliotibial band syndrome, right leg[ICD10: M76.31] Diagnosis: Encounter for immunization[ICD10: Z23] [facility] MD, [facility] CPT-4: 97206 03/12/2017 ([id number]) 66805 EST. PATIENT, LEVEL IV Diagnosis: Iliotibial band syndrome, right leg[ICD10: M76.31] Diagnosis: Mixed hyperlipidemia[ICD10: E78.2] Diagnosis: Generalized anxiety disorder[ICD10: F41.1] Diagnosis: Essential (primary) hypertension[ICD10: I10] Diagnosis: Chronic kidney disease, stage 3 (moderate)[ICD10: N18.3] Diagnosis: Trochanteric bursitis, right hip[ICD10: M70.61] Diagnosis: Vitamin D deficiency, unspecified[ICD10: E55.9] [facility] MD, [facility] CPT-4: 52012 02/08/2017 ([id number]) 89133 EST. PATIENT, LEVEL IV Diagnosis: Essential (primary) hypertension[ICD10: I10] Diagnosis: Mixed hyperlipidemia[ICD10: E78.2] Diagnosis: Chronic kidney disease, stage 3 (moderate)[ICD10: N18.3] Diagnosis: Low back pain[ICD10: M54.5] Alize Aguirre MD, [facility] CPT-4: 58007 08/08/2016 ([id number]) 92759 EST. PATIENT, LEVEL III Diagnosis: Generalized anxiety disorder[ICD10: F41.1] Diagnosis: Sciatica, right side[ICD10: M54.31] Alize Aguirre MD, [facility] CPT-4: 44718 02/08/2016 ([id number]) 44674 EST. PATIENT, LEVEL IV Diagnosis: Essential (primary) hypertension[ICD10: I10] Diagnosis: Mixed hyperlipidemia[ICD10: E78.2] Diagnosis: Generalized anxiety disorder[ICD10: F41.1] Diagnosis: Vitamin D deficiency, unspecified[ICD10: E55.9] Diagnosis: Chronic kidney disease, stage 3 (moderate)[ICD10: N18.3] Alize Aguirre MD , [facility] CPT-4: 77944 01/11/2016 ([id number]) 37594 EST. PATIENT, LEVEL IV Diagnosis: Essential (primary) hypertension[ICD10: I10] Diagnosis: Mixed hyperlipidemia[ICD10: E78.2] Diagnosis: Generalized anxiety disorder[ICD10: F41.1] Alize Aguirre MD, [facility] CPT-4: 28208 07/12/2015 ([id number]) Miscellaneous no charge Diagnosis: Forearm fracture[ICD9: 813.80] Diana Aguirre MD, [facility] CPT- 4: 72786 03/05/2015 ([id number]) OFFICE VISIT, NEW - LEVEL 4 Diagnosis: ESSENTIAL HYPERTENSION[ICD9: 401.9] Diagnosis: Hyperlipidemia[ICD9: 272.4] Diagnosis: Chronic renal disease, stage 3, moderately decreased glomerular filtration rate (GFR) between 30-59 mL/min/1.73 square meter[ICD9: 585.3] Diagnosis: Anxiety state[ICD9: 300.00] Alize Aguirre MD, [facility] CPT-4: 58750 01/04/2015 Plan of Care Planned Activity Notes [...] readings at home. Hyperlipidemia-check labs today 04/22/2018 Patient Education: Patient Medication Summary Completed 04/22/2018 Patient Education: Hypertension Completed 04/22/2018 Care Plan: Urine Culture Pending 04/22/2018 Visit Plan: Hypertension - well controlled [...] improve. 01/22/2018 Appointment: Alize Jerome WPtel: [phone] [phone] (30 min) Complex 01/22/2018 Patient Education: Patient [...] myrbetriq 11/19/2017 Appointment: Alize Jerome WPtel: [phone] [phone] (15 min) Moderate 11/19/2017 Patient Education: Patient Medication Summary Completed 11/19/2017 Visit Plan: Bakers cyst-left knee pain-Joint Injection - Pt was given post - injection instructions. The pt has been advised to use anti- inflammatories post injection today, ice to the injected site, call if redness, warmth, or increased pain occurs at the site of injection. 09/25/2017 Appointment: Alize Jerome WPtel: [phone] [phone] (30 min) Complex 09/25/2017 Patient Education: Patient [...] care. 07/12/2017 Appointment: Diana Aguirre WPtel: [phone] [facility] (15 min) Moderate 07/12/2017 Patient Education: [...] Iliotibial band exercises. flector patches 1.3% - [id number] 04/2019 pfizer flu and pneumonia 13 shot today 03/12/2017 [phone] [facility] ([facility] min) Moderate 03/12/2017 Patient Education: Patient Medication Summary Completed 03/12/2017 Patient Education: Obesity Completed 03/12/2017 Patient Education: Hypertension Completed 03/12/2017 [phone] [facility] [...] surrogate. 02/09/2017 Appointment: Lora Woody WPtel: [phone] [phone] [facility] - Annual Wellness Visit 02/09/2017 Patient Education: Patient Medication Summary Completed 02/09/2017 Visit Plan: Iliotibial band syndrome - RX for steroid - I have also recommended Physical therapy ordered for patient at [facility]. Hyperlipidemia - pt has been counseled [...] fluids. 02/08/2017 [facility] [phone] [phone] (15 min) Moderate 02/08/2017 Patient Education: Patient Medication Summary Completed 02/08/2017 Patient Education: Obesity Completed 02/08/2017 Patient Education: Hypertension Completed 02/08/2017 Care Plan: Referral Order SNOMED-CT : [id number] Pending 02/08/2017 Appointment: Alize Jerome WPtel: [phone] [phone] (15 min) Moderate 02/06/2017 Visit Plan: Hypertension [...] disease-check labs 08/08/2016 Appointment: Alize Jerome WPtel: [facility] [id number] [place] [address] (15 min) Moderate 08/08/2016 Patient Education: Patient Medication Summary Completed 08/08/2016 Visit Plan: Adrurwi-sspzfand-ugqjylhb lexapro-call if symptoms uncontrolled Low back kcin-bmvllrzr-tubgucgpy discussed with the patient, pt to use topical voltaren gel as directed. Pt is to call if the symptoms do not improve or if they worsen. 02/08/2016 Appointment: Alize Jerome WPtel: [facility] [phone] (15 min) Moderate 02/08/2016 Patient Education: Patient [...] Alize Jerome WPtel: [id number] (15 min) Moderate 01/11/2016 Patient Education: Patient [...] normal liver response to medications. Chronic renal rmyauuu-nashft-sze labs Chronic Depression and anxiety - the [...] Care Plan: COMPLETE CBC AUTOMATED LOINC : 49353-8 Ordered 01/04/2015 Referral: [facility] WPtel[id number] Ref[facility] Appointment Requested Instructions Comment [...] change in blood pressure readings at home. Nvlotfd-nizeekqrsa-fddzdreq have increased some-increase lexapro to 1.5 tab [...] recommended Physical therapy ordered [facility] patient [facility]. Hyperlipidemia - pt has been counseled [...] Iliotibial band exercises. flector patches 1.3% - [id number] 04/2019 [facility] flu and pneumonia 13 shot today . [...] FOR PHYSICAL THERAPY LOW BACK STRETCHES . Knonshf-bohwtxbj-qbmuhibk lexapro-call if symptoms uncontrolled Low back mhqy-fspfdgbl-qmgdpyfhf discussed with the patient, pt to use [...] normal liver response to medications. Chronic renal kmsrbyx-mgmflk-fqa labs Chronic Depression and anxiety - the [...]
--- OUTSIDE RECORDS SUMMARY | 2018-07-28 10:16 | XMS REPORT | CCD ---
Author Author Alize Jerome Organization [facility] Address [address] [place] [address] Phone Care Team Providers Care Business Professor Name Role Phone PP Unavailable CCM Unavailable Summary Purpose Interface Exchange Insurance Providers Payer name Policy type / Coverage type Covered green party ID Effective Begin Date Effective End Date WPS Medicare Part B Medicare Part B [id number] Unknown Unknown [facility] Medicare Part B [id number] Unknown Unknown Family history Father Diagnosis Age [...] Unknown Retired 01/04/[address]: 093450127 Never smoker 01/04/2015 Alcohol history Unknown occasionally drinks alcohol 01/04/2015 Allergies, Adverse Reactions, Alerts Substance Reaction Codes Entered Date Inactivated Date Status * NO KNOWN FOOD ALLERGIES Unknown 01/04/2015 No Inactive Date Active * NO KNOWN DRUG ALLERGIES Unknown 01/04/2015 No Inactive Date Active Past Medical History Illness Codes Condition Status Onset Date Resolved Date Essential (primary) hypertension ICD-9: 401.9 ICD-10: I10 Active 01/10/2016 Unknown Low back pain ICD-9: [...] 727.51 ICD-10: M71.22 Active 09/25/2017 Unknown Chronic kidney disease, stage 3 (moderate) ICD-9: 585.3 ICD-10: N18.3 Active 01/10/2016 Unknown Chronic pain syndrome ICD-9: 338.4 ICD-10: G89.4 Active 07/12/2017 Unknown Encounter for immunization ICD-9: V06.6 ICD-10: Z23 Active 03/12/2017 Unknown Iliotibial band syndrome, right leg ICD-9: 728.89 ICD-10: M76.31 Active 02/08/2017 Unknown Encounter for general adult medical examination with abnormal findings ICD-9: V70.0 ICD-10: Z00.01 Active 02/09/2017 Unknown Mixed hyperlipidemia ICD-9: 272.4 ICD-10: E78.2 Active 01/10/2016 Unknown Trochanteric bursitis, right hip ICD-9: 726.5 [...] Problems Condition Codes Effective Dates Condition Status Essential (primary) hypertension ICD-9: 401.9 ICD-10: I10 01/10/2016 Active Low back pain ICD-9: 724.2 [...] ICD-9: 727.51 ICD-10: M71.22 09/25/2017 Active Chronic kidney disease, stage 3 (moderate) ICD-9: 585.3 ICD-10: N18.3 01/10/2016 Active Chronic pain syndrome ICD-9: 338.4 ICD-10: G89.4 07/12/2017 Active Encounter for immunization ICD-9: V06.6 ICD-10: Z23 03/12/2017 Active Iliotibial band syndrome, right leg ICD-9: 728.89 ICD-10: M76.31 02/08/2017 Active Encounter for general adult medical examination with abnormal findings ICD-9: V70.0 ICD-10: Z00.01 02/09/2017 Active Mixed hyperlipidemia ICD-9: 272.4 ICD-10: E78.2 01/10/2016 Active Trochanteric bursitis, right hip ICD-9: 726.5 [...] Start Date Stop Date Status Fill Instructions diazepam 5 mg tablet RxNorm: 024054 1 Tablet(s) PO TID PRN 07/14/2018 Active hydrocodone 5 mg-acetaminophen 325 mg tablet RxNorm: 649004 1 Tablet(s) PO Q6 as needed 03/15/2018 04/06/2018 Inactive carvedilol 3.125 mg tablet RxNorm: 788563 TAKE ONE TABLET BY MOUTH TWICE A DAY 02/11/2018 08/09/2018 Active Myrbetriq 25 mg tablet,extended release RxNorm: 6835751 1 Tablet(s) PO daily 01/22/2018 07/20/2018 Active hydrocodone 5 mg-acetaminophen 325 mg tablet RxNorm: 025477 1 Tablet(s) PO Q6 as needed 01/22/2018 02/13/2018 Inactive hydrocodone 5 mg-acetaminophen 325 mg tablet RxNorm: 141867 1 Tablet(s) PO Q6 as needed 11/27/2017 12/19/2017 Inactive Lexapro 10 mg tablet RxNorm: 331405 1.5 Tablet(s) PO daily 09/201709/09/2019 Active Myrbetriq 25 mg tablet,extended release RxNorm: 8161871 1 Tablet(s) PO daily 11/19/2017 01/21/2018 Inactive diazepam 5 mg tablet RxNorm: 677749 1 Tablet(s) PO TID PRN 04/15/2018 Inactive Lexapro 10 mg tablet RxNorm: 197145 TAKE ONE TABLET BY MOUTH EVERY EVENING 10/01/2017 11/18/2017 Inactive hydrocodone 5 mg-acetaminophen 325 mg tablet RxNorm: 651025 1 Tablet(s) PO Q6 as needed 09/28/2017 10/20/2017 Inactive Voltaren 1 % topical gel RxNorm: 866111 4 Gram(s) TOP QID 09/2501/22/2018 Inactive Kenalog 40 mg/mL suspension for injection RxNorm: 0140747 1 Milliliter(s) Inj 09/25/2017 09/25/2017 Inactive Bactrim DS 800 mg-160 mg tablet RxNorm: 087238 1 Tablet(s) PO BID 09/05/2017 09/11/2017 Inactive Take probiotic BID while on antibiotic Bactrim DS 800 mg-160 mg tablet RxNorm: 523048 1 Tablet(s) PO BID 09/05/2017 09/04/2017 Inactive Take probiotic BID while on antibiotic hydrocodone 5 mg-acetaminophen 325 mg tablet RxNorm: 351966 1 Tablet(s) PO Q6 as needed 07/12/2017 09/27/2017 Inactive hydrocodone 5 mg-acetaminophen 325 mg tablet RxNorm: 386520 1 Tablet(s) PO Q6 as needed 06/05/2017 07/11/2017 Inactive carvedilol 3.125 mg tablet RxNorm: 408088 TAKE ONE TABLET BY MOUTH TWICE A DAY 05/21/2017 02/10/2018 Inactive hydrocodone 5 mg-acetaminophen 325 mg tablet RxNorm: 348004 1 Tablet(s) PO Q6 as needed 04/20/2017 06/04/2017 Inactive Voltaren 1 % topical gel RxNorm: 946992 2 Gram(s) TOP QID to affected area 04/12/2017 07/10/2017 Inactive Voltaren 1 % topical gel RxNorm: 781804 2 Gram(s) TOP QID to affected area 04/12/2017 04/11/2017 Inactive diazepam 5 mg tablet RxNorm: 286292 1 Tablet(s) PO TID PRN 04/15/2018 Inactive Flector 1.3 % transdermal 12 hour patch RxNorm: 613595 1 Patch TOP BID 03/27/2017 04/11/2017 Inactive Flector 1.3 % transdermal 12 hour patch RxNorm: 072732 1/8 Patch TOP BID 03/12/2017 03/26/2017 Inactive hydrocodone 5 mg-acetaminophen 325 mg tablet RxNorm: 411332 1 Tablet(s) PO Q6 as needed 02/20/2017 04/19/2017 Inactive prednisone 10 mg tablets in a dose pack RxNorm: 183566 1 Tablet(s) PO UD 02/08/2017 09/24/2017 Inactive prednisone 10 mg tablets in a dose pack RxNorm: 895929 1 Tablet(s) PO UD 02/08/2017 02/07/2017 Inactive diazepam 5 mg tablet RxNorm: 160930 1 Tablet(s) PO TID PRN 08/201601/15/2017 Inactive Lexapro 10 mg tablet RxNorm: 573076 TAKE ONE TABLET BY MOUTH EVERY EVENING 08/13/2016 2017 Inactive carvedilol 3.125 mg tablet RxNorm: 882079 1 Tablet(s) PO BID 05/20/2017 Inactive diazepam 5 mg tablet RxNorm: 924621 1 Tablet(s) PO TID PRN 04/15/2018 Inactive Lexapro 10 mg tablet RxNorm: 663485 1 Tablet(s) PO QPM 201508/12/2016 Inactive Lexapro 5 mg tablet RxNorm: 482693 2 Tablet(s) PO QPM 201502/28/2016 Inactive hydrocodone 5 mg-acetaminophen 325 mg tablet RxNorm: 968426 1 Tablet(s) PO Q6 as needed 02/08/2016 02/19/2017 Inactive Lexapro 5 mg tablet RxNorm: 093962 1 Tablet(s) PO QPM 201502/17/2016 Inactive diazepam 5 mg tablet RxNorm: 501808 1 Tablet(s) PO TID PRN 07/201501/15/2016 Inactive Effexor XR 37.5 mg capsule,extended release RxNorm: 959741 1 Capsule(s) PO daily 09/29/2015 01/10/2016 Inactive diazepam 5 mg tablet RxNorm: 621370 1 Tablet(s) PO TID PRN 09/06/2015 Inactive carvedilol 3.125 mg tablet RxNorm: 124824 1 Tablet(s) PO BID 05/24/2016 Inactive diazepam 5 mg tablet RxNorm: 084910 1 Tablet(s) PO TID PRN 03/16/2016 Inactive Fish Oil 360 mg-1,200 mg capsule RxNorm: 367191 1 Capsule(s) PO daily 01/04/2015 No Stop Date Active diazepam 5 mg tablet RxNorm: 942926 1 Tablet(s) PO TID PRN 02/01/2015 Inactive diazepam 5 mg tablet RxNorm: 424128 1 Tablet(s) PO daily 201412/21/2014 Inactive pt to make an appt- called 1 mo to dillons diazepam 5 mg tablet RxNorm: 662937 1 Tablet(s) PO daily 201412/21/2014 Inactive diazepam 5 mg tablet RxNorm: 252838 1 Tablet(s) PO QHS 201401/03/2015 Inactive pt to make an appt- called 1 mo to dill[facility] niacin (inositol niacinate) 500 mg capsule RxNorm: 881674 1 Capsule(s) PO daily No Start Date Active letrozole 2.5 mg tablet RxNorm: 261866 1 Tablet(s) PO daily No Start Date Active aspirin 81 mg tablet RxNorm: 131912 1 Tablet(s) PO daily No Start Date Active Crestor 5 mg tablet RxNorm: 565247 1 Tablet(s) PO QHS No Start Date Active hydrocodone 5 mg-acetaminophen 325 mg tablet RxNorm: 108011 1 Tablet(s) PO Q6 as needed No Start Date 02/07/2016 Inactive Coreg 6.25 mg tablet RxNorm: 393424 1 Tablet(s) PO BID No Start Date 05/30/2015 Inactive Delzicol 400 mg capsule,delayed release RxNorm: 1776235 2 Capsule(s) PO daily No Start Date 08/07/2016 Inactive venlafaxine 37.5 mg tablet RxNorm: 790195 1 Tablet(s) PO daily No Start Date 01/03/2015 Inactive Effexor XR 37.5 mg capsule,extended release RxNorm: 122269 1 Capsule(s) PO daily No Start Date 09/28/2015 Inactive Medication Administered Medication Codes Instructions Start Date Status Kenalog 40 mg/mL suspension for injection RxNorm: 1956710 1Milliliter 09/25/2017 No longer Active Immunizations Vaccine Codes Date Status Influenza CVX: 141 03/12/2017 completed Pneumococcal (Adult) CVX: 133 03/12/2017 completed PPD Unknown 03/05/2015 completed Assessments Condition Codes Effective Dates Essential (primary) hypertension ICD-10: I10 ICD-9: 401.9 01/22/2018 Low back pain ICD-10: M54.5 ICD-9: 724.2 01/22/2018 Major depressive disorder, recurrent, mild ICD-10: F33.0 ICD-9: 296.31 01/22/2018 Mixed incontinence ICD-10: N39.46 ICD-9: 788.33 01/22/2018 Generalized anxiety disorder ICD-10: F41.1 ICD-9: 300.00 11/19/2017 Pain in left knee ICD-10: M25.562 ICD-9: 719.46 09/25/2017 Synovial cyst of popliteal space [Butts], left knee ICD-10: M71.22 ICD-9: 727.51 09/25/2017 Chronic kidney disease, stage 3 (moderate) ICD-10: N18.3 ICD-9: 585.3 07/12/2017 Chronic pain syndrome ICD-10: G89.4 ICD-9: 338.4 07/12/2017 Iliotibial band syndrome, right leg ICD-10: M76.31 ICD-9: 728.89 03/12/2017 Encounter for immunization ICD-10: Z23 ICD-9: V06.6 03/12/2017 Encounter for general adult medical examination with abnormal findings ICD-10: Z00.01 ICD-9: V70.0 02/09/2017 Vitamin D deficiency, unspecified ICD-10: E55.9 ICD-9: 268.9 02/08/2017 Mixed hyperlipidemia ICD-10: E78.2 ICD-9: 272.4 02/08/2017 Trochanteric bursitis, right hip ICD-10: M70.61 [...] Visit Reason For Visit Effective Dates Notes depression 01/22/2018 depression 11/19/2017 knee pain 09/25/2017 hypertension 07/12/2017 hypertension 03/12/2017 Annual Medicare Wellness Exam 02/09/2017 depression 02/08/2017 depression 08/08/2016 depression 02/08/2016 hypertension 01/11/2016 hypertension 07/12/2015 hypertension 01/04/2015 Results Observation Observation Code Item Item Code Result Date Tsh Ord6 hTSH II 1.69 uIU/mL 02/08/2017 [...] 97.1 fl 02/08/2017 Cbc With Differential Ord2 [place]% 10.0 % 02/08/2017 Cbc With Differential Ord2 [...] 2.00 K/ul 02/08/2017 Cbc With Differential Ord2 [place] ABS# 0.7 K/ul 02/08/2017 Cbc With Differential Ord2 Eos ABS# 0.1 K/ul 02/08/2017 Cbc With Differential Ord2 Baso ABS# 0.0 K/ul 02/08/2017 Comp Metabolic Mrl757 NA 142 mEq/L 02/08/2017 Comp Metabolic Omf906 K 4.5 mEq/L 02/08/2017 Comp Metabolic Out733 CL 106 mEq/L 02/08/2017 Comp Metabolic Ohy965 CO2 27.0 mEq/L 02/08/2017 Comp Metabolic Qll095 ANION GAP 14 02/08/2017 Comp Metabolic Tfm824 GLUCOSE 102 mg/dL 02/08/2017 Comp Metabolic Fko722 Creat 0.9 mg/dL 02/08/2017 Comp Metabolic Qbi507 eGFR 62 ml/min/1.73m2 02/08/2017 Comp Metabolic Mom278 BUN 14 mg/dL 02/08/2017 Comp Metabolic Des874 B/C Ratio 15.1 Ratio 02/08/2017 Comp Metabolic Rwf093 CALCIUM 9.5 mg/dL 02/08/2017 Comp Metabolic Pia222 ALK PHOS 98 U/L 02/08/2017 Comp Metabolic Eof050 AST(SGOT) 19 U/L 02/08/2017 Comp Metabolic Abb856 ALT(SGPT) 15 U/L 02/08/2017 Comp Metabolic Pmd447 BILI T 1.1 mg/dL 02/08/2017 Comp Metabolic Mqo156 ALBUMIN 4.1 g/dL 02/08/2017 Comp Metabolic Ucv943 TPRO 6.2 g/dL 02/08/2017 Comp Metabolic Pju644 GLOB 2.1 g/dL 02/08/2017 Comp Metabolic Qfi531 A/G Ratio 2.0 Ratio 02/08/2017 Comp Metabolic Gyt137 Osmo 284 mOsmo 02/08/2017 Lipid Ord30 CHOL 178 mg/dL 08/08/2016 Lipid Ord30 HDL 54.0 mg/dl 08/08/2016 Lipid Ord30 TRIG 184 mg/dL 08/08/2016 Lipid Ord30 LDL 87 mg/dL 08/08/2016 Lipid Ord30 C/HDL 3.3 Ratio 08/08/2016 Tsh Ord6 hTSH II 3.12 uIU/mL 08/08/2016 Comp Metabolic Mbl952 NA 140 mEq/L 08/08/2016 Comp Metabolic Sdl544 K 4.4 mEq/L 08/08/2016 Comp Metabolic Kcn158 CL 104 mEq/L 08/08/2016 Comp Metabolic Qpn881 CO2 30.0 mEq/L 08/08/2016 Comp Metabolic Rwn439 ANION GAP 10 08/08/2016 Comp Metabolic Uin732 GLUCOSE 107 mg/dL 08/08/2016 Comp Metabolic Mue894 Creat 1.1 mg/dL 08/08/2016 Comp Metabolic Ncx142 eGFR 53 ml/min/1.73m2 08/08/2016 Comp Metabolic Xne923 BUN 22 mg/dL 08/08/2016 Comp Metabolic Pkj334 B/C Ratio 20.6 Ratio 08/08/2016 Comp Metabolic Qvl362 CALCIUM 10.8 mg/dL 08/08/2016 Comp Metabolic Hir871 ALK PHOS 140 U/L 08/08/2016 Comp Metabolic Ujr632 AST(SGOT) 21 U/L 08/08/2016 Comp Metabolic Xwv928 ALT(SGPT) 17 U/L 08/08/2016 Comp Metabolic Zuk387 BILI T 0.8 mg/dL 08/08/2016 Comp Metabolic Ilf912 ALBUMIN 4.3 g/dL 08/08/2016 Comp Metabolic Vir852 TPRO 6.7 g/dL 08/08/2016 Comp Metabolic Uek803 GLOB 2.4 g/dL 08/08/2016 Comp Metabolic Auk488 A/G Ratio 1.8 Ratio 08/08/2016 Comp Metabolic Hff929 Osmo 283 mOsmo 08/08/2016 Cbc With Differential [...] 29.0 pg 08/08/2016 Cbc With Differential Ord2 [place]% 11.0 % 08/08/2016 Cbc With Differential Ord2 [...] 2.21 K/ul 08/08/2016 Cbc With Differential Ord2 [place] ABS# 0.7 K/ul 08/08/2016 Cbc With Differential Ord2 Eos ABS# 0.2 K/ul 08/08/2016 Cbc With Differential Ord2 Baso ABS# 0.0 K/ul 08/08/2016 Vitamin D 25 Oh Pfs1454 VITAMIN D, 25 HYDROXY 59.99 ng/mL Tsh Ord6 hTSH II 3.86 uIU/mL 01/11/2016 Comp Metabolic Alk878 NA 137 mEq/L 01/11/2016 Comp Metabolic Tdw539 K 4.4 mEq/L 01/11/2016 Comp Metabolic Jia494 CL 103 mEq/L 01/11/2016 Comp Metabolic Hqu026 CO2 27.0 mEq/L 01/11/2016 Comp Metabolic Ddy055 ANION GAP 11 01/11/2016 Comp Metabolic Lkm102 GLUCOSE 102 mg/dL 01/11/2016 Comp Metabolic Wqb769 Creat 1.1 mg/dL 01/11/2016 Comp Metabolic Suu580 eGFR 51 ml/min/1.73m2 01/11/2016 Comp Metabolic Tcz244 BUN 16 mg/dL 01/11/2016 Comp Metabolic Uir491 B/C Ratio 14.5 Ratio 01/11/2016 Comp Metabolic Gvl769 CALCIUM 9.9 mg/dL 01/11/2016 Comp Metabolic Jvc168 ALK PHOS 103 U/L 01/11/2016 Comp Metabolic Gpd102 AST(SGOT) 17 U/L 01/11/2016 Comp Metabolic Kji693 ALT(SGPT) 14 U/L 01/11/2016 Comp Metabolic Npt545 BILI T 0.8 mg/dL 01/11/2016 Comp Metabolic Nny257 ALBUMIN 4.4 g/dL 01/11/2016 Comp Metabolic Qkh365 TPRO 6.8 g/dL 01/11/2016 Comp Metabolic Tnu567 GLOB 2.5 g/dL 01/11/2016 Comp Metabolic Whx999 A/G Ratio 1.8 Ratio 01/11/2016 Comp Metabolic Dxz690 Osmo 275 mOsmo 01/11/2016 Lipid Ord30 CHOL [...] 93.1 fl 01/11/2016 Cbc With Differential Ord2 [place]% 10.7 % 01/11/2016 Cbc With Differential Ord2 [...] 2.35 K/ul 01/11/2016 Cbc With Differential Ord2 [place] ABS# 0.7 K/ul 01/11/2016 Cbc With Differential [...] 92.2 fl 07/12/2015 Cbc With Differential Ord2 [place]% 9.5 % 07/12/2015 Cbc With Differential Ord2 [...] 2.86 K/ul 07/12/2015 Cbc With Differential Ord2 [place] ABS# 0.7 K/ul 07/12/2015 Cbc With Differential [...] hTSH II 3.54 uIU/mL 07/12/2015 Comp Metabolic Rxc650 NA 140 mEq/L 07/12/2015 Comp Metabolic Rwm195 K 4.4 mEq/L 07/12/2015 Comp Metabolic Ihw485 CL 104 mEq/L 07/12/2015 Comp Metabolic Xrr373 CO2 28.0 mEq/L 07/12/2015 Comp Metabolic Hbu871 ANION GAP 12 07/12/2015 Comp Metabolic Fyt134 GLUCOSE 92 mg/dL 07/12/2015 Comp Metabolic Xwz916 Creat 1.2 mg/dL 07/12/2015 Comp Metabolic Vtq199 eGFR 47 ml/min/1.73m2 07/12/2015 Comp Metabolic Xfb159 BUN 18 mg/dL 07/12/2015 Comp Metabolic Arb784 B/C Ratio 15.1 Ratio 07/12/2015 Comp Metabolic Efi004 CALCIUM 10.1 mg/dL 07/12/2015 Comp Metabolic Aul060 ALK PHOS 134 U/L 07/12/2015 Comp Metabolic Krd744 AST(SGOT) 18 U/L 07/12/2015 Comp Metabolic Qsu053 ALT(SGPT) 17 U/L 07/12/2015 Comp Metabolic Fji416 BILI T 0.8 mg/dL 07/12/2015 Comp Metabolic Qfm015 ALBUMIN 4.1 g/dL 07/12/2015 Comp Metabolic Hrk965 TPRO 6.6 g/dL 07/12/2015 Comp Metabolic Otk608 GLOB 2.5 g/dL 07/12/2015 Comp Metabolic Shq330 A/G Ratio 1.7 Ratio 07/12/2015 Comp Metabolic Bjf475 Osmo 281 mOsmo 07/12/2015 Cbc With Differential [...] Ord2 RDW 15.3 % 01/05/2015 Comp Metabolic Iqt811 NA 139 mEq/L 01/05/2015 Comp Metabolic Eqc597 K 4.0 mEq/L 01/05/2015 Comp Metabolic Hit129 CL 106 mEq/L 01/05/2015 Comp Metabolic Kwz324 CO2 27.0 mEq/L 01/05/2015 Comp Metabolic Usj733 ANION GAP 10 01/05/2015 Comp Metabolic Ocf965 GLUCOSE 111 mg/dL 01/05/2015 Comp Metabolic Rse320 Creat 1.2 mg/dL 01/05/2015 Comp Metabolic Anz217 eGFR 48 ml/min/1.73m2 01/05/2015 Comp Metabolic Svn775 BUN 18 mg/dL 01/05/2015 Comp Metabolic Lik134 B/C Ratio 15.4 Ratio 01/05/2015 Comp Metabolic Aqg215 CALCIUM 9.2 mg/dL 01/05/2015 Comp Metabolic Nnn785 ALK PHOS 202 U/L 01/05/2015 Comp Metabolic Cey765 AST(SGOT) 19 U/L 01/05/2015 Comp Metabolic Nji015 ALT(SGPT) 22 U/L 01/05/2015 Comp Metabolic Etz503 BILI T 0.7 mg/dL 01/05/2015 Comp Metabolic Qsh138 ALBUMIN 3.8 g/dL 01/05/2015 Comp Metabolic Wzo054 TPRO 6.1 g/dL 01/05/2015 Comp Metabolic Exv022 GLOB 2.3 g/dL 01/05/2015 Comp Metabolic Rfk446 A/G Ratio 1.7 Ratio 01/05/2015 Comp Metabolic Znk735 Osmo 280 mOsmo 01/05/2015 Tsh Ord6 hTSH [...] accomodation 01/04/2015 None Procedures Procedure Codes Date DRAIN/INJECT JOINT/BURSA CPT-4: 15390 09/25/2017 ADMIN INFLUENZA VIRUS VAC CPT-4: G0008 03/12/2017 ADMIN PNEUMOCOCCAL VACCINE SNOMED CT: 63103873 CPT-4: G0009 03/12/2017 FLU VACC PRSV FREE INC ANTIG CPT-4: 48240 03/12/2017 PNEUMOCOCCAL VACC [address]: 77530085 CPT-4: 91340 03/12/2017 PPPS, SUBSEQ VISIT CPT -4: G0439 02/09/2017 Vital Signs Date Vital 01/22/2018 Blood Pressure 1: 142/78 Code : 8480-6 BMI: 31.6 Code : 79667-0 Heart Rate 1 : 85 bpm Height: 5'5" SpO2: 97% Weight: 190 lbs 11/19/2017 Blood Pressure 1: 132/78 Code : 8480-6 BMI: 31.1 Code : 99180-6 Heart Rate 1 : 68 bpm Height: 5'5" SpO2: 97% Weight: 187 lbs 09/25/2017 Blood Pressure 1: 140/80 Code : 8480-6 BMI: 31.0 Code : 92461-8 Heart Rate 1 : 80 bpm Height: 5'5" SpO2: 99% Weight: 186 lbs 07/12/2017 Blood Pressure 1: 144/88 Code : 8480-6 Blood Pressure 1: 138/72 Code: 8480-6 BMI: 30.8 Code: 12901-9 Heart Rate 1: 71 bpm Height: 5'5" SpO2: 95% Weight: 185 lbs 03/12/2017 Blood Pressure 1: 140/80 Code : 8480-6 BMI: 30.6 Code : 16416-5 Heart Rate 1 : 75 bpm Height: 5'5" SpO2: 97% Weight: 184 lbs 02/09/2017 Heart Rate 1: 74 bpm Height: Weight: 02/08/2017 Blood Pressure 1: 146/88 Code : 8480-6 BMI: 30.1 Code : 21573-0 Heart Rate 1 : 76 bpm Height: 5'5" SpO2: 95% Weight: 181 lbs 08/08/2016 Blood Pressure 1: 144/76 Code : 8480-6 Heart Rate 1: 80 bpm SpO2: 98% Weight: 185 lbs 02/08/2016 Blood Pressure 1: 130/70 Code : 8480-6 BMI: 30.3 Code : 89451-0 Heart Rate 1 : 60 bpm Height: 5'5" SpO2: 98% Weight: 182 lbs 01/11/2016 Blood Pressure 1: 148/82 Code : 8480-6 BMI: 30.6 Code : 27705-5 Heart Rate 1 : 84 bpm Height: 5'5" SpO2: 96% Weight: 184 lbs 07/12/2015 Blood Pressure 1: 152/76 Code : 8480-6 BMI: 30.6 Code : 06062-7 Heart Rate 1 : 70 bpm Height: 5'5" SpO2: 93% Weight: 184 lbs 01/04/2015 Blood Pressure 1: 148/88 Code : 8480-6 BMI: 31.0 Code : 33441-7 Heart Rate 1 : 80 bpm Height: 5'5" Weight: 186 lbs Functional Status No Functional Status data History of Present Illness Symptom Name Status Result Effective Date Notes depression Quality intermittent 01/22/2018 None depression Onset [...] data Encounters Encounter Performer Location Codes Date ([id number]) 62704 EST. PATIENT, LEVEL IV Diagnosis: Essential (primary) hypertension[ICD10: I10] Diagnosis: Major depressive disorder, recurrent, mild[ICD10: F33.0] Diagnosis: Mixed incontinence[ICD10: N39.46] Diagnosis: Low back pain[ICD10: M54.5] Alize Aguirre MD, [facility] CPT-4: 40399 01/22/2018 ([id number]) 46003 EST. PATIENT, LEVEL IV Diagnosis: Essential (primary) hypertension[ICD10: I10] Diagnosis: Generalized anxiety disorder[ICD10: F41.1] Diagnosis: Major depressive disorder, recurrent, mild[ICD10: F33.0] Diagnosis: Mixed incontinence[ICD10: N39.46] Alize Aguirre MD, [facility] CPT-4: 41704 11/19/2017 11909 EST. PATIENT, LEVEL III Diagnosis: Pain in left knee[ICD10: M25.562] Diagnosis: Synovial cyst of popliteal space [Butts], left knee[ICD10: M71.22] Alize Aguirre MD, [facility] CPT-4: 60994 09/25/2017 ([id number]) 31099 EST. PATIENT, LEVEL IV Diagnosis: Essential (primary) hypertension[ICD10: I10] Diagnosis: Chronic kidney disease, stage 3 (moderate)[ICD10: N18.3] Diagnosis: Generalized anxiety disorder[ICD10: F41.1] Diagnosis: Chronic pain syndrome[ICD10: G89.4] Diana [facility] MD, [facility] CPT-4: 64142 07/12/2017 ([id number]) 37358 EST. PATIENT, LEVEL IV Diagnosis: Essential (primary) hypertension[ICD10: I10] Diagnosis: Iliotibial band syndrome, right leg[ICD10: M76.31] Diagnosis: Encounter for immunization[ICD10: Z23] Diana Aguirre MD, [facility] CPT-4: 96354 03/12/2017 ([id number]) 09792 EST. PATIENT, LEVEL IV Diagnosis: Iliotibial band syndrome, right leg[ICD10: M76.31] Diagnosis: Mixed hyperlipidemia[ICD10: E78.2] Diagnosis: Generalized anxiety disorder[ICD10: F41.1] Diagnosis: Essential (primary) hypertension[ICD10: I10] Diagnosis: Chronic kidney disease, stage 3 (moderate)[ICD10: N18.3] Diagnosis: Trochanteric bursitis, right hip[ICD10: M70.61] Diagnosis: Vitamin D deficiency, unspecified[ICD10: E55.9] Diana Aguirre MD, [facility] CPT-4: 40018 02/08/2017 ([id number]) 82709 EST. PATIENT, LEVEL IV Diagnosis: Essential (primary) hypertension[ICD10: I10] Diagnosis: Mixed hyperlipidemia[ICD10: E78.2] Diagnosis: Chronic kidney disease, stage 3 (moderate)[ICD10: N18.3] Diagnosis: Low back pain[ICD10: M54.5] Alize Aguirre MD, [facility] CPT-4: 42059 08/08/2016 [id number]) [id number] EST. PATIENT, LEVEL III Diagnosis: Generalized anxiety disorder[ICD10: F41.1] Diagnosis: Sciatica, right side[ICD10: M54.31] Alize Aguirre MD, [facility] CPT-4: 88630 02/08/2016 ([id number]) 78629 EST. PATIENT, LEVEL IV Diagnosis: Essential (primary) hypertension[ICD10: I10] Diagnosis: Mixed hyperlipidemia[ICD10: E78.2] Diagnosis: Generalized anxiety disorder[ICD10: F41.1] Diagnosis: Vitamin D deficiency, unspecified[ICD10: E55.9] Diagnosis: Chronic kidney disease, stage 3 (moderate)[ICD10: N18.3] Alize Aguirre MD , [facility] CPT-4: 00256 01/11/2016 ([id number]) 06276 EST. PATIENT, LEVEL IV Diagnosis: Essential (primary) hypertension[ICD10: I10] Diagnosis: Mixed hyperlipidemia[ICD10: E78.2] Diagnosis: Generalized anxiety disorder[ICD10: F41.1] [facility] CPT-4: 70205 07/12/2015 ([id number]) Miscellaneous no charge Diagnosis: Forearm fracture[ICD9: 813.80] [facility] CPT- 4: 66509 03/05/2015 ([id number]) OFFICE VISIT, NEW - LEVEL 4 Diagnosis: ESSENTIAL HYPERTENSION[ICD9: 401.9] Diagnosis: Hyperlipidemia[ICD9: 272.4] Diagnosis: Chronic renal disease, stage 3, moderately decreased glomerular filtration rate (GFR) between 30-59 mL/min/1.73 square meter[ICD9: 585.3] Diagnosis: Anxiety state[ICD9: 300.00] [facility] CPT-4: 77836 01/04/2015 Plan of Care Planned Activity Notes Codes Status Date Visit Plan: Hypertension - well controlled - [...] 01/22/2018 Appointment: Alize Jerome WPtel: [phone] [phone] (30 min) Complex 01/22/2018 Patient Education: [...] of myrbetriq 11/19/2017 Appointment: Alize Jerome WPtel: [phone] (15 min) Moderate 11/19/2017 Patient Education: Patient Medication Summary Completed 11/19/2017 Visit Plan: Bakers cyst-left knee pain-Joint Injection - Pt was given post - injection instructions. The pt has been advised to use anti- inflammatories post injection today, ice to the injected site, call if redness, warmth, or increased pain occurs at the site of injection. 09/25/2017 Appointment: Alize Jerome WPtel: [phone] [phone] (30 min) Complex 09/25/2017 Patient Education: [...] care. 07/12/2017 Appointment: Diana Aguirre WPtel: [phone] [id number] (15 min) Moderate 07/12/2017 Patient Education: [...] Iliotibial band exercises. flector patches 1.3% - [id number] 04/2019 pfizer flu and pneumonia 13 shot today 03/12/2017 Appointment: Diana Aguirre WPtel: [address] [place], [place] [phone] (15 min) Moderate 03/12/2017 Patient Education: Patient Medication Summary Completed 03/12/2017 Patient Education: Obesity Completed 03/12/2017 Patient Education: Hypertension Completed 03/12/2017 Referral: [id number] they will call her with appt [...] Woody WPtel[id number] [facility] - Annual Wellness Visit 02/09/2017 [...] oral fluids. 02/08/2017 Appointment: Diana Aguirre WPtel: [phone] [facility] (15 min) Moderate 02/08/2017 Patient Education: Patient Medication Summary Completed 02/08/2017 Patient Education: Obesity Completed 02/08/2017 Patient Education: Hypertension Completed 02/08/2017 Care Plan: Referral Order SNOMED-CT : [id number] Pending 02/08/2017 Appointment: Alize Jerome WPtel: [phone] [phone] (15 min) Moderate 02/06/2017 Visit Plan: Hypertension [...] labs 08/08/2016 Appointment: Alize Jerome WPtel: [phone] [phone] [place] (15 min) Moderate 08/08/2016 Patient Education: Patient Medication Summary Completed 08/08/2016 Visit Plan: Gneuewg-aiodrwdd-rpsirion lexapro-call if symptoms uncontrolled Low back ddki-wxqnffta-mmwmuncfw discussed with the patient, pt to use topical voltaren gel as directed. Pt is to call if the symptoms do not improve or if they worsen. 02/08/2016 Appointment: Alize Jerome WPtel: [facility] [place] [address] (15 min) Moderate 02/08/2016 Patient Education: Patient [...] Jerome WPtel: [phone] (15 min) Moderate 01/11/2016 Patient Education: [...] normal liver response to medications. Chronic renal zojywbz-vitmxy-oex labs Chronic Depression and anxiety - the [...] Care Plan: COMPLETE CBC AUTOMATED LOINC : 60260-9 Ordered 01/04/2015 [id number] [facility] Requested Instructions Comment [...] change in blood pressure readings at home. Kfljyhx-nxwfidyhlb-fbnuqrby have increased some-increase lexapro to 1.5 tab [...] DOPA paperwork for health care surrogate. . rx for hydrocodone given to patient [...] Iliotibial band exercises. flector patches 1.3% - [id number] 04/2019 [email or web address] flu and pneumonia 13 shot today . [...] FOR PHYSICAL THERAPY LOW BACK STRETCHES . Qgeiylp-eqhnyehm-pfuzttfi lexapro-call if symptoms uncontrolled Low back uttr-murxkttd-qfcowhkcd discussed with the patient, pt to use [...] normal liver response to medications. Chronic renal dhpzzxk-ctscdj-dlr labs Chronic Depression and anxiety - the [...]
--- OUTSIDE RECORDS SUMMARY | 2018-07-28 10:18 | XMS REPORT | CCD ---
Author Author Alize Jerome Organization [facility] Address [address] [place] [address] Phone Care Team Providers Care Cloth Shader Name Role Phone PP Unavailable CCM Unavailable Summary Purpose Interface Exchange Insurance Providers Payer name Policy type / Coverage type Covered alliance party ID Effective Begin Date Effective End Date WPS Medicare Part B Medicare Part B [id number] Unknown Unknown [facility] Medicare Part B [id number] Unknown Unknown Family history Father Diagnosis Age [...] Unknown Retired 01/04/[address]: 507038620 Never smoker 01/04/2015 Alcohol history Unknown occasionally [...] hydrocodone 5 mg-acetaminophen 325 mg tablet RxNorm: 733241 1 Tablet(s) PO Q6 as needed 03/15/2018 04/06/2018 Inactive carvedilol 3.125 mg tablet RxNorm: 755997 TAKE ONE TABLET BY MOUTH TWICE A DAY 02/11/2018 08/09/2018 Active Myrbetriq 25 mg tablet,extended release RxNorm: 0960037 1 Tablet(s) PO daily 01/22/2018 07/20/2018 Active hydrocodone 5 mg-acetaminophen 325 mg tablet RxNorm: 983167 1 Tablet(s) PO Q6 as needed 01/22/2018 02/13/2018 Inactive hydrocodone 5 mg-acetaminophen 325 mg tablet RxNorm: 285203 1 Tablet(s) PO Q6 as needed 11/27/2017 12/19/2017 Inactive Lexapro 10 mg tablet RxNorm: 017658 1.5 Tablet(s) PO daily 09/201709/09/2019 Active Myrbetriq 25 mg tablet,extended release RxNorm: 5895412 1 Tablet(s) PO daily 11/19/2017 01/21/2018 Inactive diazepam 5 mg tablet RxNorm: 361461 1 Tablet(s) PO TID PRN 01/09/2018 Inactive Lexapro 10 mg tablet RxNorm: 110345 TAKE ONE TABLET BY MOUTH EVERY EVENING 10/01/2017 11/18/2017 Inactive hydrocodone 5 mg-acetaminophen 325 mg tablet RxNorm: 373027 1 Tablet(s) PO Q6 as needed 09/28/2017 10/20/2017 Inactive Voltaren 1 % topical gel RxNorm: 034918 4 Gram(s) TOP QID 09/2501/22/2018 Inactive Kenalog 40 mg/mL suspension for injection RxNorm: 9232299 1 Milliliter(s) Inj 09/25/2017 09/25/2017 Inactive Bactrim DS 800 mg-160 mg tablet RxNorm: 995024 1 Tablet(s) PO BID 09/05/2017 09/11/2017 Inactive Take probiotic BID while on antibiotic Bactrim DS 800 mg-160 mg tablet RxNorm: 216783 1 Tablet(s) PO BID 09/05/2017 09/04/2017 Inactive Take probiotic BID while on antibiotic hydrocodone 5 mg-acetaminophen 325 mg tablet RxNorm: 638764 1 Tablet(s) PO Q6 as needed 07/12/2017 09/27/2017 Inactive hydrocodone 5 mg-acetaminophen 325 mg tablet RxNorm: 719712 1 Tablet(s) PO Q6 as needed 06/05/2017 07/11/2017 Inactive carvedilol 3.125 mg tablet RxNorm: 344370 TAKE ONE TABLET BY MOUTH TWICE A DAY 05/21/2017 02/10/2018 Inactive hydrocodone 5 mg-acetaminophen 325 mg tablet RxNorm: 513962 1 Tablet(s) PO Q6 as needed 04/20/2017 06/04/2017 Inactive Voltaren 1 % topical gel RxNorm: 665945 2 Gram(s) TOP QID to affected area 04/12/2017 07/10/2017 Inactive Voltaren 1 % topical gel RxNorm: 419823 2 Gram(s) TOP QID to affected area 04/12/2017 04/11/2017 Inactive diazepam 5 mg tablet RxNorm: 917593 1 Tablet(s) PO TID PRN 07/31/2017 Inactive Flector 1.3 % transdermal 12 hour patch RxNorm: 649716 1 Patch TOP BID 03/27/2017 04/11/2017 Inactive Flector 1.3 % transdermal 12 hour patch RxNorm: 415554 1/8 Patch TOP BID 03/12/2017 03/26/2017 Inactive hydrocodone 5 mg-acetaminophen 325 mg tablet RxNorm: 035612 1 Tablet(s) PO Q6 as needed 02/20/2017 04/19/2017 Inactive prednisone 10 mg tablets in a dose pack RxNorm: 688345 1 Tablet(s) PO UD 02/08/2017 09/24/2017 Inactive prednisone 10 mg tablets in a dose pack RxNorm: 443620 1 Tablet(s) PO UD 02/08/2017 02/07/2017 Inactive diazepam 5 mg tablet RxNorm: 528467 1 Tablet(s) PO TID PRN 08/201601/15/2017 Inactive Lexapro 10 mg tablet RxNorm: 017873 TAKE ONE TABLET BY MOUTH EVERY EVENING 08/13/2016 2017 Inactive carvedilol 3.125 mg tablet RxNorm: 687019 1 Tablet(s) PO BID 05/20/2017 Inactive diazepam 5 mg tablet RxNorm: 438426 1 Tablet(s) PO TID PRN 06/13/2016 Inactive Lexapro 10 mg tablet RxNorm: 347882 1 Tablet(s) PO QPM 201508/12/2016 Inactive Lexapro 5 mg tablet RxNorm: 497821 2 Tablet(s) PO QPM 201502/28/2016 Inactive hydrocodone 5 mg-acetaminophen 325 mg tablet RxNorm: 776426 1 Tablet(s) PO Q6 as needed 02/08/2016 02/19/2017 Inactive Lexapro 5 mg tablet RxNorm: 656823 1 Tablet(s) PO QPM 201502/17/2016 Inactive diazepam 5 mg tablet RxNorm: 035448 1 Tablet(s) PO TID PRN 07/201501/15/2016 Inactive Effexor XR 37.5 mg capsule,extended release RxNorm: 668165 1 Capsule(s) PO daily 09/29/2015 01/10/2016 Inactive diazepam 5 mg tablet RxNorm: 860713 1 Tablet(s) PO TID PRN 09/06/2015 Inactive carvedilol 3.125 mg tablet RxNorm: 423882 1 Tablet(s) PO BID 05/24/2016 Inactive diazepam 5 mg tablet RxNorm: 667756 1 Tablet(s) PO TID PRN 03/16/2016 Inactive Fish Oil 360 mg-1,200 mg capsule RxNorm: 437528 1 Capsule(s) PO daily 01/04/2015 No Stop Date Active diazepam 5 mg tablet RxNorm: 216430 1 Tablet(s) PO TID PRN 02/01/2015 Inactive diazepam 5 mg tablet RxNorm: 514397 1 Tablet(s) PO daily 201412/21/2014 Inactive pt to make an appt- called 1 mo to dillons diazepam 5 mg tablet RxNorm: 375847 1 Tablet(s) PO daily 201412/21/2014 Inactive diazepam 5 mg tablet RxNorm: 652922 1 Tablet(s) PO QHS 201401/03/2015 Inactive pt to make an appt- called 1 mo to dillons niacin (inositol niacinate) 500 mg capsule RxNorm: 872468 1 Capsule(s) PO daily No Start Date Active letrozole 2.5 mg tablet RxNorm: 270423 1 Tablet(s) PO daily No Start Date Active aspirin 81 mg tablet RxNorm: 263159 1 Tablet(s) PO daily No Start Date Active Crestor 5 mg tablet RxNorm: 603065 1 Tablet(s) PO QHS No Start Date Active hydrocodone 5 mg-acetaminophen 325 mg tablet RxNorm: 858761 1 Tablet(s) PO Q6 as needed No Start Date 02/07/2016 Inactive Coreg 6.25 mg tablet RxNorm: 168014 1 Tablet(s) PO BID No Start Date 05/30/2015 Inactive Delzicol 400 mg capsule,delayed release RxNorm: 3278206 2 Capsule(s) PO daily No Start Date 08/07/2016 Inactive venlafaxine 37.5 mg tablet RxNorm: 515977 1 Tablet(s) PO daily No Start Date 01/03/2015 Inactive Effexor XR 37.5 mg capsule,extended release RxNorm: 411674 1 Capsule(s) PO daily No Start Date 09/28/2015 Inactive Medication Administered Medication Codes Instructions Start Date Status Kenalog 40 mg/mL suspension for injection RxNorm: 2842728 1Milliliter 09/25/2017 No longer Active Immunizations Vaccine [...] 97.1 fl 02/08/2017 Cbc With Differential Ord2 [place]% 10.0 % 02/08/2017 Cbc With Differential Ord2 [...] 2.00 K/ul 02/08/2017 Cbc With Differential Ord2 [place] ABS# 0.7 K/ul 02/08/2017 Cbc With Differential Ord2 Eos ABS# 0.1 K/ul 02/08/2017 Cbc With Differential Ord2 Baso ABS# 0.0 K/ul 02/08/2017 Comp Metabolic Ixb361 NA 142 mEq/L 02/08/2017 Comp Metabolic Wjd118 K 4.5 mEq/L 02/08/2017 Comp Metabolic Jmj817 CL 106 mEq/L 02/08/2017 Comp Metabolic Kbt158 CO2 27.0 mEq/L 02/08/2017 Comp Metabolic Cjw090 ANION GAP 14 02/08/2017 Comp Metabolic Wsp156 GLUCOSE 102 mg/dL 02/08/2017 Comp Metabolic Bcw417 Creat 0.9 mg/dL 02/08/2017 Comp Metabolic Uri428 eGFR 62 ml/min/1.73m2 02/08/2017 Comp Metabolic Wte420 BUN 14 mg/dL 02/08/2017 Comp Metabolic Lbr266 B/C Ratio 15.1 Ratio 02/08/2017 Comp Metabolic Eyn213 CALCIUM 9.5 mg/dL 02/08/2017 Comp Metabolic Dpa556 ALK PHOS 98 U/L 02/08/2017 Comp Metabolic Qfc889 AST(SGOT) 19 U/L 02/08/2017 Comp Metabolic Qxb975 ALT(SGPT) 15 U/L 02/08/2017 Comp Metabolic Cya276 BILI T 1.1 mg/dL 02/08/2017 Comp Metabolic Kmh732 ALBUMIN 4.1 g/dL 02/08/2017 Comp Metabolic Jkp169 TPRO 6.2 g/dL 02/08/2017 Comp Metabolic Hze295 GLOB 2.1 g/dL 02/08/2017 Comp Metabolic Dgl256 A/G Ratio 2.0 Ratio 02/08/2017 Comp Metabolic Nkg597 Osmo 284 mOsmo 02/08/2017 Lipid Ord30 CHOL 178 mg/dL 08/08/2016 Lipid Ord30 HDL 54.0 mg/dl 08/08/2016 Lipid Ord30 TRIG 184 mg/dL 08/08/2016 Lipid Ord30 LDL 87 mg/dL 08/08/2016 Lipid Ord30 C/HDL 3.3 Ratio 08/08/2016 Tsh Ord6 hTSH II 3.12 uIU/mL 08/08/2016 Comp Metabolic Ulm171 NA 140 mEq/L 08/08/2016 Comp Metabolic Xct993 K 4.4 mEq/L 08/08/2016 Comp Metabolic Tai149 CL 104 mEq/L 08/08/2016 Comp Metabolic Uwk059 CO2 30.0 mEq/L 08/08/2016 Comp Metabolic Jvy297 ANION GAP 10 08/08/2016 Comp Metabolic Oqr756 GLUCOSE 107 mg/dL 08/08/2016 Comp Metabolic Rou332 Creat 1.1 mg/dL 08/08/2016 Comp Metabolic Agb734 eGFR 53 ml/min/1.73m2 08/08/2016 Comp Metabolic Txo771 BUN 22 mg/dL 08/08/2016 Comp Metabolic Kfx129 B/C Ratio 20.6 Ratio 08/08/2016 Comp Metabolic Zag906 CALCIUM 10.8 mg/dL 08/08/2016 Comp Metabolic Imo313 ALK PHOS 140 U/L 08/08/2016 Comp Metabolic Dwe379 AST(SGOT) 21 U/L 08/08/2016 Comp Metabolic Ffn930 ALT(SGPT) 17 U/L 08/08/2016 Comp Metabolic Cws780 BILI T 0.8 mg/dL 08/08/2016 Comp Metabolic Zlz753 ALBUMIN 4.3 g/dL 08/08/2016 Comp Metabolic Nhq575 TPRO 6.7 g/dL 08/08/2016 Comp Metabolic Fkr656 GLOB 2.4 g/dL 08/08/2016 Comp Metabolic Nlr265 A/G Ratio 1.8 Ratio 08/08/2016 Comp Metabolic Uth744 Osmo 283 mOsmo 08/08/2016 Cbc With Differential [...] 29.0 pg 08/08/2016 Cbc With Differential Ord2 [place]% 11.0 % 08/08/2016 Cbc With Differential Ord2 [...] 2.21 K/ul 08/08/2016 Cbc With Differential Ord2 [place] ABS# 0.7 K/ul 08/08/2016 Cbc With Differential Ord2 Eos ABS# 0.2 K/ul 08/08/2016 Cbc With Differential Ord2 Baso ABS# 0.0 K/ul 08/08/2016 Vitamin D 25 Oh Qto1233 VITAMIN D, 25 HYDROXY 59.99 ng/mL Tsh Ord6 hTSH II 3.86 uIU/mL 01/11/2016 Comp Metabolic Bkr127 NA 137 mEq/L 01/11/2016 Comp Metabolic Cyt588 K 4.4 mEq/L 01/11/2016 Comp Metabolic Net803 CL 103 mEq/L 01/11/2016 Comp Metabolic Esc254 CO2 27.0 mEq/L 01/11/2016 Comp Metabolic Eke688 ANION GAP 11 01/11/2016 Comp Metabolic Ohn596 GLUCOSE 102 mg/dL 01/11/2016 Comp Metabolic Cxe536 Creat 1.1 mg/dL 01/11/2016 Comp Metabolic Oiz632 eGFR 51 ml/min/1.73m2 01/11/2016 Comp Metabolic Gtt120 BUN 16 mg/dL 01/11/2016 Comp Metabolic Cco393 B/C Ratio 14.5 Ratio 01/11/2016 Comp Metabolic Dht330 CALCIUM 9.9 mg/dL 01/11/2016 Comp Metabolic Hzb023 ALK PHOS 103 U/L 01/11/2016 Comp Metabolic Uvj661 AST(SGOT) 17 U/L 01/11/2016 Comp Metabolic Kss621 ALT(SGPT) 14 U/L 01/11/2016 Comp Metabolic Pmv801 BILI T 0.8 mg/dL 01/11/2016 Comp Metabolic Vzo284 ALBUMIN 4.4 g/dL 01/11/2016 Comp Metabolic Vvt474 TPRO 6.8 g/dL 01/11/2016 Comp Metabolic Hzo640 GLOB 2.5 g/dL 01/11/2016 Comp Metabolic Vgz237 A/G Ratio 1.8 Ratio 01/11/2016 Comp Metabolic Iux367 Osmo 275 mOsmo 01/11/2016 Lipid Ord30 CHOL [...] 93.1 fl 01/11/2016 Cbc With Differential Ord2 [place]% 10.7 % 01/11/2016 Cbc With Differential Ord2 [...] 2.35 K/ul 01/11/2016 Cbc With Differential Ord2 [place] ABS# 0.7 K/ul 01/11/2016 Cbc With Differential [...] 92.2 fl 07/12/2015 Cbc With Differential Ord2 [place]% 9.5 % 07/12/2015 Cbc With Differential Ord2 [...] 2.86 K/ul 07/12/2015 Cbc With Differential Ord2 [place] ABS# 0.7 K/ul 07/12/2015 Cbc With Differential [...] hTSH II 3.54 uIU/mL 07/12/2015 Comp Metabolic Lcd111 NA 140 mEq/L 07/12/2015 Comp Metabolic Elp267 K 4.4 mEq/L 07/12/2015 Comp Metabolic Iuu485 CL 104 mEq/L 07/12/2015 Comp Metabolic Jiu725 CO2 28.0 mEq/L 07/12/2015 Comp Metabolic Rxr131 ANION GAP 12 07/12/2015 Comp Metabolic Eto466 GLUCOSE 92 mg/dL 07/12/2015 Comp Metabolic Wui355 Creat 1.2 mg/dL 07/12/2015 Comp Metabolic Cdo068 eGFR 47 ml/min/1.73m2 07/12/2015 Comp Metabolic Jcg505 BUN 18 mg/dL 07/12/2015 Comp Metabolic Adx241 B/C Ratio 15.1 Ratio 07/12/2015 Comp Metabolic Dko606 CALCIUM 10.1 mg/dL 07/12/2015 Comp Metabolic Gvw601 ALK PHOS 134 U/L 07/12/2015 Comp Metabolic Ubg013 AST(SGOT) 18 U/L 07/12/2015 Comp Metabolic Nff397 ALT(SGPT) 17 U/L 07/12/2015 Comp Metabolic Vbw531 BILI T 0.8 mg/dL 07/12/2015 Comp Metabolic Sam327 ALBUMIN 4.1 g/dL 07/12/2015 Comp Metabolic Aub908 TPRO 6.6 g/dL 07/12/2015 Comp Metabolic Vab915 GLOB 2.5 g/dL 07/12/2015 Comp Metabolic Krd001 A/G Ratio 1.7 Ratio 07/12/2015 Comp Metabolic Crr586 Osmo 281 mOsmo 07/12/2015 Cbc With Differential [...] Ord2 RDW 15.3 % 01/05/2015 Comp Metabolic Jpp918 NA 139 mEq/L 01/05/2015 Comp Metabolic Ezp910 K 4.0 mEq/L 01/05/2015 Comp Metabolic Urk033 CL 106 mEq/L 01/05/2015 Comp Metabolic Khb830 CO2 27.0 mEq/L 01/05/2015 Comp Metabolic Mdi240 ANION GAP 10 01/05/2015 Comp Metabolic Vcf622 GLUCOSE 111 mg/dL 01/05/2015 Comp Metabolic Buu033 Creat 1.2 mg/dL 01/05/2015 Comp Metabolic Amj965 eGFR 48 ml/min/1.73m2 01/05/2015 Comp Metabolic Lbw280 BUN 18 mg/dL 01/05/2015 Comp Metabolic Ntd509 B/C Ratio 15.4 Ratio 01/05/2015 Comp Metabolic Tmb519 CALCIUM 9.2 mg/dL 01/05/2015 Comp Metabolic Xcd391 ALK PHOS 202 U/L 01/05/2015 Comp Metabolic Phb409 AST(SGOT) 19 U/L 01/05/2015 Comp Metabolic Qwm353 ALT(SGPT) 22 U/L 01/05/2015 Comp Metabolic Qzj370 BILI T 0.7 mg/dL 01/05/2015 Comp Metabolic Wse860 ALBUMIN 3.8 g/dL 01/05/2015 Comp Metabolic Wsa571 TPRO 6.1 g/dL 01/05/2015 Comp Metabolic Wbt292 GLOB 2.3 g/dL 01/05/2015 Comp Metabolic Jld131 A/G Ratio 1.7 Ratio 01/05/2015 Comp Metabolic Zwf944 Osmo 280 mOsmo 01/05/2015 Tsh Ord6 hTSH [...] Procedures Procedure Codes Date DRAIN/INJECT JOINT/BURSA CPT-4: 48623 09/25/2017 ADMIN INFLUENZA VIRUS VAC CPT-4: G0008 03/12/2017 ADMIN PNEUMOCOCCAL VACCINE SNOMED CT: 57902509 CPT-4: G0009 03/12/2017 FLU VACC PRSV FREE INC ANTIG CPT-4: 47154 03/12/2017 PNEUMOCOCCAL VACC [address]: 99332643 CPT-4: 15462 03/12/2017 PPPS, SUBSEQ VISIT CPT -4: G0439 02/09/2017 Vital Signs Date Vital 01/22/2018 Blood Pressure 1: 142/78 Code : 8480-6 BMI: 31.6 Code : 28025-8 Heart Rate 1 : 85 bpm Height: 5'5" SpO2: 97% Weight: 190 lbs 11/19/2017 Blood Pressure 1: 132/78 Code : 8480-6 BMI: 31.1 Code : 04797-2 Heart Rate 1 : 68 bpm Height: 5'5" SpO2: 97% Weight: 187 lbs 09/25/2017 Blood Pressure 1: 140/80 Code : 8480-6 BMI: 31.0 Code : 89823-9 Heart Rate 1 : 80 bpm Height: 5'5" SpO2: 99% Weight: 186 lbs 07/12/2017 Blood Pressure 1: 138/72 Code : 8480-6 Blood Pressure 1: 144/88 Code: 8480-6 BMI: 30.8 Code: 36052-2 Heart Rate 1: 71 bpm Height: 5'5" SpO2: 95% Weight: 185 lbs 03/12/2017 Blood Pressure 1: 140/80 Code : 8480-6 BMI: 30.6 Code : 68451-5 Heart Rate 1 : 75 bpm Height: 5'5" SpO2: 97% Weight: 184 lbs 02/09/2017 Heart Rate 1: 74 bpm Height: Weight: 02/08/2017 Blood Pressure 1: 146/88 Code : 8480-6 BMI: 30.1 Code : 00219-5 Heart Rate 1 : 76 bpm Height: 5'5" SpO2: 95% Weight: 181 lbs 08/08/2016 Blood Pressure 1: 144/76 Code : 8480-6 Heart Rate 1: 80 bpm SpO2: 98% Weight: 185 lbs 02/08/2016 Blood Pressure 1: 130/70 Code : 8480-6 BMI: 30.3 Code : 49781-2 Heart Rate 1 : 60 bpm Height: 5'5" SpO2: 98% Weight: 182 lbs 01/11/2016 Blood Pressure 1: 148/82 Code : 8480-6 BMI: 30.6 Code : 64311-9 Heart Rate 1 : 84 bpm Height: 5'5" SpO2: 96% Weight: 184 lbs 07/12/2015 Blood Pressure 1: 152/76 Code : 8480-6 BMI: 30.6 Code : 23584-5 Heart Rate 1 : 70 bpm Height: 5'5" SpO2: 93% Weight: 184 lbs 01/04/2015 Blood Pressure 1: 148/88 Code : 8480-6 BMI: 31.0 Code : 13643-8 Heart Rate 1 : 80 bpm Height: [...] data Encounters Encounter Performer Location Codes Date ([id number]) 49265 EST. PATIENT, LEVEL IV Diagnosis: Essential (primary) hypertension[ICD10: I10] Diagnosis: Major depressive disorder, recurrent, mild[ICD10: F33.0] Diagnosis: Mixed incontinence[ICD10: N39.46] Diagnosis: Low back pain[ICD10: M54.5] [facility] MD, [facility] CPT-4: 73122 01/22/2018 ([id number]) 31290 EST. PATIENT, LEVEL IV Diagnosis: Essential (primary) hypertension[ICD10: I10] Diagnosis: Generalized anxiety disorder[ICD10: F41.1] Diagnosis: Major depressive disorder, recurrent, mild[ICD10: F33.0] Diagnosis: Mixed incontinence[ICD10: N39.46] [facility] MD, [facility] CPT-4: 77963 11/19/2017 20863 EST. PATIENT, LEVEL III Diagnosis: Pain in left knee[ICD10: M25.562] Diagnosis: Synovial cyst of popliteal space [Butts], left knee[ICD10: M71.22] Alize [facility]re MD, [facility] CPT-4: 39781 09/25/2017 ([id number]) 79330 EST. PATIENT, LEVEL IV Diagnosis: Essential (primary) hypertension[ICD10: I10] Diagnosis: Chronic kidney disease, stage 3 (moderate)[ICD10: N18.3] Diagnosis: Generalized anxiety disorder[ICD10: F41.1] Diagnosis: Chronic pain syndrome[ICD10: G89.4] [facility], [facility] CPT-4: 84224 07/12/2017 ([id number]) 72754 EST. PATIENT, LEVEL IV Diagnosis: Essential (primary) hypertension[ICD10: I10] Diagnosis: Iliotibial band syndrome, right leg[ICD10: M76.31] Diagnosis: Encounter for immunization[ICD10: Z23] [facility], [facility] CPT-4: 96797 03/12/2017 ([id number]) 01636 EST. PATIENT, LEVEL IV Diagnosis: Iliotibial band syndrome, right leg[ICD10: M76.31] Diagnosis: Mixed hyperlipidemia[ICD10: E78.2] Diagnosis: Generalized anxiety disorder[ICD10: F41.1] Diagnosis: Essential (primary) hypertension[ICD10: I10] Diagnosis: Chronic kidney disease, stage 3 (moderate)[ICD10: N18.3] Diagnosis: Trochanteric bursitis, right hip[ICD10: M70.61] Diagnosis: Vitamin D deficiency, unspecified[ICD10: E55.9] [facility] MD, [facility] CPT-4: 21179 02/08/2017 ([id number]) 82941 EST. PATIENT, LEVEL IV Diagnosis: Essential (primary) hypertension[ICD10: I10] Diagnosis: Mixed hyperlipidemia[ICD10: E78.2] Diagnosis: Chronic kidney disease, stage 3 (moderate)[ICD10: N18.3] Diagnosis: Low back pain[ICD10: M54.5] [facility] CPT-4: 76960 08/08/2016 ([id number] 23614 EST. PATIENT, LEVEL III Diagnosis: Generalized anxiety disorder[ICD10: F41.1] Diagnosis: Sciatica, right side[ICD10: M54.31] [facility] CPT-4: 95163 02/08/2016 ([id number]) 88309 EST. PATIENT, LEVEL IV Diagnosis: Essential (primary) hypertension[ICD10: I10] Diagnosis: Mixed hyperlipidemia[ICD10: E78.2] Diagnosis: Generalized anxiety disorder[ICD10: F41.1] Diagnosis: Vitamin D deficiency, unspecified[ICD10: E55.9] Diagnosis: Chronic kidney disease, stage 3 (moderate)[ICD10: N18.3] Alize Aguirre MD , [facility] CPT-4: 71790 01/11/2016 ([id number]) 72699 EST. PATIENT, LEVEL IV Diagnosis: Essential (primary) hypertension[ICD10: I10] Diagnosis: Mixed hyperlipidemia[ICD10: E78.2] Diagnosis: Generalized anxiety disorder[ICD10: F41.1] [facility] CPT-4: 04862 07/12/2015 ([id number]) Miscellaneous no charge Diagnosis: Forearm fracture[ICD9: 813.80] [facility] CPT- 4: 55558 03/05/2015 ([id number]) OFFICE VISIT, NEW - LEVEL 4 Diagnosis: ESSENTIAL HYPERTENSION[ICD9: 401.9] Diagnosis: Hyperlipidemia[ICD9: 272.4] Diagnosis: Chronic renal disease, stage 3, moderately decreased glomerular filtration rate (GFR) between 30-59 mL/min/1.73 square meter[ICD9: 585.3] Diagnosis: Anxiety state[ICD9: 300.00] [facility] CPT-4: 54675 01/04/2015 Plan of Care Planned Activity Notes [...] not improve. 01/22/2018 Appointment: Alize Jerome WPtel: [facility]7 [address] (30 min) Complex 01/22/2018 Patient Education: [...] of myrbetriq 11/19/2017 Appointment: Alize Jerome WPtel: [facility]2 [phone] (15 min) Moderate 11/19/2017 Patient [...] Appointment: Alize Jerome WPtel: [facility]2 [phone] (30 min) Complex 09/25/2017 Patient [...] supportive care. 07/12/2017 Appointment: Diana Aguirre WPtel: [phone] [facility] (15 min) Moderate 07/12/2017 Patient Education: Patient [...] Iliotibial band exercises. flector patches 1.3% - [id number] 04/2019 pfizer flu and pneumonia 13 shot today 03/12/2017 Appointment: Diana Aguirre WPtel: [phone] [facility] (15 min) Moderate 03/12/2017 Patient Education: Patient Medication Summary Completed 03/12/2017 Patient Education: Obesity Completed 03/12/2017 Patient Education: Hypertension Completed 03/12/2017 Referral: [facility] WPtel: [phone] [facility] they will call her with [...] surrogate. 02/09/2017 [phone] [facility] - Annual Wellness Visit 02/09/2017 Patient Education: Patient Medication Summary Completed 02/09/2017 Visit Plan: Iliotibial band syndrome - RX for steroid - I have also recommended Physical therapy ordered for patient at [facility]. Hyperlipidemia - pt has been counseled about [...] oral fluids. 02/08/2017 Appointment: Diana Aguirre WPtel: [facility] (15 min) Moderate 02/08/2017 Patient Education: Patient Medication Summary Completed 02/08/2017 Patient Education: Obesity Completed 02/08/2017 Patient Education: Hypertension Completed 02/08/2017 Care Plan: Referral Order SNOMED-CT : [id number] Pending 02/08/2017 Appointment: Alize Jerome WPtel: [facility]4 [address] (15 min) Moderate 02/06/2017 Visit Plan: Hypertension [...] Appointment: Alize Jerome WPtel: [facility]2 [place] [phone] [place] (15 min) Moderate 08/08/2016 Patient Education: Patient Medication Summary Completed 08/08/2016 Visit Plan: Trhnuru-svjmdwea-yykkrnpt lexapro-call if symptoms uncontrolled Low back tdyk-dclldleu-nlbynrpyq discussed with the patient, pt to use topical voltaren gel as directed. Pt is to call if the symptoms do not improve or if they worsen. 02/08/2016 Appointment: Alize Jerome WPtel: [phone] [phone] (15 min) Moderate 02/08/2016 Patient [...] EFFEXOR-START LEXAPRO 01/11/2016 Appointment: Alize Jerome WPtel: [phone] [place], [place] [phone] (15 min) Moderate 01/11/2016 Patient Education: Patient [...] normal liver response to medications. Chronic renal wjjmabe-owcwmm-sdh labs Chronic Depression and anxiety - the [...] Care Plan: COMPLETE CBC AUTOMATED LOINC : 70502-4 Ordered 01/04/2015 Referral: [facility] WPtel: [address] [place], [place] [phone] [place] Referral Appointment Requested Instructions Comment check [...] change in blood pressure readings at home. Sgaeqpw-ndtocinycz-ymlclvhq have increased some-increase lexapro to 1.5 tab [...] recommended Physical therapy ordered for patient at [facility]. Hyperlipidemia - pt has been counseled about [...] Iliotibial band exercises. flector patches 1.3% - [id number] 04/2019 pfizer flu and pneumonia 13 shot today . [...] FOR PHYSICAL THERAPY LOW BACK STRETCHES . Tozymfv-quwvhkex-dkroxjcg lexapro-call if symptoms uncontrolled Low back xflm-rdsdbphp-auqgbzmhr discussed with the patient, pt to use [...] normal liver response to medications. Chronic renal fekqnvr-flcgex-qaa labs Chronic Depression and anxiety - the [...]
--- OUTSIDE RECORDS SUMMARY | 2018-07-28 10:20 | XMS REPORT | CCD ---
Author Author Alize Jerome Organization Diana Aguirre MD, [facility] Address [address] [place] [address] Phone Care Team Providers Care Manager Integration Name Role Phone PP Unavailable CCM Unavailable Summary Purpose Interface Exchange Insurance Providers Payer name Policy type / Coverage type Covered republican ID Effective Begin Date Effective End Date WPS Medicare Part B Medicare Part B [id number] Unknown Unknown [facility] Medicare Part B [id number] Unknown Unknown Family history Father Diagnosis Age [...] Unknown Retired 01/04/[address]: 655207678 Never smoker 01/04/2015 Alcohol history Unknown occasionally drinks alcohol 01/04/2015 Allergies, Adverse Reactions, Alerts Allergies, Adverse Reactions, Alerts data not found Past Medical History Illness Codes Condition Status Onset Date Resolved Date Chronic kidney disease, stage 3 (moderate) ICD-9: 585.3 ICD-10: N18.3 Active 01/10/2016 Unknown Chronic pain syndrome ICD-9: 338.4 ICD-10: G89.4 Active 07/12/2017 Unknown Essential (primary) hypertension ICD-9: 401.9 ICD-10: I10 Active 01/10/2016 Unknown Generalized anxiety disorder ICD-9: 300.00 ICD-10: F41.1 Active 02/07/2016 Unknown Encounter for immunization ICD-9: V06.6 ICD-10: [...] ICD-9: 268.9 ICD-10: E55.9 Active 01/10/2016 Unknown Low back pain ICD-9: 724.2 ICD-10: M54.5 Active 08/08/2016 Unknown Sciatica, right side ICD-9: 724.3 ICD-10: [...] syndrome ICD-9: 338.4 ICD-10: G89.4 07/12/2017 Active Essential (primary) hypertension ICD-9: 401.9 ICD-10: I10 01/10/2016 Active Generalized anxiety disorder ICD-9: 300.00 ICD-10: F41.1 02/07/2016 Active Encounter for immunization ICD-9: V06.6 ICD-10: [...] unspecified ICD-9: 268.9 ICD-10: E55.9 01/10/2016 Active Low back pain ICD-9: 724.2 ICD-10: M54.5 08/08/2016 Active Sciatica, right side ICD-9: 724.3 ICD-10: [...] hydrocodone 5 mg-acetaminophen 325 mg tablet RxNorm: 442482 1 Tablet(s) PO Q6 as needed 07/12/2017 No Stop Date Active hydrocodone 5 mg-acetaminophen 325 mg tablet RxNorm: 902352 1 Tablet(s) PO Q6 as needed 06/05/2017 07/11/2017 Inactive carvedilol 3.125 mg tablet RxNorm: 213811 TAKE ONE TABLET BY MOUTH TWICE A DAY 05/21/2017 02/14/2018 Active hydrocodone 5 mg-acetaminophen 325 mg tablet RxNorm: 446193 1 Tablet(s) PO Q6 as needed 04/20/2017 06/04/2017 Inactive Voltaren 1 % topical gel RxNorm: 521131 2 Gram(s) TOP QID to affected area 04/12/2017 07/10/2017 Inactive Voltaren 1 % topical gel RxNorm: 334495 2 Gram(s) TOP QID to affected area 04/12/2017 04/11/2017 Inactive diazepam 5 mg tablet RxNorm: 677365 1 Tablet(s) PO TID PRN 08/01/2017 Active Flector 1.3 % transdermal 12 hour patch RxNorm: 179114 1 Patch TOP BID 03/27/2017 04/11/2017 Inactive Flector 1.3 % transdermal 12 hour patch RxNorm: 173616 /8 Patch TOP BID 03/12/2017 03/26/2017 Inactive hydrocodone 5 mg-acetaminophen 325 mg tablet RxNorm: 948270 1 Tablet(s) PO Q6 as needed 02/20/2017 04/19/2017 Inactive prednisone 10 mg tablets in a dose pack RxNorm: 702245 1 Tablet(s) PO UD 02/08/2017 No Stop Date Active prednisone 10 mg tablets in a dose pack RxNorm: 524249 1 Tablet(s) PO UD 02/08/2017 02/07/2017 Inactive diazepam 5 mg tablet RxNorm: 023743 1 Tablet(s) PO TID PRN 08/201601/15/2017 Inactive Lexapro 10 mg tablet RxNorm: 374899 TAKE ONE TABLET BY MOUTH EVERY EVENING 08/13/2016 08/02/2018 Active carvedilol 3.125 mg tablet RxNorm: 678167 1 Tablet(s) PO BID 05/20/2017 Inactive diazepam 5 mg tablet RxNorm: 617269 1 Tablet(s) PO TID PRN 06/13/2016 Inactive Lexapro 10 mg tablet RxNorm: 802348 1 Tablet(s) PO QPM 201508/12/2016 Inactive Lexapro 5 mg tablet RxNorm: 082166 2 Tablet(s) PO QPM 201502/28/2016 Inactive hydrocodone 5 mg-acetaminophen 325 mg tablet RxNorm: 350849 1 Tablet(s) PO Q6 as needed 02/08/2016 02/19/2017 Inactive Lexapro 5 mg tablet RxNorm: 096323 1 Tablet(s) PO QPM 201502/17/2016 Inactive diazepam 5 mg tablet RxNorm: 815254 1 Tablet(s) PO TID PRN 07/201501/15/2016 Inactive Effexor XR 37.5 mg capsule,extended release RxNorm: 328624 1 Capsule(s) PO daily 09/29/2015 01/10/2016 Inactive diazepam 5 mg tablet RxNorm: 361790 1 Tablet(s) PO TID PRN 09/06/2015 Inactive carvedilol 3.125 mg tablet RxNorm: 556669 1 Tablet(s) PO BID 05/24/2016 Inactive diazepam 5 mg tablet RxNorm: 671192 1 Tablet(s) PO TID PRN 03/16/2016 Inactive Fish Oil 360 mg-1,200 mg capsule RxNorm: 898089 1 Capsule(s) PO daily 01/04/2015 No Stop Date Active diazepam 5 mg tablet RxNorm: 035088 1 Tablet(s) PO TID PRN 02/01/2015 Inactive diazepam 5 mg tablet RxNorm: 101294 1 Tablet(s) PO daily 201412/21/2014 Inactive pt to make an appt- called 1 mo to dillons diazepam 5 mg tablet RxNorm: 569308 1 Tablet(s) PO daily 201412/21/2014 Inactive diazepam 5 mg tablet RxNorm: 368233 1 Tablet(s) PO QHS 201401/03/2015 Inactive pt to make an appt- called 1 mo to dill[facility] niacin (inositol niacinate) 500 mg capsule RxNorm: 992520 1 Capsule(s) PO daily No Start Date Active letrozole 2.5 mg tablet RxNorm: 793088 1 Tablet(s) PO daily No Start Date Active aspirin 81 mg tablet RxNorm: 236336 1 Tablet(s) PO daily No Start Date Active Crestor 5 mg tablet RxNorm: 427940 1 Tablet(s) PO QHS No Start Date Active hydrocodone 5 mg-acetaminophen 325 mg tablet RxNorm: 992965 1 Tablet(s) PO Q6 as needed No Start Date 02/07/2016 Inactive Coreg 6.25 mg tablet RxNorm: 336299 1 Tablet(s) PO BID No Start Date 05/30/2015 Inactive Delzicol 400 mg capsule,delayed release RxNorm: 4807256 2 Capsule(s) PO daily No Start Date 08/07/2016 Inactive venlafaxine 37.5 mg tablet RxNorm: 069081 1 Tablet(s) PO daily No Start Date 01/03/2015 Inactive Effexor XR 37.5 mg capsule,extended release RxNorm: 212066 1 Capsule(s) PO daily No Start Date 09/28/2015 Inactive Medication Administered No Medication Administered data Immunizations Vaccine Codes Date Status Influenza CVX: 141 03/12/2017 completed Pneumococcal (Adult) CVX: 133 03/12/2017 completed PPD Unknown 03/05/2015 completed Assessments Condition Codes Effective Dates Chronic kidney disease, stage 3 (moderate) ICD-10: N18.3 ICD-9: 585.3 07/12/2017 Essential (primary) hypertension ICD-10: I10 ICD-9: 401.9 07/12/2017 Generalized anxiety disorder ICD-10: F41.1 ICD-9: 300.00 07/12/2017 Chronic pain syndrome ICD-10: G89.4 ICD-9: [...] right hip ICD-10: M70.61 ICD-9: 726.5 02/08/2017 Low back pain ICD-10: M54.5 ICD-9: 724.2 08/08/2016 Sciatica, right side ICD-10: M54.31 ICD-9: 724.3 02/08/2016 Forearm fracture ICD-9: 813.80 2014 ESSENTIAL HYPERTENSION ICD-9: 401.9 01/04 Chronic renal disease, stage 3, moderately decreased glomerular filtration rate (GFR) between 30-59 mL/min/1.73 square meter ICD-9: 585.3 01/04/2015 Hyperlipidemia ICD-9: 272.4 01/04/2015 Anxiety state ICD-9: 300.00 01/04/2015 Reason For Visit Reason For Visit Effective Dates Notes hypertension 07/12/2017 hypertension 03/12/2017 Annual Medicare Wellness [...] 97.1 fl 02/08/2017 Cbc With Differential Ord2 [place]% 10.0 % 02/08/2017 Cbc With Differential Ord2 [...] 2.00 K/ul 02/08/2017 Cbc With Differential Ord2 [place] ABS# 0.7 K/ul 02/08/2017 Cbc With Differential Ord2 Eos ABS# 0.1 K/ul 02/08/2017 Cbc With Differential Ord2 Baso ABS# 0.0 K/ul 02/08/2017 Comp Metabolic Ovz373 NA 142 mEq/L 02/08/2017 Comp Metabolic Coq471 K 4.5 mEq/L 02/08/2017 Comp Metabolic Gye477 CL 106 mEq/L 02/08/2017 Comp Metabolic Ufj739 CO2 27.0 mEq/L 02/08/2017 Comp Metabolic Evy906 ANION GAP 14 02/08/2017 Comp Metabolic Jzm062 GLUCOSE 102 mg/dL 02/08/2017 Comp Metabolic Wjz946 Creat 0.9 mg/dL 02/08/2017 Comp Metabolic Ckq628 eGFR 62 ml/min/1.73m2 02/08/2017 Comp Metabolic Rmf647 BUN 14 mg/dL 02/08/2017 Comp Metabolic Yca324 B/C Ratio 15.1 Ratio 02/08/2017 Comp Metabolic Bdo898 CALCIUM 9.5 mg/dL 02/08/2017 Comp Metabolic Yxk041 ALK PHOS 98 U/L 02/08/2017 Comp Metabolic Rlb723 AST(SGOT) 19 U/L 02/08/2017 Comp Metabolic Xfj517 ALT(SGPT) 15 U/L 02/08/2017 Comp Metabolic Jmm044 BILI T 1.1 mg/dL 02/08/2017 Comp Metabolic Lbq473 ALBUMIN 4.1 g/dL 02/08/2017 Comp Metabolic Ndn699 TPRO 6.2 g/dL 02/08/2017 Comp Metabolic Qwu065 GLOB 2.1 g/dL 02/08/2017 Comp Metabolic Chs615 A/G Ratio 2.0 Ratio 02/08/2017 Comp Metabolic Wpp629 Osmo 284 mOsmo 02/08/2017 Lipid Ord30 CHOL 178 mg/dL 08/08/2016 Lipid Ord30 HDL 54.0 mg/dl 08/08/2016 Lipid Ord30 TRIG 184 mg/dL 08/08/2016 Lipid Ord30 LDL 87 mg/dL 08/08/2016 Lipid Ord30 C/HDL 3.3 Ratio 08/08/2016 Tsh Ord6 hTSH II 3.12 uIU/mL 08/08/2016 Comp Metabolic Qwk420 NA 140 mEq/L 08/08/2016 Comp Metabolic Haz262 K 4.4 mEq/L 08/08/2016 Comp Metabolic Kpt652 CL 104 mEq/L 08/08/2016 Comp Metabolic Ppd074 CO2 30.0 mEq/L 08/08/2016 Comp Metabolic Qnc032 ANION GAP 10 08/08/2016 Comp Metabolic Log582 GLUCOSE 107 mg/dL 08/08/2016 Comp Metabolic Byv825 Creat 1.1 mg/dL 08/08/2016 Comp Metabolic Lee937 eGFR 53 ml/min/1.73m2 08/08/2016 Comp Metabolic Ubm467 BUN 22 mg/dL 08/08/2016 Comp Metabolic Lrd595 B/C Ratio 20.6 Ratio 08/08/2016 Comp Metabolic Hdh401 CALCIUM 10.8 mg/dL 08/08/2016 Comp Metabolic Qwk988 ALK PHOS 140 U/L 08/08/2016 Comp Metabolic Akf086 AST(SGOT) 21 U/L 08/08/2016 Comp Metabolic Hib582 ALT(SGPT) 17 U/L 08/08/2016 Comp Metabolic Uic473 BILI T 0.8 mg/dL 08/08/2016 Comp Metabolic Hco499 ALBUMIN 4.3 g/dL 08/08/2016 Comp Metabolic Haa583 TPRO 6.7 g/dL 08/08/2016 Comp Metabolic Sxd798 GLOB 2.4 g/dL 08/08/2016 Comp Metabolic Jsf869 A/G Ratio 1.8 Ratio 08/08/2016 Comp Metabolic Izv083 Osmo 283 mOsmo 08/08/2016 Cbc With Differential [...] 29.0 pg 08/08/2016 Cbc With Differential Ord2 [place]% 11.0 % 08/08/2016 Cbc With Differential Ord2 [...] 2.21 K/ul 08/08/2016 Cbc With Differential Ord2 [place] ABS# 0.7 K/ul 08/08/2016 Cbc With Differential Ord2 Eos ABS# 0.2 K/ul 08/08/2016 Cbc With Differential Ord2 Baso ABS# 0.0 K/ul 08/08/2016 Vitamin D 25 Oh Iow9416 VITAMIN D, 25 HYDROXY 59.99 ng/mL Tsh Ord6 hTSH II 3.86 uIU/mL 01/11/2016 Comp Metabolic Joa251 NA 137 mEq/L 01/11/2016 Comp Metabolic Mwn456 K 4.4 mEq/L 01/11/2016 Comp Metabolic Yuq845 CL 103 mEq/L 01/11/2016 Comp Metabolic Gzn237 CO2 27.0 mEq/L 01/11/2016 Comp Metabolic Azc441 ANION GAP 11 01/11/2016 Comp Metabolic Lhq607 GLUCOSE 102 mg/dL 01/11/2016 Comp Metabolic Rko206 Creat 1.1 mg/dL 01/11/2016 Comp Metabolic Trm175 eGFR 51 ml/min/1.73m2 01/11/2016 Comp Metabolic Lke219 BUN 16 mg/dL 01/11/2016 Comp Metabolic Lwx399 B/C Ratio 14.5 Ratio 01/11/2016 Comp Metabolic Dbe468 CALCIUM 9.9 mg/dL 01/11/2016 Comp Metabolic Iar048 ALK PHOS 103 U/L 01/11/2016 Comp Metabolic Zrc501 AST(SGOT) 17 U/L 01/11/2016 Comp Metabolic Mth925 ALT(SGPT) 14 U/L 01/11/2016 Comp Metabolic Lft387 BILI T 0.8 mg/dL 01/11/2016 Comp Metabolic Rmq560 ALBUMIN 4.4 g/dL 01/11/2016 Comp Metabolic Txd894 TPRO 6.8 g/dL 01/11/2016 Comp Metabolic Qyu343 GLOB 2.5 g/dL 01/11/2016 Comp Metabolic Ynt576 A/G Ratio 1.8 Ratio 01/11/2016 Comp Metabolic Dta237 Osmo 275 mOsmo 01/11/2016 Lipid Ord30 CHOL [...] 93.1 fl 01/11/2016 Cbc With Differential Ord2 [place]% 10.7 % 01/11/2016 Cbc With Differential Ord2 [...] 2.35 K/ul 01/11/2016 Cbc With Differential Ord2 [place] ABS# 0.7 K/ul 01/11/2016 Cbc With Differential [...] 92.2 fl 07/12/2015 Cbc With Differential Ord2 [place]% 9.5 % 07/12/2015 Cbc With Differential Ord2 [...] 2.86 K/ul 07/12/2015 Cbc With Differential Ord2 [place] ABS# 0.7 K/ul 07/12/2015 Cbc With Differential [...] hTSH II 3.54 uIU/mL 07/12/2015 Comp Metabolic Dnh914 NA 140 mEq/L 07/12/2015 Comp Metabolic Lem101 K 4.4 mEq/L 07/12/2015 Comp Metabolic Fqt831 CL 104 mEq/L 07/12/2015 Comp Metabolic Zaa775 CO2 28.0 mEq/L 07/12/2015 Comp Metabolic Orc726 ANION GAP 12 07/12/2015 Comp Metabolic Lli954 GLUCOSE 92 mg/dL 07/12/2015 Comp Metabolic Sns759 Creat 1.2 mg/dL 07/12/2015 Comp Metabolic Gvg788 eGFR 47 ml/min/1.73m2 07/12/2015 Comp Metabolic Xht100 BUN 18 mg/dL 07/12/2015 Comp Metabolic Zja083 B/C Ratio 15.1 Ratio 07/12/2015 Comp Metabolic Lhj499 CALCIUM 10.1 mg/dL 07/12/2015 Comp Metabolic Dad800 ALK PHOS 134 U/L 07/12/2015 Comp Metabolic Agx348 AST(SGOT) 18 U/L 07/12/2015 Comp Metabolic Xid853 ALT(SGPT) 17 U/L 07/12/2015 Comp Metabolic Krg552 BILI T 0.8 mg/dL 07/12/2015 Comp Metabolic Lxr832 ALBUMIN 4.1 g/dL 07/12/2015 Comp Metabolic Mbs050 TPRO 6.6 g/dL 07/12/2015 Comp Metabolic Kvl713 GLOB 2.5 g/dL 07/12/2015 Comp Metabolic Ire836 A/G Ratio 1.7 Ratio 07/12/2015 Comp Metabolic Xnw075 Osmo 281 mOsmo 07/12/2015 Cbc With Differential [...] Ord2 RDW 15.3 % 01/05/2015 Comp Metabolic Rcu593 NA 139 mEq/L 01/05/2015 Comp Metabolic Sbq314 K 4.0 mEq/L 01/05/2015 Comp Metabolic Kin226 CL 106 mEq/L 01/05/2015 Comp Metabolic Wys087 CO2 27.0 mEq/L 01/05/2015 Comp Metabolic Bud555 ANION GAP 10 01/05/2015 Comp Metabolic Xys095 GLUCOSE 111 mg/dL 01/05/2015 Comp Metabolic Xac702 Creat 1.2 mg/dL 01/05/2015 Comp Metabolic Zlf014 eGFR 48 ml/min/1.73m2 01/05/2015 Comp Metabolic Lyg884 BUN 18 mg/dL 01/05/2015 Comp Metabolic Kve859 B/C Ratio 15.4 Ratio 01/05/2015 Comp Metabolic Dpr552 CALCIUM 9.2 mg/dL 01/05/2015 Comp Metabolic Pyi751 ALK PHOS 202 U/L 01/05/2015 Comp Metabolic Ujx454 AST(SGOT) 19 U/L 01/05/2015 Comp Metabolic Eqb942 ALT(SGPT) 22 U/L 01/05/2015 Comp Metabolic Svs531 BILI T 0.7 mg/dL 01/05/2015 Comp Metabolic Vzw020 ALBUMIN 3.8 g/dL 01/05/2015 Comp Metabolic Nnw409 TPRO 6.1 g/dL 01/05/2015 Comp Metabolic Aiz803 GLOB 2.3 g/dL 01/05/2015 Comp Metabolic Wfm529 A/G Ratio 1.7 Ratio 01/05/2015 Comp Metabolic Mit892 Osmo 280 mOsmo 01/05/2015 Tsh Ord6 hTSH [...] accomodation 01/04/2015 None Procedures Procedure Codes Date ADMIN INFLUENZA VIRUS VAC CPT-4: G0008 03/12/2017 ADMIN PNEUMOCOCCAL VACCINE SNOMED CT: 16754808 CPT-4: G0009 03/12/2017 FLU VACC PRSV FREE INC ANTIG CPT-4: 16281 03/12/2017 PNEUMOCOCCAL VACC [address]: 05873514 CPT-4: 95265 03/12/2017 PPPS, SUBSEQ VISIT CPT -4: G0439 02/09/2017 Vital Signs Date Vital 07/12/2017 Blood Pressure 1: 138/72 Code : 8480-6 Blood Pressure 1: 144/88 Code: 8480-6 BMI: 30.8 Code: 16161-9 Heart Rate 1: 71 bpm Height: 5'5" SpO2: 95% Weight: 185 lbs 03/12/2017 Blood Pressure 1: 140/80 Code : 8480-6 BMI: 30.6 Code : 23713-4 Heart Rate 1 : 75 bpm Height: 5'5" SpO2: 97% Weight: 184 lbs 02/09/2017 Heart Rate 1: 74 bpm Height: Weight: 02/08/2017 Blood Pressure 1: 146/88 Code : 8480-6 BMI: 30.1 Code : 88641-6 Heart Rate 1 : 76 bpm Height: 5'5" SpO2: 95% Weight: 181 lbs 08/08/2016 Blood Pressure 1: 144/76 Code : 8480-6 Heart Rate 1: 80 bpm SpO2: 98% Weight: 185 lbs 02/08/2016 Blood Pressure 1: 130/70 Code : 8480-6 BMI: 30.3 Code : 68183-2 Heart Rate 1 : 60 bpm Height: 5'5" SpO2: 98% Weight: 182 lbs 01/11/2016 Blood Pressure 1: 148/82 Code : 8480-6 BMI: 30.6 Code : 51689-6 Heart Rate 1 : 84 bpm Height: 5'5" SpO2: 96% Weight: 184 lbs 07/12/2015 Blood Pressure 1: 152/76 Code : 8480-6 BMI: 30.6 Code : 22337-4 Heart Rate 1 : 70 bpm Height: 5'5" SpO2: 93% Weight: 184 lbs 01/04/2015 Blood Pressure 1: 148/88 Code : 8480-6 BMI: 31.0 Code : 67714-0 Heart Rate 1 : 80 bpm Height: 5'5" Weight: 186 lbs Functional Status No Functional Status data History of Present Illness Symptom Name Status Result Effective Date Notes hypertension Quality primary hypertension 07/12/2017 None hypertension [...] data Encounters Encounter Performer Location Codes Date ([id number]) 77901 EST. PATIENT, LEVEL IV Diagnosis: Essential (primary) hypertension[ICD10: I10] Diagnosis: Chronic kidney disease, stage 3 (moderate)[ICD10: N18.3] Diagnosis: Generalized anxiety disorder[ICD10: F41.1] Diagnosis: Chronic pain syndrome[ICD10: G89.4] Diana Aguirre MD, [facility] CPT-4: 89553 07/12/2017 ([id number]) 31429 EST. PATIENT, LEVEL IV Diagnosis: Essential (primary) hypertension[ICD10: I10] Diagnosis: Iliotibial band syndrome, right leg[ICD10: M76.31] Diagnosis: Encounter for immunization[ICD10: Z23] Diana Aguirre MD, [facility] CPT-4: 58181 03/12/2017 ([id number]) 55153 EST. PATIENT, LEVEL IV Diagnosis: Iliotibial band syndrome, right leg[ICD10: M76.31] Diagnosis: Mixed hyperlipidemia[ICD10: E78.2] Diagnosis: Generalized anxiety disorder[ICD10: F41.1] Diagnosis: Essential (primary) hypertension[ICD10: I10] Diagnosis: Chronic kidney disease, stage 3 (moderate)[ICD10: N18.3] Diagnosis: Trochanteric bursitis, right hip[ICD10: M70.61] Diagnosis: Vitamin D deficiency, unspecified[ICD10: E55.9] Diana Aguirre MD, [facility] CPT-4: 08043 02/08/2017 ([id number]) 17340 EST. PATIENT, LEVEL IV Diagnosis: Essential (primary) hypertension[ICD10: I10] Diagnosis: Mixed hyperlipidemia[ICD10: E78.2] Diagnosis: Chronic kidney disease, stage 3 (moderate)[ICD10: N18.3] Diagnosis: Low back pain[ICD10: M54.5] Alize Aguirre MD, [facility] CPT-4: 72134 08/08/2016 ([id number]) 09044 EST. PATIENT, LEVEL III Diagnosis: Generalized anxiety disorder[ICD10: F41.1] Diagnosis: Sciatica, right side[ICD10: M54.31] Alize Aguirre MD, [facility] CPT-4: 53392 02/08/2016 ([id number]) 30270 EST. PATIENT, LEVEL IV Diagnosis: Essential (primary) hypertension[ICD10: I10] Diagnosis: Mixed hyperlipidemia[ICD10: E78.2] Diagnosis: Generalized anxiety disorder[ICD10: F41.1] Diagnosis: Vitamin D deficiency, unspecified[ICD10: E55.9] Diagnosis: Chronic kidney disease, stage 3 (moderate)[ICD10: N18.3] Alize Aguirre MD , [facility] CPT-4: 93675 01/11/2016 ([id number]) 21869 EST. PATIENT, LEVEL IV Diagnosis: Essential (primary) hypertension[ICD10: I10] Diagnosis: Mixed hyperlipidemia[ICD10: E78.2] Diagnosis: Generalized anxiety disorder[ICD10: F41.1] Alize Aguirre MD, [facility] CPT-4: 27438 07/12/2015 ([id number]) Miscellaneous no charge Diagnosis: Forearm fracture[ICD9: 813.80] Diana Aguirre MD, [facility] CPT- 4: 92734 03/05/2015 ([id number]) OFFICE VISIT, NEW - LEVEL 4 Diagnosis: ESSENTIAL HYPERTENSION[ICD9: 401.9] Diagnosis: Hyperlipidemia[ICD9: 272.4] Diagnosis: Chronic renal disease, stage 3, moderately decreased glomerular filtration rate (GFR) between 30-59 mL/min/1.73 square meter[ICD9: 585.3] Diagnosis: Anxiety state[ICD9: 300.00] Alize Aguirre MD, [facility] CPT-4: 33592 01/04/2015 Plan of Care Planned Activity Notes Codes Status Date Patient Education: Patient Medication Summary Completed 07/12/2017 [phone] ([facility] min) Moderate 03/12/2017 Patient Education: Patient Medication Summary Completed 03/12/2017 Patient Education: Obesity Completed 03/12/2017 Patient Education: Hypertension Completed 03/12/2017 [phone] [facility] [facility] with appt time Initiated 02/12/2017 [phone] [facility] M[facility] - Annual Wellness Visit 02/09/2017 Patient Education: Patient Medication Summary Completed 02/09/2017 [phone] [facility] (15 min) Moderate 02/08/2017 Patient Education: Patient Medication Summary Completed 02/08/2017 Patient Education: Obesity Completed 02/08/2017 Patient Education: Hypertension Completed 02/08/2017 Care Plan: Referral Order SNOMED-CT : [id number] Pending 02/08/2017 Appointment: Alize Jerome WPtel: [phone] [phone] [place] (15 min) Moderate 02/06/2017 Appointment: Alize Jerome WPtel: [phone] [phone] [place] (15 min) Moderate 08/08/2016 Patient Education: Patient Medication Summary Completed 08/08/2016 [facility]ment: [facility] [phone] [phone] (15 min) Moderate 02/08/2016 Patient Education: Patient Medication Summary Completed 02/08/2016 Patient Education: Obesity Completed 02/08/2016 [facility]: [facility] [phone] [phone] (15 min) Moderate 01/11/2016 Patient Education: Patient [...] Care Plan: COMPLETE CBC AUTOMATED LOINC : 24484-2 Ordered 01/04/2015 [facility] [phone] [facility] Referral Appointment Requested Instructions No Instructions
--- OUTSIDE RECORDS SUMMARY | 2018-07-28 10:22 | XMS REPORT | Continuity of Care Document ---
Author Author [facility] Organization [facility] Address Unknown Phone Unavailable Allergies Active Description Code Type Severity Reaction Onset Reported/Identified Relationship to Patient Clinical Status Yes No Known Drug Allergies [id number] Drug Allergy Unknown N/A 02/10/2013 Medications There is no data. Problems Date Dx Coded Attending Type Code Diagnosis Diagnosed By 05/17/1126 NOEMI BANUELOS DO, Ot M25.511 PAIN IN RIGHT SHOULDER 05/17/1126 NOEMI BANUELOS DO, Ot Z98.890 OTHER SPECIFIED POSTPROCEDURAL STATES 05/17/1258 NOEMI BANUELOS DO, Ot M17.12 UNILATERAL PRIMARY OSTEOARTHRITIS, LEFT 05/17/1320 NOEMI BANUELOS DO, Ot M25.562 PAIN IN LEFT KNEE 05/08/2013 ZANE MANCILLA Ot 174.9 MALIGN NEOPL BREAST NOS 05/08/2013 ZANE MANCILLA Ot 272.0 PURE HYPERCHOLESTEROLEM 05/08/2013 ZANE MANCILLA Ot 401.9 HYPERTENSION NOS 05/08/2013 ZANE MANCILLA Ot 733.90 BONE CARTILAGE DIS NOS 05/08/2013 ZANE MANCILLA Ot 787.91 DIARRHEA 08/20/2013 LINA MELVIN MD Ot 558.9 NONINF GASTROENTERIT NEC 08/20/2013 LINA MELVIN MD Ot 562.10 DIVERTICULOSIS COLON (W/O MENT OF HEMORR 11/11/2013 ZANE MANCILLA Ot 174.9 MALIGN NEOPL BREAST NOS 11/11/2013 ZANE MANCILLA Ot 585.3 CHRONIC KIDNEY DISEASE, STAGE III (MODER 11/11/2013 ZANE MANCILLA Ot 733.90 BONE CARTILAGE DIS NOS 11/11/2013 ZANE MANCILLA Ot V58.69 OTH MED,LT,CURRENT USE 11/11/2013 ZANE MANCILLA Ot V86.0 ESTROGEN RECEPTOR POSITIVE STATUS [ER+] 05/24/2014 CHARO, BOBAN N Ot 174.9 MALIGN NEOPL BREAST NOS 05/24/2014 ZANE MANCILLA N Ot 585.3 CHRONIC KIDNEY DISEASE, STAGE III (MODER 05/24/2014 ZANE MANCILLA N Ot 733.90 BONE CARTILAGE DIS NOS 05/24/2014 ZANE MANCILLA N Ot V58.69 OTH MED,LT,CURRENT USE 05/24/2014 ZANE MANCILLA N Ot V86.0 ESTROGEN RECEPTOR POSITIVE STATUS [ER+] 06/17/2014 ZANE MANCILLA N Ot 174.9 06/23/2014 ZANE MANCILLA N Ot 174.9 06/24/2014 SANTIAGO KERN PRODUCTION COORDINATOR Ot 174.9 06/24/2014 SANTIAGO KERN PRODUCTION COORDINATOR Ot 585.3 06/24/2014 SANTIAGO KERN PRODUCTION COORDINATOR Ot 733.90 06/24/2014 SANTIAGO KERN S PRODUCTION COORDINATOR Ot V58.69 06/24/2014 SANTIAGO KERN PRODUCTION COORDINATOR Ot V86.0 07/13/2014 SANTIAGO KERN S PRODUCTION COORDINATOR Ot 174.9 07/13/2014 SANTIAGO KERN S PRODUCTION COORDINATOR Ot 585.3 07/13/2014 SANTIAGO KERN S PRODUCTION COORDINATOR Ot 733.90 07/13/2014 SANTIAGO KERN S PRODUCTION COORDINATOR Ot V58.69 07/13/2014 SANTIAGO KERN PRODUCTION COORDINATOR Ot V86.0 09/24/2014 ZANE MANCILLA N Ot 174.9 09/24/2014 CHAROZANE VERNON N Ot 585.3 09/24/2014 CHARO, BOBAN N Ot 733.90 09/24/2014 CHARO, KEVINAN N Ot V58.69 09/24/2014 CHAROZANE VERNON N Ot V86.0 11/14/2014 CHARO, BOBAN N Ot 174.9 11/14/2014 CHARO, BOBAN N Ot 585.3 11/14/2014 CHARO, BOBAN N Ot 733.90 11/14/2014 CHARO, BOBAN N Ot V58.69 11/14/2014 CHARO, BOBAN N Ot V86.0 11/17/2014 CHAROZANE VERNON N Ot 174.9 11/17/2014 CHAROKEVIN VERNONAN N Ot 585.3 11/17/2014 ZANE MANCILLA N Ot 733.90 11/17/2014 ZANE MANCILLA N Ot V58.69 11/17/2014 ZANE MANCILLA N Ot V86.0 11/20/2014 Ot 715.34 11/20/2014 Ot 813.42 11/20/2014 Ot E000.8 11/20/2014 Ot E030 11/20/2014 Ot E849.0 11/20/2014 Ot E888.9 11/20/2014 Ot V76.12 11/20/2014 Ot V76.12 11/20/2014 Ot 611.72 11/20/2014 Ot V76.12 11/20/2014 DAVID SIMPSON, SCOTT Oseguera Ot 793.82 11/20/2014 DAVID SIMPSON, SCOTT Oseguera Ot V76.12 11/20/2014 DAVID SIMPSON, SCOTT Oseguera Ot 793.80 11/20/2014 NGOZI SIMPSON, LINA Ot 174.9 11/20/2014 NGOZI SIMPSON, LINA Ot 174.9 11/20/2014 NGOZI SIMPSON, VAISHALIKI Ot 174.9 11/20/2014 NGOZI SIMPSON, VAISHALIKI Ot 791.9 11/20/2014 NGOZI SIMPSON, MAGNUSAAKI Ot V72.63 11/20/2014 NGOZI SIMPSON, VAISHALIKI Ot V72.81 11/20/2014 NGOZI SIMPSON, MAGNUSAAKI Ot V72.83 11/20/2014 NGOZI SIMPSON, TAKAAKI Ot V74.8 11/20/2014 JUAN SIMPSON, SOCORRO Collins Ot 397.0 11/20/2014 JUAN SIMPSON, SOCORRO Collins Ot 424.0 11/20/2014 JUAN SIMPSON, SOCORRO Collins Ot 794.31 11/20/2014 ZANE MANCILLA N Ot 174.9 11/20/2014 ZANE MANCILLA N Ot 733.90 11/20/2014 ZANE MANCILLA N Ot V49.81 11/20/2014 SANTIAGO KERN PRODUCTION COORDINATOR Ot 174.9 11/20/2014 SANTIAGO KERN PRODUCTION COORDINATOR Ot 288.61 11/20/2014 SANTIAGO KERN PRODUCTION COORDINATOR Ot 288.63 11/20/2014 SANTIAGO KERN PRODUCTION COORDINATOR Ot 585.3 11/20/2014 CALLIE KERNAH S PRODUCTION COORDINATOR Ot 733.90 11/20/2014 KERN, HILAH S PRODUCTION COORDINATOR Ot V58.69 11/20/2014 KERN, HILAH S PRODUCTION COORDINATOR Ot V86.0 11/20/2014 DAVID SIMPSON, SCOTT M Ot 724.2 11/20/2014 DAVID SIMPSON, SCOTT M Ot 790.5 11/20/2014 DAVID SIMPSON, SCOTT M Ot V10.3 11/20/2014 NGOZI SIMPSON, LINA Ot V72.84 11/20/2014 DEFFENBASANTIAGO DOGEORY D Ot 564.1 11/20/2014 DEFFENBASANTIAGO DO BLADE D Ot 240.9 11/20/2014 DAVID SIMPSON, SCOTT M Ot 722.52 11/20/2014 DAVID SIMPSON, SCOTT M Ot 805.4 11/20/2014 DAVID SIMPSON, SCOTT M Ot E928.9 11/20/2014 CALLIE KERNAH S PRODUCTION COORDINATOR Ot 174.9 11/20/2014 KERN, CALLIEAH S PRODUCTION COORDINATOR Ot 585.3 11/20/2014 KERN CALLIEAH S PRODUCTION COORDINATOR Ot 733.90 11/20/2014 KERN CALLIEAH S PRODUCTION COORDINATOR Ot V58.69 11/20/2014 KERN HILAH S PRODUCTION COORDINATOR Ot V86.0 11/20/2014 KERN, HILAH S PRODUCTION COORDINATOR Ot 174.9 11/20/2014 DAVID SIMPSON, SCOTT M Ot 719.45 11/20/2014 DAVID SIMPSON, SCOTT M Ot 722.52 11/20/2014 DAVID SIMPSON, SCOTT M Ot 793.7 11/20/2014 DAVID SIMPSON, SCOTT M Ot 805.4 11/20/2014 DAVID SIMPSON, SCOTT M Ot E928.9 11/20/2014 DAVID SIMPSON, SCOTT M Ot 719.45 11/20/2014 DAVID SIMPSON, SCOTT M Ot 729.5 11/20/2014 ZANE MANCILLA Ot 174.9 11/20/2014 KERN, HILAH S PRODUCTION COORDINATOR Ot 174.9 11/20/2014 KERN, HILAH S PRODUCTION COORDINATOR Ot 585.3 11/20/2014 SANTIAGO KERN PRODUCTION COORDINATOR Ot 733.90 11/20/2014 SANTIAGO KERN PRODUCTION COORDINATOR Ot V58.69 11/20/2014 SANTIAGO KERN PRODUCTION COORDINATOR Ot V86.0 11/20/2014 ZANE MANCILLA N Ot 174.9 11/20/2014 ZANE MANCILLA N Ot 585.3 11/20/2014 ZANE MANCILLA N Ot 733.90 11/20/2014 ZANE MANCILLA N Ot V58.69 11/20/2014 ZANE MANCILLA N Ot V86.0 11/25/2014 ZANE MANCILLA N Ot 174.9 12/01/2014 ZANE MANCILLA N Ot 174.9 MALIGN NEOPL BREAST NOS 12/01/2014 ZANE MANCILLA N Ot 585.3 CHRONIC KIDNEY DISEASE, STAGE III (MODER 12/01/2014 ZANE MANCILLA N Ot 733.90 BONE CARTILAGE DIS NOS 12/01/2014 ZANE AMNCILLA N Ot V58.69 OT MED,LT,CURRENT USE 12/01/2014 ZANE MANCILLA N Ot V86.0 ESTROGEN RECEPTOR POSITIVE STATUS [ER+] 12/11/2014 ZANE MANCILLA N Ot 174.9 12/14/2014 SANTIAGO KERN PRODUCTION COORDINATOR Ot 174.9 12/14/2014 SANTIAGO KERN PRODUCTION COORDINATOR Ot 585.3 12/14/2014 SANITAGO KERN PRODUCTION COORDINATOR Ot 733.90 12/14/2014 SANTIAGO KERN PRODUCTION COORDINATOR Ot V58.69 12/14/2014 SANTIAGO KERN PRODUCTION COORDINATOR Ot V86.0 12/22/2014 ZANE MANCILLA N Ot 174.9 12/24/2014 CALLIE KERNYANET Dax PRODUCTION COORDINATOR Ot 174.9 12/24/2014 SANTIAGO KERN PRODUCTION COORDINATOR Ot 585.3 12/24/2014 SANTIAGO KERN PRODUCTION COORDINATOR Ot 733.90 12/24/2014 SANTIAGO KERN PRODUCTION COORDINATOR Ot V58.69 12/24/2014 SANTIAGO KERN PRODUCTION COORDINATOR Ot V86.0 02/25/2015 Ot 715.34 02/25/2015 Ot 813.42 02/25/2015 Ot E000.8 02/25/2015 Ot E030 02/25/2015 Ot E849.0 02/25/2015 Ot E888.9 02/25/2015 Ot V76.12 02/25/2015 Ot V76.12 02/25/2015 Ot 611.72 02/25/2015 Ot V76.12 02/25/2015 DAVID SIMPSON, SCOTT Oseguera Ot 793.82 02/25/2015 DAVID SIMPSON, SCOTT Oseguera Ot V76.12 02/25/2015 DAVID SIMPSON, SCOTT M Ot 793.80 02/25/2015 NGOZI SIMPSON, VAISHALIKI Ot 174.9 02/25/2015 NGOZI SIMPSON, VAISHALIKI Ot 174.9 02/25/2015 NGOZI SIMPSON, LINA Ot 174.9 02/25/2015 NGOZI SIMPSON, VAISHALIKI Ot 791.9 02/25/2015 NGOZI SIMPSON, MAGNUSAAKI Ot V72.63 02/25/2015 NGOZI SIMPSON, MAGNUSAAKI Ot V72.81 02/25/2015 NGOZI SIMPSON, MAGNUSAAKI Ot V72.83 02/25/2015 NGOZI SIMPSON, TAKAAKI Ot V74.8 02/25/2015 JUAN SIMPSON, SOCORRO Collins Ot 397.0 02/25/2015 JUAN SIMPSON, SOCORRO Collins Ot 424.0 02/25/2015 JUAN SIMPSON, SOCORRO Collins Ot 794.31 02/25/2015 CHARO ZANE N Ot 174.9 02/25/2015 ZANE MANCILLA N Ot 733.90 02/25/2015 ZANE MANCILLA N Ot V49.81 02/25/2015 SANTIAGO KERN PRODUCTION COORDINATOR Ot 174.9 02/25/2015 SANTIAGO KERN PRODUCTION COORDINATOR Ot 288.61 02/25/2015 SANTIAGO KERN PRODUCTION COORDINATOR Ot 288.63 02/25/2015 SANTIAGO KERN PRODUCTION COORDINATOR Ot 585.3 02/25/2015 SANTIAGO KERN PRODUCTION COORDINATOR Ot 733.90 02/25/2015 SANTIAGO KERN PRODUCTION COORDINATOR Ot V58.69 02/25/2015 SANTIAGO KERN PRODUCTION COORDINATOR Ot V86.0 02/25/2015 DAVID SIMPSON, SCOTT Oseguera Ot 724.2 02/25/2015 DAVID SIMPSON, SCOTT M Ot 790.5 02/25/2015 DAVID SIMPSON, SCOTT M Ot V10.3 02/25/2015 NGOZI SIMPSON, TAKAAKI Ot V72.84 02/25/2015 JONG NINA BLADE D Ot 564.1 02/25/2015 BLADE SUNSHINE DO D Ot 240.9 02/25/2015 DAVID SIMPSON, SCOTT M Ot 722.52 02/25/2015 DAVID SIMPSON, SCOTT M Ot 805.4 02/25/2015 DAVID SIMPSON, SCOTT M Ot E928.9 02/25/2015 KERN HILAH S PRODUCTION COORDINATOR Ot 174.9 02/25/2015 KERN HILAH S PRODUCTION COORDINATOR Ot 585.3 02/25/2015 KERN, HILAH S PRODUCTION COORDINATOR Ot 733.90 02/25/2015 KERN, HILAH S PRODUCTION COORDINATOR Ot V58.69 02/25/2015 KERN HILAH S PRODUCTION COORDINATOR Ot V86.0 02/25/2015 KERN HILAH S PRODUCTION COORDINATOR Ot 174.9 02/25/2015 DAVID SIMPSON, SCOTT M Ot 719.45 02/25/2015 DAVID SIMPSON, SCOTT M Ot 722.52 02/25/2015 DAVID SIMPSON, SCOTT M Ot 793.7 02/25/2015 DAVID SIMPSON, SCOTT M Ot 805.4 02/25/2015 DAVID SIMPSON, SCOTT M Ot E928.9 02/25/2015 DAVID SIMPSON, SCOTT M Ot 719.45 02/25/2015 DAVID SIMPSON, SCOTT M Ot 729.5 02/25/2015 ZANE MANCILLA Ot 174.9 02/25/2015 KERN HILAH S PRODUCTION COORDINATOR Ot 174.9 02/25/2015 KERN HILAH S PRODUCTION COORDINATOR Ot 585.3 02/25/2015 KERN HILAH S PRODUCTION COORDINATOR Ot 733.90 02/25/2015 KERN HILAH S PRODUCTION COORDINATOR Ot V58.69 02/25/2015 KERN HILAH S PRODUCTION COORDINATOR Ot V86.0 02/25/2015 ZANE MANCILLA Ot 174.9 02/25/2015 KERN HILAH S PRODUCTION COORDINATOR Ot 174.9 02/25/2015 SANTIAGO KERN PRODUCTION COORDINATOR Ot 585.3 02/25/2015 SANTIAGO KERN PRODUCTION COORDINATOR Ot 733.90 02/25/2015 SANTIAGO KERN PRODUCTION COORDINATOR Ot V58.69 02/25/2015 SANTIAGO KERN PRODUCTION COORDINATOR Ot V86.0 02/25/2015 CHAROZANE VERNON N Ot 174.9 02/25/2015 CHAROZANE VERNON N Ot 585.3 02/25/2015 CHAROZANE N Ot 733.90 02/25/2015 CHAROZANE VERNON N Ot V58.69 02/25/2015 CHAROZANE VERNON N Ot V86.0 03/03/2015 CHARO, BOBMEE N Ot 174.9 03/03/2015 CHARO, BOBMEE N Ot 585.3 03/03/2015 CHARO, BOBMEE N Ot 733.90 03/03/2015 CHAROZANE VERNON N Ot V58.69 03/03/2015 CHAROZANE VERNON N Ot V86.0 03/17/2015 ZANE MANCILLA N Ot 174.9 MALIGN NEOPL BREAST NOS 03/17/2015 ZANE MANCILLA N Ot 585.3 CHRONIC KIDNEY DISEASE, STAGE III (MODER 03/17/2015 ZANE MANCILLA N Ot 733.90 BONE CARTILAGE DIS NOS 03/17/2015 ZANE MANCILLA N Ot V58.69 OTH MED,LT,CURRENT USE 03/17/2015 ZANE MANCILLA N Ot V86.0 ESTROGEN RECEPTOR POSITIVE STATUS [ER+] 03/25/2015 SANTIAGO KERN PRODUCTION COORDINATOR Ot 174.9 03/25/2015 SANTIAGO KERN PRODUCTION COORDINATOR Ot 585.3 03/25/2015 SANTIAGO KERN PRODUCTION COORDINATOR Ot 733.90 03/25/2015 SANTIAGO KERN PRODUCTION COORDINATOR Ot C50.912 03/25/2015 SANTIAGO KERN PRODUCTION COORDINATOR Ot M85.80 03/25/2015 SANTIAGO KERN PRODUCTION COORDINATOR Ot N18.3 03/25/2015 SANTIAGO KERN PRODUCTION COORDINATOR Ot V58.69 03/25/2015 SANTIAGO KERN PRODUCTION COORDINATOR Ot V86.0 03/25/2015 SANTIAGO KERN PRODUCTION COORDINATOR Ot Z17.0 03/25/2015 KERNSANTIAGO Verduzco PRODUCTION COORDINATOR Ot Z79.811 03/25/2015 KERNSANTIAGO Verduzco S PRODUCTION COORDINATOR Ot Z79.899 03/25/2015 SADIA CHANGHANREG Oseguera PRODUCTION COORDINATOR Ot 813.44 03/25/2015 CHARLENE MICHAEL Oumar PRODUCTION COORDINATOR Ot E000.8 03/25/2015 MICHAEL CHANG PRODUCTION COORDINATOR Ot E888.9 04/05/2015 KERNSANTIAGO Verduzco S PRODUCTION COORDINATOR Ot 174.9 04/05/2015 KERNSANTIAGO Verduzco S PRODUCTION COORDINATOR Ot 585.3 04/05/2015 KERNSANTIAGO Verduzco S PRODUCTION COORDINATOR Ot 733.90 04/05/2015 KERNSANTIAGO S PRODUCTION COORDINATOR Ot C50.912 04/05/2015 KERNSANTIAGO Verduzco S PRODUCTION COORDINATOR Ot M85.80 04/05/2015 KERNSANTIAGO Verduzco S PRODUCTION COORDINATOR Ot N18.3 04/05/2015 KERNSANTIAGO Verduzco S PRODUCTION COORDINATOR Ot V58.69 04/05/2015 KERNSANTIAGO Verduzco S PRODUCTION COORDINATOR Ot V86.0 04/05/2015 KERNSANTIAGO Verduzco S PRODUCTION COORDINATOR Ot Z17.0 04/05/2015 KERNSANTIAGO Verduzco S PRODUCTION COORDINATOR Ot Z79.811 04/05/2015 KERNSANTIAGO Verduzco S PRODUCTION COORDINATOR Ot Z79.899 04/05/2015 CHARLENE MICHAEL Oumar PRODUCTION COORDINATOR Ot 813.44 04/05/2015 MICHAEL CHANG PRODUCTION COORDINATOR Ot E000.8 04/05/2015 MICHAEL CHANG PRODUCTION COORDINATOR Ot E888.9 05/17/2015 KERNSANTIAGO Verduzco S PRODUCTION COORDINATOR Ot C50.919 05/17/2015 KERNSANTIAGO Verduzco S PRODUCTION COORDINATOR Ot M85.89 05/17/2015 KERNSANTIAGO Verduzco S PRODUCTION COORDINATOR Ot N95.9 06/04/2015 CHAROZANE N Ot 174.9 06/04/2015 CHAROZANE VERNON N Ot 585.3 06/04/2015 CHARO, BOBAN N Ot 733.90 06/04/2015 CHAROZANE VERNON N Ot V58.69 06/04/2015 ZANE MANCILLA N Ot V86.0 06/23/2015 CHARO, BOBMEE N Ot C50.912 06/23/2015 ZANE MANCILLA N Ot M85.80 06/23/2015 ZANE MANCILLA N Ot Z17.0 06/23/2015 ZANE MANCILLA N Ot Z79.811 06/23/2015 ZANE MANCILLA N Ot Z79.899 07/20/2015 LAURIE FAN PRODUCTION COORDINATOR Ot S52.90XD 07/20/2015 LAURIE FAN PRODUCTION COORDINATOR Ot X58.XXXD 07/20/2015 LAURIE FAN PRODUCTION COORDINATOR Ot S52.90XD 07/20/2015 LAURIE FAN PRODUCTION COORDINATOR Ot X58.XXXD 08/02/2015 ZANE MANCILLA N Ot C50.912 MALIGNANT NEOPLASM OF UNSPECIFIED SITE O 08/02/[address] Ot M85.80 OTH DISRD OF BONE DENSITY AND STRUCTURE, 08/02/2015 ZANE MANCILLA N Ot Z17.0 ESTROGEN RECEPTOR POSITIVE STATUS [ER+] 08/02/2015 CHARO ZANE N Ot Z79.811 SENIOR CARE (CURRENT) USE OF AROMATASE INH 08/02/2015 ZANE MANCILLA N Ot Z79.899 OTHER SENIOR CARE (CURRENT) DRUG THERAPY 08/12/2015 LAURIE FAN PRODUCTION COORDINATOR Ot S52.90XD UNSP FRACTURE OF UNSP FOREARM, SUBS FOR 08/12/2015 LAURIE FAN PRODUCTION COORDINATOR Ot X58.XXXD EXPOSURE TO OTHER SPECIFIED FACTORS, SUB 09/03/2015 CHARO ZANE N Ot C50.912 09/03/2015 CHAROKEVINMEE N Ot M85.80 09/03/2015 CHARO ZANE N Ot Z17.0 09/03/2015 CHARO ZANE N Ot Z79.811 09/03/2015 CHARO KEVINMEE N Ot Z79.899 09/03/2015 SANTIAGO KERN PRODUCTION COORDINATOR Ot C50.912 09/03/2015 SANTIAGO KERN PRODUCTION COORDINATOR Ot M85.80 09/03/2015 SANTIAGO KERN PRODUCTION COORDINATOR Ot Z17.0 09/03/2015 SANTIAGO KERN PRODUCTION COORDINATOR Ot Z79.811 09/03/2015 SANTIAGO KERN PRODUCTION COORDINATOR Ot Z79.899 09/22/2015 KERNSANTIAGO Verduzco PRODUCTION COORDINATOR Ot C50.912 09/22/2015 ERLINSANTIAGO S PRODUCTION COORDINATOR Ot M85.80 09/22/2015 KERNSANTIAGO Verduzco PRODUCTION COORDINATOR Ot Z17.0 09/22/2015 KERNSANTIAGO Verduzco PRODUCTION COORDINATOR Ot Z79.811 09/22/2015 KERNSANTIAGO Verduzco S PRODUCTION COORDINATOR Ot Z79.899 09/29/2015 KERNSANTIAGO S PRODUCTION COORDINATOR Ot C50.912 09/29/2015 KERNSANTIAGO S PRODUCTION COORDINATOR Ot M85.80 09/29/2015 KERNSANTIAGO Verduzco PRODUCTION COORDINATOR Ot Z17.0 09/29/2015 KERNSANTIAGO PRODUCTION COORDINATOR Ot Z79.811 09/29/2015 KERNSANTIAGO PRODUCTION COORDINATOR Ot Z79.899 11/22/2015 KERNSANTIAGO Verduzco PRODUCTION COORDINATOR Ot Z12.31 ENCNTR SCREEN MAMMOGRAM FOR MALIGNANT NE 11/23/2015 KERNSANTIAGO Verduzco PRODUCTION COORDINATOR Ot Z12.31 ENCNTR SCREEN MAMMOGRAM FOR MALIGNANT NE 12/01/2015 ZANE MANCILLA Ot C50.912 MALIGNANT NEOPLASM OF UNSPECIFIED SITE O 12/01/[address] Ot M85.80 OTH DISRD OF BONE DENSITY AND STRUCTURE, 12/01/2015 ZANE MANCILLA Ot Z17.0 ESTROGEN RECEPTOR POSITIVE STATUS [ER+] 12/01/[address] Ot Z79.811 SENIOR CARE (CURRENT) USE OF AROMATASE INH 12/01/[address] Ot Z79.899 OTHER MANAGER DEVELOPMENT (CURRENT) DRUG THERAPY 12/02/2015 ZANE MANCILLA Ot C50.912 MALIGNANT NEOPLASM OF UNSPECIFIED SITE O 12/02/2015 ZANE MANCILLA N Ot M85.80 OTH DISRD OF BONE DENSITY AND STRUCTURE, 12/02/2015 ZANE MANCILLA Ot Z17.0 ESTROGEN RECEPTOR POSITIVE STATUS [ER+] 12/02/[address] Ot Z79.811 SENIOR CARE (CURRENT) USE OF AROMATASE INH 12/02/2015 ZANE MANCILLA N Ot Z79.899 OTHER SENIOR CARE (CURRENT) DRUG THERAPY 12/14/2015 SANTIAGO KERN PRODUCTION COORDINATOR Ot 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 12/14/2015 SANTIAGO KERN PRODUCTION COORDINATOR Ot Z12.31 ENCNTR SCREEN MAMMOGRAM FOR MALIGNANT NE 02/28/2016 ZANE MANCILLA Ot C50.912 MALIGNANT NEOPLASM OF UNSPECIFIED SITE O 02/28/2016 ZANE MANCILLA Ot M85.80 OTH DISRD OF BONE DENSITY AND STRUCTURE, 02/28/2016 ZANE MANCILLA Ot Z17.0 ESTROGEN RECEPTOR POSITIVE STATUS [ER+] 02/28/2016 ZANE MANCILLA Ot Z79.811 SENIOR CARE (CURRENT) USE OF AROMATASE INH 02/28/2016 ZANE MANCILLA N Ot Z79.899 OTHER MANAGER DEVELOPMENT (CURRENT) DRUG THERAPY 03/07/[address] Ot C50.912 MALIGNANT NEOPLASM OF UNSPECIFIED SITE O 03/07/[address] Ot M85.80 OTH DISRD OF BONE DENSITY AND STRUCTURE, 03/07/2016 ZANE MANCILLA Ot Z17.0 ESTROGEN RECEPTOR POSITIVE STATUS [ER+] 03/07/2016 ZANE MANCILLA Ot Z79.811 SENIOR CARE (CURRENT) USE OF AROMATASE INH 03/07/2016 ZANE MANCILLA N Ot Z79.899 OTHER MANAGER DEVELOPMENT (CURRENT) DRUG THERAPY 05/18/2016 ZANE MANCILLA Ot C50.912 MALIGNANT NEOPLASM OF UNSPECIFIED SITE O 05/18/2016 ZANE MANCILLA Ot M85.80 OTH DISRD OF BONE DENSITY AND STRUCTURE, 05/18/2016 ZANE MANCILLA Ot Z17.0 ESTROGEN RECEPTOR POSITIVE STATUS [ER+] 05/18/2016 ZANE MANCILLA Ot Z79.811 MANAGER DEVELOPMENT (CURRENT) USE OF AROMATASE INH 05/18/2016 ZANE MANCILLA N Ot Z79.899 OTHER MANAGER DEVELOPMENT (CURRENT) DRUG THERAPY 06/04/[address] Ot C50.912 MALIGNANT NEOPLASM OF UNSPECIFIED SITE O 06/04/2016 ZANE MANCILLA Ot M85.80 OTH DISRD OF BONE DENSITY AND STRUCTURE, 06/04/2016 ZANE MANCILLA Ot Z17.0 ESTROGEN RECEPTOR POSITIVE STATUS [ER+] 06/04/2016 ZANE MANCILLA Ot Z79.811 MANAGER DEVELOPMENT (CURRENT) USE OF AROMATASE INH 06/04/2016 ZANE MANCILLA Ot Z79.899 OTHER SENIOR CARE (CURRENT) DRUG THERAPY 06/06/2016 Ot V76.12 OTH SCREEN MAMMO-MALIGN NEOPLASM OF [place] 06/06/2016 Ot 611.72 LUMP OR MASS IN BREAST 06/06/2016 Ot V76.12 OTH SCREEN MAMMO-MALIGN NEOPLASM OF [place] 06/06/2016 SCOTT HERNANDEZ MD Ot 793.82 INCONCLUSIVE MAMMOGRAM 06/06/2016 SCOTT HERNANDEZ MD Ot V76.12 OTH SCREEN MAMMO-MALIGN NEOPLASM OF [place] 06/06/2016 SCOTT HERNANDEZ MD Ot 793.80 UNSPEC ABNORMAL MAMMOGRAM 06/06/2016 LINA MELVIN MD Ot 174.9 MALIGN NEOPL BREAST NOS 06/06/2016 LINA MELVIN MD Ot 174.9 MALIGN NEOPL BREAST NOS 06/06/2016 LINA MELVIN MD Ot 174.9 MALIGN NEOPL BREAST NOS 06/06/2016 LINA MELVIN MD Ot 791.9 ABN URINE FINDINGS NEC 06/06/2016 LINA MELVIN MD Ot V72.63 PRE-PROCEDURAL LABORATORY EXAMINATION 06/06/2016 LINA MELVIN MD Ot V72.81 [id number] CARDIOVASCULAR 06/06/2016 LINA MELVIN MD, Ot V72.83 EXAM PRE-OPERATIVE NEC 06/06/2016 LINA MELVIN MD Ot V74.8 SCREEN-BACTERIAL DIS NEC 06/06/2016 SOCORRO MARTINEZ MD Ot 397.0 TRICUSPID VALVE DISEASE 06/06/2016 SOCORRO MARTINEZ MD Ot 424.0 MITRAL VALVE DISORDER 06/06/2016 SOCORRO MARTINEZ MD Ot 794.31 ABNORM ELECTROCARDIOGRAM 06/06/2016 ZANE MANCILLA Ot 174.9 MALIGN NEOPL BREAST NOS 06/06/2016 ZANE MANCILLA Ot 733.90 BONE CARTILAGE DIS NOS 06/06/2016 ZANE MANCILLA Ot V49.81 ASYMPT POSTMENOPAUSAL STATUS (AGE-RELATE 06/06/2016 SANTIAGO KERN Ot 174.9 MALIGN NEOPL BREAST NOS 06/06/2016 SANTIAGO KERN PRODUCTION COORDINATOR Ot 288.61 LYMPHOCYTOSIS (SYMPTOMATIC) 06/06/2016 SANTIAGO KERN PRODUCTION COORDINATOR Ot 288.63 MONOCYTOSIS (SYMPTOMATIC) 06/06/2016 SANTIAGO KERN PRODUCTION COORDINATOR Ot 585.3 CHRONIC KIDNEY DISEASE, STAGE III (MODER 06/06/2016 SANTIAGO KERN PRODUCTION COORDINATOR Ot 733.90 BONE CARTILAGE DIS NOS 06/06/2016 SANTIAGO KERN PRODUCTION COORDINATOR Ot V58.69 OTH MED,LT,CURRENT USE 06/06/2016 SANTIAGO KERN PRODUCTION COORDINATOR Ot V86.0 ESTROGEN RECEPTOR POSITIVE STATUS [ER+] 06/06/2016 DAVID SIMPSON, SCOTT Oseguera Ot 724.2 LUMBAGO 06/06/2016 DAVID SIMPSON, SCOTT Oseguera Ot 790.5 ABN SERUM ENZY LEVEL NEC 06/06/2016 SCOTT HERNANDEZ MD Ot V10.3 HX OF BREAST MALIGNANCY 06/06/2016 NGOZI SIMPSON, LINA Ot V72.84 EXAM PRE-OPERATIVE NOS 06/06/2016 BLADE SUNSHINE DO Ot 564.1 IRRITABLE BOWEL SYNDROME 06/06/2016 BLADE SUNSHINE DO Ot 240.9 GOITER NOS 06/06/2016 DAVID SIMPSON, SCOTT Oseguera Ot 722.52 LUMB/LUMBOSAC DISC DEGEN 06/06/2016 DAVID SIMPSON, SCOTT Oseguera Ot 805.4 FX LUMBAR VERTEBRA-CLOSE 06/06/2016 SCOTT HERNANDEZ MD Ot E928.9 ACCIDENT NOS 06/06/2016 SANTIAGO KERN PRODUCTION COORDINATOR Ot 174.9 MALIGN NEOPL BREAST NOS 06/06/2016 SANTIAGO KERN PRODUCTION COORDINATOR Ot 585.3 CHRONIC KIDNEY DISEASE, STAGE III (MODER 06/06/2016 SANTIAGO KERN PRODUCTION COORDINATOR Ot 733.90 BONE CARTILAGE DIS NOS 06/06/2016 SANTIAGO KERN PRODUCTION COORDINATOR Ot V58.69 OTH MED,LT,CURRENT USE 06/06/2016 SANTIAGO KERN PRODUCTION COORDINATOR Ot V86.0 ESTROGEN RECEPTOR POSITIVE STATUS [ER+] 06/06/2016 SANTIAGO KERN S PRODUCTION COORDINATOR Ot 174.9 MALIGN NEOPL BREAST NOS 06/06/2016 SCOTT HERNANDEZ MD Ot 719.45 JOINT PAIN-PELVIS 06/06/2016 DAVID SIMPSON, SCOTT Oseguera Ot 722.52 LUMB/LUMBOSAC DISC DEGEN 06/06/2016 SCOTT HERNANDEZ MD Ot 793.7 NOSP (ABN) FINDINGS ON RADIOLOGICAL OT 06/06/2016 SCOTT HERNANDEZ MD Ot 805.4 FX LUMBAR VERTEBRA-CLOSE 06/06/2016 SCOTT HERNANDEZ MD Ot E928.9 ACCIDENT NOS 06/06/2016 SCOTT HERNANDEZ MD Ot 719.45 JOINT PAIN-PELVIS 06/06/2016 SCOTT HERNANDEZ MD Ot 729.5 PAIN IN LIMB 06/06/2016 CHARO ZANE Fofana Ot 174.9 MALIGN NEOPL BREAST NOS 06/06/2016 KERN, HILAH S PRODUCTION COORDINATOR Ot 174.9 MALIGN NEOPL BREAST NOS 06/06/2016 SANTIAGO KERN S PRODUCTION COORDINATOR Ot 585.3 CHRONIC KIDNEY DISEASE, STAGE III (MODER 06/06/2016 SANTIAGO KERN S PRODUCTION COORDINATOR Ot 733.90 BONE CARTILAGE DIS NOS 06/06/2016 KERNCALLIEAH S PRODUCTION COORDINATOR Ot V58.69 OTH MED,LT,CURRENT USE 06/06/2016 KERN HILAH S PRODUCTION COORDINATOR Ot V86.0 ESTROGEN RECEPTOR POSITIVE STATUS [ER+] 06/06/2016 ZANE MANCILLA N Ot 174.9 MALIGN NEOPL BREAST NOS 06/06/2016 KERNCALLIEAH S PRODUCTION COORDINATOR Ot 174.9 MALIGN NEOPL BREAST NOS 06/06/2016 KERNCALLIEAH S PRODUCTION COORDINATOR Ot 585.3 CHRONIC KIDNEY DISEASE, STAGE III (MODER 06/06/2016 KERNSANTIAGO S PRODUCTION COORDINATOR Ot 733.90 BONE CARTILAGE DIS NOS 06/06/2016 KERNSANTIAGO S PRODUCTION COORDINATOR Ot V58.69 OTH MED,LT,CURRENT USE 06/06/2016 KERN HILAH S PRODUCTION COORDINATOR Ot V86.0 ESTROGEN RECEPTOR POSITIVE STATUS [ER+] 06/06/2016 KERN HILAH S PRODUCTION COORDINATOR Ot 174.9 MALIGN NEOPL BREAST NOS 06/06/2016 KERNCALLIEAH S PRODUCTION COORDINATOR Ot 585.3 CHRONIC KIDNEY DISEASE, STAGE III (MODER 06/06/2016 KERN HILAH S PRODUCTION COORDINATOR Ot 733.90 BONE CARTILAGE DIS NOS 06/06/2016 SANTIAGO KERN PRODUCTION COORDINATOR Ot C50.912 MALIGNANT NEOPLASM OF UNSPECIFIED SITE O 06/06/2016 SANTIAGO KERN PRODUCTION COORDINATOR Ot M85.80 OTH DISRD OF BONE DENSITY AND STRUCTURE, 06/06/2016 SANTIAGO KERN PRODUCTION COORDINATOR Ot N18.3 CHRONIC KIDNEY DISEASE, STAGE 3 (MODERAT 06/06/2016 SANTIAGO KERNP Ot V58.69 OTH MED,LT,CURRENT USE 06/06/2016 SANTIAGO KERNP Ot V86.0 ESTROGEN RECEPTOR POSITIVE STATUS [ER+] 06/06/2016 SANTIAGO KERN PRODUCTION COORDINATOR Ot Z17.0 ESTROGEN RECEPTOR POSITIVE STATUS [ER+] 06/06/2016 SANTIAGO KERN PRODUCTION COORDINATOR Ot Z79.811 MANAGER DEVELOPMENT (CURRENT) USE OF AROMATASE INH 06/06/2016 SANTIAGO KERN PRODUCTION COORDINATOR Ot Z79.899 OTHER MANAGER DEVELOPMENT (CURRENT) DRUG THERAPY 06/06/2016 SANTIAGO KERN PRODUCTION COORDINATOR Ot C50.919 MALIGNANT NEOPLASM OF UNSP SITE OF UNSPE 06/06/2016 SANTIAGO KERN PRODUCTION COORDINATOR Ot M85.89 OTH DISRD OF BONE DENSITY AND STRUCTURE, 06/06/2016 SANTIAGO KERN PRODUCTION COORDINATOR Ot N95.9 UNSPECIFIED MENOPAUSAL AND PERIMENOPAUSA 06/06/2016 MICHAEL CHANG PRODUCTION COORDINATOR Ot 813.44 FX LOW RADIUS W ULNA-CL 06/06/2016 MICHAEL CHANG PRODUCTION COORDINATOR Ot E000.8 OTHER EXTERNAL CAUSE STATUS 06/06/2016 MICHAEL CHANG PRODUCTION COORDINATOR Ot E888.9 FALL NOS 06/06/2016 SANTIAGO KERN PRODUCTION COORDINATOR Ot C50.912 MALIGNANT NEOPLASM OF UNSPECIFIED SITE O 06/06/2016 SANTIAGO EKRN PRODUCTION COORDINATOR Ot M85.80 OTH DISRD OF BONE DENSITY AND STRUCTURE, 06/06/2016 SANTIAGO KERN PRODUCTION COORDINATOR Ot Z17.0 ESTROGEN RECEPTOR POSITIVE STATUS [ER+] 06/06/2016 SANTIAGO KERN PRODUCTION COORDINATOR Ot Z79.811 SENIOR CARE (CURRENT) USE OF AROMATASE INH 06/06/2016 SANTIAGO KERN PRODUCTION COORDINATOR Ot Z79.899 OTHER MANAGER DEVELOPMENT (CURRENT) DRUG THERAPY 06/06/2016 SANTIAGO KERN PRODUCTION COORDINATOR Ot 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 06/06/2016 SANTIAGO KERN PRODUCTION COORDINATOR Ot Z12.31 ENCNTR SCREEN MAMMOGRAM FOR MALIGNANT NE 06/06/2016 ZANE MANCILLA Ot C50.912 MALIGNANT NEOPLASM OF UNSPECIFIED SITE O 06/06/2016 ZANE MANCILLA Ot M85.80 OTH DISRD OF BONE DENSITY AND STRUCTURE, 06/06/2016 ZANE MANCILLA Ot Z17.0 ESTROGEN RECEPTOR POSITIVE STATUS [ER+] 06/06/2016 ZANE MANCILLA Ot Z79.811 SENIOR CARE (CURRENT) USE OF AROMATASE INH 06/06/[address] Ot Z79.899 OTHER SENIOR CARE (CURRENT) DRUG THERAPY 06/09/2016 VIN DO NOEMI F Ot M25.511 PAIN IN RIGHT SHOULDER 06/09/2016 VIN DO NOEMI F Ot Z98.890 OTHER SPECIFIED POSTPROCEDURAL STATES 06/18/2016 ZANE MANCILLA Ot C50.912 MALIGNANT NEOPLASM OF UNSPECIFIED SITE O 06/18/2016 ZANE MANCILLA Ot M85.80 OTH DISRD OF BONE DENSITY AND STRUCTURE, 06/18/2016 ZANE MANCILLA Ot Z17.0 ESTROGEN RECEPTOR POSITIVE STATUS [ER+] 06/18/2016 ZANE MANCILLA Ot Z79.811 SENIOR CARE (CURRENT) USE OF AROMATASE INH 06/18/2016 ZANE MANCILLA Ot Z79.899 OTHER MANAGER DEVELOPMENT (CURRENT) DRUG THERAPY 08/03/2016 VIN DO NOEMI F Ot M25.511 PAIN IN RIGHT SHOULDER 08/03/2016 VIN DO, NOEMI F Ot Z98.890 OTHER SPECIFIED POSTPROCEDURAL STATES 08/10/2016 VIN DO, NOEMI F Ot M25.511 PAIN IN RIGHT SHOULDER 08/10/2016 VIN DO, NOEMI F Ot Z98.890 OTHER SPECIFIED POSTPROCEDURAL STATES 08/10/2016 VIN DO, NOEMI F Ot M25.511 PAIN IN RIGHT SHOULDER 08/10/2016 VIN DO, NOEMI F Ot Z98.890 OTHER SPECIFIED POSTPROCEDURAL STATES 08/15/2016 MICHAEL CHANG Ot M48.06 SPINAL STENOSIS, LUMBAR REGION 08/15/2016 MICHAEL CHANGP Ot M54.5 LOW BACK PAIN 08/16/[address] Ot C50.912 MALIGNANT NEOPLASM OF UNSPECIFIED SITE O 08/16/[address] Ot M85.80 OTH DISRD OF BONE DENSITY AND STRUCTURE, 08/16/[address] Ot Z17.0 ESTROGEN RECEPTOR POSITIVE STATUS [ER+] 08/16/[address] Ot Z79.811 SENIOR CARE (CURRENT) USE OF AROMATASE INH 08/16/2016 ZANE MANCILLA N Ot Z79.899 OTHER MANAGER DEVELOPMENT (CURRENT) DRUG THERAPY 08/23/2016 VIN DO, NOEMI F Ot M25.511 PAIN IN RIGHT SHOULDER 08/23/2016 VIN DO, NOEMI F Ot Z98.890 OTHER SPECIFIED POSTPROCEDURAL STATES 09/01/2016 MICHAEL CHANGP Ot M48.06 SPINAL STENOSIS, LUMBAR REGION 09/01/2016 MICHAEL CHANGP Ot M54.5 LOW BACK PAIN 09/06/[address] Ot C50.912 MALIGNANT NEOPLASM OF UNSPECIFIED SITE O 09/06/2016 CHARO KEVINMEE Fofana Ot M85.80 OTH DISRD OF BONE DENSITY AND STRUCTURE, 09/06/[address] Ot Z17.0 ESTROGEN RECEPTOR POSITIVE STATUS [ER+] 09/06/[address] Ot Z79.811 SENIOR CARE (CURRENT) USE OF AROMATASE INH 09/06/[address] Ot Z79.899 OTHER MANAGER DEVELOPMENT (CURRENT) DRUG THERAPY 09/06/2016 MICHAEL CHANG PRODUCTION COORDINATOR Ot M48.06 SPINAL STENOSIS, LUMBAR REGION 09/06/2016 MICHAEL CHANG PRODUCTION COORDINATOR Ot M54.5 LOW BACK PAIN 09/16/[address] Ot C50.912 MALIGNANT NEOPLASM OF UNSPECIFIED SITE O 09/16/2016 CHAROZANE Ot M85.80 OTH DISRD OF BONE DENSITY AND STRUCTURE, 09/16/[address] Ot Z17.0 ESTROGEN RECEPTOR POSITIVE STATUS [ER+] 09/16/2016 ZANE MANCILLA Ot Z79.811 MANAGER DEVELOPMENT (CURRENT) USE OF AROMATASE INH 09/16/[address] Ot Z79.899 OTHER SENIOR CARE (CURRENT) DRUG THERAPY 09/18/2016 SAMEER ROTH MD Ot M47.816 SPONDYLOSIS W/O MYELOPATHY OR RADICULOPA 09/18/2016 SAMEER ROTH MD Ot M53.3 SACROCOCCYGEAL DISORDERS, NOT ELSEWHERE 09/18/2016 SAMEER ROTH MD, Ot Z79.899 OTHER SENIOR CARE (CURRENT) DRUG THERAPY 10/11/2016 SAMEER ROTH MD, Ot M47.816 SPONDYLOSIS W/O MYELOPATHY OR RADICULOPA 10/11/2016 ASMEER ROTH MD, Ot M53.3 SACROCOCCYGEAL DISORDERS, NOT ELSEWHERE 10/11/2016 SAMEER ROTH MD, Ot Z79.899 OTHER SENIOR CARE (CURRENT) DRUG THERAPY 10/13/2016 CHARO ZANE Fofana Ot C50.912 MALIGNANT NEOPLASM OF UNSPECIFIED SITE O 10/13/2016 CHAROZANE Ot M85.80 OT DISRD OF BONE DENSITY AND STRUCTURE, 10/13/[address] Ot Z17.0 ESTROGEN RECEPTOR POSITIVE STATUS [ER+] 10/13/[address] Ot Z79.811 MANAGER DEVELOPMENT (CURRENT) USE OF AROMATASE INH 10/13/2016 CHARO ZANE Fofana Ot Z79.899 OTHER SENIOR CARE (CURRENT) DRUG THERAPY 10/16/[address] Ot C50.912 MALIGNANT NEOPLASM OF UNSPECIFIED SITE O 10/16/2016 CHAROZANE Ot M85.80 OTH DISRD OF BONE DENSITY AND STRUCTURE, 10/16/[address] Ot Z17.0 ESTROGEN RECEPTOR POSITIVE STATUS [ER+] 10/16/2016 CHARO ZANE Fofana Ot Z79.811 MANAGER DEVELOPMENT (CURRENT) USE OF AROMATASE INH 10/16/2016 CHAROZANE Ot Z79.899 OTHER MANAGER DEVELOPMENT (CURRENT) DRUG THERAPY 10/26/2016 CHARO ZANE Fofana Ot C50.912 MALIGNANT NEOPLASM OF UNSPECIFIED SITE O 10/26/2016 CHAROZANE Ot M85.80 OTH DISRD OF BONE DENSITY AND STRUCTURE, 10/26/2016 CHAROZANE Ot Z17.0 ESTROGEN RECEPTOR POSITIVE STATUS [ER+] 10/26/[address] Ot Z79.811 MANAGER DEVELOPMENT (CURRENT) USE OF AROMATASE INH 10/26/[address] Ot Z79.899 OTHER SENIOR CARE (CURRENT) DRUG THERAPY 10/27/2016 GONZALEZ SIMPSON, SAMEER Collins Ot M53.3 SACROCOCCYGEAL DISORDERS, NOT ELSEWHERE 11/23/2016 KERNSANTIAGO S PRODUCTION COORDINATOR Ot Z12.31 ENCNTR SCREEN MAMMOGRAM FOR MALIGNANT NE 11/23/2016 KERN HILAH S PRODUCTION COORDINATOR Ot Z12.31 ENCNTR SCREEN MAMMOGRAM FOR MALIGNANT NE 11/23/2016 KERN, HILAH S PRODUCTION COORDINATOR Ot Z12.31 ENCNTR SCREEN MAMMOGRAM FOR MALIGNANT NE 11/23/2016 KERNSANTIAGO S PRODUCTION COORDINATOR Ot Z12.31 ENCNTR SCREEN MAMMOGRAM FOR MALIGNANT NE 11/29/2016 KERNSANTIAGO S PRODUCTION COORDINATOR Ot Z12.31 ENCNTR SCREEN MAMMOGRAM FOR MALIGNANT NE 12/04/[address] Ot C50.912 MALIGNANT NEOPLASM OF UNSPECIFIED SITE O 12/04/[address] Ot M85.80 OTH DISRD OF BONE DENSITY AND STRUCTURE, 12/04/[address] Ot Z17.0 ESTROGEN RECEPTOR POSITIVE STATUS [ER+] 12/04/[address] Ot Z79.811 MANAGER DEVELOPMENT (CURRENT) USE OF AROMATASE INH 12/04/[address] Ot Z79.899 OTHER MANAGER DEVELOPMENT (CURRENT) DRUG THERAPY 12/14/2016 SANTIAGO KERN S PRODUCTION COORDINATOR Ot Z12.31 ENCNTR SCREEN MAMMOGRAM FOR MALIGNANT NE 03/09/[address] Ot C50.912 MALIGNANT NEOPLASM OF UNSPECIFIED SITE O 03/09/[address] Ot M85.80 OTH DISRD OF BONE DENSITY AND STRUCTURE, 03/09/[address] Ot Z17.0 ESTROGEN RECEPTOR POSITIVE STATUS [ER+] 03/09/[address] Ot Z79.811 MANAGER DEVELOPMENT (CURRENT) USE OF AROMATASE INH 03/09/2017 CHAROZANE Ot Z79.899 OTHER SENIOR CARE (CURRENT) DRUG THERAPY 03/12/2017 ZANE MANCILLA Ot C50.912 MALIGNANT NEOPLASM OF UNSPECIFIED SITE O 03/12/2017 ZANE MANCILLA Ot M85.80 OTH DISRD OF BONE DENSITY AND STRUCTURE, 03/12/2017 ZANE MANCILLA Ot Z17.0 ESTROGEN RECEPTOR POSITIVE STATUS [ER+] 03/12/2017 ZANE MANCILLA Ot Z79.811 MANAGER DEVELOPMENT (CURRENT) USE OF AROMATASE INH 03/12/2017 ZANE MANCILLA Ot Z79.899 OTHER SENIOR CARE (CURRENT) DRUG THERAPY 03/17/2017 ZANE MANCILLA Ot C50.912 MALIGNANT NEOPLASM OF UNSPECIFIED SITE O 03/17/2017 ZANE MANCILLA Ot M85.80 OTH DISRD OF BONE DENSITY AND STRUCTURE, 03/17/2017 ZANE MANCILLA Ot Z17.0 ESTROGEN RECEPTOR POSITIVE STATUS [ER+] 03/17/2017 ZANE MNACILLA Ot Z79.811 MANAGER DEVELOPMENT (CURRENT) USE OF AROMATASE INH 03/17/2017 ZANE MANCILLA Ot Z79.899 OTHER MANAGER DEVELOPMENT (CURRENT) DRUG THERAPY 03/18/2017 ZANE MANCILLA Ot C50.912 MALIGNANT NEOPLASM OF UNSPECIFIED SITE O 03/18/2017 ZANE MANCILLA Ot M85.80 OTH DISRD OF BONE DENSITY AND STRUCTURE, 03/18/2017 ZANE MANCILLA Ot Z17.0 ESTROGEN RECEPTOR POSITIVE STATUS [ER+] 03/18/2017 ZANE MANCILLA Ot Z79.811 SENIOR CARE (CURRENT) USE OF AROMATASE INH 03/18/2017 ZANE MANCILLA Ot Z79.899 OTHER MANAGER DEVELOPMENT (CURRENT) DRUG THERAPY 09/11/2017 SANTIAGO KERNP Ot M85.9 DISORDER OF BONE DENSITY AND STRUCTURE, 09/11/2017 SANTIAGO KERN Ot Z12.31 ENCNTR SCREEN MAMMOGRAM FOR MALIGNANT NE 09/11/2017 SANTIAGO KERN Ot M85.9 DISORDER OF BONE DENSITY AND STRUCTURE, 10/01/2017 MICHAEL CHANG Ot M25.562 PAIN IN LEFT KNEE 10/03/2017 MICHAEL CHANG Ot M89.8X8 OTHER SPECIFIED DISORDERS OF BONE, OTHER 10/03/2017 MICHAEL CHANG PRODUCTION COORDINATOR Ot M94.8X8 OTHER SPECIFIED DISORDERS OF CARTILAGE, 10/03/2017 MICHAEL CHANG PRODUCTION COORDINATOR Ot S83.242A OTH TEAR OF MEDIAL MENISCUS, CURRENT INJ 10/03/2017 MICHAEL CHANG PRODUCTION COORDINATOR Ot S83.282A OTH TEAR OF LAT MENSC, CURRENT INJURY, L 10/08/2017 MICHAEL CHANG PRODUCTION COORDINATOR Ot M89.8X8 OTHER SPECIFIED DISORDERS OF BONE, OTHER 10/08/2017 MICHAEL CHANG PRODUCTION COORDINATOR Ot M94.8X8 OTHER SPECIFIED DISORDERS OF CARTILAGE, 10/08/2017 MICHAEL CHANG PRODUCTION COORDINATOR Ot S83.242A OTH TEAR OF MEDIAL MENISCUS, CURRENT INJ 10/08/2017 MICHAEL CHANG PRODUCTION COORDINATOR Ot S83.282A OTH TEAR OF LAT MENSC, CURRENT INJURY, L 10/10/2017 ZANE MANCILLA Ot 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 10/10/2017 ZANE MANCILLA Ot E55.9 VITAMIN D DEFICIENCY, UNSPECIFIED 10/10/2017 ZANE MANCILLA Ot E78.00 PURE HYPERCHOLESTEROLEMIA, UNSPECIFIED 10/10/2017 ZANE MANCILLA Ot I12.9 HYPERTENSIVE CHRONIC KIDNEY DISEASE W ST 10/10/2017 ZANE MANCILLA Ot M85.80 OTH DISRD OF BONE DENSITY AND STRUCTURE, 10/10/2017 ZANE MANCILLA Ot N18.3 CHRONIC KIDNEY DISEASE, STAGE 3 (MODERAT 10/10/2017 ZANE MANCILLA Ot Z17.0 ESTROGEN RECEPTOR POSITIVE STATUS [ER+] 10/10/2017 ZANE MANCILLA Ot Z79.811 SENIOR CARE (CURRENT) USE OF AROMATASE INH 10/10/2017 ZANE MANCILLA Ot Z79.82 MANAGER DEVELOPMENT (CURRENT) USE OF ASPIRIN 10/10/2017 ZANE MANCILLA Ot Z79.899 OTHER SENIOR CARE (CURRENT) DRUG THERAPY 10/10/2017 ZANE MANCILLA Ot 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 10/10/2017 ZANE MANCILLA Ot E55.9 VITAMIN D DEFICIENCY, UNSPECIFIED 10/10/2017 ZANE MANCILLA Ot E78.00 PURE HYPERCHOLESTEROLEMIA, UNSPECIFIED 10/10/2017 ZANE MANCILLA Ot I12.9 HYPERTENSIVE CHRONIC KIDNEY DISEASE W ST 10/10/2017 ZANE MANCILLA Ot M85.80 OTH DISRD OF BONE DENSITY AND STRUCTURE, 10/10/2017 ZANE MANCILLA Ot N18.3 CHRONIC KIDNEY DISEASE, STAGE 3 (MODERAT 10/10/2017 ZANE MANCILLA Ot Z17.0 ESTROGEN RECEPTOR POSITIVE STATUS [ER+] 10/10/2017 ZANE MANCILLA Ot Z79.811 SENIOR CARE (CURRENT) USE OF AROMATASE INH 10/10/2017 ZANE MANCILLA Ot Z79.82 SENIOR CARE (CURRENT) USE OF ASPIRIN 10/10/2017 ZANE MANCILLA Ot Z79.899 OTHER MANAGER DEVELOPMENT (CURRENT) DRUG THERAPY 10/16/2017 NOEMI BANUELOS DO Ot M25.562 PAIN IN LEFT KNEE 10/19/2017 MICHAEL CHANG PRODUCTION COORDINATOR Ot M25.562 PAIN IN LEFT KNEE 10/23/2017 MICHAEL CHANG PRODUCTION COORDINATOR Ot M89.8X8 OTHER SPECIFIED DISORDERS OF BONE, OTHER 10/23/2017 MICHAEL CHANG PRODUCTION COORDINATOR Ot M94.8X8 OTHER SPECIFIED DISORDERS OF CARTILAGE, 10/23/2017 MICHAEL CHANG PRODUCTION COORDINATOR Ot S83.242A OTH TEAR OF MEDIAL MENISCUS, CURRENT INJ 10/23/2017 MICHAEL CHANG PRODUCTION COORDINATOR Ot S83.282A OTH TEAR OF LAT MENSC, CURRENT INJURY, L 10/24/2017 MICHAEL HCANG PRODUCTION COORDINATOR Ot M25.562 PAIN IN LEFT KNEE 10/31/2017 MICHAEL CHANG PRODUCTION COORDINATOR Ot M89.8X8 OTHER SPECIFIED DISORDERS OF BONE, OTHER 10/31/2017 MICHAEL CHANG PRODUCTION COORDINATOR Ot M94.8X8 OTHER SPECIFIED DISORDERS OF CARTILAGE, 10/31/2017 MICHAEL CHANG PRODUCTION COORDINATOR Ot S83.242A OTH TEAR OF MEDIAL MENISCUS, CURRENT INJ 10/31/2017 MICHAEL CHANG PRODUCTION COORDINATOR Ot S83.282A OTH TEAR OF LAT MENSC, CURRENT INJURY, L 11/02/2017 NOEMI BANUELOS DO Ot M25.562 PAIN IN LEFT KNEE 11/30/2017 SANTIAGO KERN PRODUCTION COORDINATOR Ot 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 11/30/2017 KERN SANTIAGO Verduzco PRODUCTION COORDINATOR Ot M85.9 DISORDER OF BONE DENSITY AND STRUCTURE, 11/30/2017 KERN SANTIAGO Verduzco PRODUCTION COORDINATOR Ot N95.9 UNSPECIFIED MENOPAUSAL AND PERIMENOPAUSA 11/30/2017 CALLIE KERNYANET Verduzco PRODUCTION COORDINATOR Ot Z12.31 ENCNTR SCREEN MAMMOGRAM FOR MALIGNANT NE 11/30/2017 CALLIE KERNYANET Verduzco PRODUCTION COORDINATOR Ot Z13.820 ENCOUNTER FOR SCREENING FOR OSTEOPOROSIS 11/30/2017 ERLIN SANTIAGO Verduzco PRODUCTION COORDINATOR Ot Z79.811 MANAGER DEVELOPMENT (CURRENT) USE OF AROMATASE INH 12/05/2017 CALLIE KERNYANET Verduzco PRODUCTION COORDINATOR Ot 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 12/05/2017 CALLIE KERNYANET Dax PRODUCTION COORDINATOR Ot M85.9 DISORDER OF BONE DENSITY AND STRUCTURE, 12/05/2017 ERLIN SANTIAGO Verduzco PRODUCTION COORDINATOR Ot N95.9 UNSPECIFIED MENOPAUSAL AND PERIMENOPAUSA 12/05/2017 CALLIE KERNYANET Verduzco PRODUCTION COORDINATOR Ot Z12.31 ENCNTR SCREEN MAMMOGRAM FOR MALIGNANT NE 12/05/2017 CALLIE KERNYANET Verduzco PRODUCTION COORDINATOR Ot Z13.820 ENCOUNTER FOR SCREENING FOR OSTEOPOROSIS 12/05/2017 ERLIN SANTIAGO Verduzco PRODUCTION COORDINATOR Ot Z79.811 MANAGER DEVELOPMENT (CURRENT) USE OF AROMATASE INH 12/10/2017 ZANE MANCILLA Ot 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 12/10/2017 ZANE MANCILLA Ot E55.9 VITAMIN D DEFICIENCY, UNSPECIFIED 12/10/2017 ZANE MANCILLA Ot E78.00 PURE HYPERCHOLESTEROLEMIA, UNSPECIFIED 12/10/2017 ZANE MANCILLA Ot I12.9 HYPERTENSIVE CHRONIC KIDNEY DISEASE W ST 12/10/2017 ZANE MANCILLA Ot M85.80 OTH DISRD OF BONE DENSITY AND STRUCTURE, 12/10/2017 ZANE MANCILLA Ot N18.3 CHRONIC KIDNEY DISEASE, STAGE 3 (MODERAT 12/10/2017 ZANE MANCILLA Ot Z17.0 ESTROGEN RECEPTOR POSITIVE STATUS [ER+] 12/10/2017 ZANE MANCILLA Ot Z79.811 MANAGER DEVELOPMENT (CURRENT) USE OF AROMATASE INH 12/10/[address] Ot Z79.82 MANAGER DEVELOPMENT (CURRENT) USE OF ASPIRIN 12/10/[address] Ot Z79.899 OTHER MANAGER DEVELOPMENT (CURRENT) DRUG THERAPY 12/20/2017 SANTIAGO KERN Ot 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 12/20/2017 SANTIAGO KERN PRODUCTION COORDINATOR Ot M85.9 DISORDER OF BONE DENSITY AND STRUCTURE, 12/20/2017 SANTIAGO KERN PRODUCTION COORDINATOR Ot N95.9 UNSPECIFIED MENOPAUSAL AND PERIMENOPAUSA 12/20/2017 SANTIAGO KERN Ot Z12.31 ENCNTR SCREEN MAMMOGRAM FOR MALIGNANT NE 12/20/2017 SANTIAGO KERN Ot Z13.820 ENCOUNTER FOR SCREENING FOR OSTEOPOROSIS 12/20/2017 SANTIAGO KERN Ot Z79.811 SENIOR CARE (CURRENT) USE OF AROMATASE INH 04/01/2018 SCOTT HERNANDEZ MD Ot 793.82 INCONCLUSIVE MAMMOGRAM 04/01/2018 SCOTT HERNANDEZ MD Ot V76.12 OTH SCREEN MAMMO-MALIGN NEOPLASM OF ROSEANN 04/01/2018 SCOTT HERNANDEZ MD Ot 793.80 UNSPEC ABNORMAL MAMMOGRAM 04/01/2018 LINA MELVIN MD Ot 174.9 MALIGN NEOPL BREAST NOS 04/01/2018 LINA MELVIN MD Ot 174.9 MALIGN NEOPL BREAST NOS 04/01/2018 LINA MELVIN MD Ot 174.9 MALIGN NEOPL BREAST NOS 04/01/2018 LINA MELVIN MD Ot 791.9 ABN URINE FINDINGS NEC 04/01/2018 LINA MELVIN MD Ot V72.63 PRE-PROCEDURAL LABORATORY EXAMINATION 04/01/2018 LINA MELVIN MD Ot V72.81 CEKF-ERY-[id number] CARDIOVASCULAR 04/01/2018 LINA MELVIN MD, Ot V72.83 EXAM PRE-OPERATIVE NEC 04/01/2018 LINA MELVIN MD Ot V74.8 SCREEN-BACTERIAL DIS NEC 04/01/2018 SOCORRO MARTINEZ MD Ot 397.0 TRICUSPID VALVE DISEASE 04/01/2018 SOCORRO MARTINEZ MD Ot 424.0 MITRAL VALVE DISORDER 04/01/2018 JUAN MD, BASHAR J Ot 794.31 ABNORM ELECTROCARDIOGRAM 04/01/2018 CHARO, ZANE Fofana Ot 174.9 MALIGN NEOPL BREAST NOS 04/01/[address] Ot 733.90 BONE CARTILAGE DIS NOS 04/01/[address] Ot V49.81 ASYMPT POSTMENOPAUSAL STATUS (AGE-RELATE 04/01/2018 SANTIAGO KERN S PRODUCTION COORDINATOR Ot 174.9 MALIGN NEOPL BREAST NOS 04/01/2018 SANTIAGO KERN S PRODUCTION COORDINATOR Ot 288.61 LYMPHOCYTOSIS (SYMPTOMATIC) 04/01/2018 SANTIAGO KERN S PRODUCTION COORDINATOR Ot 288.63 MONOCYTOSIS (SYMPTOMATIC) 04/01/2018 SANTIAGO KERN S PRODUCTION COORDINATOR Ot 585.3 CHRONIC KIDNEY DISEASE, STAGE III (MODER 04/01/2018 SANTIAGO KERN S PRODUCTION COORDINATOR Ot 733.90 BONE CARTILAGE DIS NOS 04/01/2018 SANTIAGO KERN PRODUCTION COORDINATOR Ot V58.69 OTH MED,LT,CURRENT USE 04/01/2018 SANTIAGO KERN S PRODUCTION COORDINATOR Ot V86.0 ESTROGEN RECEPTOR POSITIVE STATUS [ER+] 04/01/2018 SCOTT HERNANDEZ MD Ot 724.2 LUMBAGO 04/01/2018 SCOTT HERNANDEZ MD Ot 790.5 ABN SERUM ENZY LEVEL NEC 04/01/2018 SCOTT HERNANDEZ MD Ot V10.3 HX OF BREAST MALIGNANCY 04/01/2018 NGOZI SIMPSON, LINA Ot V72.84 EXAM PRE-OPERATIVE NOS 04/01/2018 BLADE SUNSHINE DO Ot 564.1 IRRITABLE BOWEL SYNDROME 04/01/2018 BLADE SUNSHINE DO Ot 240.9 GOITER NOS 04/01/2018 SCOTT HERNANDEZ MD Ot 722.52 LUMB/LUMBOSAC DISC DEGEN 04/01/2018 SCOTT HERNANDEZ MD Ot 805.4 FX LUMBAR VERTEBRA-CLOSE 04/01/2018 SCOTT HERNANDEZ MD Ot E928.9 ACCIDENT NOS 04/01/2018 SANTIAGO KERN PRODUCTION COORDINATOR Ot 174.9 MALIGN NEOPL BREAST NOS 04/01/2018 SANTIAGO KERN S PRODUCTION COORDINATOR Ot 585.3 CHRONIC KIDNEY DISEASE, STAGE III (MODER 04/01/2018 SANTIAGO KERN S PRODUCTION COORDINATOR Ot 733.90 BONE CARTILAGE DIS NOS 04/01/2018 SANTIAGO KERN S PRODUCTION COORDINATOR Ot V58.69 OTH MED,LT,CURRENT USE 04/01/2018 SANTIAGO KERN S PRODUCTION COORDINATOR Ot V86.0 ESTROGEN RECEPTOR POSITIVE STATUS [ER+] 04/01/2018 ERLIN HILAH S PRODUCTION COORDINATOR Ot 174.9 MALIGN NEOPL BREAST NOS 04/01/2018 DAVID SIMPSON, SCOTT Oseguera Ot 719.45 JOINT PAIN-PELVIS 04/01/2018 DAVID SIMPSON, SCOTT Oseguera Ot 722.52 LUMB/LUMBOSAC DISC DEGEN 04/01/2018 SCOTT HERNANDEZ MD Ot 793.7 NOSP (ABN) FINDINGS ON RADIOLOGICAL OT 04/01/2018 SCOTT HERNANDEZ MD Ot 805.4 FX LUMBAR VERTEBRA-CLOSE 04/01/2018 SCOTT HERNANDEZ MD Ot E928.9 ACCIDENT NOS 04/01/2018 SCOTT HERNANDEZ MD Ot 719.45 JOINT PAIN-PELVIS 04/01/2018 SCOTT HERNANDEZ MD Ot 729.5 PAIN IN LIMB 04/01/2018 ZANE MANCILLA N Ot 174.9 MALIGN NEOPL BREAST NOS 04/01/2018 CALLIE KERNAH S PRODUCTION COORDINATOR Ot 174.9 MALIGN NEOPL BREAST NOS 04/01/2018 SANTIAGO KERN S PRODUCTION COORDINATOR Ot 585.3 CHRONIC KIDNEY DISEASE, STAGE III (MODER 04/01/2018 SANTIAGO KERN S PRODUCTION COORDINATOR Ot 733.90 BONE CARTILAGE DIS NOS 04/01/2018 SANTIAGO KERN S PRODUCTION COORDINATOR Ot V58.69 OTH MED,LT,CURRENT USE 04/01/2018 SANTIAGO KERN S PRODUCTION COORDINATOR Ot V86.0 ESTROGEN RECEPTOR POSITIVE STATUS [ER+] 04/01/2018 CHAROZANE N Ot 174.9 MALIGN NEOPL BREAST NOS 04/01/2018 CALLIE KERNAH S PRODUCTION COORDINATOR Ot 174.9 MALIGN NEOPL BREAST NOS 04/01/2018 CALLIE KERNAH S PRODUCTION COORDINATOR Ot 585.3 CHRONIC KIDNEY DISEASE, STAGE III (MODER 04/01/2018 CALLIE KERNAH S PRODUCTION COORDINATOR Ot 733.90 BONE CARTILAGE DIS NOS 04/01/2018 SANTIAGO KERN S PRODUCTION COORDINATOR Ot V58.69 OTH MED,LT,CURRENT USE 04/01/2018 CALLIE KERNYANET Verduzco PRODUCTION COORDINATOR Ot V86.0 ESTROGEN RECEPTOR POSITIVE STATUS [ER+] 04/01/2018 SANTIAGO KERN PRODUCTION COORDINATOR Ot 174.9 MALIGN NEOPL BREAST NOS 04/01/2018 SANTIAGO KERN PRODUCTION COORDINATOR Ot 585.3 CHRONIC KIDNEY DISEASE, STAGE III (MODER 04/01/2018 SANTIAGO KERN PRODUCTION COORDINATOR Ot 733.90 BONE CARTILAGE DIS NOS 04/01/2018 SANTIAGO KERN PRODUCTION COORDINATOR Ot C50.912 MALIGNANT NEOPLASM OF UNSPECIFIED SITE O 04/01/2018 SANTIAGO KERNP Ot M85.80 OTH DISRD OF BONE DENSITY AND STRUCTURE, 04/01/2018 SANTIAGO KERNP Ot N18.3 CHRONIC KIDNEY DISEASE, STAGE 3 (MODERAT 04/01/2018 SANTIAGO KERN PRODUCTION COORDINATOR Ot V58.69 OTH MED,LT,CURRENT USE 04/01/2018 SANTIAGO KERNP Ot V86.0 ESTROGEN RECEPTOR POSITIVE STATUS [ER+] 04/01/2018 SANTIAGO KERN PRODUCTION COORDINATOR Ot Z17.0 ESTROGEN RECEPTOR POSITIVE STATUS [ER+] 04/01/2018 CALLIE KERNYANET Dax PRODUCTION COORDINATOR Ot Z79.811 SENIOR CARE (CURRENT) USE OF AROMATASE INH 04/01/2018 SANTIAGO KERN PRODUCTION COORDINATOR Ot Z79.899 OTHER SENIOR CARE (CURRENT) DRUG THERAPY 04/01/2018 SANTIAGO KERNP Ot C50.919 MALIGNANT NEOPLASM OF UNSP SITE OF UNSPE 04/01/2018 SANTIAGO KERNP Ot M85.89 OTH DISRD OF BONE DENSITY AND STRUCTURE, 04/01/2018 SANTIAGO KERN PRODUCTION COORDINATOR Ot N95.9 UNSPECIFIED MENOPAUSAL AND PERIMENOPAUSA 04/01/2018 MICHAEL CHANG PRODUCTION COORDINATOR Ot 813.44 FX LOW RADIUS W ULNA-CL 04/01/2018 MICHAEL CHANG PRODUCTION COORDINATOR Ot E000.8 OTHER EXTERNAL CAUSE STATUS 04/01/2018 MICHAEL CHANGP Ot E888.9 FALL NOS 04/01/2018 SANTIAGO KERN PRODUCTION COORDINATOR Ot C50.912 MALIGNANT NEOPLASM OF UNSPECIFIED SITE O 04/01/2018 SANTIAGO KERN PRODUCTION COORDINATOR Ot M85.80 OTH DISRD OF BONE DENSITY AND STRUCTURE, 04/01/2018 SANTIAGO KERN PRODUCTION COORDINATOR Ot Z17.0 ESTROGEN RECEPTOR POSITIVE STATUS [ER+] 04/01/2018 SANTIAGO KERN PRODUCTION COORDINATOR Ot Z79.811 MANAGER DEVELOPMENT (CURRENT) USE OF AROMATASE INH 04/01/2018 SANTIAGO KERN PRODUCTION COORDINATOR Ot Z79.899 OTHER SENIOR CARE (CURRENT) DRUG THERAPY 04/01/2018 SANTIAGO KERN PRODUCTION COORDINATOR Ot 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 04/01/2018 SANTIAGO KERN PRODUCTION COORDINATOR Ot Z12.31 ENCNTR SCREEN MAMMOGRAM FOR MALIGNANT NE 04/01/2018 MICHAEL CHANGP Ot M48.06 SPINAL STENOSIS, LUMBAR REGION 04/01/2018 MICHAEL CHANGP Ot M54.5 LOW BACK PAIN 04/01/2018 SANTIAGO KERNP Ot Z12.31 ENCNTR SCREEN MAMMOGRAM FOR MALIGNANT NE 04/01/2018 SANTIAGO KERNP Ot 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 04/01/2018 SANTIAGO KERNP Ot M85.9 DISORDER OF BONE DENSITY AND STRUCTURE, 04/01/2018 SANTIAGO KERN PRODUCTION COORDINATOR Ot N95.9 UNSPECIFIED MENOPAUSAL AND PERIMENOPAUSA 04/01/2018 SANTIAGO KERN PRODUCTION COORDINATOR Ot Z12.31 ENCNTR SCREEN MAMMOGRAM FOR MALIGNANT NE 04/01/2018 SANTIAGO KERNP Ot Z13.820 ENCOUNTER FOR SCREENING FOR OSTEOPOROSIS 04/01/2018 SANTIAGO KERN PRODUCTION COORDINATOR Ot Z79.811 SENIOR CARE (CURRENT) USE OF AROMATASE INH 04/01/2018 MICHAEL CHANG PRODUCTION COORDINATOR Ot M25.562 PAIN IN LEFT KNEE 04/01/2018 MICHAEL CHANGP Ot M89.8X8 OTHER SPECIFIED DISORDERS OF BONE, OTHER 04/01/2018 MICHAEL CHANG PRODUCTION COORDINATOR Ot M94.8X8 OTHER SPECIFIED DISORDERS OF CARTILAGE, 04/01/2018 MICHAEL CHANG PRODUCTION COORDINATOR Ot S83.242A OTH TEAR OF MEDIAL MENISCUS, CURRENT INJ 04/01/2018 MICHAEL CHANG PRODUCTION COORDINATOR Ot S83.282A OTH TEAR OF LAT MENSC, CURRENT INJURY, L 05/08/2018 NOEMI BANUELOS DO Ot M17.12 UNILATERAL PRIMARY OSTEOARTHRITIS, LEFT 05/13/[address] Ot 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 05/13/[address] Ot E55.9 VITAMIN D DEFICIENCY, UNSPECIFIED 05/13/2018 ZANE MANCILLA N Ot E78.00 PURE HYPERCHOLESTEROLEMIA, UNSPECIFIED 05/13/2018 ZANE MANCILLA N Ot I12.9 HYPERTENSIVE CHRONIC KIDNEY DISEASE W ST 05/13/2018 ZANE MANCILLA N Ot M85.80 OTH DISRD OF BONE DENSITY AND STRUCTURE, 05/13/[address] Ot N18.3 CHRONIC KIDNEY DISEASE, STAGE 3 (MODERAT 05/13/2018 ZANE MANCILLA N Ot Z17.0 ESTROGEN RECEPTOR POSITIVE STATUS [ER+] 05/13/2018 CHAROZANE VERNON N Ot Z79.811 MANAGER DEVELOPMENT (CURRENT) USE OF AROMATASE INH 05/13/2018 CHAROZANE N Ot Z79.82 SENIOR CARE (CURRENT) USE OF ASPIRIN 05/13/2018 CHAROZANE VERNON N Ot Z79.899 OTHER SENIOR CARE (CURRENT) DRUG THERAPY 06/30/[address] Ot 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 06/30/2018 ZANE MANCILLA N Ot E55.9 VITAMIN D DEFICIENCY, UNSPECIFIED 06/30/2018 ZANE MANCILLA N Ot E78.00 PURE HYPERCHOLESTEROLEMIA, UNSPECIFIED 06/30/2018 ZANE MANCILLA N Ot I12.9 HYPERTENSIVE CHRONIC KIDNEY DISEASE W ST 06/30/2018 ZANE MANCILLA N Ot M85.80 OTH DISRD OF BONE DENSITY AND STRUCTURE, 06/30/2018 ZANE MANCILLA N Ot N18.3 CHRONIC KIDNEY DISEASE, STAGE 3 (MODERAT 06/30/2018 CHAROZANE VERNON N Ot Z17.0 ESTROGEN RECEPTOR POSITIVE STATUS [ER+] 06/30/2018 CHAROZANE N Ot Z79.811 SENIOR CARE (CURRENT) USE OF AROMATASE INH 06/30/2018 ZANE MANCILLA N Ot Z79.82 SENIOR CARE (CURRENT) USE OF ASPIRIN 06/30/2018 ZANE MANCILLA Ot Z79.899 OTHER SENIOR CARE (CURRENT) DRUG THERAPY 07/04/2018 ZANE MANCILLA Ot 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 07/04/2018 ZANE MANCILLA Ot E55.9 VITAMIN D DEFICIENCY, UNSPECIFIED 07/04/2018 ZANE MANCILLA Ot E78.00 PURE HYPERCHOLESTEROLEMIA, UNSPECIFIED 07/04/2018 ZANE MANCILLA Ot I12.9 HYPERTENSIVE CHRONIC KIDNEY DISEASE W ST 07/04/2018 ZANE MANCILLA Ot M85.80 OTH DISRD OF BONE DENSITY AND STRUCTURE, 07/04/2018 ZANE MANCILLA Ot N18.3 CHRONIC KIDNEY DISEASE, STAGE 3 (MODERAT 07/04/2018 ZANE MANCILLA Ot Z17.0 ESTROGEN RECEPTOR POSITIVE STATUS [ER+] 07/04/2018 ZANE MANCILLA Ot Z79.811 SENIOR CARE (CURRENT) USE OF AROMATASE INH 07/04/[address] Ot Z79.82 MANAGER DEVELOPMENT (CURRENT) USE OF ASPIRIN 07/04/2018 ZANE MANCILLA Ot Z79.899 OTHER SENIOR CARE (CURRENT) DRUG THERAPY Procedures There is no data. Results There is no data. Encounters ACCT No. Visit Date/Time Discharge Status Pt. Type Provider Facility Loc./Unit Complaint [id number] 07/01/2018 00:12:00 07/01/2018 23:59:59 CLS Preadmit ZANE MANCILLA [facility] ONC [id number] 04/01/2018 10:00:00 06/30/2018 00:01:00 DIS Outpatient ZANE MANCILLA Ct [facility] ONC [id number] 05/08/2018 11:00:00 05/08/2018 12:59:00 DIS Outpatient NOEMI BANUELOS DO [facility] REHAB OA L KNEE [id number] 09/25/2017 10:06:00 12/10/2017 00:01:00 DIS Outpatient ZANE MANCILLA tC [facility] ONC [id number] 11/29/2017 11:06:00 11/29/2017 23:59:59 CLS Outpatient SANTIAGO KERN [facility] RAD Z12.31 SCREENING MAMMO, M85.9 OSTEOPENIA [id number] 10/30/2017 08:33:00 11/02/2017 13:21:00 DIS Outpatient NOEMI BANUELOS DO [facility] REHAB L KNEE PATELLAFEMORAL JOINT [id number] 10/02/2017 13:13:00 10/02/2017 23:59:59 CLS Outpatient MICHAEL CHANG PRODUCTION COORDINATOR [facility] RAD LEFT KNEE PAIN [id number] 09/28/2017 13:33:00 09/28/2017 23:59:59 CLS Outpatient MICHAEL CHANG PRODUCTION COORDINATOR [facility] RAD LT KNEE PAIN [id number] 09/11/2017 12:27:00 09/11/2017 23:59:59 CLS Outpatient SANTIAGO KERN PRODUCTION COORDINATOR [facility] RAD M85.9 OSTEOPENIA [id number] 03/09/2017 11:25:00 03/17/2017 00:01:00 DIS Outpatient ZANE MANCILLA [facility] ONC [id number] 09/05/2016 09:53:00 12/04/2016 00:01:00 DIS Outpatient ZANE MANCILLA [facility] ONC [id number] 11/23/2016 10:32:00 11/23/2016 23:59:59 CLS Outpatient SANTIAGO KERN PRODUCTION COORDINATOR [facility] RAD SCREENING [id number] 10/27/2016 09:08:00 10/27/2016 10:37:00 DIS Outpatient SAMEER ROTH MD [facility] CARD M53.3 SCROCOCCYGEAL [id number] 09/18/2016 12:45:00 09/18/2016 13:53:00 DIS Outpatient SAMEER ROTH MD [facility] CARD SACROCOCCYGEAL DISORDER [id number] 08/23/2016 10:14:00 08/23/2016 11:27:00 DIS Outpatient NOEMI BANUELOS DO [facility] REHAB S/P R REVERSE TSA [id number] 08/11/2016 07:46:00 08/11/2016 23:59:59 CLS Outpatient MICHAEL CHANG PRODUCTION COORDINATOR [facility] RAD LOW BACK PAIN [id number] 03/06/2016 09:51:00 06/04/2016 00:01:00 DIS Outpatient ZANE MANCILLA [facility] ONC [id number] 09/02/2015 10:00:00 12/01/2015 00:01:00 DIS Outpatient ZANE MANCILLA [facility] ONC [id number] 11/22/2015 10:45:00 11/22/2015 23:59:59 CLS Outpatient SANTIAGO KERN PRODUCTION COORDINATOR [facility] RAD SCREENING [id number] 09/02/2015 09:54:00 09/02/2015 23:59:59 CLS Outpatient SANTIAGO KERN PRODUCTION COORDINATOR [facility] ONC [id number] 08/21/2015 12:36:00 08/21/2015 23:59:59 CLS Outpatient DICK RANKIN PRODUCTION COORDINATOR [facility] QUICK [id number] 08/06/2015 12:45:00 08/12/2015 11:27:00 DIS Outpatient LAURIE FAN PRODUCTION COORDINATOR [facility] REHAB RADIUS DISTAL FX RIGHT [id number] 05/04/2015 14:27:00 08/02/2015 00:01:00 DIS Outpatient ZANE MANCILLA [facility] ONC [id number] 04/22/2015 08:57:00 04/22/2015 23:59:59 CLS Outpatient SANTIAGO KERN PRODUCTION COORDINATOR [facility] RAD POST MENOPAUSAL, OSTEOPENIA [id number] 03/04/2015 09:41:00 03/17/2015 00:01:00 DIS Outpatient ZANE MANCILLA [facility] ONC [id number] 03/05/2015 09:05:00 03/05/2015 23:59:59 CLS Outpatient MICHAEL CHANG PRODUCTION COORDINATOR [facility] RAD R WRIST HAND PAIN/ SWELLING POST FALL [id number] 03/04/2015 09:40:00 03/04/2015 23:59:59 CLS Outpatient SANTIAGO KERN PRODUCTION COORDINATOR [facility] ONC [id number] 09/02/2014 10:24:00 12/01/2014 00:01:00 DIS Outpatient ZANE MANCILLA [facility] ONC [id number] 11/25/2014 09:52:00 11/25/2014 23:59:59 CLS Outpatient SANTIAGO KERN PRODUCTION COORDINATOR [facility] ONC [id number] 11/20/2014 08:30:00 11/20/2014 23:59:59 CLS Outpatient ZANE MANCILLA [facility] RAD BREAST CA [id number] 06/02/2014 10:28:00 06/02/2014 23:59:59 CLS Outpatient SANTIAGO KERN PRODUCTION COORDINATOR [facility] ONC [id number] 02/23/2014 11:01:00 05/24/2014 00:01:00 DIS Outpatient ZANE MANCILLA [facility] ONC [id number] 05/18/2014 09:04:00 05/18/2014 23:59:59 CLS Outpatient ZANE MANCILLA [facility] RAD BREAST CA [id number] 01/28/2014 10:07:00 01/28/2014 23:59:59 CLS Outpatient SCOTT HERNANDEZ MD [facility] RAD HIP LEG PAIN [id number] 01/26/2014 14:08:00 01/26/2014 23:59:59 CLS Outpatient SCOTT HERNANDEZ MD [facility] RAD LT HIP PAIN, COMPRESSION FX [id number] 11/19/2013 12:40:00 11/19/2013 23:59:59 CLS Outpatient SANTIAGO KERN PRODUCTION COORDINATOR [facility] RAD BREAST CA [id number] 11/12/2013 11:00:00 11/12/2013 23:59:59 CLS Outpatient SANTIAGO KERN PRODUCTION COORDINATOR [facility] ONC [id number] 08/13/2013 10:24:00 11/11/2013 00:01:00 DIS Outpatient ZANE MANCILLA [facility] ONC [id number] 10/28/2013 12:57:00 10/28/2013 23:59:59 CLS Outpatient SCOTT HERNANDEZ MD [facility] RAD BACK PAIN, HX OF SEPSIS [id number] 09/11/2013 14:48:00 09/11/2013 23:59:59 CLS Outpatient DEFFENFRANKO NINA BLADE D [facility] RAD GOITER [id number] 08/28/2013 13:48:00 08/28/2013 23:59:59 CLS Outpatient DEFSABRAFRANKO NINA BLADE D [facility] LAB ABD PAIN [id number] 08/20/2013 07:43:00 08/20/2013 11:01:00 DIS Outpatient LINA MELVIN MD [facility] SDC DIVERTICULITIS [id number] 08/13/2013 07:13:00 08/13/2013 23:59:59 CLS Outpatient LINA MELVIN MD [facility] PREOP DIVERTICULITIS [id number] 07/28/2013 11:03:00 07/28/2013 23:59:59 CLS Outpatient SCOTT HERNANDEZ MD [facility] RAD COMPRESSION FX,HX BREAST CA [id number] 06/10/2013 10:14:00 06/10/2013 23:59:59 CLS Outpatient SCOTT HERNANDEZ MD [facility] LAB ELEVATED AKL PHOS [id number] 05/27/2013 12:26:00 05/27/2013 23:59:59 CLS Outpatient SCOTT HERNANDEZ MD [facility] RAD BACK PAIN [id number] 05/13/2013 15:27:00 05/13/2013 23:59:59 CLS Outpatient SANTIAGO KERN [facility] ONC [id number] 04/17/2013 09:28:00 05/08/2013 00:01:00 DIS Outpatient ZANE MANCILLA [facility] ONC [id number] 04/18/2013 09:30:00 04/18/2013 23:59:59 CLS Outpatient ZANE MANCILLA [facility] RAD BREAST CANCER,POST MENOPAUSAL [id number] 02/27/2013 06:29:00 02/27/2013 23:59:59 CLS Outpatient LINA MELVIN MD [facility] RAD LT BREAST CA [id number] 02/13/2013 10:43:00 02/13/2013 23:59:59 CLS Outpatient SOCORRO MARTINEZ MD [facility] CARD ABNORMAL EKG [id number] 02/10/2013 09:57:00 02/10/2013 23:59:59 CLS Outpatient LINA MELVIN MD [facility] PREOP LEFT BREAST CANCER [id number] 01/28/2013 08:17:00 01/28/2013 23:59:59 CLS Outpatient LINA MELVIN MD [facility] RAD LEFT BREAST MASS [id number] 01/14/2013 08:01:00 01/14/2013 23:59:59 CLS Outpatient SCOTT HERNANDEZ MD [facility] RAD ABNORMAL MAMMO [id number] 12/30/2012 08:42:00 12/30/2012 23:59:59 CLS Outpatient SCOTT HERNANDEZ MD [facility] RAD SCREENING [id number] 07/28/2018 09:54:00 ACT Emergency HEBERT VALLADARES MD [facility] ER FALL/HEAD LAC [id number] 11/20/2014 08:30:00 Document Registration [id number] 12/28/2011 07:53:00 Document Registration [id number] 10/31/2011 10:09:00 Document Registration [id number] 12/26/2010 09:27:00 Document Registration [id number] 12/13/2009 09:39:00 Document Registration [id number] 03/05/2015 09:07:33 ACT Document Registration [id number] 03/09/2017 23:17:02 03/09/2017 23:59:59 CLS Outpatient
--- NOTE | 2018-07-28 10:23 | ED Head Injury ---
General Chief Complaint: Laceration Stated Complaint: FALL/HEAD LAC Nursing Triage Note: Ambulatory to rm 10. Pt reports slipping on ice and falling backwards hitting head on ground. Pt denies LOC, dizziness, and nausea. Source: patient Exam Limitations: no limitations History of Present Illness Date Seen by Provider: Jul 28, 2018 Time Seen by Provider: 10:18 Initial Comments This 77-year-old female presents after she apparently slipped on the ice and sustained a laceration to her occiput. Fortunately there was no loss of consciousness. Patient is primarily complaining of pain over the occiput as well as over the gluteal area that is of a minor degree. The patient denies neck pain, paresthesias or weakness in extremities, back pain over the chest or low back, injury or tenderness to the extremities. Patient describes the occipital pain as moderate in severity, sharp in nature, and nonradiating. Allergies and Home Medications Allergies Coded Allergies: No Known Drug Allergies (Unverified , 02/10/13) Home Medications Aspirin 81 Mg Tabec, 81 MG PO DAILY, (Reported) Calcium Carbonate/Vitamin D3 1 Each Tablet, 1 EACH PO BID, (Reported) Carvedilol 3.125 Mg Tablet, 3.125 MG GT BID, (Reported) Ciprofloxacin 500 Mg Tab, 500 MG PO BID Prescribed by: TAYLOR ROCHA on 08/20/13 1037 Fish Oil/Dha/Epa 1 Each Capsule, 1 EACH PO DAILY, (Reported) Lactobacillus Acidophilus 1 Each Capsule, 1 EACH PO BID, (Reported) Letrozole 2.5 Mg Tablet, 2.5 MG PO DAILY, (Reported) Metronidazole 500 Mg Tab, 1 EACH PO QID Prescribed by: TAYLOR ROCHA on 08/20/13 1037 Niacin/Inositol Niacinate 1 Each Capsule, 1 EACH PO DAILY, (Reported) Rosuvastatin Calcium 5 Mg Tablet, 1 EACH PO HS, (Reported) Venlafaxine Hcl 25 Mg Tablet, 25 MG PO DAILY, (Reported) Vit A/Vit C/Vit E/Zinc/Copper 1 Each Tablet, 1 EACH PO DAILY, (Reported) Vit D3/Folic Acid/B2/B6/B12 1 Each Tablet, 1 EACH PO DAILY, (Reported) Patient Home Medication List Home Medication List Reviewed: Yes Review of Systems Review of Systems Constitutional: no symptoms reported Eyes: Denies Blurred Vision Ears, Nose, Mouth, Throat: denies ear pain, denies epistaxis Respiratory: No cough Cardiovascular: No chest pain Gastrointestinal: No abdominal pain, No diarrhea, No nausea Genitourinary: No dysuria, No frequency : No Musculoskeletal: No back pain, No joint pain Skin: other Psychiatric/Neurological: No Symptoms Reported (laceration of the occiput.) Endocrine: No Symptoms Reported Hematologic/Lymphatic: No Symptoms Reported Past Dpufgpt-Igkzlc-Zzmuss Hx Past Med/Social Hx: Reviewed Nursing Past Med/Soc Hx Patient Social History Alcohol Use: Occasionally Uses Recreational Drug Use: No 2nd Hand Smoke Exposure: No Recent Foreign Travel: No Contact w/Someone Who Travel: No Recent Infectious Disease Expo: No Recent Hopitalizations: No Physical Abuse: No Sexual Abuse: No Immunizations Up To Date Date of Pneumonia Vaccine: Feb 26, 2013 Date of Influenza Vaccine: Feb 26, 2013 Seasonal Allergies Seasonal Allergies: No Past Medical History Surgeries: Yes (SHOULDER) Appendectomy, Orthopedic Respiratory: No Cardiac: Yes Hypertension 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 0.0oz. 81.963478rc; 25.5 BMI Method:Stated General Appearance: WD/WN, mild distress HEENT: PERRL/EOMI, other (there is a 6 cm laceration to the occiput.) Neck: non-tender, full range of motion, supple Cardiovascular: regular rate, rhythm Respiratory: lungs clear Gastrointestinal: normal bowel sounds, non tender Back: normal inspection Extremities: normal range of motion, non-tender, normal inspection Psychiatric: alert, oriented x 3 Crainal Nerves: normal hearing, normal speech, PERRL Motor/Sensory: no motor deficit, no sensory deficit Skin: normal color, warm/dry, other (occipital laceration) Idno Coma Score Best Eye Response: (4) Open Spontaneously Best Verbal Response: (5) Oriented Best Motor Response: (6) Obeys Commands Dino Total: 15 Progress/Results/Core Measures Results/Orders My Orders Orders - HEBERT VALLADARES MD Dipht,Pertuss(Acell),Tet Adult (Boostrix (07/28/18 10:30) Vital Signs/I&O 07/28/18 10:00 Temp 98.1 Pulse 75 Resp 15 B/P (MAP) 175/88 (117) Pulse Ox 96 O2 Delivery Room Air Blood Pressure Mean: 117 Progress Progress Note : Time: 10:21 Progress Note Under the usual sterile conditions using a stapler of a six centimeter laceration of the occiput was repaired with approximately 6 chrissy. Patient tolerated the procedure well. I've ordered a TDAP for the patient. Departure Impression Primary Impression: Fall Qualified Codes: W19.XXXA - Unspecified fall, initial encounter Additional Impression: Occipital scalp laceration Qualified Codes: S01.01XA - Laceration without foreign body of scalp, initial encounter Disposition: HOME, SELF-CARE Condition: Improved Departure-Patient Inst. Decision time for Depature: 10:23 Referrals: NOEMI BANUELOS DO (PCP) Primary Care Physician Patient Instructions: Laceration Repair With Glue (DC) Add. Discharge Instructions: Watch for signs of infection. Vicodin for pain. [place] out in 7-10 days. Return of any problems or questions. All discharge instructions reviewed with patient and/or family. Voiced understanding. HEBERT VALLADARES MD Jul 28, 2018 10:23
[2018-07-28] MEDS ORDERED: TETANUS,DIPTH,PERTUSS P/F (BOOSTRIX) 0.5 ML VIAL IM ONE (10:30)
[2018-07-28 10:40] VITALS: BP 172/86
== END 2018-07-28 10:41 | disposition home or self-care (01) ==
LOC: EDUNIT# 09:53 → ER 09:54
DX: S01.01XA Laceration without foreign body of scalp, initial encounter (principal); I10 Essential (primary) hypertension; R40.2142 Coma scale, eyes open, spontaneous, at arrival to emergency department; R40.2252 Coma scale, best verbal response, oriented, at arrival to emergency department; R40.2362 Coma scale, best motor response, obeys commands, at arrival to emergency department; Z85.828 Personal history of other malignant neoplasm of skin; Z23 Encounter for immunization; Z85.3 Personal history of malignant neoplasm of breast; Z87.19 Personal history of other diseases of the digestive system; Z90.710 Acquired absence of both cervix and uterus; Z90.49 Acquired absence of other specified parts of digestive tract; Z79.82 Long term (current) use of aspirin; W00.9XXA Unspecified fall due to ice and snow, initial encounter; W22.09XA Striking against other stationary object, initial encounter
CPT/HCPCS: 12002; 90715

== ENCOUNTER 2018-09-25 09:31 | Outpatient (RCR) | payer MEDICARE ==
[2018-09-25 09:39] LABS: BASOPHILS % (AUTO) 0 % (0-10); EOSINOPHILS # (AUTO) 0.1 10^3/uL (0.0-0.3); EOSINOPHILS % (AUTO) 2 % (0-10); HEMATOCRIT 42 % (35-52); HEMOGLOBIN 13.5 G/DL (11.5-16.0); LYMPHOCYTES % (AUTO) 29 % (12-44); MEAN CORPUSCULAR HEMOGLOBIN 30 PG (25-34); MEAN CORPUSCULAR HGB CONC 32 G/DL (32-36); MEAN CORPUSCULAR VOLUME 92 FL (80-99); MEAN PLATELET VOLUME 10.6 FL (7.4-10.4); MONOCYTES # (AUTO) 0.7 X 10^3 (0.0-1.0); MONOCYTES % (AUTO) 10 % (0-12); NEUTROPHILS # (AUTO) 4.2 X 10^3 (1.8-7.8); NEUTROPHILS % (AUTO) 60 % (42-75); PLATELET COUNT 179 10^3/uL (130-400); RED CELL DISTRIBUTION WIDTH 14.9 % (10.0-14.5)
[2018-09-25 10:00] LABS: POTASSIUM 4.3 MMOL/L (3.6-5.0)
[2018-09-25 10:01] LABS: ALBUMIN 4.1 GM/DL (3.2-4.5); BILIRUBIN,TOTAL 0.9 MG/DL (0.1-1.0); CALCIUM 9.9 MG/DL (8.5-10.1); CREATININE SERUM 1.19 MG/DL (0.60-1.30); TOTAL PROTEIN 6.6 GM/DL (6.4-8.2)
[2018-09-25] MEDS ORDERED: DENOSUMAB 60 MG/1 ML (PROLIA) CANCER CTR SQ SCH (10:15)
== END 2018-12-24 | disposition home or self-care (01) ==
LOC: ONC 09:31
PROVIDERS: ATTEND Internal Medicine Hematology & Oncology
DX: C50.812 Malignant neoplasm of overlapping sites of left female breast (principal); M85.80 Other specified disorders of bone density and structure, unspecified site; I12.9 Hypertensive chronic kidney disease with stage 1 through stage 4 chronic kidney disease, or unspecified chronic kidney disease; N18.3 Chronic kidney disease, stage 3 (moderate); E55.9 Vitamin D deficiency, unspecified; E78.00 Pure hypercholesterolemia, unspecified; Z17.0 Estrogen receptor positive status [ER+]; Z79.811 Long term (current) use of aromatase inhibitors; Z79.82 Long term (current) use of aspirin; Z79.899 Other long term (current) drug therapy
CPT/HCPCS: 36415; 80053; 85025; 96372

== ENCOUNTER → 2018-10-25 | Outpatient (CLI) | payer MEDICARE ==
--- NOTE | 2018-10-25 16:54 | Diagnostic Imaging Report ---
MRI LT LOWER EXT JOINT W/O TECHNIQUE: Multiplanar, multisequence MR imaging of the left knee was performed without contrast. COMPARISON: Left knee MRI from 10/02/2017. INDICATION: Persistent left knee pain. FINDINGS: MENISCI Medial meniscus: Horizontal cleavage tear in the posterior horn of the medial meniscus is now present. Degenerative free edge tearing is also noted. Lateral meniscus: Degenerative free edge truncation of the body of the lateral meniscus is unchanged. No parameniscal cyst. LIGAMENTS ACL: Mucoid degeneration of the ACL is unchanged. The ACL remains intact. PCL: Intact. MCL: Intact. LCL: The lateral collateral ligamentous complex is intact. EXTENSOR MECHANISM The extensor mechanism is intact. CARTILAGE Medial compartment: No full-thickness chondral loss in the medial compartment. Lateral compartment: There has been development of multifocal full-thickness chondral loss in the posterior weightbearing aspect of the medial tibial plateau and femoral condyle. Subchondral bone marrow edema-like signal is present in the lateral tibial plateau. Patellofemoral compartment: Multifocal full-thickness chondral loss in the patellar apex and lateral femoral trochlea is similar to prior exam. BONE No fracture, stress fracture or osteonecrosis. SOFT TISSUE Small knee joint effusion. No Butts's cyst. IMPRESSION: 1. Progressive degenerative arthritis in the lateral compartment now with areas of full-thickness articular cartilage loss in the posterior weightbearing aspect. 2. Multifocal full-thickness chondral loss in the lateral aspect of the patellofemoral compartment is unchanged. 3. Degenerative tearing of both menisci is present. Nondisplaced horizontal cleavage tear is likely now present in the posterior horn of the medial meniscus. Dictated by: Dictated on workstation # [id number]
== END ==
LOC: RAD 14:22
PROVIDERS: ATTEND Orthopaedic Surgery Orthopaedic Surgery of the Spine
DX: M17.12 Unilateral primary osteoarthritis, left knee (principal); M23.201 Derangement of unspecified lateral meniscus due to old tear or injury, left knee; M23.222 Derangement of posterior horn of medial meniscus due to old tear or injury, left knee; M94.8X8 Other specified disorders of cartilage, other site
CPT/HCPCS: 73721

== ENCOUNTER → 2018-12-02 | Outpatient (CLI) | payer MEDICARE ==
--- NOTE | 2018-12-02 11:25 | Diagnostic Imaging Report ---
INDICATION: Routine screening. COMPARISON: 11/29/2017 and 11/23/2016. TECHNIQUE: 2D and 3D bilateral screening mammography was performed with CAD. FINDINGS: Scattered fibroglandular densities are identified bilaterally. The parenchymal pattern is stable. No mass or malignant appearing microcalcifications are seen. The axillae are unremarkable. IMPRESSION: No mammographic features suspicious for malignancy are identified. ACR BI-RADS Category 1: Negative. Result letter will be mailed to the patient. Note: At least 10% of breast cancer is not imaged by mammography. Dictated by: Dictated on workstation # [id number]
== END ==
LOC: RAD 09:53
PROVIDERS: ATTEND Nurse Practitioner Adult Health
DX: Z12.31 Encounter for screening mammogram for malignant neoplasm of breast (principal); Z85.3 Personal history of malignant neoplasm of breast
CPT/HCPCS: 77067

== ENCOUNTER → 2018-12-25 | Outpatient (CLI) | payer MEDICARE ==
[2018-12-25 19:16] LABS: BODY FLUID APPEARENCE SLT CLDY; BODY FLUID COLOR PALE YELLOW; BODY FLUID RBC COUNT 182 /uL; BODY FLUID SOURCE SYNOVIAL; BODY FLUID WBC TOTAL COUNT 113 /uL
[2018-12-25 20:10] LABS: BF OTHER CELLS 39 %; LYMPHOCYTES,BODY FLUID 46 %
== END ==
LOC: LABNPT 16:43
PROVIDERS: ATTEND Orthopaedic Surgery
DX: M17.12 Unilateral primary osteoarthritis, left knee (principal)
CPT/HCPCS: 84157; 89051; 89060

== ENCOUNTER 2019-04-15 12:45 | Outpatient (RCR) | payer MEDICARE ==
[2019-04-15 13:06] LABS: BASOPHILS % (AUTO) 0 % (0-10); EOSINOPHILS # (AUTO) 0.1 10^3/uL (0.0-0.3); EOSINOPHILS % (AUTO) 2 % (0-10); HEMATOCRIT 36 % (35-52); HEMOGLOBIN 11.6 G/DL (11.5-16.0); LYMPHOCYTES # (AUTO) 1.4 X 10^3 (1.0-4.0); LYMPHOCYTES % (AUTO) 21 % (12-44); MEAN CORPUSCULAR HEMOGLOBIN 30 PG (25-34); MEAN CORPUSCULAR HGB CONC 32 G/DL (32-36); MEAN CORPUSCULAR VOLUME 93 FL (80-99); MEAN PLATELET VOLUME 10.1 FL (7.4-10.4); MONOCYTES # (AUTO) 0.7 X 10^3 (0.0-1.0); MONOCYTES % (AUTO) 10 % (0-12); NEUTROPHILS # (AUTO) 4.5 X 10^3 (1.8-7.8); NEUTROPHILS % (AUTO) 67 % (42-75); PLATELET COUNT 345 10^3/uL (130-400); WHITE BLOOD COUNT 6.7 10^3/uL (4.3-11.0)
[2019-04-15] MEDS ORDERED: DENOSUMAB 60 MG/1 ML (PROLIA) CANCER CTR SQ SCH (13:13)
[2019-04-15 13:30] LABS: ALBUMIN 3.6 GM/DL (3.2-4.5); BILIRUBIN,TOTAL 0.8 MG/DL (0.1-1.0); CALCIUM 10.1 MG/DL (8.5-10.1); POTASSIUM 3.7 MMOL/L (3.6-5.0); TOTAL PROTEIN 6.3 GM/DL (6.4-8.2)
[2019-05-13] MEDS ORDERED: ACHD5005 PO (20:43)
[2019-05-13] MEDS ORDERED: CEPH-507 PO (20:43)
== END 2019-07-14 | disposition home or self-care (01) ==
LOC: ONC 12:45
PROVIDERS: ATTEND Internal Medicine Hematology & Oncology
DX: C50.812 Malignant neoplasm of overlapping sites of left female breast (principal); M85.80 Other specified disorders of bone density and structure, unspecified site; I12.9 Hypertensive chronic kidney disease with stage 1 through stage 4 chronic kidney disease, or unspecified chronic kidney disease; N18.3 Chronic kidney disease, stage 3 (moderate); E55.9 Vitamin D deficiency, unspecified; E78.00 Pure hypercholesterolemia, unspecified; Z17.0 Estrogen receptor positive status [ER+]; Z79.811 Long term (current) use of aromatase inhibitors; Z79.82 Long term (current) use of aspirin; Z79.899 Other long term (current) drug therapy
CPT/HCPCS: 36415; 80053; 85025; 96372

== ENCOUNTER 2019-05-12 10:16 | Outpatient (RCR) | payer MEDICARE ==
[2019-05-13] MEDS ORDERED: ACHD5005 PO (20:43)
[2019-05-13] MEDS ORDERED: CEPH-507 PO (20:43)
== END 2019-05-21 15:26 | disposition home or self-care (01) ==
PROVIDERS: ATTEND Physician Assistant
DX: Z47.1 Aftercare following joint replacement surgery (principal); Z96.652 Presence of left artificial knee joint

== ENCOUNTER 2019-05-13 17:55 | Emergency (ER) | payer MEDICARE ==
[~2019-05-13] VITALS: Ht 162.6 cm; Wt 86.4 kg
--- NOTE | 2019-05-13 18:31 | ED Fall/Injury ---
General Chief Complaint: Trauma-Non Activation Stated Complaint: R SHOULDER/ARM PAIN Nursing Triage Note: Pt amb to triage with c/o fall. 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 Pt reports to have struck her Rt shoulder on a chair. Denies hitting head, neck, or back. Denies LOC. Pt states, "it feels like its moving by itself." Obvious deformity noted to Rt upper extremity. Source: patient, spouse Exam Limitations: no limitations History of Present Illness Date Seen by Provider: May 13, 2019 Time Seen by Provider: 18:15 Initial Comments Patient presents to ER by private conveyance with her significant other with chief complaint about half an hour prior to arrival she was at a restaurant and while getting up to walk to the bathroom she felt a little unstable and fell over towards the right side with her right humerus landing against a chair causing visible deformity and pain. She denies striking her head or neck nor loss of consciousness. She does not have any dizziness or feeling of near- syncope. She does not have any known heart condition. She does not have any known kidney disorder. She has taken opiates in the past to help with her knee replacement and her right shoulder replacement but is not on anything presently. She has not taken anything for pain. She rates it as 8 out of 10. He still has feeling and movement in her distal right upper extremity. Allergies and Home Medications Allergies Coded Allergies: No Known Drug Allergies (Unverified , 02/10/13) Home Medications Aspirin 81 Mg Tabec, 81 MG PO DAILY, (Reported) Calcium Carbonate/Vitamin D3 1 Each Tablet, 1 EACH PO BID, (Reported) Carvedilol 3.125 Mg Tablet, 3.125 MG GT BID, (Reported) Ciprofloxacin 500 Mg Tab, 500 MG PO BID Prescribed by: TAYLOR ROCHA on 08/20/13 1037 Fish Oil/Dha/Epa 1 Each Capsule, 1 EACH PO DAILY, (Reported) Lactobacillus Acidophilus 1 Each Capsule, 1 EACH PO BID, (Reported) Letrozole 2.5 Mg Tablet, 2.5 MG PO DAILY, (Reported) Metronidazole 500 Mg Tab, 1 EACH PO QID Prescribed by: TAYLOR ROCHA on 08/20/13 1037 Niacin/Inositol Niacinate 1 Each Capsule, 1 EACH PO DAILY, (Reported) Rosuvastatin Calcium 5 Mg Tablet, 1 EACH PO HS, (Reported) Venlafaxine Hcl 25 Mg Tablet, 25 MG PO DAILY, (Reported) Vit A/Vit C/Vit E/Zinc/Copper 1 Each Tablet, 1 EACH PO DAILY, (Reported) Vit D3/Folic Acid/B2/B6/B12 1 Each Tablet, 1 EACH PO DAILY, (Reported) Patient Home Medication List Home Medication List Reviewed: Yes Review of Systems Review of Systems Constitutional: No chills, No diaphoresis Eyes: Denies Blindness, Denies Blurred Vision Ears, Nose, Mouth, Throat: denies ear pain, denies ear discharge Respiratory: No cough, No phlegm Cardiovascular: No chest pain, No edema Gastrointestinal: No abdominal pain, No constipation, No diarrhea, No nausea Genitourinary: No discharge, No dysuria Musculoskeletal: No back pain, No joint pain Skin: No pruritus, No rash All Other Systems Reviewed Negative Unless Noted: Yes Past Fviptur-Zmrtfa-Ofjfka Hx Patient Social History Alcohol Use: Denies Use Recreational Drug Use: No Smoking Status: Never a Smoker 2nd Hand Smoke Exposure: No Recent Foreign Travel: No Contact w/Someone Who Travel: No Recent Infectious Disease Expo: No Recent Hopitalizations: No Physical Abuse: No Sexual Abuse: No Immunizations Up To Date Date of Pneumonia Vaccine: Feb 26, 2013 Date of Influenza Vaccine: Feb 26, 2013 Seasonal Allergies Seasonal Allergies: No Past Medical History Surgeries: Yes (SHOULDER) Appendectomy, Joint Replacement, Orthopedic Respiratory: No Cardiac: Yes Hypertension 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 0.0oz. [id number]; 32.00 BMI Method:Stated General Appearance: WD/WN, no apparent distress HEENT: PERRL/EOMI, TMs normal, pharynx normal Neck: full range of motion, normal inspection Cardiovascular: normal peripheral pulses, regular rate, rhythm Respiratory: chest non-tender, lungs clear, normal breath sounds, no respiratory distress, no accessory muscle use Peripheral Pulses: 2+ Radial Pulses (R), 2+ Radial Pulses (L) Extremities: normal range of motion (right hand, wrist and elbow), other (obvious fracture deformity proximal midshaft right humerus and tingling of the skin or open wound) Neurologic/Psychiatric: no motor/sensory deficits, alert, normal mood/affect, oriented x 3 Skin: normal color, warm/dry Procedures/Interventions Procedure: ketamine conscious sedation Patient Education: Explained Benefits, Explained Risks, Pt. Ack. Understanding Agreement on procedure with pt: Yes Breath Sounds per Auscultation: Clear Heart Sounds per Auscultation: Regular Airway Exam: Mouth opens >2 fingers, Neck Full Range of Motion, Visulation of Uvula Sedation Adminstration Time: 19:56 Total Time spent in CS 10 mins Patient achieved good anesthesia and sedation. RT was in the right and she had good end-tidal CO2 and oxygen sats in the low to mid 90s on 2 L. Cardiac monitoring and blood pressure monitoring 5 minutes. See nursing notes. Re-examination Time: 20:31 Re-examination Patient is alert, oriented 4, pain is under control. She has good radial pulse bilateral symmetric bounding 3/4. Splinting and Joint Reduction : Location: right humerus Pre-Proc Neuro Vasc Exam: normal Post-Proc Neuro Vasc Exam: normal, unchanged from pre-exam Progress Using ketamine conscious sedation and 50 g of fentanyl the patient was positioned, anesthetized and sedated. We applied direct downward pressure with only elbow flexed at 90 home upwards. Put a long arm splint using 4 inch fiberglass and pre-wrap. 3 Edgar bandages were used cover and secure the splint. The patient's arm in a sling at 90 angle. Patient alert she did well and had no discomfort throughout the procedure. Postreduction x-rays demonstrated no significant change. Radial pulse adequate after the reduction attempt. Edgar wrap: Yes Arm Sling: Medium Hand-Made Type: orthoglass Splint Application: Long Arm Progress/Results/Core Measures Results/Orders Lab Results Laboratory Tests Test 05/13/19 18:45 05/13/19 18:50 Range/Units Urine Color YELLOW Urine Clarity SL CLOUDY Urine pH 6.0 5-9 Urine Specific Cove >=1.030 1.016-1.022 Urine Protein NEGATIVE NEGATIVE Urine Glucose (UA) NEGATIVE NEGATIVE Urine Ketones NEGATIVE NEGATIVE Urine Nitrite NEGATIVE NEGATIVE Urine Bilirubin NEGATIVE NEGATIVE Urine Urobilinogen 0.2 < = 1.0 MG/DL Urine Leukocyte Esterase 2+ H NEGATIVE Urine RBC (Auto) NEGATIVE NEGATIVE Urine RBC 2-5 H /HPF Urine WBC 50-100 H /HPF Urine Squamous Epithelial Cells NONE /HPF Urine Crystals NONE /LPF Urine Bacteria FEW H /HPF Urine Casts NONE /LPF Urine Mucus MODERATE H /LPF Urine Culture Indicated YES White Blood Count 8.3 4.3-11.0 10^3/uL Red Blood Count 4.40 4.35-5.85 10^6/uL Hemoglobin 12.5 11.5-16.0 G/DL Hematocrit 40 35-52 % Mean Corpuscular Volume 91 80-99 FL Mean Corpuscular Hemoglobin 28 25-34 PG Mean Corpuscular Hemoglobin Concent 31 L 32-36 G/DL Red Cell Distribution Width 14.7 H 10.0-14.5 % Platelet Count 215 130-400 10^3/uL Mean Platelet Volume 11.4 H 7.4-10.4 FL Neutrophils (%) (Auto) 57 42-75 % Lymphocytes (%) (Auto) 32 12-44 % Monocytes (%) (Auto) 8 0-12 % Eosinophils (%) (Auto) 3 0-10 % Basophils (%) (Auto) 0 0-10 % Neutrophils # (Auto) 4.7 1.8-7.8 X 10^3 Lymphocytes # (Auto) 2.7 1.0-4.0 X 10^3 Monocytes # (Auto) 0.7 0.0-1.0 X 10^3 Eosinophils # (Auto) 0.2 0.0-0.3 10^3/uL Basophils # (Auto) 0.0 0.0-0.1 10^3/uL Sodium Level 140 135-145 MMOL/L Potassium Level 3.8 3.6-5.0 MMOL/L Chloride Level 104 98-107 MMOL/L Carbon Dioxide Level 26 21-32 MMOL/L Anion Gap 10 5-14 MMOL/L Blood Urea Nitrogen 16 7-18 MG/DL Creatinine 1.13 0.60-1.30 MG/DL Estimat Glomerular Filtration Rate 47 BUN/Creatinine Ratio 14 Glucose Level 107 H 70-105 MG/DL Calcium Level 9.6 8.5-10.1 MG/DL Corrected Calcium 9.3 8.5-10.1 MG/DL Total Bilirubin 1.0 0.1-1.0 MG/DL Aspartate Amino Transf (AST/SGOT) 15 5-34 U/L Alanine Aminotransferase (ALT/SGPT) 11 0-55 U/L Alkaline Phosphatase 112 40-136 U/L Total Protein 6.9 6.4-8.2 GM/DL Albumin 4.4 3.2-4.5 GM/DL My Orders Orders - PRINCE PARIKH Ed Iv/Invasive Line Start (05/13/19 18:27) Ua Culture If Indicated (05/13/19 18:27) Cbc With Automated Diff (05/13/19 18:) Comprehensive Metabolic Panel (05/13/19 18:27) Humerus, Right, 2 Views (05/13/19 18:27) Chest 1 View, Ap/Pa Only (05/13/19 18:27) Ekg Tracing (05/13/19 18:31) Fentanyl Injection (Sublimaze Injection (05/13/19 18:45) Urine Culture (05/13/19 18:45) Fentanyl Injection (Sublimaze Injection (05/13/19 19:30) Ketamine Syringe (Ed Only) (Ketamine Syr (05/13/19 19:30) Ceftriaxone For Iv Use (Rocephin For I (05/13/19 19:30) Ed Iv/Invasive Line Start (05/13/19 19:27) Ns Iv 500 Ml (Sodium Chloride 0.9%) (05/13/19 19:27) Rt Request For Service (05/13/19 19:27) Conscious Sedation (05/13/19 19:43) Ketamine Injection (Ketalar Injection) (05/13/19 19:45) Midazolam Injection (Versed Injection) (05/13/19 19:45) Monitor-Rhythm Ecg Trace Only (05/13/19 19:43) Vital Signs-Conscious Sedation (05/13/19 19:43) Humerus, Right, 2 Views (05/13/19 20:04) Ketorolac Injection (Toradol Injection) (05/13/19 20:30) Rx-Hydrocodone/Apap 5-325 Mg (Rx-Vicodin (05/13/19 20:30) Medications Given in ED Current Medications Medications Dose Ordered Sig/Barbara Route Start Time Stop Time Status Last Admin Dose Admin Ceftriaxone Sodium 1000 mg/ Sterile Water 10 ml @ 200 mls/hr ONCE ONCE IV 05/13/19 19:30 05/13/19 19:32 DC 05/13/19 20:19 200 MLS/HR Fentanyl Citrate 50 mcg ONCE ONCE IVP 05/13/19 18:45 05/13/19 18:46 DC 05/13/19 18:53 50 MCG Fentanyl Citrate 50 mcg ONCE ONCE IVP 05/13/19 19:30 05/13/19 19:31 DC 05/13/19 19:52 50 MCG Ketamine HCl 50 mg ONCE ONCE IV 05/13/19 19:45 05/13/19 19:46 DC 05/13/19 19:56 50 MG Sodium Chloride 500 ml @ 0 mls/hr Q0M ONCE IV 05/13/19 19:27 05/13/19 19:31 DC 05/13/19 19:51 999 MLS/HR Vital Signs/I&O 05/13/19 05/13/19 18:08 18:53 Temp 36.6 36.6 Pulse 80 Resp 17 B/P (MAP) 154/82 (106) Pulse Ox 97 O2 Delivery Room Air Blood Pressure Mean: 106 POS Progress Progress Note : Time: 18:38 Progress Note Plan to obtain a baseline EKG labs urinalysis and she was endorsing in the past couple weeks she had some mild burning in her urination. We'll get a x-ray of her chest and humerus. She denies any pain in her neck or head we have discussed observation versus CT imaging and she would prefer observation at this time. Initial ECG Impression Date: May 13, 2019 Initial ECG Impression Time: 18:36 Initial ECG Rate: 61 Initial ECG Rhythm: Normal Sinus Initial ECG Intervals: Normal Initial ECG Impression: Normal Comment No clinically relevant ST elevation or depression. Diagnostic Imaging Diagonstic Imaging: Xray Plain Films/CT/US/NM/MRI: chest (1v) Comments NAME: KEON [facility] REC#: [id number] PT STATUS: REG ER : 1940 PHYSICIAN: PRINCE PARIKH MD ADMIT DATE: 05/13/19/ER Signed POSDate of Exam:05/13/19 CHEST 1 VIEW, AP/PA ONLY Patient History: Fall. Technique: Single frontal view of the chest Comparison: None FINDINGS: The lung volumes are normal. No focal consolidation is seen. No large pleural effusion or pneumothorax is seen. The cardiomediastinal silhouette is normal in size and contour. Surgical hardware is noted in the proximal right humerus. Acute periprosthetic fracture is noted in the proximal right humerus. IMPRESSION: 1. No acute pleuroparenchymal process. 2. Acute periprosthetic fracture in the proximal right humerus. Please see the dedicated right humerus radiographs performed the same date for additional findings. Dictated by: Dictated on workstation # [id number] Dict: 05/13/191914 Trans: 05/13/191917 [facility] [id number] Interpreted by: JUDY CARTER DO Electronically signed by: JUDY CARTER DO 05/13/191917 Reviewed: Reviewed by [place] Diagonstic Imaging: Xray Plain Films/CT/US/NM/MRI: other (right humerus) Comments [facility]. POS [place], [place] POS NAME: KEON GODWIN [facility] REC#: [id number] PT STATUS: REG ER : 1940 PHYSICIAN: PRINCE PARIKH MD ADMIT DATE: 05/13/19/ER Draft POSDate of Exam:05/13/19 HUMERUS, RIGHT, 2 VIEWS EXAMINATION: Right humerus radiographs, 2 views. COMPARISON: None. HISTORY: 78-year-old female, fall. Right humerus pain. FINDINGS: There is a right shoulder prosthesis. Below the level of the humeral stem component of the prosthesis, there is a displaced humeral diaphyseal fracture with displacement of the fracture up to approximately 1.5 cm medially. There is estimated 1.2 cm anterior displacement of the distal fracture fragment. The acromioclavicular joint is grossly unremarkable in alignment. There is limited evaluation near the level of the right shoulder limiting eqcne-pl-vmmi of imaging and difficulties with exposure. There is also limited assessment of the distal humerus. IMPRESSION: 1. Displaced humeral diaphyseal fracture. Dictated on workstation # [id number] Dict: 05/13/191913 Trans: 05/13/191920 [facility] [id number] Interpreted by: DINA PALACIO MD Electronically signed by: Departure Impression Primary Impression: Humerus shaft fracture Qualified Codes: S42.331A - Displaced oblique fracture of shaft of humerus, right arm, initial encounter for closed fracture Additional Impressions: Fall Qualified Codes: W19.XXXA - Unspecified fall, initial encounter UTI (urinary tract infection) Qualified Codes: N30.00 - Acute cystitis without hematuria Disposition: HOME, SELF-CARE Condition: Stable Departure-Patient Inst. Decision time for Depature: 20:45 Referrals: JOLENE HAMMOND MD (PCP) Primary Care Physician NOEMI SEGURA DO (Family) Primary Care Physician Patient Instructions: Moderate Sedation in Adults, Upper Arm Fracture, Urinary Tract Infection, Adult (DC) Add. Discharge Instructions: Drink plenty of fluids keep your arm elevated above the level of your heart for swelling and use ice packs 20 minutes on every 4 hours for swelling and pain. Motrin 800 mg every 8 hours as needed for pain. Hydrocodone one to 2 tablets every 6 hours as needed for breakthrough pain. Tomorrow call Dr. Segura and request follow-up appointment for your arm fracture. 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 All discharge instructions reviewed with patient and/or family. Voiced understanding. Scripts Cephalexin (Keflex) 500 Mg Capsule 500 MG PO BID, #14 CAP 0 Refills Prov: PRINCE PARIKH 05/13/19 Hydrocodone Bit/Acetaminophen (Hydrocodone/Acetaminophen 5/325mg Tablet) 1 Tab Tab 1-2 EACH PO Q6H PRN for PAIN-MODERATE MDD 10, #30 TAB 0 Refills Prov: PRINCE PARIKH 05/13/19 Copy Copies To 1: NOEMI ESGURA TITUS J May 13, 2019 18:31 POS
[2019-05-13] MEDS ORDERED: fentaNYL INJECTION 100 MCG/2 ML AMP IVP ONE ×2 (18:45→19:30)
[2019-05-13 18:53] LABS: BILIRUBIN,URINE NEGATIVE (NEGATIVE); CLARITY,URINE SL CLOUDY; COLOR,URINE YELLOW; GLUCOSE, URINE (UA) NEGATIVE (NEGATIVE); KETONES,URINE NEGATIVE (NEGATIVE); LEUKOCYTE ESTERASE ,URINE 2+ (NEGATIVE); NITRITE,URINE NEGATIVE (NEGATIVE); PROTEIN,URINE NEGATIVE (NEGATIVE)
[2019-05-13 19:03] LABS: BACTERIA,URINE FEW /HPF; WBC,URINE 50-100 /HPF
[2019-05-13 19:03] LABS: BASOPHILS % (AUTO) 0 % (0-10); EOSINOPHILS # (AUTO) 0.2 10^3/uL (0.0-0.3); EOSINOPHILS % (AUTO) 3 % (0-10); HEMATOCRIT 40 % (35-52); HEMOGLOBIN 12.5 G/DL (11.5-16.0); LYMPHOCYTES # (AUTO) 2.7 X 10^3 (1.0-4.0); LYMPHOCYTES % (AUTO) 32 % (12-44); MEAN CORPUSCULAR HEMOGLOBIN 28 PG (25-34); MEAN CORPUSCULAR HGB CONC 31 G/DL (32-36); MEAN CORPUSCULAR VOLUME 91 FL (80-99); MEAN PLATELET VOLUME 11.4 FL (7.4-10.4); MONOCYTES # (AUTO) 0.7 X 10^3 (0.0-1.0); MONOCYTES % (AUTO) 8 % (0-12); NEUTROPHILS # (AUTO) 4.7 X 10^3 (1.8-7.8); NEUTROPHILS % (AUTO) 57 % (42-75); PLATELET COUNT 215 10^3/uL (130-400); RED CELL DISTRIBUTION WIDTH 14.7 % (10.0-14.5); WHITE BLOOD COUNT 8.3 10^3/uL (4.3-11.0)
--- NOTE | 2019-05-13 19:17 | Diagnostic Imaging Report ---
Patient History: Fall. Technique: Single frontal view of the chest Comparison: None FINDINGS: The lung volumes are normal. No focal consolidation is seen. No large pleural effusion or pneumothorax is seen. The cardiomediastinal silhouette is normal in size and contour. Surgical hardware is noted in the proximal right humerus. Acute periprosthetic fracture is noted in the proximal right humerus. IMPRESSION: 1. No acute pleuroparenchymal process. 2. Acute periprosthetic fracture in the proximal right humerus. Please see the dedicated right humerus radiographs performed the same date for additional findings. Dictated by: Dictated on workstation # [id number]
[2019-05-13 19:20] LABS: ALBUMIN 4.4 GM/DL (3.2-4.5); CALCIUM 9.6 MG/DL (8.5-10.1); CREATININE SERUM 1.13 MG/DL (0.60-1.30); POTASSIUM 3.8 MMOL/L (3.6-5.0); TOTAL PROTEIN 6.9 GM/DL (6.4-8.2)
--- NOTE | 2019-05-13 19:21 | Diagnostic Imaging Report ---
EXAMINATION: Right humerus radiographs, 2 views. COMPARISON: None. HISTORY: 78-year-old female, fall. Right humerus pain. FINDINGS: There is a right shoulder prosthesis. Below the level of the humeral stem component of the prosthesis, there is a displaced humeral diaphyseal fracture with displacement of the fracture up to approximately 1.5 cm medially. There is estimated 1.2 cm anterior displacement of the distal fracture fragment. The acromioclavicular joint is grossly unremarkable in alignment. There is limited evaluation near the level of the right shoulder limiting qpjbo-gy-sbhq of imaging and difficulties with exposure. There is also limited assessment of the distal humerus. IMPRESSION: 1. Displaced humeral diaphyseal fracture. Dictated by: Dictated on workstation # [id number]
[2019-05-13] MEDS ORDERED: NS IV 500 ML 500 ML IV ONE (19:27)
[2019-05-13] MEDS ORDERED: cefTRIAXone FOR IV USE 1,000 MG in WATER (STERILE) FOR INJECTION 10 ML IV ONE (19:30)
[2019-05-13] MEDS ORDERED: KETAMINE/NaCl 50 MG/5 ML SYRINGE (ED ONLY) IV ONE (19:30)
[2019-05-13] MEDS ORDERED: KETAMINE HCL 100 MG/ML 5 ML VIAL IV ONE (19:45)
[2019-05-13] MEDS ORDERED: MIDAZOLAM 2 MG/2 ML (VERSED) VIAL INJ ONE (19:45)
[2019-05-13] MEDS ORDERED: KETOROLAC 30 MG/ML VIAL IVP ONE (20:30)
[2019-05-13] MEDS ORDERED: RX-HYDROCODONE/APAP 5/325 MG #4 TAB PK PO PRN (20:30)
--- NOTE | 2019-05-13 20:40 | Diagnostic Imaging Report ---
EXAMINATION: Right humerus radiographs, 2 views. COMPARISON: May 13, 2019 1909 hours. HISTORY: 78-year-old female, postreduction. FINDINGS: There is a redemonstrated displaced mid humeral diaphyseal fracture. It is difficult to accurately know direction given obliquity of imaging the patient. The distal fracture fragment appears to be laterally displaced by approximately 8 mm and is anteriorly displaced by approximately 1.4 cm. There is a right shoulder prosthesis. The acromioclavicular joint appears normally aligned. IMPRESSION: 1. Redemonstrated displaced humeral diaphyseal fracture. Dictated by: Dictated on workstation # [id number]
[2019-05-13] MEDS ORDERED: ACHD5005 PO (20:43)
[2019-05-13] MEDS ORDERED: CEPH-507 PO (20:43)
[2019-05-13 21:12] VITALS: BP 115/92
--- NOTE | 2019-05-13 21:12 | NUR ---
VITAL SIGNS PRINTED AND TO BE SCANNED TO ACCOUNT.
--- NOTE | 2019-05-17 08:20 | NUR ---
in pt's chart to review for culture book
== END 2019-05-13 21:12 | disposition home or self-care (01) ==
LOC: EDUNIT# 17:55 → ER 17:57
DX: S42.331A Displaced oblique fracture of shaft of humerus, right arm, initial encounter for closed fracture (principal); N39.0 Urinary tract infection, site not specified; I10 Essential (primary) hypertension; Z79.82 Long term (current) use of aspirin; Z96.611 Presence of right artificial shoulder joint; Z90.49 Acquired absence of other specified parts of digestive tract; Z90.710 Acquired absence of both cervix and uterus; Z85.3 Personal history of malignant neoplasm of breast; W18.39XA Other fall on same level, initial encounter; W22.8XXA Striking against or struck by other objects, initial encounter; Y92.511 Restaurant or cafe as the place of occurrence of the external cause
CPT/HCPCS: 29105; 36415; 71045; 73060; 80053; 81000; 85025; 87077; 87088; 87186; 93005; 93041; 96361; 96374; 96375; 96376

== ENCOUNTER → 2019-10-15 | Outpatient (CLI) | payer MEDICARE ==
[~2019-10-15] MED LIST changes: +ACHD5005 PO; +CEPH-507 PO; +DENOSUMAB 60 MG/1 ML (PROLIA) CANCER CTR SQ SCH
[2019-10-15 13:10] LABS: BASOPHILS % (AUTO) 0 % (0-10); EOSINOPHILS # (AUTO) 0.3 10^3/uL (0.0-0.3); EOSINOPHILS % (AUTO) 3 % (0-10); HEMATOCRIT 33 % (35-52); HEMOGLOBIN 9.3 G/DL (11.5-16.0); LYMPHOCYTES # (AUTO) 2.1 X 10^3 (1.0-4.0); LYMPHOCYTES % (AUTO) 25 % (12-44); MEAN CORPUSCULAR HEMOGLOBIN 22 PG (25-34); MEAN CORPUSCULAR HGB CONC 28 G/DL (32-36); MEAN CORPUSCULAR VOLUME 76 FL (80-99); MEAN PLATELET VOLUME 10.2 FL (7.4-10.4); MONOCYTES # (AUTO) 0.8 X 10^3 (0.0-1.0); MONOCYTES % (AUTO) 9 % (0-12); NEUTROPHILS # (AUTO) 5.3 X 10^3 (1.8-7.8); NEUTROPHILS % (AUTO) 62 % (42-75); PLATELET COUNT 271 10^3/uL (130-400); RED CELL DISTRIBUTION WIDTH 16.3 % (10.0-14.5); WHITE BLOOD COUNT 8.5 10^3/uL (4.3-11.0)
[2019-10-15 13:28] LABS: ALBUMIN 3.9 GM/DL (3.2-4.5); BILIRUBIN,TOTAL 0.8 MG/DL (0.1-1.0); CALCIUM 9.8 MG/DL (8.5-10.1); CREATININE SERUM 1.18 MG/DL (0.60-1.30); POTASSIUM 4.2 MMOL/L (3.6-5.0); TOTAL PROTEIN 6.6 GM/DL (6.4-8.2)
== END ==
LOC: EDSTATUS 07-15 11:43 → ONC 13:02
PROVIDERS: ATTEND Internal Medicine Hematology & Oncology
DX: C50.812 Malignant neoplasm of overlapping sites of left female breast (principal); D50.9 Iron deficiency anemia, unspecified; C85.89 Other specified types of non-Hodgkin lymphoma, extranodal and solid organ sites
CPT/HCPCS: 80053; 82728; 83540; 85025; 96372; 99213

== ENCOUNTER → 2019-10-17 | Outpatient (CLI) | payer MEDICARE ==
[~2019-10-17] MED LIST changes: -DENOSUMAB 60 MG/1 ML (PROLIA) CANCER CTR SQ SCH
== END ==
LOC: ONC 09:42
PROVIDERS: ATTEND Internal Medicine Hematology & Oncology
DX: Z53.9 Procedure and treatment not carried out, unspecified reason (principal)

== ENCOUNTER → 2019-11-06 | Outpatient (CLI) | payer MEDICARE ==
--- NOTE | 2019-11-06 11:29 | Diagnostic Imaging Report ---
PROCEDURE: MRI lumbar spine without contrast. TECHNIQUE: Multiplanar, multisequence MRI of the lumbar spine was performed without contrast. INDICATION: Low back injury. Increasing pain. COMPARISON: 01/26/2014. FINDINGS: 5 lumbar type vertebral bodies are visualized with the last well-formed disc space designated L5-S1. No acute fracture or dislocation is seen in the lumbar spine. Chronic height loss is again seen involving the superior endplate of L1. There is grade 1 retrolisthesis of L1 on L2 and L2 on L3 with grade 1 anterolisthesis of L4 on L5. The bone marrow signal is normal. The conus terminates at the L1 level. No masses are seen associated with the conus or nerve roots of the cauda equina. No epidural collections are identified. Multilevel degenerative changes are seen in the lumbar spine with disc bulges, facet hypertrophy, and buckling of the ligamentum flavum. T12-L1: No significant spinal canal or foraminal stenosis. L1-L2: Facet hypertrophy and buckling of ligamentum flavum results in no significant spinal canal narrowing and wzyy-ie-zfzcxdrm right and mild left foraminal narrowing. L2-L3: Broad-based disc bulge, facet hypertrophy, and buckling of ligamentum flavum results in no significant spinal canal narrowing and no significant foraminal narrowing. L3-L4: Broad-based disc bulge, facet hypertrophy, and buckling of ligamentum flavum results in mild spinal canal narrowing and mild left and no right foraminal narrowing. L4-L5: Broad-based disc bulge, facet hypertrophy, and buckling of the ligamentum flavum results in moderate spinal canal stenosis and mild bilateral foraminal narrowing. L5-S1: Broad-based disc bulge, facet hypertrophy, and buckling of the ligamentum flavum results in no significant spinal canal narrowing and no significant foraminal narrowing There is atrophy of the paraspinal musculature of the lumbar spine. IMPRESSION: 1. No acute fracture or dislocation in the lumbar spine. 2. Multilevel degenerative changes in the lumbar spine, greatest at L3-L4 and L4-L5. 3. Chronic height loss at the superior endplate of L1. This is similar in appearance to the radiographs performed in 2013. Dictated by: Dictated on workstation # [id number]
== END ==
LOC: RAD 09:49
PROVIDERS: ATTEND Nurse Practitioner Family
DX: M47.816 Spondylosis without myelopathy or radiculopathy, lumbar region (principal); M51.36 Other intervertebral disc degeneration, lumbar region; M48.061 Spinal stenosis, lumbar region without neurogenic claudication
CPT/HCPCS: 72148

== ENCOUNTER 2019-11-14 11:08 | Outpatient (RCR) | payer MEDICARE ==
[2019-11-07 11:03] VITALS: BP 135/59
[2019-11-07] MEDS: FERRIC CARBOXYMALTOSE INJ 750 MG in NS (IVPB) 250 ML IV SCH (11:36)
[~2019-11-14] VITALS: Ht 162.6 cm; Wt 84.1 kg
[2019-11-14 11:07] VITALS: BP 143/64
[2019-11-14] MEDS: FERRIC CARBOXYMALTOSE INJ 750 MG in NS (IVPB) 250 ML IV SCH (11:19)
== END 2019-11-14 12:00 | disposition home or self-care (01) ==
LOC: SDC 11:08
PROVIDERS: ATTEND Family Medicine
DX: D50.9 Iron deficiency anemia, unspecified (principal)
CPT/HCPCS: 96365

== ENCOUNTER → 2019-12-02 | Outpatient (CLI) | payer MEDICARE ==
[2019-12-02 13:29] LABS: BASOPHILS % (AUTO) 0 % (0-10); EOSINOPHILS # (AUTO) 0.2 10^3/uL (0.0-0.3); EOSINOPHILS % (AUTO) 3 % (0-10); HEMATOCRIT 40 % (35-52); HEMOGLOBIN 12.1 G/DL (11.5-16.0); LYMPHOCYTES # (AUTO) 1.6 X 10^3 (1.0-4.0); LYMPHOCYTES % (AUTO) 27 % (12-44); MEAN CORPUSCULAR HEMOGLOBIN 27 PG (25-34); MEAN CORPUSCULAR HGB CONC 31 G/DL (32-36); MEAN CORPUSCULAR VOLUME 86 FL (80-99); MEAN PLATELET VOLUME 11.2 FL (7.4-10.4); MONOCYTES # (AUTO) 0.6 X 10^3 (0.0-1.0); MONOCYTES % (AUTO) 10 % (0-12); NEUTROPHILS # (AUTO) 3.7 X 10^3 (1.8-7.8); NEUTROPHILS % (AUTO) 61 % (42-75); PLATELET COUNT 170 10^3/uL (130-400)
== END ==
LOC: ONC 13:08
PROVIDERS: ATTEND Internal Medicine Hematology & Oncology
DX: M85.80 Other specified disorders of bone density and structure, unspecified site (principal); Z85.3 Personal history of malignant neoplasm of breast; D50.9 Iron deficiency anemia, unspecified
CPT/HCPCS: 82728; 84443; 85025; G0463; 99213

== ENCOUNTER → 2019-12-09 | Outpatient (CLI) | payer MEDICARE ==
--- NOTE | 2019-12-09 14:03 | Diagnostic Imaging Report ---
INDICATION: Postmenopausal female COMPARISON: 11/29/2017 FINDINGS: AP Spine L2-L4: [BMD (g/cm2): 1.042] [T-Score: -1.3] [Z-Score: -0.1] [BMD Previous: 1.038] [BMD % Change: 0.4] LT Hip Neck: [BMD (g/cm2): NA] [T-Score: NA] [Z-Score: NA] LT Hip Total: [BMD (g/cm2):NA] [T-Score:NA] [Z-Score: NA] [BMD Previous: NA] [BMD % Change: NA] RT Hip Neck: [BMD (g/cm2):0.793] [T-Score:-1.8] [Z-Score:-0.1] RT Hip Total: [BMD (g/cm2):0.909] [T-score:-0.8] [Z-Score:0.7] [BMD Previous:0.904] [BMD % Change:0.6] *Indicates significant change from prior examination based on 95% confidence level. World Health Organization criteria for BMD interpretation classify patients as Normal (T-score at or above -1.0), Osteopenic (T-score between -1.0 and -2.5) or Osteoporotic (T-score at or below -2.5). LIMITATIONS AND MODIFICATION: The left hip was not evaluated due to hardware. FRACTURE RISK (FRAX SCORE): The ten year probability of (%): Major Osteoporotic Fracture: [14] Hip Fracture: [3.6] IMPRESSION: 1. Osteopenia (Low bone mass). 2. No significant change in bone mineral density since prior examination. 3. See below National Osteoporosis Foundation guidelines on when to potentially initiate pharmacologic therapy. Based on the National Osteoporosis Foundation Guidelines, pharmacologic treatment should be initiated in any of the following, unless clinical conditions suggest otherwise: * Any patient with prior fragility fracture of the hip or vertebrae. A spine fracture indicates 5X risk for subsequent spine fracture and 2X risk for subsequent hip fracture. * Osteoporosis (T-score <-2.5). * Postmenopausal women and men age 50 and older with low bone mass/osteopenia (T-score between -1.0 and -2.5) by DXA and 10-year major osteoporotic fracture greater than 20% or a 10-year probability of hip fracture greater than 3%. These fracture risks are supplied above in the FRAX score, if applicable. * Clinician judgement and/or patient preferences may indicate treatment for people with 10-year fracture probabilities above or below these levels. Dictated by: Dictated on workstation # [id number]
--- NOTE | 2019-12-10 09:21 | Diagnostic Imaging Report ---
INDICATION: Routine screening. Comparison is made with prior mammogram 12/02/2018 and 11/29/2017. 2-D and 3-D bilateral screening mammography was performed with CAD. Scattered fibroglandular densities are identified bilaterally. The parenchymal pattern is stable. No mass or malignant appearing microcalcifications are seen. Axillae are unremarkable. IMPRESSION: BI-RADS Category 1 No mammographic features suspicious for malignancy are identified. ACR BI-RADS Category 1: Negative. Result letter will be mailed to the patient. Note: At least 10% of breast cancer is not imaged by mammography. Dictated by: Dictated on workstation # [id number]
== END ==
LOC: RAD 11:48
PROVIDERS: ATTEND Nurse Practitioner Adult Health
DX: Z12.31 Encounter for screening mammogram for malignant neoplasm of breast (principal); M85.88 Other specified disorders of bone density and structure, other site; Z85.3 Personal history of malignant neoplasm of breast; Z78.0 Asymptomatic menopausal state
CPT/HCPCS: 77063; 77067; 77080

== ENCOUNTER → 2020-05-10 | Outpatient (CLI) | payer MEDICARE ==
[~2020-05-10] MED LIST changes: +DENOSUMAB 60 MG/1 ML (PROLIA) CANCER CTR SQ SCH
[2020-05-10 09:48] LABS: BASOPHILS % (AUTO) 0 % (0-10); EOSINOPHILS # (AUTO) 0.2 10^3/uL (0.0-0.3); EOSINOPHILS % (AUTO) 2 % (0-10); HEMATOCRIT 43 % (35-52); HEMOGLOBIN 13.5 g/dL (11.5-16.0); LYMPHOCYTES % (AUTO) 26 % (12-44); MEAN CORPUSCULAR HEMOGLOBIN 30 pg (25-34); MEAN CORPUSCULAR HGB CONC 32 g/dL (32-36); MEAN CORPUSCULAR VOLUME 95 fL (80-99); MEAN PLATELET VOLUME 11.2 fL (9.0-12.2); MONOCYTES # (AUTO) 0.7 10^3/uL (0.0-1.0); MONOCYTES % (AUTO) 10 % (0-12); NEUTROPHILS # (AUTO) 4.8 10^3/uL (1.8-7.8); NEUTROPHILS % (AUTO) 62 % (42-75); PLATELET COUNT 179 10^3/uL (130-400); WHITE BLOOD COUNT 7.7 10^3/uL (4.3-11.0)
[2020-05-10 10:04] LABS: ALBUMIN 4.2 GM/DL (3.2-4.5); BILIRUBIN,TOTAL 1.1 MG/DL (0.1-1.0); CREATININE SERUM 1.07 MG/DL (0.60-1.30); TOTAL PROTEIN 6.6 GM/DL (6.4-8.2)
== END ==
LOC: ONC 09:32
PROVIDERS: ATTEND Internal Medicine Hematology & Oncology
DX: E55.9 Vitamin D deficiency, unspecified (principal); D64.9 Anemia, unspecified; M85.89 Other specified disorders of bone density and structure, multiple sites; Z85.3 Personal history of malignant neoplasm of breast
CPT/HCPCS: 80053; 82306; 82728; 85025; 96372; G0463

== ENCOUNTER 2020-11-08 09:55 | Outpatient (RCR) | payer MEDICARE ==
[~2020-11-08 09:55] MED LIST changes: +DENOSUMAB 60 MG/1 ML (PROLIA) CANCER CTR SQ SCH
[2020-11-08 10:17] LABS: BASOPHILS % (AUTO) 0 % (0-10); EOSINOPHILS # (AUTO) 0.2 10^3/uL (0.0-0.3); EOSINOPHILS % (AUTO) 4 % (0-10); HEMATOCRIT 43 % (35-52); HEMOGLOBIN 13.4 g/dL (11.5-16.0); LYMPHOCYTES # (AUTO) 1.7 10^3/uL (1.0-4.0); LYMPHOCYTES % (AUTO) 28 % (12-44); MEAN CORPUSCULAR HEMOGLOBIN 30 pg (25-34); MEAN CORPUSCULAR HGB CONC 31 g/dL (32-36); MEAN CORPUSCULAR VOLUME 95 fL (80-99); MEAN PLATELET VOLUME 11.1 fL (9.0-12.2); MONOCYTES # (AUTO) 0.5 10^3/uL (0.0-1.0); MONOCYTES % (AUTO) 9 % (0-12); NEUTROPHILS # (AUTO) 3.5 10^3/uL (1.8-7.8); NEUTROPHILS % (AUTO) 59 % (42-75); PLATELET COUNT 195 10^3/uL (130-400)
[2020-11-08 10:39] LABS: ALBUMIN 3.9 GM/DL (3.2-4.5); BILIRUBIN,TOTAL 0.7 MG/DL (0.1-1.0); CALCIUM 9.9 MG/DL (8.5-10.1); CREATININE SERUM 1.08 MG/DL (0.60-1.30); POTASSIUM 4.1 MMOL/L (3.6-5.0); TOTAL PROTEIN 6.4 GM/DL (6.4-8.2)
== END 2021-02-06 | disposition home or self-care (01) ==
LOC: ONC 09:55
PROVIDERS: ATTEND Internal Medicine Hematology & Oncology
DX: Z12.31 Encounter for screening mammogram for malignant neoplasm of breast (principal); D50.9 Iron deficiency anemia, unspecified; M85.80 Other specified disorders of bone density and structure, unspecified site; I13.0 Hypertensive heart and chronic kidney disease with heart failure and stage 1 through stage 4 chronic kidney disease, or unspecified chronic kidney disease; I50.9 Heart failure, unspecified; N18.9 Chronic kidney disease, unspecified; E55.9 Vitamin D deficiency, unspecified; E78.00 Pure hypercholesterolemia, unspecified; Z85.3 Personal history of malignant neoplasm of breast; Z90.12 Acquired absence of left breast and nipple; Z98.890 Other specified postprocedural states; Z79.811 Long term (current) use of aromatase inhibitors
CPT/HCPCS: 96372; G0463; 80053

== ENCOUNTER → 2020-11-08 | Outpatient (CLI) | payer MEDICARE ==
[~2020-11-08] MED LIST changes: -DENOSUMAB 60 MG/1 ML (PROLIA) CANCER CTR SQ SCH
[2020-11-08 10:31] LABS: BASOPHILS % (AUTO) 0 % (0-10); EOSINOPHILS # (AUTO) 0.2 10^3/uL (0.0-0.3); EOSINOPHILS % (AUTO) 4 % (0-10); HEMATOCRIT 43 % (35-52); HEMOGLOBIN 13.4 g/dL (11.5-16.0); LYMPHOCYTES # (AUTO) 1.7 10^3/uL (1.0-4.0); LYMPHOCYTES % (AUTO) 28 % (12-44); MEAN CORPUSCULAR HEMOGLOBIN 30 pg (25-34); MEAN CORPUSCULAR HGB CONC 31 g/dL (32-36); MEAN CORPUSCULAR VOLUME 95 fL (80-99); MEAN PLATELET VOLUME 11.1 fL (9.0-12.2); MONOCYTES # (AUTO) 0.5 10^3/uL (0.0-1.0); MONOCYTES % (AUTO) 9 % (0-12); NEUTROPHILS # (AUTO) 3.5 10^3/uL (1.8-7.8); NEUTROPHILS % (AUTO) 59 % (42-75); PLATELET COUNT 195 10^3/uL (130-400)
[2020-11-08 10:46] LABS: ALBUMIN 3.9 GM/DL (3.2-4.5); BILIRUBIN,TOTAL 0.7 MG/DL (0.1-1.0); CALCIUM 9.8 MG/DL (8.5-10.1); CREATININE SERUM 1.08 MG/DL (0.60-1.30); POTASSIUM 4.1 MMOL/L (3.6-5.0); TOTAL PROTEIN 6.4 GM/DL (6.4-8.2)
== END ==
LOC: LAB 10:14
PROVIDERS: ATTEND Family Medicine
DX: I10 Essential (primary) hypertension (principal); D64.9 Anemia, unspecified; E78.5 Hyperlipidemia, unspecified; Z79.899 Other long term (current) drug therapy
CPT/HCPCS: 36415; 80053; 80061; 82728; 83540; 83550; 84443; 85025

== ENCOUNTER → 2020-12-09 | Outpatient (CLI) | payer MEDICARE ==
[~2020-12-09] MED LIST changes: -DENOSUMAB 60 MG/1 ML (PROLIA) CANCER CTR SQ SCH
--- NOTE | 2020-12-09 14:41 | Diagnostic Imaging Report ---
Indication: Routine screening. Comparison is made with prior mammogram from 12/09/2019, 12/02/2018. 2-D and 3-D bilateral screening mammography was performed with CAD. Scattered fibroglandular densities are identified bilaterally. The parenchymal pattern is stable. No mass or malignant appearing microcalcifications are seen. Axillae are unremarkable. IMPRESSION: BI-RADS Category 1 No mammographic features suspicious for malignancy are identified. ACR BI-RADS Category 1: Negative. Result letter will be mailed to the patient. Note: At least 10% of breast cancer is not imaged by mammography. Dictated by: Dictated on workstation # [id number]
== END ==
LOC: RAD 11:30
PROVIDERS: ATTEND Nurse Practitioner Adult Health
DX: Z12.31 Encounter for screening mammogram for malignant neoplasm of breast (principal)
CPT/HCPCS: 77063; 77067

== ENCOUNTER 2021-05-18 10:25 | Outpatient (RCR) | payer MEDICARE ==
[2021-05-05 09:12] LABS: BASOPHILS % (AUTO) 0 % (0-10); EOSINOPHILS # (AUTO) 0.2 10^3/uL (0.0-0.3); EOSINOPHILS % (AUTO) 3 % (0-10); HEMATOCRIT 37 % (35-52); HEMOGLOBIN 11.2 g/dL (11.5-16.0); LYMPHOCYTES # (AUTO) 2.1 10^3/uL (1.0-4.0); LYMPHOCYTES % (AUTO) 37 % (12-44); MEAN CORPUSCULAR HEMOGLOBIN 25 pg (25-34); MEAN CORPUSCULAR HGB CONC 30 g/dL (32-36); MEAN CORPUSCULAR VOLUME 84 fL (80-99); MEAN PLATELET VOLUME 10.8 fL (9.0-12.2); MONOCYTES # (AUTO) 0.7 10^3/uL (0.0-1.0); MONOCYTES % (AUTO) 12 % (0-12); NEUTROPHILS # (AUTO) 2.7 10^3/uL (1.8-7.8); NEUTROPHILS % (AUTO) 48 % (42-75); PLATELET COUNT 233 10^3/uL (130-400); WHITE BLOOD COUNT 5.6 10^3/uL (4.3-11.0)
[2021-05-05 09:33] LABS: CALCIUM 9.9 MG/DL (8.5-10.1); CREATININE SERUM 1.04 MG/DL (0.60-1.30); TOTAL PROTEIN 6.8 GM/DL (6.4-8.2)
[~2021-05-18 10:25] MED LIST changes: +DENOSUMAB 60 MG/1 ML (PROLIA) CANCER CTR SQ SCH; +FERRIC CARBOXYMALTOSE (CANCER) 750 MG in NS (IVPB) CANCER CENTER 250 ML IV SCH
== END 2021-06-17 | disposition home or self-care (01) ==
LOC: ONC 10:25
PROVIDERS: ATTEND Internal Medicine Hematology & Oncology
DX: C50.912 Malignant neoplasm of unspecified site of left female breast (principal); D50.9 Iron deficiency anemia, unspecified; M85.80 Other specified disorders of bone density and structure, unspecified site; I13.0 Hypertensive heart and chronic kidney disease with heart failure and stage 1 through stage 4 chronic kidney disease, or unspecified chronic kidney disease; N18.9 Chronic kidney disease, unspecified; E55.9 Vitamin D deficiency, unspecified; E78.00 Pure hypercholesterolemia, unspecified; Z85.3 Personal history of malignant neoplasm of breast; Z90.12 Acquired absence of left breast and nipple; Z98.890 Other specified postprocedural states; Z79.811 Long term (current) use of aromatase inhibitors
CPT/HCPCS: 80053; 82728; 85025; 96372; G0463; 96365; 99213

== ENCOUNTER → 2021-07-06 | Outpatient (CLI) | payer MEDICARE ==
[~2021-07-06] MED LIST changes: -DENOSUMAB 60 MG/1 ML (PROLIA) CANCER CTR SQ SCH; -FERRIC CARBOXYMALTOSE (CANCER) 750 MG in NS (IVPB) CANCER CENTER 250 ML IV SCH
--- NOTE | 2021-07-06 12:12 | Diagnostic Imaging Report ---
INDICATION: Fall with right wrist pain. TIME OF EXAM: 11:10 AM. COMPARISON: Correlation is made with a right wrist radiograph from 03/05/2015. FINDINGS: There is an acute appearing fracture of the distal radius. The fracture line does extend to the articular surface. No significant displacement or angulation is seen. The carpus and metacarpals are intact. There are degenerative changes at the 1st CMC joint. IMPRESSION: Acute intra-articular distal radius fracture. Dictated by: Dictated on workstation # [id number]
== END ==
LOC: RAD 10:41
PROVIDERS: ATTEND Family Medicine
DX: S52.571A Other intraarticular fracture of lower end of right radius, initial encounter for closed fracture (principal); W19.XXXA Unspecified fall, initial encounter
CPT/HCPCS: 73110

== ENCOUNTER 2021-07-15 05:31 | Outpatient (RCR) | payer MEDICARE ==
[~2021-07-15] VITALS: Ht 162.6 cm; Wt 89.0 kg
[~2021-07-15 05:31] MED LIST changes: +DENO60DI SQ; +DIAZ5TAB49 PO; +ESCI-2 PO; +FAMO-119 PO; +MULT-1136 PO
== END 2021-07-18 11:00 | disposition home or self-care (01) ==
LOC: PREOP 05:31
PROVIDERS: ATTEND Surgery
DX: Z01.812 Encounter for preprocedural laboratory examination (principal); D50.9 Iron deficiency anemia, unspecified; Z20.822 Contact with and (suspected) exposure to COVID-19
CPT/HCPCS: 87635

== ENCOUNTER 2021-07-19 10:19 | Day surgery (SDC) | payer MEDICARE ==
[~2021-07-19] VITALS: Ht 162.6 cm; Wt 89.0 kg
[2021-07-19] MEDS ORDERED: LACTATED RINGERS 1,000 ML IV STA (10:23)
[2021-07-19] MEDS ORDERED: LACTATED RINGERS 1,000 ML IV ONE (10:24)
[2021-07-19] MEDS ORDERED: HURRICAINE EXT TUBE (BENZOCAINE) XX PRN (10:30)
[2021-07-19 10:49] VITALS: BP 163/91
--- NOTE | 2021-07-19 10:57 | Progress Note-Pre Operative ---
Pre-Operative Progress Note H&P Reviewed The H&P was reviewed, patient examined and no changes noted. Date Seen by Provider: Jul 19, 2021 Time Seen by Provider: 10:57 Date H&P Reviewed: Jul 19, 2021 Time H&P Reviewed: 10:57 Pre-Operative Diagnosis: fe def anemia RINA NAVARRETE DO Jul 19, 2021 10:57
[2021-07-19] MEDS ORDERED: PROPOFOL INJECTION 50 ML IV ONE (11:45)
[2021-07-19 12:25] VITALS: BP 128/60
--- NOTE | 2021-07-19 12:27 | Progress Note-Post Operative ---
Post-Operative Progess Note Surgeon (s)/Oil Operator (s) Surgeon RINA NAVARRETE DO Oil Operator: N/A Pre-Operative Diagnosis fe def anemia Post-Operative Diagnosis hiatal hernia, colon polyps, diverticulosis Procedure & Operative Findings Date of Procedure 07/19/21 Procedure Performed/Findings EGD with bx; Colonoscopy with hot bx polypectomy x3 Anesthesia Type per [employer] POLISHER Estimated Blood Loss Estimated blood loss (mL): none Specimens/Packing Specimens Removed antrum; colon polyps RINA NAVARRETE DO Jul 19, 2021 12:27
[2021-07-19 12:30] VITALS: BP 130/61
--- NOTE | 2021-07-19 12:31 | Discharge Inst-Simple/Standard ---
Discharge Inst-Standard Patient Instructions/Follow Up Plan of Care/Instructions/FU: 2 weeks Riccardo Activity as Tolerated: Yes Discharge Diet: Regular Diet RINA NAVARRETE DO Jul 19, 2021 12:31
[2021-07-19 12:58] VITALS: BP 126/83
--- NOTE | 2021-07-19 13:58 | Anesthesia-General Post-Op ---
MAC Patient Condition Mental Status/LOC: Same as Preop Cardiovascular: Satisfactory Nausea/Vomiting: Absent Respiratory: Satisfactory Pain: Controlled Complications: Absent Post Op Complications Complications None Follow Up Care/Instructions Patient Instructions None needed. Anesthesiology Discharge Order Discharge Order Patient is doing well, no complaints, stable vital signs, no apparent adverse anesthesia problems. No complications reported per nursing. LAURIE DAVIDSON CRNA Jul 19, 2021 13:58
--- NOTE | 2021-07-19 18:59 | OPERATIVE REPORT ---
DATE OF SERVICE: 07/19/2021 PREOPERATIVE DIAGNOSIS: Iron deficiency anemia. POSTOPERATIVE DIAGNOSES: Hiatal hernia, colon polyps, diverticulosis. PROCEDURE: EGD with biopsy, colonoscopy with hot biopsy polypectomy x3. SURGEON: Rian Gu DO ANESTHESIA: Per [employer]EREMONIAL CELEBRANT. ESTIMATED BLOOD LOSS: None. COMPLICATIONS: None. SPECIMENS: Antrum and colon polyps. INDICATIONS: The patient is an 80-year-old female with iron deficiency anemia. She understands risks and benefits of procedure and wishes to proceed. Consent was signed in the chart. DESCRIPTION OF PROCEDURE: The patient was taken to the endoscopy suite, placed in left lateral recumbent position. Timeout was performed. Scope was inserted in mouth, down the esophagus, stomach and into the duodenum without difficulty. There were no polyps, masses or ulcerations within the duodenum. Scope was slowly retracted back to stomach where it was further insufflated. A biopsy of the antrum was obtained. No polyps, masses or ulcerations. Scope was retroflexed noting a moderate sized hiatal hernia, no other pathology noted. Scope was returned to its normal position, slowly withdrawn to distal esophagus, which had normal appearance. No polyps, masses or ulcerations. No evidence of any reflux esophagitis. Scope was slowly retracted back until completely removed. Digital rectal exam was performed noting significant hemorrhoidal disease. No palpable polyps, masses or ulcerations. Scope was inserted in the rectum and advanced all the way to cecum with minimal difficulty. Prep was adequate with irrigation and suction. Scope was then slowly retracted back. In the cecum, a small polyp was present, which hot biopsy polypectomy was performed. Scope was then slowly retracted back. Another polyp was present in the ascending colon, which a hot biopsy polypectomy was performed. Scope was then continuously retracted in transverse colon where another small polyp was present, which hot biopsy polypectomy was performed. Scope was continuously retracted back. No polyps, masses, or ulcerations within the descending or sigmoid colon. A moderate amount of diverticulosis is present through the descending and sigmoid colon. Once in the rectum, scope was retroflexed noting no other pathology. Scope was returned to its normal position, slowly withdrawn until completely removed. The patient tolerated procedure well without any complications, taken to recovery room in stable condition. RECOMMENDATIONS: The patient will need a repeat colonoscopy if symptomatic. If she continues to be anemic, we will consider capsule endoscopy. Continue on current medications. The patient will follow up in 2 weeks to discuss pathology results. Job ID: [id number] DocumentID: [id number] Dictated Date: 07/19/2021 12:34:51 Credit Collections Analyst Date: 07/19/2021 18:58:49 Dictated By: RINA GU DO
== END 2021-07-19 13:05 | disposition home or self-care (01) ==
LOC: ENDO 10:19
PROVIDERS: ATTEND Surgery
DX: D12.2 Benign neoplasm of ascending colon (principal); D12.3 Benign neoplasm of transverse colon; K44.9 Diaphragmatic hernia without obstruction or gangrene; K57.30 Diverticulosis of large intestine without perforation or abscess without bleeding; D50.9 Iron deficiency anemia, unspecified; K31.89 Other diseases of stomach and duodenum; I10 Essential (primary) hypertension; E66.9 Obesity, unspecified; E78.00 Pure hypercholesterolemia, unspecified; F41.9 Anxiety disorder, unspecified; Z85.3 Personal history of malignant neoplasm of breast; Z79.82 Long term (current) use of aspirin; Z79.899 Other long term (current) drug therapy; Z68.33 Body mass index [BMI] 33.0-33.9, adult; Z90.89 Acquired absence of other organs
CPT/HCPCS: 88305

== ENCOUNTER → 2021-10-21 | Outpatient (CLI) | payer MEDICARE ==
--- NOTE | 2021-10-21 15:31 | Diagnostic Imaging Report ---
Indication: Pelvic pain. Time of Exam: 1:37 PM Postoperative changes to the left hip are noted. There is a lateral plate and compression screw transfixing the proximal left femur. The hardware appears intact. Both hips demonstrate normal femoral acetabular alignment. There appears to be a fracture through the right inferior pubic ramus, nondisplaced. SI joints and symphysis are non-widened. Impression: Acute-appearing fracture of the right inferior pubic ramus. No other significant abnormality is detected. Dictated by: Dictated on workstation # [id number]
== END ==
LOC: RAD 13:21
PROVIDERS: ATTEND Nurse Practitioner Family
DX: R10.2 Pelvic and perineal pain (principal); W19.XXXA Unspecified fall, initial encounter
CPT/HCPCS: 72170

== ENCOUNTER 2021-11-11 09:40 | Outpatient (RCR) | payer MEDICARE | END 2021-11-15 | disposition home or self-care (01) | PROVIDERS: ATTEND Nurse Practitioner Family | DX: S32.501D Unspecified fracture of right pubis, subsequent encounter for fracture with routine healing (principal); X58.XXXD Exposure to other specified factors, subsequent encounter ==

== ENCOUNTER 2021-12-14 11:24 | Outpatient (RCR) | payer MEDICARE | END 2021-12-15 | disposition home or self-care (01) | PROVIDERS: ATTEND Nurse Practitioner Family | DX: S32.501D Unspecified fracture of right pubis, subsequent encounter for fracture with routine healing (principal); I10 Essential (primary) hypertension; X58.XXXD Exposure to other specified factors, subsequent encounter ==

== ENCOUNTER 2021-12-21 10:29 | Outpatient (RCR) | payer MEDICARE | END 2022-01-15 | disposition home or self-care (01) | PROVIDERS: ATTEND Nurse Practitioner Family | DX: S32.501D Unspecified fracture of right pubis, subsequent encounter for fracture with routine healing (principal); I10 Essential (primary) hypertension; X58.XXXD Exposure to other specified factors, subsequent encounter ==

== ENCOUNTER → 2021-12-27 | Outpatient (CLI) | payer MEDICARE ==
--- NOTE | 2021-12-27 13:03 | Diagnostic Imaging Report ---
INDICATION: Back pain. TIME OF EXAM: 12:22 PM. FINDINGS: Curvature of the lumbar spine is normal. There is grade 1 spondylolisthesis of L4 on L5. The chronic compression deformity of the L1 vertebral body appears similar to radiographs dating back to 2013. The remaining lumbar vertebrae as well as the lower thoracic vertebrae show normal stature and are without an acute compression fracture. There is generalized degenerative disc disease with variable disc space narrowing. There is multilevel facet arthropathy. The aorta is heavily calcified. IMPRESSION: Chronic changes, as described. No acute compression fracture is detected. Dictated by: Dictated on workstation # [id number]
== END ==
LOC: RAD 11:48
PROVIDERS: ATTEND Nurse Practitioner Family
DX: M43.16 Spondylolisthesis, lumbar region (principal); M47.816 Spondylosis without myelopathy or radiculopathy, lumbar region; M51.36 Other intervertebral disc degeneration, lumbar region
CPT/HCPCS: 72100

== ENCOUNTER → 2022-01-04 | Outpatient (CLI) | payer MEDICARE ==
--- NOTE | 2022-01-04 13:35 | Diagnostic Imaging Report ---
INDICATION: Fall with left hip pain and pelvic pain. TIME OF EXAM: 11:47 a.m. FINDINGS: AP view of the pelvis as well as multiple views of the left hip are obtained. Left hip does contain a lateral plate and compression screw. The hardware appears to be intact without fracture or loosening. Femoroacetabular alignment of both hips is normal. There are healing fractures of right-sided superior and inferior pubic rami. There is callus formation present, but fracture lines remain clearly visible. Symphysis is non-widened. IMPRESSION: Postop left hip. There are healing fractures of the right-sided superior and inferior pubic rami. Dictated by: Dictated on workstation # [id number]
== END ==
LOC: RAD 11:29
PROVIDERS: ATTEND Nurse Practitioner Family
DX: M25.512 Pain in left shoulder (principal); S32.511D Fracture of superior rim of right pubis, subsequent encounter for fracture with routine healing; S32.591D Other specified fracture of right pubis, subsequent encounter for fracture with routine healing; X58.XXXD Exposure to other specified factors, subsequent encounter

== ENCOUNTER 2022-11-02 13:04 | Emergency (ER) | payer MEDICARE ==
[~2022-11-02] VITALS: Ht 162.6 cm; Wt 81.6 kg
--- NOTE | 2022-11-02 13:22 | ED Upper Extremity ---
General Chief Complaint: Upper Extremity Stated Complaint: FALL | LT SHOULDER PAIN Nursing Triage Note: PT TO ED BY POV WITH C/O L SHOULDER INJURY. PT REPORTS SHE LOST HER BALANCE WHILE OUT FOR LUNCH, FELL AND LANDED ON HER SHOULDER. DENIES HEAD INJURY OR ANY OTHER PAIN. Source: patient Exam Limitations: no limitations History of Present Illness Date Seen by Provider: November 02, 2022 Time Seen by Provider: 13:19 Initial Comments Patient is a 82-year-old female who was brought to ED by her for left shoulder injury. About 25 minutes ago she [place] the [place] She was standing at the time. She attempted to twist and turn her feet got caught and she fell directly on her left shoulder. Denies hitting her head, loss of consciousness or on blood thinners. She states she is able to move the shoulder a very small amount but does have significant pain. She reports a mild discomfort distally in her fingertips described as more numbness and tingling. She denies elbow pain, hip pain, back pain, chest pain or short of breath, abdominal pain. Denies take anything for pain. She does take Lortab at home for hip pain. Allergies and Home Medications Allergies Coded Allergies: No Known Drug Allergies (Unverified , 02/10/13) Patient Home Medication List Home Medication List Reviewed: Yes Aspirin (Aspirin Ec 81 Mg) 81 Mg Tabec, 81 MG PO DAILY, (Reported) Entered as Reported by: HEENA PERSAUD on 08/20/13826 Calcium Carbonate/Vitamin D3 (Calcium 600 + D Caplet) 1 Each Tablet, 1 EACH PO BID, (Reported) Entered as Reported by: HEENA PERSAUD on 08/20/13826 Carvedilol (Coreg Tablet) 3.125 Mg Tablet, 3.125 MG GT BID, (Reported) Entered as Reported by: HEENA PERSAUD on 08/20/13 08 Denosumab (Prolia) 60 Mg/1 Ml Disp.syrin, 60 MG SQ EVERY SIX MONTHS, (Reported) Entered as Reported by: MICHAEL SOSA on 07/11/211326 Diazepam (Diazepam) 5 Mg Tablet, 5 MG PO DAILY, (Reported) Entered as Reported by: MICHAEL SOSA on 07/11/21 132 Escitalopram Oxalate (Escitalopram Oxalate) 10 Mg Tablet, 15 MG PO DAILY, (Reported) Entered as Reported by: MICHAEL SOSA on 07/11/21 1327 Famotidine (Pepcid) 20 Mg Tablet, 20 MG PO BID, (Reported) Entered as Reported by: MICHAEL SOSA on 07/11/21 132 Fish Oil/Dha/Epa (Fish Oil 1,200 Mg Fish Oil) 1 Each Capsule, 1 EACH PO DAILY, (Reported) Entered as Reported by: HEENA PERSAUD on 08/20/13826 Hydrocodone/Acetaminophen (Hydrocodone-Acetamin 7.5-325) 7.5 Mg-325 Mg Tablet, 1 EACH PO Q6H PRN for PAIN-BREAKTHROUGH Prescribed by: NAYA SUARZE on 11/02/22 1539 Lactobacillus Acidophilus (Probiotic) 1 Each Capsule, 1 EACH PO BID, (Reported) Entered as Reported by: HEENA PERSAUD on 08/20/13826 Letrozole (Letrozole) 2.5 Mg Tablet, 2.5 MG PO DAILY, (Reported) Entered as Reported by: HEENA PERSAUD on 08/20/13826 Multivitamin (Multivitamin) 1 Each Tablet, 1 EACH PO DAILY, (Reported) Entered as Reported by: MICHAEL SOSA on 07/11/21 132 Niacin/Inositol Niacinate (Niacin 500 Mg Capsule) 1 Each Capsule, 1 EACH PO DAILY, (Reported) Entered as Reported by: TIFFANY KANG on 02/10/13 1024 Rosuvastatin Calcium (Crestor) 5 Mg Tablet, 1 EACH PO HS, (Reported) Entered as Reported by: TIFFANY KANG on 02/10/13 1024 Vit A/Vit C/Vit E/Zinc/Copper (Preservision Tablet) 1 Each Tablet, 1 EACH PO DAILY, (Reported) Entered as Reported by: HEENA PERSAUD on 08/20/13826 Vit D3/Folic Acid/B2/B6/B12 (Folgard Tablet) 1 Each Tablet, 1 EACH PO DAILY, (Reported) Entered as Reported by: HEENA PERSAUD on 08/20/13826 Review of Systems Constitutional: No chills, No diaphoresis, No malaise, No weakness EENTM: No blurred vision, No double vision Respiratory: No cough, No dyspnea on exertion Cardiovascular: No chest pain Gastrointestinal: No abdominal pain, No constipation, No nausea, No vomiting Genitourinary: No decreased output Musculoskeletal: joint pain, muscle pain Skin: No change in color, No change in hair/nails All Other Systems Reviewed Negative Unless Noted: Yes Past Xxhaoix-Dnrqav-Dknxrt Hx Immunizations Up To Date First/Initial COVID19 Vaccinat: 07/12/2020 Second COVID19 Vaccination Den: 08/12/2020 Third COVID19 Vaccination Date: 04/08/2021 Seasonal Allergies Seasonal Allergies: No Past Medical History Surgeries: Yes (SHOULDER R REPLACEMENT/L TKR/L BREAST LUMPECTOMY) Appendectomy, Joint Replacement, Orthopedic, Tonsillectomy Respiratory: No Cardiac: Yes High Cholesterol, Hypertension Neurological: No 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 0.0oz. 81.043006zs; 30.00 BMI Method:Stated General Appearance: WD/WN, no apparent distress HEENT: PERRL/EOMI, normal ENT inspection, TMs normal, pharynx normal Neck: non-tender, full range of motion, supple Cardiovascular: regular rate, rhythm, no edema, no gallop, no JVD Respiratory: chest non-tender, lungs clear, normal breath sounds, no res piratory distress Gastrointestinal: normal bowel sounds, non tender, no organomegaly Back: normal inspection, no CVA tenderness, no vertebral tenderness Shoulder: limited ROM (Limited passive and active range of motion left shoulder. Left anterior posterior shoulder tenderness. No obvious bone deformity. Neurovascular intact left arm), pain, soft tissue tenderness Elbow/Forearm: non-tender, no evidence of injury, normal ROM, Left Wrist: Yes normal inspection, Yes non-tender, Yes no evidence of injury Hand: non-tender, Left Neurologic/Tendon: normal sensation, normal motor functions Neurologic/Psychiatric: rivet hole puncher II-XII nml as tested, no motor/sensory deficits, alert, normal mood/affect, oriented x 3 Skin: normal color, warm/dry Procedures/Interventions Patient Education: Explained Benefits, Explained Risks, Pt. Ack. Understanding Agreement on procedure with pt: Yes Breath Sounds per Auscultation: Clear Heart Sounds per Auscultation: Regular Airway Exam: Mouth opens >2 fingers, Neck Full Range of Motion, Visulation of Uvula Sedation Adminstration Time: 14:18 Total Time spent in CS 7 Patient tolerated procedure well. Oxygen did drop to 89% on 2 L. Increased to 5 L with improvement to 96 percent. She did snore. Used jaw thrust for 15 seconds Re-examination Time: 14:25 Re-examination Patient talking and near close to baseline Splinting and Joint Reduction : Pre-Proc Neuro Vasc Exam: normal Post-Proc Neuro Vasc Exam: normal Progress Successful reduction of left shoulder. Patient was placed on the shoulder immobilizer. Neurovascular pre and post reduction. Joint Reduction Site: shoulder (L) Reduction Attempts: 1 Pre-Procedure NV Exam: Yes post joint reduction film: joint reduced Progress/Results/Core Measures Results/Orders My Orders Orders - JORGE SALMON Shoulder, Left, 3 Views (11/02/22 13:19) Hydrocodone/Apap 5/325 Tablet (Lortab 5 (11/02/22 13:30) Iv/Invasive Line Insertion .IV INSERT (11/02/22 13:42) Conscious Sedation (11/02/22 13:50) Vital Signs-Conscious Sedation (11/02/22 13:50) Etomidate Injection (Amidate Injection) (11/02/22 14:00) Ns Iv 1000 Ml (Sodium Chloride 0.9%) (11/02/22 14:15) Ns Iv 1000 Ml (Sodium Chloride 0.9%) (11/02/22 14:15) Medications Given in ED Current Medications Medications Dose Ordered Sig/Barbara Route Start Time Stop Time Status Last Admin Dose Admin Acetaminophen/ Hydrocodone Bitart 1 ea ONCE ONCE PO 11/02/22 13:30 11/02/22 13:31 DC 5/18/23 13:28 1 EA Etomidate 10 mg ONCE ONCE IV 11/02/22 14:00 11/02/22 14:01 DC 11/02/22 14:18 10 MG Vital Signs/I&O 11/02/22 11/02/22 11/02/22 11/02/22 13:12 14:10 14:15 14:23 Temp 36.8 Pulse 68 64 66 Resp 14 27 18 B/P (MAP) 133/73 (93) 206/92 (130) 160/117 (131) Pulse Ox 97 93 96 O2 Delivery Room Air Room Air Nasal Cannula Nasal Cannula O2 Flow Rate 2.00 2.00 11/02/22 11/02/22 11/02/22 11/02/22 14:28 14:33 14:38 14:43 Pulse 66 65 57 61 Resp 23 15 14 20 B/P (MAP) 169/81 (110) 177/83 (114) 182/79 (113) 192/83 (119) Pulse Ox 99 100 98 99 O2 Delivery Nasal Cannula Nasal Cannula Nasal Cannula Nasal Cannula O2 Flow Rate 5.00 5.00 2.00 2.00 11/02/22 11/02/22 11/02/22 11/02/22 14:48 14:53 14:58 15:03 Pulse 59 62 59 63 Resp 16 20 20 15 B/P (MAP) 186/78 (114) 196/76 (116) 179/83 (115) 168/79 (108) Pulse Ox 98 99 99 99 O2 Delivery Nasal Cannula Nasal Cannula Nasal Cannula Nasal Cannula O2 Flow Rate 2.00 2.00 2.00 2.00 11/02/22 11/02/22 11/02/22 11/02/22 15:08 15:13 15:18 15:28 Pulse 59 67 60 67 Resp 20 20 23 11 B/P (MAP) 178/91 (120) 192/84 (120) 192/84 Pulse Ox 98 96 96 96 O2 Delivery Nasal Cannula Room Air Room Air Room Air O2 Flow Rate 2.00 Blood Pressure Mean: 93 Departure Communication (PCP) Reviewed previous ER visits, H&P, lab testing. Patient with mechanical fall landing on her left shoulder. Differential diagnosis left shoulder fracture or dislocation. denies hitting her head or loss of consciousness. Not on blood thinners. GCS 15. Alert and orient x4. No strong evidence of deformity left shoulder. Neurovascular intact. X-ray shows a left anterior dislocation. No evidence of fracture. Discussed with patient recommend procedural sedation with reduction of the left shoulder dislocation. She agreed to proceed. Discussed risks and benefits. Discussed with patient we will have to do procedural sedat ion. She acknowledges and agrees to proceed. No known cardiac history, history of COPD. She does not wear oxygen at home. Denies snoring at home. History of hypertension. Denies diabetes. ASA 2. Mallampti score of 2. Oxygen 95% on room air. She was hypertensive but likely secondary to pain. She does take medication. initially was given Lortab 5mg for pain. Benefits would be reduction of the left shoulder. Risk would be respiratory distress requiring supplemtal oxygen or cardiac dysfunction. She acknowledges and agrees to proceed. She did sign consent. Proceeded with etomidate 10 mg. Successful attempt of reduction of the left shoulder 1 attempt.. total time in CS 7 minutes. She was observed for 1 hour with continue improvement of symptoms. Did have to increase her oxygen from 2 L to 5 L during sedation and use jaw thrust for 15 seconds. Patient was placed in a shoulder immobilizer. Successful reduction with x-ray. No evidence of fracture. Need patient to follow-up with orthopedic in 1 week for further evaluation. She does have pain medication at home. Discussed all results with patient and family at bedside. Impression Primary Impression: Dislocation of left shoulder joint Disposition: 01 HOME, SELF-CARE Condition: Stable Departure-Patient Inst. Decision time for Depature: 15:09 Referrals: SETH DODSON MD (PCP/Family) Primary Care Physician ALLIE DIAZ MD Patient Instructions: Shoulder Dislocation Add. Discharge Instructions: Need to follow-up with Dr. Diaz for further evaluation. Keep the arm in the left immobilizer. Okay to take a shower and remove the immobilizer. Do not move the arm if you do this. Take pain medication at home. Ice to help with p ain and swelling. Return back to ED if symptoms worsen such as pain or potential dislocation All discharge instructions reviewed with patient and/or family. Voiced understanding. Scripts Hydrocodone/Acetaminophen (Hydrocodone-Acetamin 7.5-325) 7.5 Mg-325 Mg Tablet 1 EACH PO Q6H PRN for PAIN-BREAKTHROUGH, #10 TAB Prov: JORGE SALMON 11/02/22 JORGE SALMON November 02, 2022 13:22
[2022-11-02] MEDS ORDERED: HYDROcodone/APAP 5 MG/325 MG (LORTAB) TAB PO ONE (13:30)
[2022-11-02] MEDS ORDERED: ETOMIDATE IV SOLN 20 MG/10 ML VIAL IV ONE (14:00)
--- NOTE | 2022-11-02 14:03 | Diagnostic Imaging Report ---
Indication: Fall with left shoulder pain. AP, oblique, and transscapular views of the left shoulder obtained at 1:45 p.m. There is anterior, or subcoracoid dislocation of the left glenohumeral joint. There is no acute fracture seen. There is underlying degenerative change of the AC joint. Impression: Acute anterior subcoracoid dislocation of the left glenohumeral joint. Dictated by: Dictated on workstation # [id number]
[2022-11-02] MEDS ORDERED: NS IV 1000 ML 1,000 ML IV STA (14:15)
[2022-11-02] MEDS ORDERED: NS IV 1000 ML 1,000 ML ONE (14:15)
--- NOTE | 2022-11-02 14:36 | Diagnostic Imaging Report ---
INDICATION: Post reduction. FINDINGS: Single AP radiograph shows successful reduction of prior complete subcoracoid glenohumeral dislocation. No visible fracture. IMPRESSION: Joint has been successfully reduced with no visible fracture at AP radiograph. Dictated by: Dictated on workstation # [id number]
[2022-11-02 15:28] VITALS: BP 192/84
[2022-11-02] MEDS ORDERED: HYDR-3817 PO (15:39)
== END 2022-11-02 15:39 | disposition home or self-care (01) ==
LOC: EDUNIT# 13:04 → ER 13:06
DX: S43.005A Unspecified dislocation of left shoulder joint, initial encounter (principal); M25.559 Pain in unspecified hip; Z79.891 Long term (current) use of opiate analgesic; W18.30XA Fall on same level, unspecified, initial encounter; Y92.59 Other trade areas as the place of occurrence of the external cause
CPT/HCPCS: 73030; 93041

== ENCOUNTER → 2022-12-15 | Outpatient (RCR) | payer MEDICARE ==
[~2022-12-15] MED LIST changes: +HYDR-3817 PO
== END | disposition home or self-care (01) ==
PROVIDERS: ATTEND Family Medicine Sports Medicine
DX: M25.312 Other instability, left shoulder (principal); I10 Essential (primary) hypertension

== ENCOUNTER 2022-12-29 11:06 | Outpatient (RCR) | payer MEDICARE | END 2023-01-15 | disposition home or self-care (01) | PROVIDERS: ATTEND Family Medicine Sports Medicine | DX: M25.312 Other instability, left shoulder (principal); I10 Essential (primary) hypertension ==

== ENCOUNTER → 2023-05-18 | Outpatient (CLI) | payer MEDICARE ==
--- NOTE | 2023-05-18 13:23 | Diagnostic Imaging Report ---
EXAMINATION: Radiographs of the sacrum and coccyx, 3 views. COMPARISON: None. HISTORY: 82-year-old female, low back pain for one month. FINDINGS: The sacroiliac joints are unremarkable in alignment. There is no radiographically apparent fracture of the sacrum or coccyx. There are bilateral facet degenerative changes at L4-L5 with grade 1 anterolisthesis of L4 on L5. There is no sacral joint space loss or evidence of a seronegative spondyloarthropathy. IMPRESSION: 1. Unremarkable evaluation of the sacroiliac joints. 2. No identified displaced sacral or coccygeal fracture radiographically. 3. Grade 1 anterolisthesis of L4 on L5 relating to facet arthropathy. Dictated by: Dictated on workstation # [id number]
--- NOTE | 2023-05-18 16:22 | Diagnostic Imaging Report ---
CLINICAL INDICATION: Patient with low back pain x1 month. No known injury. EXAM: X-ray of the lumbar spine, multiple views. COMPARISON: X-ray of the lumbar spine, multiple views dated 12/27/2021. FINDINGS: There is no interval acute lumbar spine fracture. There is a stable roughly 40-50% chronic compression fracture deformity involving the L1 vertebra. There is stable grade 1 retrolisthesis of L1 on L2 and L2 on L3. There is grade 1 anterolisthesis of L4 on L5 again seen. There is lower lumbar spine facet arthropathy/sclerosis. There are degenerative spurs involving the lumbar spine. There is [id number] loss of disk space height at the L1-L2 level. IMPRESSION: 1: There is no acute lumbar spine fracture. Stable chronic L1 fracture deformity. 2: There is multilevel lumbar spine degenerative disease. Dictated by: Dictated on workstation # [id number]
== END ==
LOC: RAD 09:45
PROVIDERS: ATTEND Family Medicine
DX: M51.16 Intervertebral disc disorders with radiculopathy, lumbar region (principal); M43.16 Spondylolisthesis, lumbar region
CPT/HCPCS: 72110; 72220